=== PATIENT | male | born 1950 | race Caucasian/White ===

== ENCOUNTER → 2017-06-04 | Outpatient (CLI) | payer MEDICARE | END | disposition home or self-care (01) | LOC: US 12:12 | DX: E04.2 Nontoxic multinodular goiter (principal); I10 Essential (primary) hypertension; E11.9 Type 2 diabetes mellitus without complications | CPT/HCPCS: 60300; 76942; 88173; 88305 ==

== ENCOUNTER → 2017-06-26 | Outpatient (CLI) | payer MEDICARE | END | disposition home or self-care (01) | LOC: KCIC 08:56 | DX: K22.4 Dyskinesia of esophagus (principal); K44.9 Diaphragmatic hernia without obstruction or gangrene; K21.9 Gastro-esophageal reflux disease without esophagitis | CPT/HCPCS: 74220 ==

== ENCOUNTER → 2017-10-06 | Outpatient (CLI) | payer MEDICARE | END | disposition home or self-care (01) | LOC: KCIC MRI 09:52 | DX: M48.061 Spinal stenosis, lumbar region without neurogenic claudication (principal); M51.36 Other intervertebral disc degeneration, lumbar region; D18.09 Hemangioma of other sites; I10 Essential (primary) hypertension; E11.9 Type 2 diabetes mellitus without complications | CPT/HCPCS: 72148 ==

== ENCOUNTER 2017-10-17 12:11 | Emergency (ER) | payer MEDICARE ==
[2017-10-17] MEDS: SODIUM PHOSPHATES 19/7GM 133 ML ENEMA. PR (13:27)
== END 2017-10-17 14:55 | disposition home or self-care (01) ==
LOC: ER 12:11
DX: K59.00 Constipation, unspecified (principal); K62.89 Other specified diseases of anus and rectum; I10 Essential (primary) hypertension; E78.00 Pure hypercholesterolemia, unspecified; E11.9 Type 2 diabetes mellitus without complications; Z90.49 Acquired absence of other specified parts of digestive tract; Z98.890 Other specified postprocedural states
CPT/HCPCS: 99282

== ENCOUNTER → 2017-10-22 | Outpatient (CLI) | payer MEDICARE ==
[~2017-10-22] MED LIST: IOHEXOL 180 MG/ML 10 ML VIAL.; LIDOCAINE 1% PF 2 ML VIAL.; methylPREDNISolone ACETATE 40 MG/ML VIAL.; methylPREDNISolone ACETATE 80 MG/ML VIAL.
== END ==
LOC: PNCL 08:32
DX: M51.16 Intervertebral disc disorders with radiculopathy, lumbar region (principal); M48.061 Spinal stenosis, lumbar region without neurogenic claudication; I10 Essential (primary) hypertension; E11.9 Type 2 diabetes mellitus without complications; E78.00 Pure hypercholesterolemia, unspecified; K44.9 Diaphragmatic hernia without obstruction or gangrene; K21.9 Gastro-esophageal reflux disease without esophagitis; D64.9 Anemia, unspecified; Z87.39 Personal history of other diseases of the musculoskeletal system and connective tissue; Z86.711 Personal history of pulmonary embolism; Z98.890 Other specified postprocedural states; Z90.49 Acquired absence of other specified parts of digestive tract; Z85.46 Personal history of malignant neoplasm of prostate; Z98.52 Vasectomy status
CPT/HCPCS: 62323; J1030; J1040; Q9965

== ENCOUNTER → 2017-11-05 | Outpatient (CLI) | payer MEDICARE | END | disposition home or self-care (01) | LOC: PNCL 08:22 | DX: M51.16 Intervertebral disc disorders with radiculopathy, lumbar region (principal); M48.061 Spinal stenosis, lumbar region without neurogenic claudication; M96.1 Postlaminectomy syndrome, not elsewhere classified | CPT/HCPCS: G0463 ==

== ENCOUNTER 2017-11-21 17:39 | Emergency (ER) | payer MEDICARE ==
[2017-11-21] MEDS: diazePAM 5 MG TABLET PO (18:57)
[2017-11-21] MEDS: MORPHINE SULFATE 10 MG/ML VIAL. IM (18:58)
[2017-11-21] MEDS: KETOROLAC 60 MG/2 ML INJ. IM (18:59)
== END 2017-11-21 19:04 | disposition home or self-care (01) ==
LOC: ER 19:04
DX: G89.29 Other chronic pain (principal); M54.42 Lumbago with sciatica, left side; E78.00 Pure hypercholesterolemia, unspecified; E11.9 Type 2 diabetes mellitus without complications; I10 Essential (primary) hypertension; Z90.49 Acquired absence of other specified parts of digestive tract; Z98.890 Other specified postprocedural states
CPT/HCPCS: 96372; 99284; J1885; J2270

== ENCOUNTER → 2017-12-01 | Outpatient (CLI) | payer MEDICARE | END | disposition home or self-care (01) | LOC: PNCL 09:57 | DX: M51.16 Intervertebral disc disorders with radiculopathy, lumbar region (principal); M48.061 Spinal stenosis, lumbar region without neurogenic claudication; M96.1 Postlaminectomy syndrome, not elsewhere classified; E78.00 Pure hypercholesterolemia, unspecified; I10 Essential (primary) hypertension; Z86.711 Personal history of pulmonary embolism; G47.30 Sleep apnea, unspecified; Z90.49 Acquired absence of other specified parts of digestive tract; K21.9 Gastro-esophageal reflux disease without esophagitis; Z85.46 Personal history of malignant neoplasm of prostate; Z98.52 Vasectomy status; M17.0 Bilateral primary osteoarthritis of knee; E11.9 Type 2 diabetes mellitus without complications; D64.9 Anemia, unspecified; Z98.890 Other specified postprocedural states; Z82.3 Family history of stroke; Z83.3 Family history of diabetes mellitus; Z80.0 Family history of malignant neoplasm of digestive organs; Z80.51 Family history of malignant neoplasm of kidney; Z80.52 Family history of malignant neoplasm of bladder; Z82.49 Family history of ischemic heart disease and other diseases of the circulatory system; Z82.0 Family history of epilepsy and other diseases of the nervous system; Z79.84 Long term (current) use of oral hypoglycemic drugs | CPT/HCPCS: 62323; J1030; J1040; Q9965 ==

== ENCOUNTER → 2017-12-03 | Outpatient (CLI) | payer MEDICARE | END | disposition home or self-care (01) | LOC: US 14:54 | DX: E04.2 Nontoxic multinodular goiter (principal) | CPT/HCPCS: 76536 ==

== ENCOUNTER → 2018-01-08 | Outpatient (CLI) | payer MEDICARE ==
[2017-11-21 18:27] VITALS: BP 134/74
[~2018-01-08] MED LIST changes: +ACET325T9 PO; +ASCO100T4 PO; +ASPI-630 PO; +ATEN50TA PO; +COLON HEALTH PO; +DIAZ5TAB PO; +DICL50TA4 PO; +DOCU-109 PO; +DULO30CA43 PO; +FAMO1TAB22 PO; +FERR159T3 PO; +FERR325T58 PO; +GABA-585 PO; +GABA-586 PO; +GABA600T2 PO; +GEMF600T3 PO; +GING250C PO; +GLIP5TAB10 PO; +GLYB5TAB3 PO; +HYDR-971 PO; +INSU100I18 SQ; -IOHEXOL 180 MG/ML 10 ML VIAL.; +LACT1CAP29 PO; +LACT1CAP8 PO; -LIDOCAINE 1% PF 2 ML VIAL.; +LIRA0.6P2 SQ; +LISI1TAB5 PO; +LORA10TA3 PO; +METF10003 PO; +METF500T5 PO; +METH-38 PO; +MULT-404 PO; +MULT-658 PO; +MULT-690 PO; +NAPR-634 PO; +NAPR500T8 PO; +NPH,100V5 SQ; +OMEG1CAP27 PO; +OMEG1CAP6 PO; +OMEP40CA5 PO; +RANI300T3 PO; +SIMV20TA PO; +SIMV20TA3 PO; +VITA400T6 PO; -methylPREDNISolone ACETATE 40 MG/ML VIAL.; -methylPREDNISolone ACETATE 80 MG/ML VIAL.
== END | disposition home or self-care (01) ==
LOC: SURGPAT 10:34
PROVIDERS: ATTEND Neurological Surgery
DX: Z01.818 Encounter for other preprocedural examination (principal); M48.062 Spinal stenosis, lumbar region with neurogenic claudication; M54.16 Radiculopathy, lumbar region; M17.0 Bilateral primary osteoarthritis of knee; I10 Essential (primary) hypertension; E11.9 Type 2 diabetes mellitus without complications; E78.5 Hyperlipidemia, unspecified; E78.00 Pure hypercholesterolemia, unspecified; K21.9 Gastro-esophageal reflux disease without esophagitis; I25.10 Atherosclerotic heart disease of native coronary artery without angina pectoris; Z79.84 Long term (current) use of oral hypoglycemic drugs; Z85.46 Personal history of malignant neoplasm of prostate; Z85.89 Personal history of malignant neoplasm of other organs and systems; Z87.39 Personal history of other diseases of the musculoskeletal system and connective tissue; Z90.49 Acquired absence of other specified parts of digestive tract; Z80.52 Family history of malignant neoplasm of bladder; Z80.51 Family history of malignant neoplasm of kidney; Z82.0 Family history of epilepsy and other diseases of the nervous system; Z83.3 Family history of diabetes mellitus; Z80.0 Family history of malignant neoplasm of digestive organs
CPT/HCPCS: 36415; 87641

== ENCOUNTER 2018-01-15 07:24 | Day surgery (SDC) | payer MEDICARE ==
--- NOTE | 2018-01-14 15:02 | HP ---
ADMIT DATE: 01/15/2018 HISTORY OF PRESENT ILLNESS: The patient is a pleasant 67-year-old who in 1996 underwent lumbar microsurgery and did well from that. Over the last 2 years, he has developed increasing lower back pain and more recently pain which radiates into his left anterior lateral thigh and leg. Most of the pain tends to stop at the knee, but some pain extends below the knee. He feels as though there is weakness in his left leg. The problem became very severe in August of this year. He says his pain is a 6/10 constantly. Walking or lifting markedly increases his pain. He does get some relief by sitting. He has been taking Aleve. There is no problem on the right side, and he has had epidural steroid injections in September. He said the first injection did help him, the second one did not. PAST MEDICAL HISTORY: Anemia, arthritis, cancer, hypertension, radiation, shingles, tonsillitis, sleep apnea, diabetes. PAST SURGICAL HISTORY: Pneumonia, cholecystectomy, bilateral hernia repair in 1991, ruptured colon 1996, lumbar surgery 1996, left shoulder repair in 2009, left knee scope 1999, seed implants for prostate cancer in 2007. FAMILY HISTORY: Cancer, diabetes, hypertension, migraine headaches and spine problems. SOCIAL HISTORY: Retired. . Rarely exercises. Denies substance abuse. Denies tobacco use. Drinks alcohol 1-2 times per year. Drinks soda daily. ALLERGIES: No known drug allergies. CURRENT MEDICATIONS: Metformin, glipizide, atenolol, lisinopril, simvastatin, gabapentin, Novolin, Centrum Silver, fish oil, vitamin C, iron, naproxen, Aleve. REVIEW OF SYSTEMS: A 12-point review of systems was obtained and is noncontributory except that mentioned above. PHYSICAL EXAMINATION: NEUROSURGERY EXAMINATION: GENERAL APPEARANCE: Alert, pleasant, no acute distress. HEAD: Normocephalic and atraumatic. SKIN: Warm and dry. MUSCULOSKELETAL: Lumbar paraspinal muscle bulk is normal, restricted range of motion of the lumbar spine, [id number] tenderness of lower lumbar spine with palpation, normal range of motion of the lower extremities bilaterally. EXTREMITIES: No clubbing, cyanosis or edema. NEUROLOGIC: Alert and oriented times 3, normal recent and remote memory, strength 5/5 in bilateral lower extremities, sensory was intact to light touch in bilateral lower extremities with decrease in the left anterior lateral thigh, reflexes are present and symmetric in the lower extremities bilaterally, negative straight raising bilaterally, normal gait. IMAGING: I reviewed a lumbar MRI scan. On that study at L3-L4, there is disc bulging, which when combined with degenerative thickened ligamentum flavum results in moderate central canal stenosis and moderate lateral recess narrowing on the left. ASSESSMENT/ PLAN: Based on his symptoms, I feel the problem is primarily lateral recess stenosis at L3-L4. He failed conservative measures. I spoke with him about treatment options. One option would be to try microdecompression at L3-L4 on the left to see this will help him. We spoke about the risks, technique and expected post op course. He gerhard like to go ahead. CELINE NIETO MD DR: RONAK/kallie JOB#: [id number] / [id number] MJ
[~2018-01-15] VITALS: Ht 182.9 cm; Wt 118.8 kg
[~2018-01-15 07:24] MED LIST changes: +BACITRACIN 50,000 UNIT in IV NORMAL SALINE 1000ML BAG 1,000 ML IRR ONE; +BUPIVAC MPF-EPI 0.5%-1:200000 30 ML VIAL. INJ ONE; -DOCU-109 PO; +GELATIN SPONGE SIZE 100. ONE; -HYDR-971 PO; +HYDROmorphone 2 MG/ML VIAL IV PRN; +IV RINGERS,LACTATED 1000ML 1,000 ML IV SCH; +KETOROLAC 60 MG/2 ML INJ FOR OR. ONE; +LIDOCAINE 1% PF 2 ML VIAL. ID PRN; -METH-38 PO; +MORPHINE SULFATE 2 MG/ML VIAL. IV PRN; +ONDANSETRON PF 4 MG/2 ML VIAL. IV PRN; +PROCHLORPERAZINE 10 MG/2 ML VIAL. IV PRN; +THROMBIN TOPICAL 20,000 UNIT SPRAY.SYRN KIT TP ONE; +fentaNYL PF VIAL 100 MCG/2 ML VIAL IV PRN
[2018-01-15] MEDS ORDERED: ONDANSETRON PF 4 MG/2 ML VIAL. ONE (07:51)
[2018-01-15] MEDS ORDERED: ROCURONIUM 50 MG/5 ML VIAL. ONE (07:51)
[2018-01-15] MEDS ORDERED: PROPOFOL 20 ML IV ONE (07:51)
[2018-01-15] MEDS ORDERED: PROPOFOL 50 ML IV ONE ×2 (07:51→10:11)
[2018-01-15] MEDS ORDERED: DEXAMETHASONE SOD PHOS 20 MG/5 ML VIAL. ONE (07:51)
[2018-01-15] MEDS ORDERED: fentaNYL PF VIAL 100 MCG/2 ML VIAL ONE (07:51)
[2018-01-15] MEDS ORDERED: LIDOCAINE 2% PF Vial for OR 5 ML VIAL. ONE (07:51)
[2018-01-15] MEDS ORDERED: MIDAZOLAM HCL/PF 2 MG/2 ML VIAL. ONE (07:54)
[2018-01-15] MEDS ORDERED: REMIFENTANIL 1 MG VIAL. IV ONE (08:00)
[2018-01-15] MEDS ORDERED: ePHEDrine PF IN SALINE 50 MG/5 ML DISP.SYRIN IV ONE (09:22)
[2018-01-15] MEDS ORDERED: PHENYLEPHRINE in 0.9% NACL PF 1 MG/10 ML SYRINGE. IV ONE (09:36)
[2018-01-15] MEDS ORDERED: PHENYLEPHRINE 10 MG/ML VIAL. ONE (09:36)
[2018-01-15] MEDS ORDERED: GLYCOPYRROLATE 1 MG/5 ML VIAL. ONE (09:39)
[2018-01-15] MEDS ORDERED: DESFLURANE 61 TO 120 MINUTES IH ONE (10:42)
[2018-01-15] MEDS ORDERED: NEOSTIGMINE METHYLSULFATE 5 MG/5 ML SYRINGE. ONE (10:42)
--- NOTE | 2018-01-15 11:03 | DISCH ---
DISCHARGE INSTRUCTIONS Condition on Discharge Condition on Discharge: Stable Activity After Discharge Activity Instructions for Disc: Activity as tolerated, Avoid exertion Other activity instructions: no driving for a week Bathing Instructions: Shower-keep dressing dry Lifting Instructions after Dis: No heavy lifting, No pulling or pushing, Do not lift >10 pounds Weight Bearing Status after Di: As tolerated Diet after Discharge Diet after Discharge: Diabetic No Calorie Level Additional Diet Restrictions: resume home diet Wound Incision Care Wound/Incision Care: Ice to area for comfort Other wound/incision instructi: may remove dressing in 48 hrs if dry then may shower- no soaking Checks after Discharge Checks after discharge: Check blood sugar, ac/hs Contacting the DRAngelita after DC Call your doctor for: Concerns you may have Follow-Up Follow up with: Dr. Nieto's nurse in 2 weeks [phone] CELINE NIETO MD Jan 15, 2018 11:03
[2018-01-15] MEDS ORDERED: HYDR-971 PO (11:07)
[2018-01-15] MEDS ORDERED: DOCU-109 PO (11:07)
[2018-01-15] MEDS ORDERED: METH-38 PO (11:07)
--- NOTE | 2018-01-15 11:42 | OP ---
DATE OF SURGERY: 01/15/2018 PREOPERATIVE DIAGNOSIS: Lateral recess stenosis and radiculopathy, L3-L4, left. POSTOPERATIVE DIAGNOSIS: Lateral recess stenosis and radiculopathy, L3-L4, left. OPERATION PERFORMED: Hemilaminotomy and microdecompression L3-L4 left with decompression of left L4 nerve root. The operation was done with EMG monitoring, fluoroscopy, microscopic dissection. ONLINE CONTENT EDITOR: ANIRUDH Hoffmann assisted with surgery. She assisted with the exposure, the microdecompression as well as closure. OPERATIVE INDICATIONS: The patient is a pleasant 67-year-old man who developed severe intractable back and left leg pain and was found to have significant lateral stenosis at L3-L4. I recommended lumbar microsurgery. I spoke about the surgery and the risks, technique and expected postoperative course and he wished to go ahead. DESCRIPTION OF PROCEDURE: Following general endotracheal anesthesia, the patient was positioned prone on the Apolinar table. His lumbar region was prepped and draped in standard fashion. MIKALA hose and AV impulse boots were applied for DVT prophylaxis. A microscope was draped. Fluoroscopy was draped and brought in the field. Monitoring was established. Ancef 2 grams was given less than 1 hour prior to initiation of the surgery. Using fluoroscopic guidance, a midline posterior incision was made. Dissection carried down through skin and subcutaneous tissue and the paraspinal muscles reflected and a Ward micro disk retractor was placed. The microscope was brought in and the remainder of surgery done with the microscope using microscopic technique. I burred down a generous hemilaminotomy with a high-speed air drill. The ligamentum flavum then was freed up from the edges and peeled and from medial toward laterally. I did perform a partial foraminotomy with a high-speed air drill and supplemented this with a micro Kerrison. As I worked, the region became very well decompressed. The dura was under considerable pressure from hypertrophic bone and ligament. I gently retracted the nerve root and dura medially with a micro nerve root retractor. There was a very firm disk and no diskectomy was warranted. I did coagulate a few epidural veins. As I worked, the region became very well decompressed. I then irrigated with antibiotic solution. I did use small amounts of bone wax as well as a bipolar cautery for hemostasis. I removed the retractor and obtained hemostasis in the muscle and irrigated. I then closed the wound in layers with absorbable suture and the skin was closed with 4-0 subcuticular stitch. The surgery went very well and the patient was awakened uneventfully. I was quite pleased with the surgery. CELINE NIETO MD DR: RONAK/kallie JOB#: [id number] / [id number]
[2018-01-15] MEDS ORDERED: HYDROcodone/APAP 5/325MG 1 TAB TABLET PO ONE (11:45)
[2018-01-15] MEDS ORDERED: INSULIN ASPART 100 UNIT/ML 10ML VIAL. SQ ONE (12:15)
[2018-01-15 12:47] VITALS: BP 130/80
--- NOTE | 2018-01-18 18:06 | PATHOLOGY ---
[facility] Accession Number: [id number] . 01 Material submitted: . LUMBAR DECOMPRESSION, L3-4 . 01 Clinical history: . Lumbar stenosis, radiculopathy. . 02 Diagnosis: Segments of fibrocartilaginous, adipose, and skeletal muscle tissue and bone, lumbar decompression: - Degenerative changes of fibrocartilaginous tissue. ([facility]; 01/18/2018) QMS/01/18/2018 . 02 Comment: There is no evidence of an acute inflammatory process or malignancy. . 02 Electronically signed: . Puneet Wells MD, Pathologist NPI- [id number] . 01 Gross description: . Received in formalin labeled "Tang Giang., Dearl, lumbar decompression" is a 5.2 x 3.1 x 0.7 cm aggregate of zepeda-white soft tissue and bone fragments. Composite Engineer sections of the specimen are submitted in cassette A1 following decalcification. ([facility]; 01/17/2018) SYC/SYC . 02 Pathologist provided ICD-10: M51.36 . 02 CPT . 057227, [id number] Performed at: 01 [facility] [address], [place] [id number] MD Jett Irvin MD Phone: [phone] Performed at: 02 [facility] [address], [place] [id number] MD Puneet Wells MD Phone: [phone]
== END 2018-01-15 13:55 | disposition home or self-care (01) ==
LOC: SURG 07:24
PROVIDERS: ATTEND Neurological Surgery
DX: M48.061 Spinal stenosis, lumbar region without neurogenic claudication (principal); M51.16 Intervertebral disc disorders with radiculopathy, lumbar region; I10 Essential (primary) hypertension; E11.9 Type 2 diabetes mellitus without complications; G47.30 Sleep apnea, unspecified; D64.9 Anemia, unspecified; M19.90 Unspecified osteoarthritis, unspecified site; Z87.01 Personal history of pneumonia (recurrent); Z90.49 Acquired absence of other specified parts of digestive tract; Z98.890 Other specified postprocedural states; Z85.46 Personal history of malignant neoplasm of prostate; Z83.3 Family history of diabetes mellitus; Z82.49 Family history of ischemic heart disease and other diseases of the circulatory system; Z72.89 Other problems related to lifestyle; Z79.899 Other long term (current) drug therapy; Z79.84 Long term (current) use of oral hypoglycemic drugs
CPT/HCPCS: 63030; 82962; 88304; 88311; 97162; 97530; G8978; G8979; G8980; J0690; J1100; J1885; J2001; J2250; J2370; J2405; J2704; J2710; J3010; J3490; J7030; 76000; A7015

== ENCOUNTER → 2018-06-03 | Outpatient (CLI) | payer MEDICARE, OTHER ==
[~2018-06-03] MED LIST changes: +ASPI325T11 PO; -BACITRACIN 50,000 UNIT in IV NORMAL SALINE 1000ML BAG 1,000 ML IRR ONE; -BUPIVAC MPF-EPI 0.5%-1:200000 30 ML VIAL. INJ ONE; +DOCU-109 PO; -DULO30CA43 PO; +DULO30CA44 PO; -GABA-586 PO; +GABA300C18 PO; -GABA600T2 PO; +GABA600T7 PO; -GELATIN SPONGE SIZE 100. ONE; -GEMF600T3 PO; +GEMF600T8 PO; +HYDR-3164 PO; -HYDROmorphone 2 MG/ML VIAL IV PRN; -IV RINGERS,LACTATED 1000ML 1,000 ML IV SCH; -KETOROLAC 60 MG/2 ML INJ FOR OR. ONE; -LIDOCAINE 1% PF 2 ML VIAL. ID PRN; -METF10003 PO; +METF10007 PO; +METF500T16 PO; -METF500T5 PO; +METH-38 PO; -MORPHINE SULFATE 2 MG/ML VIAL. IV PRN; +OMEP20CA10 PO; -ONDANSETRON PF 4 MG/2 ML VIAL. IV PRN; -PROCHLORPERAZINE 10 MG/2 ML VIAL. IV PRN; -THROMBIN TOPICAL 20,000 UNIT SPRAY.SYRN KIT TP ONE; +TOPI25TA52 PO; -fentaNYL PF VIAL 100 MCG/2 ML VIAL IV PRN
--- NOTE | 2018-06-03 12:05 | CARD ---
MR#: [id number] Date of Study: 06/03/2018 Ordering Physician: TAMIKO GALARZA, Referring Physician: TAMIKO GALARZA Tech: Eneida Cardozo RDCS APPROVED REPORT EXAM: Two-dimensional and M-mode echocardiogram with Doppler and color Doppler. Other Information Quality : AverageHR: 58bpm Rhythm : NSR INDICATION Hypertension/HCVD 2D DIMENSIONS RVDd3.0 (2.9-3.5cm)Left Atrium(2D)3.8 (1.6-4.0cm) IVSd1.2 (0.7-1.1cm)Aortic Root(2D)3.8 (2.0-3.7cm) LVDd4.9 (3.9-5.9cm)LVOT Diameter2.2 (1.8-2.4cm) PWd0.9 (0.7-1.1cm)LVDs3.5 (2.5-4.0cm) FS (%) 28.0 %SV61.9 ml LVEF(%)54.1 (>50%) M-Mode DIMENSIONS Left Atrium(MM)3.90 (2.5-4.0cm)Aortic Root3.98 (2.2-3.7cm) Aortic Valve AoV Peak Bull.119.0cm/sAoV VTI30.5cm AO Peak GR.5.7mmHgLVOT Peak Bull.101.3cm/s AO Mean GR.4mmHgAVA (VMAX)3.15cm2 ROBERTO CARLOS (VTI)3.00cm2 Mitral Valve MV E Qrapuqvs52.2cm/sMV DECEL [id number] MV A Pgqibzjq86.1cm/sE/A Ratio0.7 MV A Owjotzeu219wq Pulmonary Valve PV Peak Tbrnfihe06.8cm/s LEFT VENTRICLE The left ventricle is normal size. Proximal septal thickening is noted. The left ventricular systolic function is normal. The Ejection Fraction is 55-60%. There is normal LV segmental wall motion. Trans mitral Doppler flow pattern is Grade I-abnormal relaxation pattern. RIGHT VENTRICLE The right ventricle is normal size. There is normal right ventricular wall thickness. The right ventr icular systolic function is normal. ATRIA The left atrium size is normal. The right atrium size is normal. The interatrial septum is intact wit h no evidence for an atrial septal defect or patent foramen ovale as noted on 2-D or Doppler imaging. AORTIC VALVE The aortic valve is normal in structure and function. The aortic valve is trileaflet. Doppler and Col or Flow revealed no significant aortic regurgitation. There is no significant aortic valvular stenosi s. MITRAL VALVE The mitral valve is normal in structure and function. There is no evidence of mitral valve prolapse. There is no mitral valve stenosis. Doppler and Color-flow revealed trace mitral regurgitation. TRICUSPID VALVE The tricuspid valve is normal in structure and function. Doppler and Color Flow revealed trace tricus pid regurgitation. There is no tricuspid valve prolapse or vegetation. There is no tricuspid valve st enosis. PULMONIC VALVE The pulmonary valve is normal in structure and function. Doppler and Color Flow revealed trace pulmon ic valvular regurgitation. There is no pulmonic valvular stenosis. GREAT VESSELS The aortic root is mildly enlarged. The ascending aorta is normal in size. The IVC is normal in size and collapses >50% with inspiration. PERICARDIAL EFFUSION There is no evidence of significant pericardial effusion. Critical Notification Critical Value: No <Conclusion> The left ventricular systolic function is normal. The Ejection Fraction is 55-60%. There is normal LV segmental wall motion. Transmitral Doppler flow pattern is Grade I-abnormal relaxation pattern. Trace mitral regurgitation. Trace tricuspid regurgitation. There is no evidence of significant pericardial effusion. Signed by : Tamiko Galarza, Electronically Approved : 06/03/2018 12:02:54
== END | disposition home or self-care (01) ==
LOC: ECHO 10:39 → MERGE 11:00
PROVIDERS: ATTEND Internal Medicine Cardiovascular Disease
DX: I10 Essential (primary) hypertension (principal)
CPT/HCPCS: 93306

== ENCOUNTER 2018-07-20 15:39 | Inpatient (IN) | payer MEDICARE, OTHER ==
[~2018-07-20] VITALS: Ht 182.9 cm; Wt 89.1 kg
[~2018-07-20 15:39] MED LIST changes: -ASPI325T11 PO; +DULO30CA43 PO; -DULO30CA44 PO; -OMEP20CA10 PO; -TOPI25TA52 PO
[2018-07-20] MEDS ORDERED: IV NORMAL SALINE 1000ML BAG 1,000 ML IV ONE (16:00)
--- NOTE | 2018-07-20 16:03 | PHYS DOC ---
Past Medical History Past Medical History: Cancer, Diabetes-Type II, High Cholesterol, Hypertension , Other Additional Past Medical Histor: CARDIONEUROGENIC SYNCOPE, hernia Past Surgical History: Appendectomy, Cholecystectomy, Other Additional Past Surgical Histo: BACK SURGERY, LT KNEE SURGERY, COLON RESECTION, Alcohol Use: Rarely Drug Use: None Adult General Chief Complaint Chief Complaint: SYNCOPE HPI HPI Patient is a 68 year old male with history of diabetes, hypertension, high cholesterol, who presents to the ED today complaining of a syncope episode. Patient states he stood up from sitting position and was ambulating to the front room, he got dizzy, and passed out landing half of his body on a bed. Patient states he has had multiple syncope episodes before, he states he has been worked up and they found out he had cardiac neurogenic syncope, he states he has not fainted for a very long time. He states the last time he passed out his potassium was either too low too high. Patient denies any dizziness right now. Denies any headache or chest pain. PCP Dr. Comfort Lazar Review of Systems Review of Systems Constitutional: Denies fever or chills [] Eyes: Denies change in visual acuity, redness, or eye pain [] HENT: Denies nasal congestion or sore throat [] Respiratory: Denies cough or shortness of breath [] Cardiovascular: No additional information not addressed in HPI [] GI: Denies abdominal pain, nausea, vomiting, bloody stools or diarrhea [] : Denies dysuria or hematuria [] Musculoskeletal: Denies back pain or joint pain [] Integument: Denies rash or skin lesions [] Neurologic: Reports syncope. Denies headache, focal weakness or sensory changes [] All other systems were reviewed and found to be within normal limits, except as documented in this note. Current Medications Current Medications Current Medications Medications (Trade) Dose Ordered Sig/Donnell Start Time Stop Time Status Last Admin Dose Admin Sodium Chloride 1,000 ml @ 1,000 mls/hr 1X ONCE 07/20/18 16:00 07/20/18 16:59 DC 07/20/18 16:51 1,000 MLS/HR Allergies Allergies Allergies Coded Allergies Type Severity Reaction Last Updated Verified No Known Drug Allergies 01/15/18 No Physical Exam Physical Exam Constitutional: Well developed, well nourished, no acute distress, non-toxic appearance. [] HENT: Normocephalic, atraumatic, bilateral external ears normal, oropharynx moist, no oral exudates, nose normal. [] Eyes: PERRLA, EOMI, conjunctiva normal, no discharge. [] Neck: Normal range of motion, no tenderness, supple, no stridor. [] Cardiovascular:Heart rate regular rhythm, no murmur [] Lungs & Thorax: Bilateral breath sounds clear to auscultation [] Abdomen: Bowel sounds normal, soft, no tenderness, no masses, no pulsatile masses. [] Skin: Warm, dry, no erythema, no rash. [] Back: No tenderness, no CVA tenderness. [] Extremities: No tenderness, no cyanosis, no clubbing, ROM intact, no edema. [] Neurologic: Alert and oriented X 3, normal motor function, normal sensory function, no focal deficits noted. Cranial nerves II through XII intact Psychologic: Affect normal, judgement normal, mood normal. [] Current Patient Data Vital Signs Vital Signs Date Time Temp Pulse Resp B/P (MAP) Pulse Ox O2 Delivery O2 Flow Rate FiO2 07/20/18 16:00 63 18 137/76 (96) 95 Room Air 07/20/18 15:45 98.3 98.3 Lab Values Laboratory Tests Test 07/20/18 16:00 White Blood Count 3.2 x10^3/uL (4.0-11.0) L Red Blood Count 4.83 x10^6/uL (4.30-5.70) Hemoglobin 14.7 g/dL (13.0-17.5) Hematocrit 43.9 % (39.0-53.0) Mean Corpuscular Volume 91 fL (79-100) Mean Corpuscular Hemoglobin 30 pg (25-35) Mean Corpuscular Hemoglobin Concent 33 g/dL (31-37) Red Cell Distribution Width 13.5 % (11.5-14.5) Platelet Count 153 x10^3/uL (140-400) Neutrophils (%) (Auto) 49 % (31-73) Lymphocytes (%) (Auto) 39 % (24-48) Monocytes (%) (Auto) 10 % (0-9) H Eosinophils (%) (Auto) 1 % (0-3) Basophils (%) (Auto) 1 % (0-3) Neutrophils # (Auto) 1.6 x10^3uL (1.8-7.7) L Lymphocytes # (Auto) 1.3 x10^3/uL (1.0-4.8) Monocytes # (Auto) 0.3 x10^3/uL (0.0-1.1) Eosinophils # (Auto) 0.0 x10^3/uL (0.0-0.7) Basophils # (Auto) 0.0 x10^3/uL (0.0-0.2) Prothrombin Time 15.0 SEC (11.7-14.0) H Prothrombin Time INR 1.2 (0.8-1.1) H Sodium Level 144 mmol/L (136-145) Potassium Level 4.1 mmol/L (3.5-5.1) Chloride Level 106 mmol/L (98-107) Carbon Dioxide Level 28 mmol/L (21-32) Anion Gap 10 (6-14) Blood Urea Nitrogen 17 mg/dL (8-26) Creatinine 0.8 mg/dL (0.7-1.3) Estimated GFR (Cockcroft-Gault) 95.8 BUN/Creatinine Ratio 21 (6-20) H Glucose Level 192 mg/dL (70-99) H Calcium Level 8.5 mg/dL (8.5-10.1) Magnesium Level 1.8 mg/dL (1.8-2.4) Total Bilirubin 0.5 mg/dL (0.2-1.0) Aspartate Amino Transferase (AST) 16 U/L (15-37) Alanine Aminotransferase (ALT) 19 U/L (16-63) Alkaline Phosphatase 60 U/L (46-116) Creatine Kinase 27 U/L (39-308) L Creatine Kinase MB (Mass) < 0.5 ng/mL (0.0-3.6) Creatine Kinase MB Relative Index % (0-4) Troponin I Quantitative < 0.017 ng/mL (0.000-0.055) MK-Mxf-Y-Type Natriuretic Peptide 169 pg/mL (0-124) H Total Protein 6.0 g/dL (6.4-8.2) L Albumin 3.3 g/dL (3.4-5.0) L Albumin/Globulin Ratio 1.2 (1.0-1.7) Lipase 180 U/L (73-393) Thyroid Stimulating Hormone (TSH) 0.490 uIU/mL (0.358-3.74) Laboratory Tests 07/20/18 16:00 Laboratory Tests 07/20/18 16:00 EKG EKG 16:[address] Childress sinus rhythm heart rate 58 no STEMI[] Radiology/Procedures Radiology/Procedures []PROCEDURE: CT HEAD WO CONTRAST EXAM: Head CT without contrast. HISTORY: Syncope. TECHNIQUE: Computed tomographic images of the head were obtained without contrast. *One or more of the following individualized dose reduction techniques were utilized for this examination: 1. Automated exposure control. 2. Adjustment of the mA and/or kV according to patient size. 3. Use of iterative reconstruction technique. COMPARISON: Brain MRI dated 10/14/2015. FINDINGS: There is no acute or subacute extra-axial or intraparenchymal hemorrhage. There is no mass effect or midline shift. There is no hydrocephalus. There are scattered areas of hypodensity within the cerebral white matter, likely due to chronic small vessel disease. There is encephalomalacia within the left cerebellum due to chronic infarction. There is mild cerebral volume loss. There is a suspected prominent left choroid fissure cyst. The visualized portions of the orbits, paranasal sinuses and mastoid air cells are unremarkable. No suspicious calvarial lesion is seen. IMPRESSION: 1. No acute intercranial finding. Note is made that MRI is more sensitive for acute infarction. 2. Chronic infarct within the left cerebellum. 3. Scattered areas of hypodensity within the cerebral white matter, a nonspecific finding likely due to chronic small vessel disease. Electronically signed by: Anisa Gotti MD (07/20/2018 4:41 PM) [facility] DICTATED and SIGNED BY: ANISA GOTTI MD DATE: 07/20/18 0609 Course & Med Decision Making Course & Med Decision Making Pertinent Labs and Imaging studies reviewed. (See chart for details) This is a 68-year-old male patient presenting to the ED today to be evaluated for syncope episode. He has history of cardiac neurogenic syncope. Patient's cardiac workup is negative. CT of the head is negative. CBC with a WBC of 3.2, CMP with glucose of 192, anion gap is normal. Vitals are stable. Chest x-rays negative. Patient was given IV fluids. No dizziness, feeling better. Consulted with Dr. 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 Departure Departure Impression: Primary Impression: Syncope Disposition: ADMITTED INPATIENT Condition: STABLE Referrals: COMFORT LAZAR MD (PCP) Problem Qualifiers Primary Impression: Syncope Syncope type: unspecified Qualified Codes: R55 - Syncope and collapse LAYNE CONTRERAS APRN Jul 20, 2018 16:03
--- NOTE | 2018-07-20 16:27 | RAD ---
PORTABLE CHEST 1V Clinical indications: SYNCOPE COMPARISON: January 31, 2016. Findings: No acute lung infiltrate or pleural effusion or pulmonary edema or lung mass or pneumothorax is seen. The heart size, pulmonary vasculature, mediastinum and both delmar are unremarkable. Impression: No acute radiographic abnormality is seen. Electronically signed by: Vignesh Russ MD (07/20/2018 4:24 PM) [facility]
[2018-07-20 16:32] LABS: BASO % 1 % (0-3); EOS % 1 % (0-3); HEMATOCRIT 43.9 % (39.0-53.0); HEMOGLOBIN 14.7 g/dL (13.0-17.5); LYMPH # 1.3 x10^3/uL (1.0-4.8); LYMPH % 39 % (24-48); MEAN CORPUSCULAR HEMOGLOBIN 30 pg (25-35); MEAN CORPUSCULAR HGB CONC 33 g/dL (31-37); MEAN CORPUSCULAR VOLUME 91 fL (79-100); MONO # 0.3 x10^3/uL (0.0-1.1); MONO % 10 % (0-9); NEUT # 1.6 x10^3uL (1.8-7.7); NEUT % 49 % (31-73); PLATELET COUNT 153 x10^3/uL (140-400); RED BLOOD COUNT 4.83 x10^6/uL (4.30-5.70); RED CELL DISTRIBUTION WIDTH 13.5 % (11.5-14.5); WHITE BLOOD COUNT 3.2 x10^3/uL (4.0-11.0)
--- NOTE | 2018-07-20 16:44 | RAD ---
EXAM: Head CT without contrast. HISTORY: Syncope. TECHNIQUE: Computed tomographic images of the head were obtained without contrast. *One or more of the following individualized dose reduction techniques were utilized for this examination: 1. Automated exposure control. 2. Adjustment of the mA and/or kV according to patient size. 3. Use of iterative reconstruction technique. COMPARISON: Brain MRI dated 10/14/2015. FINDINGS: There is no acute or subacute extra-axial or intraparenchymal hemorrhage. There is no mass effect or midline shift. There is no hydrocephalus. There are scattered areas of hypodensity within the cerebral white matter, likely due to chronic small vessel disease. There is encephalomalacia within the left cerebellum due to chronic infarction. There is mild cerebral volume loss. There is a suspected prominent left choroid fissure cyst. The visualized portions of the orbits, paranasal sinuses and mastoid air cells are unremarkable. No suspicious calvarial lesion is seen. IMPRESSION: 1. No acute intercranial finding. Note is made that MRI is more sensitive for acute infarction. 2. Chronic infarct within the left cerebellum. 3. Scattered areas of hypodensity within the cerebral white matter, a nonspecific finding likely due to chronic small vessel disease. Electronically signed by: Anisa Kamara MD (07/20/2018 4:41 PM) [id number]
[2018-07-20 17:00] LABS: CALCIUM 8.5 mg/dL (8.5-10.1); CREATININE 0.8 mg/dL (0.7-1.3); GFR 95.8; POTASSIUM 4.1 mmol/L (3.5-5.1)
[2018-07-20 17:08] LABS: ALBUMIN 3.3 g/dL (3.4-5.0); ALBUMIN/GLOBULIN RATIO 1.2 (1.0-1.7); MAGNESIUM 1.8 mg/dL (1.8-2.4); TOTAL BILIRUBIN 0.5 mg/dL (0.2-1.0)
[2018-07-20 17:50] LABS: CREATINE KINASE 27 U/L (39-308)
[2018-07-20] MEDS ORDERED: ONDANSETRON PF 4 MG/2 ML VIAL. IV PRN (18:15)
[2018-07-20] MEDS ORDERED: ACETAMINOPHEN 325 MG TABLET. PO PRN (18:15)
[2018-07-20 19:35] VITALS: BP 160/92
[2018-07-20] MEDS ORDERED: OMEP20CA10 PO (19:57)
[2018-07-20] MEDS ORDERED: DEXTROSE 50% 25 GM / 50ML DISP.SYRIN. IV PRN (20:45)
[2018-07-20] MEDS: GABAPENTIN 300 MG CAPSULE. PO SCH (21:05)
[2018-07-20] MEDS: SIMVASTATIN 20 MG TABLET PO SCH (21:05)
--- NOTE | 2018-07-20 21:51 | PDOC1 ---
History and Physical Date of Admission Date of Admission DATE: 07/20/18 TIME: 21:50 Identification/Chief Complaint Chief Complaint SEEN IN ER presents to the ED today complaining of a syncope episode. Patient states he stood up from sitting position IN A CHAIR and was ambulating to the front room, he got dizzy, and passed out landing half of his body on a bed. Patient states he has had multiple syncope episodes before, he states he has been worked up and they found out he had cardiac neurogenic syncope, he states he has not fainted for a very long time. UNSURE HOW LONG LOC, NO SEIZURE ACTIVITY DESCRIBED BY Past Medical History Past Medical History Past Medical History Past Medical History: Cancer, Diabetes-Type II, High Cholesterol, Hypertension , Other Additional Past Medical Histor: CARDIONEUROGENIC SYNCOPE, hernia Past Surgical History: Appendectomy, Cholecystectomy, Other Additional Past Surgical Histo: BACK SURGERY, LT KNEE SURGERY, COLON RESECTION, Alcohol Use: Rarely Drug Use: None family hx htn Cardiovascular: CAD, HTN, Syncope Pulmonary: Pulmonary embolus Endocrine: Diabetes Past Surgical History Past Surgical History: Colectomy Family History Family History: High Cholestrol, Hypertension Current Problem List Problem List Problems Medical Problems: (1) Syncope Status: Acute Current Medications Current Medications Current Medications Sodium Chloride 1,000 ml @ 1,000 mls/hr 1X ONCE IV Last administered on at 16:51; Start 07/20/18 at 16:00; Stop 07/20/18 at 16:59; Status DC Ondansetron HCl (Zofran) 4 mg PRN Q8HRS PRN IV NAUSEA/VOMITING; Start 07/20/18 at 18:15; Stop 07/21/18 at 18:14 Acetaminophen (Tylenol) 650 mg PRN Q4HRS PRN PO FEVER; Start 07/20/18 at 18:15 ; Stop 07/21/18 at 18:14 Gabapentin (Neurontin) 600 mg BID PO Last administered on 07/20/18at 21:05; Start 07/20/18 at 21:00 Pantoprazole Sodium (Protonix) 40 mg DAILYAC PO ; Start 07/21/18 at 07:30 Simvastatin (Zocor) 20 mg HS PO Last administered on 07/20/18at 21:05; Start at 21:00 Insulin Human Lispro (HumaLOG) 0-5 UNITS TIDWMEALS SQ ; Start 07/21/18 at 08:00 Dextrose (Dextrose 50%-Water Syringe) 12.5 gm PRN Q15MIN PRN IV SEE COMMENTS; Start 07/20/18 at 20:45 Active Scripts Active Reported Omeprazole 20 Mg Capsule.dr 20 Mg PO DAILY Metformin Hcl 1,000 Mg Tablet 1,000 Mg PO BIDWMEALS Gabapentin 600 Mg Tablet 600 Mg PO BID Zocor (Simvastatin) 20 Mg Tablet 20 Mg PO HS Atenolol 50 Mg Tablet 50 Mg PO BID Allergies Allergies: Coded Allergies: No Known Drug Allergies (Unverified , 01/15/18) ROS Review of System Review of Systems Review of Systems Constitutional: Denies fever or chills [] Eyes: Denies change in visual acuity, redness, or eye pain [] HENT: Denies nasal congestion or sore throat [] Respiratory: Denies cough or shortness of breath [] Cardiovascular: No additional information not addressed in HPI [] GI: Denies abdominal pain, nausea, vomiting, bloody stools or diarrhea [] : Denies dysuria or hematuria [] Musculoskeletal: Denies back pain or joint pain [] Integument: Denies rash or skin lesions [] Neurologic: Reports syncope. Denies headache, focal weakness or sensory changes [] 14 PT systems were reviewed and found to be within normal limits, except as documented Eyes: No Blurry vision, No Decreased vision, No Double vision, No Dry eyes, No Excessive tearing, No Eye Pain, No Itchy Eyes, No Loss of vision, No Photophobia , No Scotomata, No Uses contacts, No Uses glasses, No Other HEENT: No: Heacaches, Visual Changes, Hearing change, Nasal congestion, Nasal discharge, Oral lesions, Sinus pain, Sore Throat, Epistaxis, Sneezing, Snoring, Tinnitus, Vertigo, Vocal changes, Other Hematological and Lymphatic: No: Bleeding Problems, Blood Clots, Blood Transfusions, Brusing, Night Sweats, Pallor, Swollen Lymph Nodes, Other Respiratory: No: Cough, Hemoptysis, Orthopnea, Pleuritic Pain, Shortness of breath, SOB with excertion, Sputum Changes, Stridor, Tachypnea, Wheezing, Other Gastrointestinal: No Nausea, No Vomiting, No Abdominal Pain, No Diarrhea, No Constipation, No Melena, No Hematochezia, No Other Neurological: Yes Dizziness, Yes Gait Disturbance Physical Exam Physical Exam Physical Exam Physical Exam Constitutional: Well developed, well nourished, no acute distress, non-toxic appearance. [] HENT: Normocephalic, atraumatic, bilateral external ears normal, oropharynx moist, no oral exudates, nose normal. [] Eyes: PERRLA, EOMI, conjunctiva normal, no discharge. [] Neck: Normal range of motion, no tenderness, supple, no stridor. [] Cardiovascular:Heart rate regular rhythm, no murmur [] Lungs & Thorax: Bilateral breath sounds clear to auscultation [] Abdomen: Bowel sounds normal, soft, no tenderness, no masses, no pulsatile masses. [] Skin: Warm, dry, no erythema, no rash. [] Back: No tenderness, no CVA tenderness. [] Extremities: No tenderness, no cyanosis, no clubbing, ROM intact, no edema. [] Neurologic: Alert and oriented X 3, normal motor function, normal sensory function, no focal deficits noted. Cranial nerves II through XII intact Psychologic: Affect normal, judgement normal, mood normal. [] General: Alert, Oriented X3, Cooperative, No acute distress HEENT: Atraumatic, PERRLA, EOMI, Mucous membr. moist/pink Lungs: Clear to auscultation, Normal air movement Heart: S1S2, RRR, no thrills, no gallops, no murmurs Abdomen: Normal bowel sounds, Soft Rectal Exam: not examined PELVIC: Examination not indicated Extremities: No clubbing, No cyanosis Skin: No rashes, No breakdown Neuro: Normal speech, Cranial nerves 3-12 NL Psych/Mental Status: Mental status NL, Mood NL Vitals Vitals Vital Signs Date Time Temp Pulse Resp B/P (MAP) Pulse Ox O2 Delivery O2 Flow Rate FiO2 07/20/18 19:35 97.5 61 20 160/92 (114) 97 Room Air 97.5 Labs Labs Laboratory Tests Test 07/20/18 16:00 07/20/18 20:15 07/20/18 20:43 White Blood Count 3.2 x10^3/uL (4.0-11.0) Red Blood Count 4.83 x10^6/uL (4.30-5.70) Hemoglobin 14.7 g/dL (13.0-17.5) Hematocrit 43.9 % (39.0-53.0) Mean Corpuscular Volume 91 fL (79-100) Mean Corpuscular Hemoglobin 30 pg (25-35) Mean Corpuscular Hemoglobin Concent 33 g/dL (31-37) Red Cell Distribution Width 13.5 % (11.5-14.5) Platelet Count 153 x10^3/uL (140-400) Neutrophils (%) (Auto) 49 % (31-73) Lymphocytes (%) (Auto) 39 % (24-48) Monocytes (%) (Auto) 10 % (0-9) Eosinophils (%) (Auto) 1 % (0-3) Basophils (%) (Auto) 1 % (0-3) Neutrophils # (Auto) 1.6 x10^3uL (1.8-7.7) Lymphocytes # (Auto) 1.3 x10^3/uL (1.0-4.8) Monocytes # (Auto) 0.3 x10^3/uL (0.0-1.1) Eosinophils # (Auto) 0.0 x10^3/uL (0.0-0.7) Basophils # (Auto) 0.0 x10^3/uL (0.0-0.2) Prothrombin Time 15.0 SEC (11.7-14.0) Prothromb Time International Ratio 1.2 (0.8-1.1) Sodium Level 144 mmol/L (136-145) Potassium Level 4.1 mmol/L (3.5-5.1) Chloride Level 106 mmol/L (98-107) Carbon Dioxide Level 28 mmol/L (21-32) Anion Gap 10 (6-14) Blood Urea Nitrogen 17 mg/dL (8-26) Creatinine 0.8 mg/dL (0.7-1.3) Estimated GFR (Cockcroft-Gault) 95.8 BUN/Creatinine Ratio 21 (6-20) Glucose Level 192 mg/dL (70-99) Calcium Level 8.5 mg/dL (8.5-10.1) Magnesium Level 1.8 mg/dL (1.8-2.4) Total Bilirubin 0.5 mg/dL (0.2-1.0) Aspartate Amino Transf (AST/SGOT) 16 U/L (15-37) Alanine Aminotransferase (ALT/SGPT) 19 U/L (16-63) Alkaline Phosphatase 60 U/L (46-116) Creatine Kinase 27 U/L (39-308) Creatine Kinase MB (Mass) < 0.5 ng/mL (0.0-3.6) Creatine Kinase MB Relative Index % (0-4) Troponin I Quantitative < 0.017 ng/mL (0.000-0.055) < 0.017 ng/mL (0.000-0.055) LF-Wwa-Y-Type Natriuretic Peptide 169 pg/mL (0-124) Total Protein 6.0 g/dL (6.4-8.2) Albumin 3.3 g/dL (3.4-5.0) Albumin/Globulin Ratio 1.2 (1.0-1.7) Lipase 180 U/L (73-393) Thyroid Stimulating Hormone (TSH) 0.490 uIU/mL (0.358-3.74) Glucose (Fingerstick) 143 mg/dL (70-99) Laboratory Tests Test 07/20/18 16:00 07/20/18 20:15 07/20/18 20:43 White Blood Count 3.2 x10^3/uL (4.0-11.0) Red Blood Count 4.83 x10^6/uL (4.30-5.70) Hemoglobin 14.7 g/dL (13.0-17.5) Hematocrit 43.9 % (39.0-53.0) Mean Corpuscular Volume 91 fL (79-100) Mean Corpuscular Hemoglobin 30 pg (25-35) Mean Corpuscular Hemoglobin Concent 33 g/dL (31-37) Red Cell Distribution Width 13.5 % (11.5-14.5) Platelet Count 153 x10^3/uL (140-400) Neutrophils (%) (Auto) 49 % (31-73) Lymphocytes (%) (Auto) 39 % (24-48) Monocytes (%) (Auto) 10 % (0-9) Eosinophils (%) (Auto) 1 % (0-3) Basophils (%) (Auto) 1 % (0-3) Neutrophils # (Auto) 1.6 x10^3uL (1.8-7.7) Lymphocytes # (Auto) 1.3 x10^3/uL (1.0-4.8) Monocytes # (Auto) 0.3 x10^3/uL (0.0-1.1) Eosinophils # (Auto) 0.0 x10^3/uL (0.0-0.7) Basophils # (Auto) 0.0 x10^3/uL (0.0-0.2) Prothrombin Time 15.0 SEC (11.7-14.0) Prothromb Time International Ratio 1.2 (0.8-1.1) Sodium Level 144 mmol/L (136-145) Potassium Level 4.1 mmol/L (3.5-5.1) Chloride Level 106 mmol/L (98-107) Carbon Dioxide Level 28 mmol/L (21-32) Anion Gap 10 (6-14) Blood Urea Nitrogen 17 mg/dL (8-26) Creatinine 0.8 mg/dL (0.7-1.3) Estimated GFR (Cockcroft-Gault) 95.8 BUN/Creatinine Ratio 21 (6-20) Glucose Level 192 mg/dL (70-99) Calcium Level 8.5 mg/dL (8.5-10.1) Magnesium Level 1.8 mg/dL (1.8-2.4) Total Bilirubin 0.5 mg/dL (0.2-1.0) Aspartate Amino Transf (AST/SGOT) 16 U/L (15-37) Alanine Aminotransferase (ALT/SGPT) 19 U/L (16-63) Alkaline Phosphatase 60 U/L (46-116) Creatine Kinase 27 U/L (39-308) Creatine Kinase MB (Mass) < 0.5 ng/mL (0.0-3.6) Creatine Kinase MB Relative Index % (0-4) Troponin I Quantitative < 0.017 ng/mL (0.000-0.055) < 0.017 ng/mL (0.000-0.055) MC-Hpl-A-Type Natriuretic Peptide 169 pg/mL (0-124) Total Protein 6.0 g/dL (6.4-8.2) Albumin 3.3 g/dL (3.4-5.0) Albumin/Globulin Ratio 1.2 (1.0-1.7) Lipase 180 U/L (73-393) Thyroid Stimulating Hormone (TSH) 0.490 uIU/mL (0.358-3.74) Glucose (Fingerstick) 143 mg/dL (70-99) Images Images EXAM: Head CT without contrast. HISTORY: Syncope. TECHNIQUE: Computed tomographic images of the head were obtained without contrast. *One or more of the following individualized dose reduction techniques were utilized for this examination: 1. Automated exposure control. 2. Adjustment of the mA and/or kV according to patient size. 3. Use of iterative reconstruction technique. COMPARISON: Brain MRI dated 10/14/2015. FINDINGS: There is no acute or subacute extra-axial or intraparenchymal hemorrhage. There is no mass effect or midline shift. There is no hydrocephalus. There are scattered areas of hypodensity within the cerebral white matter, likely due to chronic small vessel disease. There is encephalomalacia within the left cerebellum due to chronic infarction. There is mild cerebral volume loss. There is a suspected prominent left choroid fissure cyst. The visualized portions of the orbits, paranasal sinuses and mastoid air cells are unremarkable. No suspicious calvarial lesion is seen. IMPRESSION: 1. No acute intercranial finding. Note is made that MRI is more sensitive for acute infarction. 2. Chronic infarct within the left cerebellum. 3. Scattered areas of hypodensity within the cerebral white matter, a nonspecific finding likely due to chronic small vessel disease. Electronically signed by: Anisa Kamara MD (07/20/2018 4:41 PM) [facility] VTE Prophylaxis Ordered VTE Prophylaxis Devices: Yes VTE Pharmacological Prophylaxi: Yes Assessment/Plan Assessment/Plan IMPRESSION 1, SYNCOPE, HX Neurocardiogenic syncope 2. Lumbar radiculopathy with lumbar degenerative disk disease, lumbar spinal stenosis and post-lumbar laminectomy syndrome. 3.Chronic infarct within the left cerebellum. 4. Scattered areas of hypodensity within the cerebral white matter, a nonspecific finding likely due to chronic small vessel disease. plan admit cvc cardiology consult neurology consult echo neurochecks q 4 hrs JUSTNIA TANG MD Jul 20, 2018 21:50
--- NOTE | 2018-07-20 22:59 | EKG ---
[facility] [address] [place] [address] Test Date: 2018-07-20 Test Time: 15:56:52 Pat Name: SHARON HILL Department: Room: 262 1 Gender: M [employer]: : 1950 Requested By: LAYNE CONTRERAS Order Number: [id number] Reading MD: Negro Galarza Measurements Intervals [place] Rate: 58 P: 0 WA: 148 QRS: -49 QRSD: 144 T: -22 QT: 458 QTc: 453 Interpretive Statements SINUS RHYTHM ABNORMAL LEFT AXIS DEVIATION LEFT ANTERIOR FASCICULAR BLOCK RIGHT BUNDLE BRANCH BLOCK BIFASCICULAR BLOCK ABNORMAL ECG Electronically Signed On 07-27-2018 11:01:22 [employer]LYST by Negro Galarza
[2018-07-20 23:00] VITALS: BP 140/76
[2018-07-21] VITALS (10 sets, daily range): BP systolic 142–188; BP diastolic 75–88
[2018-07-21 03:45] LABS: BASO % 0 % (0-3); EOS % 2 % (0-3); HEMATOCRIT 42.2 % (39.0-53.0); HEMOGLOBIN 14.1 g/dL (13.0-17.5); LYMPH # 1.5 x10^3/uL (1.0-4.8); LYMPH % 46 % (24-48); MEAN CORPUSCULAR HEMOGLOBIN 30 pg (25-35); MEAN CORPUSCULAR HGB CONC 34 g/dL (31-37); MEAN CORPUSCULAR VOLUME 90 fL (79-100); MONO # 0.3 x10^3/uL (0.0-1.1); MONO % 9 % (0-9); NEUT # 1.3 x10^3uL (1.8-7.7); NEUT % 43 % (31-73); PLATELET COUNT 143 x10^3/uL (140-400); RED BLOOD COUNT 4.67 x10^6/uL (4.30-5.70); RED CELL DISTRIBUTION WIDTH 13.2 % (11.5-14.5); WHITE BLOOD COUNT 3.1 x10^3/uL (4.0-11.0)
[2018-07-21 03:48] LABS: CALCIUM 8.5 mg/dL (8.5-10.1); CREATININE 0.7 mg/dL (0.7-1.3); GFR 111.8; POTASSIUM 3.8 mmol/L (3.5-5.1)
[2018-07-21] MEDS: PANTOPRAZOLE 40 MG TABLET.DR. PO SCH (07:30)
[2018-07-21] MEDS: INSULIN LISPRO 300 UNITS/3 ML INSULN.PEN. SQ SCH ×3 (08:00→17:00)
[2018-07-21] MEDS: GABAPENTIN 300 MG CAPSULE. PO SCH ×2 (09:00→20:30)
[2018-07-21] MEDS ORDERED: hydrALAZINE 20 MG/ML VIAL. IVP ONE (12:30)
[2018-07-21 13:20] LABS: BILIRUBIN,URINE NEGATIVE (NEG); CLARITY,URINE CLEAR; COLOR,URINE YELLOW; NITRITE,URINE NEGATIVE (NEG); PH,URINE 7.5; PROTEIN,URINE NEGATIVE (NEG-TRACE)
[2018-07-21 13:25] LABS: SQUAMOUS EPITHELIAL CELL,UR OCC /LPF
[2018-07-21 13:26] LABS: BACTERIA,URINE FEW /HPF (0-FEW); BARBITURATES NEG (NEG); BENZODIAZEPINES NEG (NEG); CANNABINOIDS NEG (NEG); COCAINE NEG (NEG); METHADONE NEG (NEG); OPIATES NEG (NEG); PHENCYCLIDINE NEG (NEG); RBC,URINE 0 /HPF (0-2)
[2018-07-21 13:28] LABS: AMPHETAMINE/METHAMPHETAMINE NEG (NEG)
--- NOTE | 2018-07-21 13:39 | CARD ---
MR#: [id number] Date of Study: 07/21/2018 Ordering Physician: JUSTINA TANG, Referring Physician: JUSTINA TANG, Tech: Tatyana Hamilton APPROVED REPORT EXAM: Two-dimensional and M-mode echocardiogram with Doppler and color Doppler. Other Information Quality : AverageHR: 56bpm INDICATION Syncope Echo Enhancing Agent Indication: Rule Out Septal Defect Agent/Amount Used: Agitated Saline 10mL RISK FACTORS Hypertension Diabetes 2D DIMENSIONS Left Atrium(2D)3.3 (1.6-4.0cm)IVSd1.5 (0.7-1.1cm) Aortic Root(2D)3.5 (2.0-3.7cm)LVDd5.4 (3.9-5.9cm) PWd1.3 (0.7-1.1cm)LVDs3.9 (2.5-4.0cm) FS (%) 28.1 %SV76.1 ml LVEF(%)53.9 (>50%) LEFT VENTRICLE The left ventricle is normal size. There is mild concentric left ventricular hypertrophy. The left ve ntricular systolic function is normal and the ejection fraction is within normal range. The Ejection Fraction is 55-60%. There is normal LV segmental wall motion. RIGHT VENTRICLE The right ventricle is normal size. There is normal right ventricular wall thickness. The right ventr icular systolic function is normal. ATRIA The left atrium is mildly dilated. The right atrium size is normal. The interatrial septum is intact with no evidence for an atrial septal defect or patent foramen ovale as noted on 2-D or Doppler imagi ng Bubble study is normal. PULMONIC VALVE . GREAT VESSELS The aortic root is normal in size. PERICARDIAL EFFUSION There is no evidence of significant pericardial effusion. Critical Notification Critical Value: No <Conclusion> The left ventricle is normal size. The left ventricular systolic function is normal and the ejection fraction is within normal range. The Ejection Fraction is 55-60%. There is mild concentric left ventricular hypertrophy. The interatrial septum is intact with no evidence for an atrial septal defect or patent foramen ovale as noted on 2-D or Doppler imaging Bubble study is normal. Signed by : Sebastián Rhodes MD Electronically Approved : 07/21/2018 13:38:43
--- NOTE | 2018-07-21 15:04 | NUR ---
SS following for discharge planning. SS reviewed pt chart. Pt is from home with spouse and currently on room air. No discharge needs noted at this time. SS will continue to follow for pending discharge needs.
--- NOTE | 2018-07-21 15:54 | PDOC2 ---
TARUN JUAREZ LEAD ESTHETICIAN 07/21/18 1554: CARDIAC CONSULT DATE OF CONSULT Date of Consult DATE: 07/21/18 TIME: 1120 REASON FOR CONSULT Reason for Consult: Syncope, hx of neurocardiogenic syncope REFERRING PHYSICIAN Referring Physician: Rukhsana SOURCE Source: Chart review, Patient HISTORY OF PRESENT ILLNESS HISTORY OF PRESENT ILLNESS This is a pleasant 68 yo male admitted for complains of passing out. He was in his bedroom and felt blurred vision with slight dizziness then he passed out fell on the bed and almost fell to the floor. He was out estimated around <1 minute as family memeber was able to see him rightaway. No nausea or vomiting, fever recent infection and no chest pain or SOA. No seizure episodes, no GROVE, unilateral weakness or any signs of stroke. He is known for neurocardiogenic syncope with past tilt table and was seen by patroller in the past. He was placed on atenolol per there advised but no event monitor that he could recall to anote any further arrhythmias. His last dose of atenolol was yesterday morning. No recent syncope in the last 6 months. No recent falls prior to this and no recent MVA or injury. No CAD, VTE. PAST MEDICAL HISTORY Cardiovascular: HTN, Syncope, Hyperlipidemia Pulmonary: Other (HOWIE) CENTRAL NERVOUS SYSTEM: Periperal neuropathy GI: GERD Heme/Onc: No pertinent hx, Cancer (prostate with chemo) Hepatobiliary: No pertinent hx ENT: No pertinent hx Renal/: Prostate Ca. Endocrine: Diabetes (2) Dermatology: No pertinent hx PAST SURGICAL HISTORY Past Surgical History: Arthroscopy (left knee), Cholecystectomy, Hernia Repair (hiatal), Other (back surgery; gastric sleve) FAMILY HISTORY Family History: Stroke SOCIAL HISTORY Smoke: No ALCOHOL: none Drugs: None Lives: with Family CURRENT MEDICATIONS CURRENT MEDICATIONS Current Medications Medications (Trade) Dose Ordered Sig/Donnell Route PRN Reason Start Time Stop Time Status Last Admin Dose Admin Sodium Chloride 1,000 ml @ 1,000 mls/hr 1X ONCE IV 07/20/18 16:00 07/20/18 16:59 DC 07/20/18 16:51 Gabapentin (Neurontin) 600 mg BID PO 07/20/18 21:00 07/21/18 09:00 Pantoprazole Sodium (Protonix) 40 mg DAILYAC PO 07/21/18 07:30 07/21/18 07:30 Simvastatin (Zocor) 20 mg HS PO 07/20/18 21:00 07/20/18 21:05 Hydralazine HCl (Apresoline Inj) 10 mg 1X ONCE IVP 07/21/18 12:30 07/21/18 12:31 DC 07/21/18 12:30 ALLERGIES ALLERGIES: Coded Allergies: No Known Drug Allergies (Unverified , 01/15/18) ROS Review of System 14 point ROS evaluated with pertinent positives noted per HPI PHYSICAL EXAM General: Alert, Oriented X3, Cooperative, No acute distress HEENT: Atraumatic, Mucous membr. moist/pink Lungs: Clear to auscultation, Normal air movement Heart: Regular rate (SR), Normal S1, Normal S2, Other (2/6 systolic murmur to LLS border) Abdomen: Soft, No tenderness Extremities: No cyanosis, No edema Skin: No breakdown, No significant lesion Neuro: Normal speech, Sensation intact Psych/Mental Status: Mental status NL, Mood NL MUSCULOSKELETAL: Osteoarthritic changes both hands VITALS VITALS Vital Signs Date Time Temp Pulse Resp B/P (MAP) Pulse Ox O2 Delivery O2 Flow Rate FiO2 07/21/18 14:58 98.1 78 20 161/84 (109) 95 Room Air 98.1 LABS Lab: Laboratory Tests Test 07/20/18 16:00 07/20/18 20:15 07/20/18 20:43 07/21/18 00:10 White Blood Count 3.2 x10^3/uL (4.0-11.0) Red Blood Count 4.83 x10^6/uL (4.30-5.70) Hemoglobin 14.7 g/dL (13.0-17.5) Hematocrit 43.9 % (39.0-53.0) Mean Corpuscular Volume 91 fL (79-100) Mean Corpuscular Hemoglobin 30 pg (25-35) Mean Corpuscular Hemoglobin Concent 33 g/dL (31-37) Red Cell Distribution Width 13.5 % (11.5-14.5) Platelet Count 153 x10^3/uL (140-400) Neutrophils (%) (Auto) 49 % (31-73) Lymphocytes (%) (Auto) 39 % (24-48) Monocytes (%) (Auto) 10 % (0-9) Eosinophils (%) (Auto) 1 % (0-3) Basophils (%) (Auto) 1 % (0-3) Neutrophils # (Auto) 1.6 x10^3uL (1.8-7.7) Lymphocytes # (Auto) 1.3 x10^3/uL (1.0-4.8) Monocytes # (Auto) 0.3 x10^3/uL (0.0-1.1) Eosinophils # (Auto) 0.0 x10^3/uL (0.0-0.7) Basophils # (Auto) 0.0 x10^3/uL (0.0-0.2) Prothrombin Time 15.0 SEC (11.7-14.0) Prothromb Time International Ratio 1.2 (0.8-1.1) Sodium Level 144 mmol/L (136-145) Potassium Level 4.1 mmol/L (3.5-5.1) Chloride Level 106 mmol/L (98-107) Carbon Dioxide Level 28 mmol/L (21-32) Anion Gap 10 (6-14) Blood Urea Nitrogen 17 mg/dL (8-26) Creatinine 0.8 mg/dL (0.7-1.3) Estimated GFR (Cockcroft-Gault) 95.8 BUN/Creatinine Ratio 21 (6-20) Glucose Level 192 mg/dL (70-99) Calcium Level 8.5 mg/dL (8.5-10.1) Magnesium Level 1.8 mg/dL (1.8-2.4) Total Bilirubin 0.5 mg/dL (0.2-1.0) Aspartate Amino Transf (AST/SGOT) 16 U/L (15-37) Alanine Aminotransferase (ALT/SGPT) 19 U/L (16-63) Alkaline Phosphatase 60 U/L (46-116) Creatine Kinase 27 U/L (39-308) Creatine Kinase MB (Mass) < 0.5 ng/mL (0.0-3.6) Creatine Kinase MB Relative Index % (0-4) Troponin I Quantitative < 0.017 ng/mL (0.000-0.055) < 0.017 ng/mL (0.000-0.055) < 0.017 ng/mL (0.000-0.055) WR-Hod-A-Type Natriuretic Peptide 169 pg/mL (0-124) Total Protein 6.0 g/dL (6.4-8.2) Albumin 3.3 g/dL (3.4-5.0) Albumin/Globulin Ratio 1.2 (1.0-1.7) Lipase 180 U/L (73-393) Thyroid Stimulating Hormone (TSH) 0.490 uIU/mL (0.358-3.74) Free Thyroxine 0.74 ng/dL (0.76-1.46) Glucose (Fingerstick) 143 mg/dL (70-99) Test 07/21/18 03:00 07/21/18 07:34 07/21/18 11:41 07/21/18 13:05 White Blood Count 3.1 x10^3/uL (4.0-11.0) Red Blood Count 4.67 x10^6/uL (4.30-5.70) Hemoglobin 14.1 g/dL (13.0-17.5) Hematocrit 42.2 % (39.0-53.0) Mean Corpuscular Volume 90 fL (79-100) Mean Corpuscular Hemoglobin 30 pg (25-35) Mean Corpuscular Hemoglobin Concent 34 g/dL (31-37) Red Cell Distribution Width 13.2 % (11.5-14.5) Platelet Count 143 x10^3/uL (140-400) Neutrophils (%) (Auto) 43 % (31-73) Lymphocytes (%) (Auto) 46 % (24-48) Monocytes (%) (Auto) 9 % (0-9) Eosinophils (%) (Auto) 2 % (0-3) Basophils (%) (Auto) 0 % (0-3) Neutrophils # (Auto) 1.3 x10^3uL (1.8-7.7) Lymphocytes # (Auto) 1.5 x10^3/uL (1.0-4.8) Monocytes # (Auto) 0.3 x10^3/uL (0.0-1.1) Eosinophils # (Auto) 0.0 x10^3/uL (0.0-0.7) Basophils # (Auto) 0.0 x10^3/uL (0.0-0.2) Sodium Level 146 mmol/L (136-145) Potassium Level 3.8 mmol/L (3.5-5.1) Chloride Level 109 mmol/L (98-107) Carbon Dioxide Level 30 mmol/L (21-32) Anion Gap 7 (6-14) Blood Urea Nitrogen 14 mg/dL (8-26) Creatinine 0.7 mg/dL (0.7-1.3) Estimated GFR (Cockcroft-Gault) 111.8 Glucose Level 102 mg/dL (70-99) Calcium Level 8.5 mg/dL (8.5-10.1) Glucose (Fingerstick) 107 mg/dL (70-99) 126 mg/dL (70-99) Urine Collection Type Unknown Urine Color Yellow Urine Clarity Clear Urine pH 7.5 Urine Specific [place] 1.020 Urine Protein Negative mg/dL (NEG-TRACE) Urine Glucose (UA) Negative mg/dL (NEG) Urine Ketones (Stick) Trace mg/dL (NEG) Urine Blood Negative (NEG) Urine Nitrite Negative (NEG) Urine Bilirubin Negative (NEG) Urine Urobilinogen Dipstick 1.0 mg/dL (0.2 mg/dL) Urine Leukocyte Esterase Negative (NEG) Urine RBC 0 /HPF (0-2) Urine WBC 1-4 /HPF (0-4) Urine Squamous Epithelial Cells Occ /LPF Urine Bacteria Few /HPF (0-FEW) Urine Mucus Mod /LPF Urine Opiates Screen Neg (NEG) Urine Methadone Screen Neg (NEG) Urine Barbiturates Neg (NEG) Urine Phencyclidine Screen Neg (NEG) Urine Amphetamine/Methamphetamine Neg (NEG) Urine Benzodiazepines Screen Neg (NEG) Urine Cocaine Screen Neg (NEG) Urine Cannabinoids Screen Neg (NEG) Urine Ethyl Alcohol Neg (NEG) ASSESSMENT/PLAN ASSESSMENT/PLAN 1. Syncope with nontraumatic fall: possible failed BB therapy. SSS? 2. Hx of neurocardiogenic syncope: no known event monitor in the past. 3. HTN: labile 4. DM2/HLP Recommendations 1. No AV lane blocking agents. Hydralazine IV x1 then PRN. 2. Start on lisinopril/HCTZ combo. 3. Continue home statin. 4. Monitor for one more night as he was noted with 4 sec pause last night none further since then, last dose atenolol yesterday morning. 5. Will likely need PPM, will discuss with primary patroller. 6. TTE TAMIKO YOST MD 07/21/181: CARDIAC CONSULT ASSESSMENT/PLAN ASSESSMENT/PLAN Patient seen and examined. Agree with DIRECT CARE SPECIALIST's assessment and plan. Carotid massage elicited > 5 sec pause with reproduction of symptoms consistent with carotid hypersensitivity syndrome 2D echo showed normal LV function Continue to hold BB and plan for PPM tomorrow. Risks and benefits explained and he is agreeable Thank you for your consultation TARUN JUAREZ APRN Jul 21, 2018 15:54 TAMIKO YOST MD Jul 21, 2018 21:59
[2018-07-21] MEDS ORDERED: hydrALAZINE 20 MG/ML VIAL. IVP PRN (16:00)
--- NOTE | 2018-07-21 17:43 | PDOC ---
PROGRESS NOTES Chief Complaint Chief Complaint 1, SYNCOPE, HX Neurocardiogenic syncope 2. Lumbar radiculopathy with lumbar degenerative disk disease, lumbar spinal stenosis and post-lumbar laminectomy syndrome. 3.Chronic infarct within the left cerebellum. 4. Scattered areas of hypodensity within the cerebral white matter, a nonspecific finding likely due to chronic small vessel disease. plan continue supportive measures cardiology consult neurology consult doubt central etiology for his symptoms. echo noted After cardiology consultation paul presented a greater than 5 second pause. he will be scheduled for a PPM in the am discussed with Dr Galarza Vitals Vitals Vital Signs Date Time Temp Pulse Resp B/P (MAP) Pulse Ox O2 Delivery O2 Flow Rate FiO2 07/21/18 14:58 98.1 78 20 161/84 (109) 95 Room Air 98.1 Physical Exam General: Alert, Oriented X3, Cooperative, No acute distress Heart: Regular rate (SR), Normal S1, Normal S2, Other (2/6 systolic murmur to LLS border) Lungs: Clear Abdomen: Soft, No tenderness Extremities: No cyanosis, No edema Skin: No breakdown, No significant lesion Labs LABS Laboratory Tests Test 07/20/18 20:15 07/20/18 20:43 07/21/18 00:10 07/21/18 03:00 Troponin I Quantitative < 0.017 ng/mL (0.000-0.055) < 0.017 ng/mL (0.000-0.055) Free Thyroxine 0.74 ng/dL (0.76-1.46) Glucose (Fingerstick) 143 mg/dL (70-99) White Blood Count 3.1 x10^3/uL (4.0-11.0) Red Blood Count 4.67 x10^6/uL (4.30-5.70) Hemoglobin 14.1 g/dL (13.0-17.5) Hematocrit 42.2 % (39.0-53.0) Mean Corpuscular Volume 90 fL (79-100) Mean Corpuscular Hemoglobin 30 pg (25-35) Mean Corpuscular Hemoglobin Concent 34 g/dL (31-37) Red Cell Distribution Width 13.2 % (11.5-14.5) Platelet Count 143 x10^3/uL (140-400) Neutrophils (%) (Auto) 43 % (31-73) Lymphocytes (%) (Auto) 46 % (24-48) Monocytes (%) (Auto) 9 % (0-9) Eosinophils (%) (Auto) 2 % (0-3) Basophils (%) (Auto) 0 % (0-3) Neutrophils # (Auto) 1.3 x10^3uL (1.8-7.7) Lymphocytes # (Auto) 1.5 x10^3/uL (1.0-4.8) Monocytes # (Auto) 0.3 x10^3/uL (0.0-1.1) Eosinophils # (Auto) 0.0 x10^3/uL (0.0-0.7) Basophils # (Auto) 0.0 x10^3/uL (0.0-0.2) Sodium Level 146 mmol/L (136-145) Potassium Level 3.8 mmol/L (3.5-5.1) Chloride Level 109 mmol/L (98-107) Carbon Dioxide Level 30 mmol/L (21-32) Anion Gap 7 (6-14) Blood Urea Nitrogen 14 mg/dL (8-26) Creatinine 0.7 mg/dL (0.7-1.3) Estimated GFR (Cockcroft-Gault) 111.8 Glucose Level 102 mg/dL (70-99) Calcium Level 8.5 mg/dL (8.5-10.1) Test 07/21/18 07:34 07/21/18 11:41 07/21/18 13:05 07/21/18 16:27 Glucose (Fingerstick) 107 mg/dL (70-99) 126 mg/dL (70-99) 114 mg/dL (70-99) Urine Collection Type Unknown Urine Color Yellow Urine Clarity Clear Urine pH 7.5 Urine Specific [place] 1.020 Urine Protein Negative mg/dL (NEG-TRACE) Urine Glucose (UA) Negative mg/dL (NEG) Urine Ketones (Stick) Trace mg/dL (NEG) Urine Blood Negative (NEG) Urine Nitrite Negative (NEG) Urine Bilirubin Negative (NEG) Urine Urobilinogen Dipstick 1.0 mg/dL (0.2 mg/dL) Urine Leukocyte Esterase Negative (NEG) Urine RBC 0 /HPF (0-2) Urine WBC 1-4 /HPF (0-4) Urine Squamous Epithelial Cells Occ /LPF Urine Bacteria Few /HPF (0-FEW) Urine Mucus Mod /LPF Urine Opiates Screen Neg (NEG) Urine Methadone Screen Neg (NEG) Urine Barbiturates Neg (NEG) Urine Phencyclidine Screen Neg (NEG) Urine Amphetamine/Methamphetamine Neg (NEG) Urine Benzodiazepines Screen Neg (NEG) Urine Cocaine Screen Neg (NEG) Urine Cannabinoids Screen Neg (NEG) Urine Ethyl Alcohol Neg (NEG) Assessment and Plan Assessmemt and Plan Problems Medical Problems: (1) Syncope Status: Acute Comment Review of Relevant I have reviewed the following items argenis (where applicable) has been applied. Labs Laboratory Tests Test 07/20/18 16:00 07/20/18 20:15 07/20/18 20:43 07/21/18 00:10 White Blood Count 3.2 x10^3/uL (4.0-11.0) Red Blood Count 4.83 x10^6/uL (4.30-5.70) Hemoglobin 14.7 g/dL (13.0-17.5) Hematocrit 43.9 % (39.0-53.0) Mean Corpuscular Volume 91 fL (79-100) Mean Corpuscular Hemoglobin 30 pg (25-35) Mean Corpuscular Hemoglobin Concent 33 g/dL (31-37) Red Cell Distribution Width 13.5 % (11.5-14.5) Platelet Count 153 x10^3/uL (140-400) Neutrophils (%) (Auto) 49 % (31-73) Lymphocytes (%) (Auto) 39 % (24-48) Monocytes (%) (Auto) 10 % (0-9) Eosinophils (%) (Auto) 1 % (0-3) Basophils (%) (Auto) 1 % (0-3) Neutrophils # (Auto) 1.6 x10^3uL (1.8-7.7) Lymphocytes # (Auto) 1.3 x10^3/uL (1.0-4.8) Monocytes # (Auto) 0.3 x10^3/uL (0.0-1.1) Eosinophils # (Auto) 0.0 x10^3/uL (0.0-0.7) Basophils # (Auto) 0.0 x10^3/uL (0.0-0.2) Prothrombin Time 15.0 SEC (11.7-14.0) Prothromb Time International Ratio 1.2 (0.8-1.1) Sodium Level 144 mmol/L (136-145) Potassium Level 4.1 mmol/L (3.5-5.1) Chloride Level 106 mmol/L (98-107) Carbon Dioxide Level 28 mmol/L (21-32) Anion Gap 10 (6-14) Blood Urea Nitrogen 17 mg/dL (8-26) Creatinine 0.8 mg/dL (0.7-1.3) Estimated GFR (Cockcroft-Gault) 95.8 BUN/Creatinine Ratio 21 (6-20) Glucose Level 192 mg/dL (70-99) Calcium Level 8.5 mg/dL (8.5-10.1) Magnesium Level 1.8 mg/dL (1.8-2.4) Total Bilirubin 0.5 mg/dL (0.2-1.0) Aspartate Amino Transf (AST/SGOT) 16 U/L (15-37) Alanine Aminotransferase (ALT/SGPT) 19 U/L (16-63) Alkaline Phosphatase 60 U/L (46-116) Creatine Kinase 27 U/L (39-308) Creatine Kinase MB (Mass) < 0.5 ng/mL (0.0-3.6) Creatine Kinase MB Relative Index % (0-4) Troponin I Quantitative < 0.017 ng/mL (0.000-0.055) < 0.017 ng/mL (0.000-0.055) < 0.017 ng/mL (0.000-0.055) [id number]-Rje-[id number]-Type Natriuretic Peptide 169 pg/mL (0-124) Total Protein 6.0 g/dL (6.4-8.2) Albumin 3.3 g/dL (3.4-5.0) Albumin/Globulin Ratio 1.2 (1.0-1.7) Lipase 180 U/L (73-393) Thyroid Stimulating Hormone (TSH) 0.490 uIU/mL (0.358-3.74) Free Thyroxine 0.74 ng/dL (0.76-1.46) Glucose (Fingerstick) 143 mg/dL (70-99) Test 07/21/18 03:00 07/21/18 07:34 07/21/18 11:41 07/21/18 13:05 White Blood Count 3.1 x10^3/uL (4.0-11.0) Red Blood Count 4.67 x10^6/uL (4.30-5.70) Hemoglobin 14.1 g/dL (13.0-17.5) Hematocrit 42.2 % (39.0-53.0) Mean Corpuscular Volume 90 fL (79-100) Mean Corpuscular Hemoglobin 30 pg (25-35) Mean Corpuscular Hemoglobin Concent 34 g/dL (31-37) Red Cell Distribution Width 13.2 % (11.5-14.5) Platelet Count 143 x10^3/uL (140-400) Neutrophils (%) (Auto) 43 % (31-73) Lymphocytes (%) (Auto) 46 % (24-48) Monocytes (%) (Auto) 9 % (0-9) Eosinophils (%) (Auto) 2 % (0-3) Basophils (%) (Auto) 0 % (0-3) Neutrophils # (Auto) 1.3 x10^3uL (1.8-7.7) Lymphocytes # (Auto) 1.5 x10^3/uL (1.0-4.8) Monocytes # (Auto) 0.3 x10^3/uL (0.0-1.1) Eosinophils # (Auto) 0.0 x10^3/uL (0.0-0.7) Basophils # (Auto) 0.0 x10^3/uL (0.0-0.2) Sodium Level 146 mmol/L (136-145) Potassium Level 3.8 mmol/L (3.5-5.1) Chloride Level 109 mmol/L (98-107) Carbon Dioxide Level 30 mmol/L (21-32) Anion Gap 7 (6-14) Blood Urea Nitrogen 14 mg/dL (8-26) Creatinine 0.7 mg/dL (0.7-1.3) Estimated GFR (Cockcroft-Gault) 111.8 Glucose Level 102 mg/dL (70-99) Calcium Level 8.5 mg/dL (8.5-10.1) Glucose (Fingerstick) 107 mg/dL (70-99) 126 mg/dL (70-99) Urine Collection Type Unknown Urine Color Yellow Urine Clarity Clear Urine pH 7.5 Urine Specific [place] 1.020 Urine Protein Negative mg/dL (NEG-TRACE) Urine Glucose (UA) Negative mg/dL (NEG) Urine Ketones (Stick) Trace mg/dL (NEG) Urine Blood Negative (NEG) Urine Nitrite Negative (NEG) Urine Bilirubin Negative (NEG) Urine Urobilinogen Dipstick 1.0 mg/dL (0.2 mg/dL) Urine Leukocyte Esterase Negative (NEG) Urine RBC 0 /HPF (0-2) Urine WBC 1-4 /HPF (0-4) Urine Squamous Epithelial Cells Occ /LPF Urine Bacteria Few /HPF (0-FEW) Urine Mucus Mod /LPF Urine Opiates Screen Neg (NEG) Urine Methadone Screen Neg (NEG) Urine Barbiturates Neg (NEG) Urine Phencyclidine Screen Neg (NEG) Urine Amphetamine/Methamphetamine Neg (NEG) Urine Benzodiazepines Screen Neg (NEG) Urine Cocaine Screen Neg (NEG) Urine Cannabinoids Screen Neg (NEG) Urine Ethyl Alcohol Neg (NEG) Test 07/21/18 16:27 Glucose (Fingerstick) 114 mg/dL (70-99) Laboratory Tests Test 07/20/18 20:15 07/20/18 20:43 07/21/18 00:10 07/21/18 03:00 Troponin I Quantitative < 0.017 ng/mL (0.000-0.055) < 0.017 ng/mL (0.000-0.055) Free Thyroxine 0.74 ng/dL (0.76-1.46) Glucose (Fingerstick) 143 mg/dL (70-99) White Blood Count 3.1 x10^3/uL (4.0-11.0) Red Blood Count 4.67 x10^6/uL (4.30-5.70) Hemoglobin 14.1 g/dL (13.0-17.5) Hematocrit 42.2 % (39.0-53.0) Mean Corpuscular Volume 90 fL (79-100) Mean Corpuscular Hemoglobin 30 pg (25-35) Mean Corpuscular Hemoglobin Concent 34 g/dL (31-37) Red Cell Distribution Width 13.2 % (11.5-14.5) Platelet Count 143 x10^3/uL (140-400) Neutrophils (%) (Auto) 43 % (31-73) Lymphocytes (%) (Auto) 46 % (24-48) Monocytes (%) (Auto) 9 % (0-9) Eosinophils (%) (Auto) 2 % (0-3) Basophils (%) (Auto) 0 % (0-3) Neutrophils # (Auto) 1.3 x10^3uL (1.8-7.7) Lymphocytes # (Auto) 1.5 x10^3/uL (1.0-4.8) Monocytes # (Auto) 0.3 x10^3/uL (0.0-1.1) Eosinophils # (Auto) 0.0 x10^3/uL (0.0-0.7) Basophils # (Auto) 0.0 x10^3/uL (0.0-0.2) Sodium Level 146 mmol/L (136-145) Potassium Level 3.8 mmol/L (3.5-5.1) Chloride Level 109 mmol/L (98-107) Carbon Dioxide Level 30 mmol/L (21-32) Anion Gap 7 (6-14) Blood Urea Nitrogen 14 mg/dL (8-26) Creatinine 0.7 mg/dL (0.7-1.3) Estimated GFR (Cockcroft-Gault) 111.8 Glucose Level 102 mg/dL (70-99) Calcium Level 8.5 mg/dL (8.5-10.1) Test 07/21/18 07:34 07/21/18 11:41 07/21/18 13:05 07/21/18 16:27 Glucose (Fingerstick) 107 mg/dL (70-99) 126 mg/dL (70-99) 114 mg/dL (70-99) Urine Collection Type Unknown Urine Color Yellow Urine Clarity Clear Urine pH 7.5 Urine Specific [place] 1.020 Urine Protein Negative mg/dL (NEG-TRACE) Urine Glucose (UA) Negative mg/dL (NEG) Urine Ketones (Stick) Trace mg/dL (NEG) Urine Blood Negative (NEG) Urine Nitrite Negative (NEG) Urine Bilirubin Negative (NEG) Urine Urobilinogen Dipstick 1.0 mg/dL (0.2 mg/dL) Urine Leukocyte Esterase Negative (NEG) Urine RBC 0 /HPF (0-2) Urine WBC 1-4 /HPF (0-4) Urine Squamous Epithelial Cells Occ /LPF Urine Bacteria Few /HPF (0-FEW) Urine Mucus Mod /LPF Urine Opiates Screen Neg (NEG) Urine Methadone Screen Neg (NEG) Urine Barbiturates Neg (NEG) Urine Phencyclidine Screen Neg (NEG) Urine Amphetamine/Methamphetamine Neg (NEG) Urine Benzodiazepines Screen Neg (NEG) Urine Cocaine Screen Neg (NEG) Urine Cannabinoids Screen Neg (NEG) Urine Ethyl Alcohol Neg (NEG) Medications Current Medications Sodium Chloride 1,000 ml @ 1,000 mls/hr 1X ONCE IV Last administered on at 16:51; Start 07/20/18 at 16:00; Stop 07/20/18 at 16:59; Status DC Ondansetron HCl (Zofran) 4 mg PRN Q8HRS PRN IV NAUSEA/VOMITING; Start 07/20/18 at 18:15; Stop 07/21/18 at 18:14 Acetaminophen (Tylenol) 650 mg PRN Q4HRS PRN PO FEVER; Start 07/20/18 at 18:15 ; Stop 07/21/18 at 18:14 Gabapentin (Neurontin) 600 mg BID PO Last administered on 07/21/18at 09:00; Start 07/20/18 at 21:00 Pantoprazole Sodium (Protonix) 40 mg DAILYAC PO Last administered on 07/21/18at 07:30; Start 07/21/18 at 07:30 Simvastatin (Zocor) 20 mg HS PO Last administered on 07/20/18at 21:05; Start at 21:00 Insulin Human Lispro (HumaLOG) 0-5 UNITS TIDWMEALS SQ ; Start 07/21/18 at 08:00 Dextrose (Dextrose 50%-Water Syringe) 12.5 gm PRN Q15MIN PRN IV SEE COMMENTS; Start 07/20/18 at 20:45 Hydralazine HCl (Apresoline Inj) 10 mg 1X ONCE IVP Last administered on at 12:30; Start 07/21/18 at 12:30; Stop 07/21/18 at 12:31; Status DC Hydrochlorothiazide (Microzide) 12.5 mg DAILY PO ; Start 07/22/18 at 09:00 Lisinopril (Prinivil) 20 mg DAILY PO ; Start 07/22/18 at 09:00 Hydralazine HCl (Apresoline Inj) 10 mg PRN Q4HRS PRN IVP ELEVATED BP, SEE COMMENTS; Start 07/21/18 at 16:00 Cefazolin Sodium/ Dextrose 50 ml @ 100 mls/hr 1X ONCE IV ; Start 07/22/18 at 06:00; Stop 07/22/18 at 06:29 Active Scripts Active Reported Omeprazole 20 Mg Capsule.dr 20 Mg PO DAILY Metformin Hcl 1,000 Mg Tablet 1,000 Mg PO BIDWMEALS Gabapentin 600 Mg Tablet 600 Mg PO BID Zocor (Simvastatin) 20 Mg Tablet 20 Mg PO HS Atenolol 50 Mg Tablet 50 Mg PO BID Vitals/I & O Vital Sign - Last 24 Hours 07/20/18 07/20/18 07/20/18 07/20/18 18:07 19:07 19:35 20:00 Temp 97.5 97.5 Pulse 58 56 61 Resp 19 19 20 B/P (MAP) 167/77 (107) 162/81 (108) 160/92 (114) Pulse Ox 97 95 97 O2 Delivery Room Air Room Air Room Air Room Air 07/20/18 07/21/18 07/21/18 07/21/18 23:00 03:40 07:00 08:00 Temp 97.8 97.6 97.9 97.8 97.6 97.9 Pulse 55 52 57 Resp 18 20 20 B/P (MAP) 140/76 (97) 149/75 (99) 143/75 (97) Pulse Ox 96 95 94 O2 Delivery Room Air Room Air Room Air Room Air 07/21/18 07/21/18 07/21/18 07/21/18 08:37 08:37 08:38 10:52 Temp 97.9 97.9 Pulse 64 59 63 57 Resp 20 B/P (MAP) 142/80 (100) 144/84 (104) 144/85 (104) 188/86 (120) Pulse Ox 95 O2 Delivery Room Air 07/21/18 07/21/18 12:30 14:58 Temp 98.1 98.1 Pulse 57 78 Resp 20 B/P (MAP) 188/86 161/84 (109) Pulse Ox 95 O2 Delivery Room Air Intake and Output 07/20/18 07/20/18 07/21/18 15:00 23:00 07:00 Intake Total 1000 ml 300 ml Output Total 300 ml 100 ml Balance 700 ml 200 ml JOSE MCCONNELL MD Jul 21, 2018 17:43
--- NOTE | 2018-07-21 18:23 | PDOC2 ---
NEUROLOGY CONSULT Date of Admission Date of Admission DATE: 07/21/18 TIME: 17:35 Reason for Consult Reason for Consult: IMPRESSION: Recurrent syncope, cardiogenic syncope. Metabolic encephalopathy. Dizziness. Confusion episodes. Seizure evaluation. PEA lasting for 4 seconds on EKG monitoring. Falls. DM. HTN. HLD. Prostate cancer. 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 RECOMMENDATIONS/PLAN: ASA daily. Continue Zocor HS. Cardiac consulted, pacemaker maybe needed. Treat cardiac and medical diseases. EEG. Lab: see orders. Ortho BP WNL. HISTORY OF THE PRESENT ILLNESS: 68-y-old male patient with Hx of recurrent syncopal spells in the past years and he was diagnosed as having cardio-neurogenic syncope. He stated he stood up from sitting position and was ambulating to the front room, he got dizzy, and passed out landing half of his body on a bed, so he came to the ER of [facility] for further evaluation. No shaking, jerking of lion movements. Denies headache or chest pain. On EKG monitoring, brief cardiac silence lasted for 1-4 seconds revealed. PAST MEDICAL HISTORY Cardiovascular: HTN, Syncope, Hyperlipidemia Pulmonary: Other (HOWIE) CENTRAL NERVOUS SYSTEM: Periperal neuropathy GI: GERD Heme/Onc: No pertinent hx, Cancer (prostate with chemo) Hepatobiliary: No pertinent hx ENT: No pertinent hx Renal/: Prostate Ca. Endocrine: Diabetes (2) Dermatology: No pertinent hx PAST SURGICAL HISTORY Arthroscopy left knee, Cholecystectomy, Hernia Repair (hiatal), Other (back surgery; gastric sleve) FAMILY HISTORY Stroke ALLERGY: NKDA MEDICATIONS: Refer to [facility] SOCIAL HISTORY: Lives with family. Denies current smoking, but drinking occasionally, and denied illicit drug use. REVIEW OF SYSTEMS: Constitutional: No malnutrition, weight loss, cachexia. Head: No traumatic brain or head injury. Skin: No edema, or rash. Ear: No infection. Eyes: No vision loss or color blindness. Nose: No bleeding or purulent discharges. Hearing: No hearing decrease. Neck: No injury. Cardiac: CAD, HTN, HLD. Pulmonary: No COPD. GI: No GI ulcer, GI bleeding. Urinary/genital: UTI. Endocrinologic: Diabetes Mellitus. Skeletomuscular: No muscular atrophy, deformity. Neurological: see HP. Psychiatric: Denies drug use/abuse. Otherwise, not [id number] review of systems. PHYSICAL EXAMINATION: General appearance is in subacute distress. HEENT: Normocephalic and nontraumatic. Eyes, nose, ears, and throat are unremarkable. Neck is supple. No lymphadenopathy. No crepitus. Cardiovascular: S1, S2, regular rate and rhythm. Pulmonary: Clear to auscultation bilaterally. Abdomen: Bowel sounds are positive. Abdomen is soft, nontender, and nondistended. Extremities: No rash, lesions, or edema. No restriction of range of motion NEUROLOGICAL EXAMINATION: Alert Oriented to time, place and person. PERRL. EOMI. CN: no focal findings. Muscle tone: within normal. Muscle strength: 5 DTR: 2 Plantar reflex: Flexor response bilaterally Gait: not examined in bed. Sensory exam: no abnormal findings. No acute cerebellar signs elicited. F-T-N test accurate. Current Medications Current Medications Current Medications Sodium Chloride 1,000 ml @ 1,000 mls/hr 1X ONCE IV Last administered on at 16:51; Start 07/20/18 at 16:00; Stop 07/20/18 at 16:59; Status DC Ondansetron HCl (Zofran) 4 mg PRN Q8HRS PRN IV NAUSEA/VOMITING; Start 07/20/18 at 18:15; Stop 07/21/18 at 18:14 Acetaminophen (Tylenol) 650 mg PRN Q4HRS PRN PO FEVER; Start 07/20/18 at 18:15 ; Stop 07/21/18 at 18:14 Gabapentin (Neurontin) 600 mg BID PO Last administered on 07/21/18at 09:00; Start 07/20/18 at 21:00 Pantoprazole Sodium (Protonix) 40 mg DAILYAC PO Last administered on 07/21/18at 07:30; Start 07/21/18 at 07:30 Simvastatin (Zocor) 20 mg HS PO Last administered on 07/20/18at 21:05; Start at 21:00 Insulin Human Lispro (HumaLOG) 0-5 UNITS TIDWMEALS SQ ; Start 07/21/18 at 08:00 Dextrose (Dextrose 50%-Water Syringe) 12.5 gm PRN Q15MIN PRN IV SEE COMMENTS; Start 07/20/18 at 20:45 Hydralazine HCl (Apresoline Inj) 10 mg 1X ONCE IVP Last administered on at 12:30; Start 07/21/18 at 12:30; Stop 07/21/18 at 12:31; Status DC Hydrochlorothiazide (Microzide) 12.5 mg DAILY PO ; Start 07/22/18 at 09:00 Lisinopril (Prinivil) 20 mg DAILY PO ; Start 07/22/18 at 09:00 Hydralazine HCl (Apresoline Inj) 10 mg PRN Q4HRS PRN IVP ELEVATED BP, SEE COMMENTS; Start 07/21/18 at 16:00 Cefazolin Sodium/ Dextrose 50 ml @ 100 mls/hr 1X ONCE IV ; Start 07/22/18 at 06:00; Stop 07/22/18 at 06:29 Active Scripts Active Reported Omeprazole 20 Mg Capsule.dr 20 Mg PO DAILY Metformin Hcl 1,000 Mg Tablet 1,000 Mg PO BIDWMEALS Gabapentin 600 Mg Tablet 600 Mg PO BID Zocor (Simvastatin) 20 Mg Tablet 20 Mg PO HS Atenolol 50 Mg Tablet 50 Mg PO BID Allergies Allergies: Allergies Coded Allergies Type Severity Reaction Last Updated Verified No Known Drug Allergies 01/15/18 No ROS Review of System The patient denies any associated fevers, chills, headache, ear pain, rhinorrhea , sore throat, stiff neck, productive cough, chest pain, shortness of breath, back or flank pain, abdominal pain, nausea, vomiting, diarrhea, constipation, dysuria, rash, numbness, weakness, tingling, incontinence, difficulty ambulating, or diaphoresis. Physical Exam Physical Exam General: Well developed, well nourished, no acute distress, well appearing HEENT: Pupils equally round and reactive to light, EOMI, no discharge, normal conjunctiva Neck: Supple, no nuchal rigidity, no JVD, trachea midline, no tenderness Cardiac: RRR, no murmurs, no gallops, no rubs Chest/Lungs: CTAB, no wheeze, no rhonchi, no crackles Abdomen: soft, non-distended, no guarding, no peritoneal signs, non-tender Back: No tenderness Extremities: no edema, pulses intact, non-tender,capillary refill <3 sec bilateral upper and lower extremities, Neuro: Alert and oriented x 4, no focal deficits, normal speech Vitals Vitals: Vital Signs Date Time Temp Pulse Resp B/P (MAP) Pulse Ox O2 Delivery O2 Flow Rate FiO2 07/21/18 14:58 98.1 78 20 161/84 (109) 95 Room Air 98.1 Labs Labs Laboratory Tests Test 07/20/18 16:00 07/20/18 20:15 07/20/18 20:43 07/21/18 00:10 White Blood Count 3.2 x10^3/uL (4.0-11.0) Red Blood Count 4.83 x10^6/uL (4.30-5.70) Hemoglobin 14.7 g/dL (13.0-17.5) Hematocrit 43.9 % (39.0-53.0) Mean Corpuscular Volume 91 fL (79-100) Mean Corpuscular Hemoglobin 30 pg (25-35) Mean Corpuscular Hemoglobin Concent 33 g/dL (31-37) Red Cell Distribution Width 13.5 % (11.5-14.5) Platelet Count 153 x10^3/uL (140-400) Neutrophils (%) (Auto) 49 % (31-73) Lymphocytes (%) (Auto) 39 % (24-48) Monocytes (%) (Auto) 10 % (0-9) Eosinophils (%) (Auto) 1 % (0-3) Basophils (%) (Auto) 1 % (0-3) Neutrophils # (Auto) 1.6 x10^3uL (1.8-7.7) Lymphocytes # (Auto) 1.3 x10^3/uL (1.0-4.8) Monocytes # (Auto) 0.3 x10^3/uL (0.0-1.1) Eosinophils # (Auto) 0.0 x10^3/uL (0.0-0.7) Basophils # (Auto) 0.0 x10^3/uL (0.0-0.2) Prothrombin Time 15.0 SEC (11.7-14.0) Prothromb Time International Ratio 1.2 (0.8-1.1) Sodium Level 144 mmol/L (136-145) Potassium Level 4.1 mmol/L (3.5-5.1) Chloride Level 106 mmol/L (98-107) Carbon Dioxide Level 28 mmol/L (21-32) Anion Gap 10 (6-14) Blood Urea Nitrogen 17 mg/dL (8-26) Creatinine 0.8 mg/dL (0.7-1.3) Estimated GFR (Cockcroft-Gault) 95.8 BUN/Creatinine Ratio 21 (6-20) Glucose Level 192 mg/dL (70-99) Calcium Level 8.5 mg/dL (8.5-10.1) Magnesium Level 1.8 mg/dL (1.8-2.4) Total Bilirubin 0.5 mg/dL (0.2-1.0) Aspartate Amino Transf (AST/SGOT) 16 U/L (15-37) Alanine Aminotransferase (ALT/SGPT) 19 U/L (16-63) Alkaline Phosphatase 60 U/L (46-116) Creatine Kinase 27 U/L (39-308) Creatine Kinase MB (Mass) < 0.5 ng/mL (0.0-3.6) Creatine Kinase MB Relative Index % (0-4) Troponin I Quantitative < 0.017 ng/mL (0.000-0.055) < 0.017 ng/mL (0.000-0.055) < 0.017 ng/mL (0.000-0.055) HB-Imh-T-Type Natriuretic Peptide 169 pg/mL (0-124) Total Protein 6.0 g/dL (6.4-8.2) Albumin 3.3 g/dL (3.4-5.0) Albumin/Globulin Ratio 1.2 (1.0-1.7) Lipase 180 U/L (73-393) Thyroid Stimulating Hormone (TSH) 0.490 uIU/mL (0.358-3.74) Free Thyroxine 0.74 ng/dL (0.76-1.46) Glucose (Fingerstick) 143 mg/dL (70-99) Test 07/21/18 03:00 07/21/18 07:34 07/21/18 11:41 07/21/18 13:05 White Blood Count 3.1 x10^3/uL (4.0-11.0) Red Blood Count 4.67 x10^6/uL (4.30-5.70) Hemoglobin 14.1 g/dL (13.0-17.5) Hematocrit 42.2 % (39.0-53.0) Mean Corpuscular Volume 90 fL (79-100) Mean Corpuscular Hemoglobin 30 pg (25-35) Mean Corpuscular Hemoglobin Concent 34 g/dL (31-37) Red Cell Distribution Width 13.2 % (11.5-14.5) Platelet Count 143 x10^3/uL (140-400) Neutrophils (%) (Auto) 43 % (31-73) Lymphocytes (%) (Auto) 46 % (24-48) Monocytes (%) (Auto) 9 % (0-9) Eosinophils (%) (Auto) 2 % (0-3) Basophils (%) (Auto) 0 % (0-3) Neutrophils # (Auto) 1.3 x10^3uL (1.8-7.7) Lymphocytes # (Auto) 1.5 x10^3/uL (1.0-4.8) Monocytes # (Auto) 0.3 x10^3/uL (0.0-1.1) Eosinophils # (Auto) 0.0 x10^3/uL (0.0-0.7) Basophils # (Auto) 0.0 x10^3/uL (0.0-0.2) Sodium Level 146 mmol/L (136-145) Potassium Level 3.8 mmol/L (3.5-5.1) Chloride Level 109 mmol/L (98-107) Carbon Dioxide Level 30 mmol/L (21-32) Anion Gap 7 (6-14) Blood Urea Nitrogen 14 mg/dL (8-26) Creatinine 0.7 mg/dL (0.7-1.3) Estimated GFR (Cockcroft-Gault) 111.8 Glucose Level 102 mg/dL (70-99) Calcium Level 8.5 mg/dL (8.5-10.1) Glucose (Fingerstick) 107 mg/dL (70-99) 126 mg/dL (70-99) Urine Collection Type Unknown Urine Color Yellow Urine Clarity Clear Urine pH 7.5 Urine Specific [place] 1.020 Urine Protein Negative mg/dL (NEG-TRACE) Urine Glucose (UA) Negative mg/dL (NEG) Urine Ketones (Stick) Trace mg/dL (NEG) Urine Blood Negative (NEG) Urine Nitrite Negative (NEG) Urine Bilirubin Negative (NEG) Urine Urobilinogen Dipstick 1.0 mg/dL (0.2 mg/dL) Urine Leukocyte Esterase Negative (NEG) Urine RBC 0 /HPF (0-2) Urine WBC 1-4 /HPF (0-4) Urine Squamous Epithelial Cells Occ /LPF Urine Bacteria Few /HPF (0-FEW) Urine Mucus Mod /LPF Urine Opiates Screen Neg (NEG) Urine Methadone Screen Neg (NEG) Urine Barbiturates Neg (NEG) Urine Phencyclidine Screen Neg (NEG) Urine Amphetamine/Methamphetamine Neg (NEG) Urine Benzodiazepines Screen Neg (NEG) Urine Cocaine Screen Neg (NEG) Urine Cannabinoids Screen Neg (NEG) Urine Ethyl Alcohol Neg (NEG) Test 07/21/18 16:27 Glucose (Fingerstick) 114 mg/dL (70-99) Laboratory Tests Test 07/20/18 20:15 07/20/18 20:43 07/21/18 00:10 07/21/18 03:00 Troponin I Quantitative < 0.017 ng/mL (0.000-0.055) < 0.017 ng/mL (0.000-0.055) Free Thyroxine 0.74 ng/dL (0.76-1.46) Glucose (Fingerstick) 143 mg/dL (70-99) White Blood Count 3.1 x10^3/uL (4.0-11.0) Red Blood Count 4.67 x10^6/uL (4.30-5.70) Hemoglobin 14.1 g/dL (13.0-17.5) Hematocrit 42.2 % (39.0-53.0) Mean Corpuscular Volume 90 fL (79-100) Mean Corpuscular Hemoglobin 30 pg (25-35) Mean Corpuscular Hemoglobin Concent 34 g/dL (31-37) Red Cell Distribution Width 13.2 % (11.5-14.5) Platelet Count 143 x10^3/uL (140-400) Neutrophils (%) (Auto) 43 % (31-73) Lymphocytes (%) (Auto) 46 % (24-48) Monocytes (%) (Auto) 9 % (0-9) Eosinophils (%) (Auto) 2 % (0-3) Basophils (%) (Auto) 0 % (0-3) Neutrophils # (Auto) 1.3 x10^3uL (1.8-7.7) Lymphocytes # (Auto) 1.5 x10^3/uL (1.0-4.8) Monocytes # (Auto) 0.3 x10^3/uL (0.0-1.1) Eosinophils # (Auto) 0.0 x10^3/uL (0.0-0.7) Basophils # (Auto) 0.0 x10^3/uL (0.0-0.2) Sodium Level 146 mmol/L (136-145) Potassium Level 3.8 mmol/L (3.5-5.1) Chloride Level 109 mmol/L (98-107) Carbon Dioxide Level 30 mmol/L (21-32) Anion Gap 7 (6-14) Blood Urea Nitrogen 14 mg/dL (8-26) Creatinine 0.7 mg/dL (0.7-1.3) Estimated GFR (Cockcroft-Gault) 111.8 Glucose Level 102 mg/dL (70-99) Calcium Level 8.5 mg/dL (8.5-10.1) Test 07/21/18 07:34 07/21/18 11:41 07/21/18 13:05 07/21/18 16:27 Glucose (Fingerstick) 107 mg/dL (70-99) 126 mg/dL (70-99) 114 mg/dL (70-99) Urine Collection Type Unknown Urine Color Yellow Urine Clarity Clear Urine pH 7.5 Urine Specific [place] 1.020 Urine Protein Negative mg/dL (NEG-TRACE) Urine Glucose (UA) Negative mg/dL (NEG) Urine Ketones (Stick) Trace mg/dL (NEG) Urine Blood Negative (NEG) Urine Nitrite Negative (NEG) Urine Bilirubin Negative (NEG) Urine Urobilinogen Dipstick 1.0 mg/dL (0.2 mg/dL) Urine Leukocyte Esterase Negative (NEG) Urine RBC 0 /HPF (0-2) Urine WBC 1-4 /HPF (0-4) Urine Squamous Epithelial Cells Occ /LPF Urine Bacteria Few /HPF (0-FEW) Urine Mucus Mod /LPF Urine Opiates Screen Neg (NEG) Urine Methadone Screen Neg (NEG) Urine Barbiturates Neg (NEG) Urine Phencyclidine Screen Neg (NEG) Urine Amphetamine/Methamphetamine Neg (NEG) Urine Benzodiazepines Screen Neg (NEG) Urine Cocaine Screen Neg (NEG) Urine Cannabinoids Screen Neg (NEG) Urine Ethyl Alcohol Neg (NEG) MAGGI JOSE MD Jul 21, 2018 18:23
[2018-07-21] MEDS: SIMVASTATIN 20 MG TABLET PO SCH (20:30)
[2018-07-21] MEDS ORDERED: ACETAMINOPHEN 325 MG TABLET. PO PRN (21:15)
[2018-07-22] VITALS (15 sets, daily range): BP systolic 116–151; BP diastolic 67–88
[2018-07-22] MEDS ORDERED: hydroCHLOROthiazide 12.5 MG CAPSULE PO SCH (09:00)
[2018-07-22] MEDS ORDERED: LISINOPRIL 20 MG TABLET PO SCH (09:00)
[2018-07-22] MEDS ORDERED: MIDAZOLAM HCL/PF 2 MG/2 ML VIAL. ONE (09:14)
[2018-07-22] MEDS ORDERED: LIDOCAINE 2%/EPI 1:100,000 20 ML VIAL. ONE (09:14)
[2018-07-22] MEDS ORDERED: fentaNYL PF VIAL 100 MCG/2 ML VIAL ONE (09:15)
[2018-07-22] MEDS ORDERED: LIDOCAINE 2%/EPI 1:100,000 20 ML VIAL. IJ ONE (09:15)
[2018-07-22] MEDS ORDERED: MIDAZOLAM HCL/PF 2 MG/2 ML VIAL. IV ONE (09:15)
[2018-07-22] MEDS ORDERED: fentaNYL PF VIAL 100 MCG/2 ML VIAL IV ONE (09:15)
[2018-07-22] MEDS ORDERED: BACITRACIN 50,000 UNIT in IV NORMAL SALINE 250ML 250 ML IRR ONE (09:30)
[2018-07-22] MEDS: INSULIN LISPRO 300 UNITS/3 ML INSULN.PEN. SQ SCH ×3 (12:00→17:40)
[2018-07-22] MEDS ORDERED: NO ANTICOAGULANT THERAPY. MC PRN (12:15)
[2018-07-22] MEDS ORDERED: ONDANSETRON PF 4 MG/2 ML VIAL. IV PRN (12:15)
--- NOTE | 2018-07-22 12:24 | PDOC ---
PROGRESS NOTES Chief Complaint Chief Complaint 1, SYNCOPE, HX Neurocardiogenic syncope 2. Lumbar radiculopathy with lumbar degenerative disk disease, lumbar spinal stenosis and post-lumbar laminectomy syndrome. 3.Chronic infarct within the left cerebellum. 4. Scattered areas of hypodensity within the cerebral white matter, a nonspecific finding likely due to chronic small vessel disease. plan EEG as per neurology follow recommendations pace maker placement today follow recommendations from national sales consultant. echo noted History of Present Illness History of Present Illness Patient with no complaints during my visit. Patient with no chest pain no new events overnight, paln of care discussed in detail All concerns addressed to the best of my abilities. Vitals Vitals Vital Signs Date Time Temp Pulse Resp B/P (MAP) Pulse Ox O2 Delivery O2 Flow Rate FiO2 07/22/18 11:35 97 19 94 Simple Mask 6.0 07/22/18 07:00 98.0 151/77 (101) 98.0 Physical Exam General: Alert, Oriented X3, Cooperative, No acute distress Heart: Regular rate (SR), Normal S1, Normal S2, Other (2/6 systolic murmur to LLS border) Lungs: Clear Abdomen: Soft, No tenderness Extremities: No cyanosis, No edema Skin: No breakdown, No significant lesion Labs LABS Laboratory Tests Test 07/21/18 13:05 07/21/18 16:27 07/21/18 20:42 07/22/18 08:40 Urine Collection Type Unknown Urine Color Yellow Urine Clarity Clear Urine pH 7.5 Urine Specific [place] 1.020 Urine Protein Negative mg/dL (NEG-TRACE) Urine Glucose (UA) Negative mg/dL (NEG) Urine Ketones (Stick) Trace mg/dL (NEG) Urine Blood Negative (NEG) Urine Nitrite Negative (NEG) Urine Bilirubin Negative (NEG) Urine Urobilinogen Dipstick 1.0 mg/dL (0.2 mg/dL) Urine Leukocyte Esterase Negative (NEG) Urine RBC 0 /HPF (0-2) Urine WBC 1-4 /HPF (0-4) Urine Squamous Epithelial Cells Occ /LPF Urine Bacteria Few /HPF (0-FEW) Urine Mucus Mod /LPF Urine Opiates Screen Neg (NEG) Urine Methadone Screen Neg (NEG) Urine Barbiturates Neg (NEG) Urine Phencyclidine Screen Neg (NEG) Urine Amphetamine/Methamphetamine Neg (NEG) Urine Benzodiazepines Screen Neg (NEG) Urine Cocaine Screen Neg (NEG) Urine Cannabinoids Screen Neg (NEG) Urine Ethyl Alcohol Neg (NEG) Glucose (Fingerstick) 114 mg/dL (70-99) 169 mg/dL (70-99) 132 mg/dL (70-99) Test 07/22/18 12:14 Glucose (Fingerstick) 174 mg/dL (70-99) Review of Systems Review of Systems 10 point review of system is negative Assessment and Plan Assessmemt and Plan Problems Medical Problems: (1) Syncope Status: Acute Comment Review of Relevant I have reviewed the following items argenis (where applicable) has been applied. Labs Laboratory Tests Test 07/20/18 16:00 07/20/18 20:15 07/20/18 20:43 07/21/18 00:10 White Blood Count 3.2 x10^3/uL (4.0-11.0) Red Blood Count 4.83 x10^6/uL (4.30-5.70) Hemoglobin 14.7 g/dL (13.0-17.5) Hematocrit 43.9 % (39.0-53.0) Mean Corpuscular Volume 91 fL (79-100) Mean Corpuscular Hemoglobin 30 pg (25-35) Mean Corpuscular Hemoglobin Concent 33 g/dL (31-37) Red Cell Distribution Width 13.5 % (11.5-14.5) Platelet Count 153 x10^3/uL (140-400) Neutrophils (%) (Auto) 49 % (31-73) Lymphocytes (%) (Auto) 39 % (24-48) Monocytes (%) (Auto) 10 % (0-9) Eosinophils (%) (Auto) 1 % (0-3) Basophils (%) (Auto) 1 % (0-3) Neutrophils # (Auto) 1.6 x10^3uL (1.8-7.7) Lymphocytes # (Auto) 1.3 x10^3/uL (1.0-4.8) Monocytes # (Auto) 0.3 x10^3/uL (0.0-1.1) Eosinophils # (Auto) 0.0 x10^3/uL (0.0-0.7) Basophils # (Auto) 0.0 x10^3/uL (0.0-0.2) Prothrombin Time 15.0 SEC (11.7-14.0) Prothromb Time International Ratio 1.2 (0.8-1.1) Sodium Level 144 mmol/L (136-145) Potassium Level 4.1 mmol/L (3.5-5.1) Chloride Level 106 mmol/L (98-107) Carbon Dioxide Level 28 mmol/L (21-32) Anion Gap 10 (6-14) Blood Urea Nitrogen 17 mg/dL (8-26) Creatinine 0.8 mg/dL (0.7-1.3) Estimated GFR (Cockcroft-Gault) 95.8 BUN/Creatinine Ratio 21 (6-20) Glucose Level 192 mg/dL (70-99) Calcium Level 8.5 mg/dL (8.5-10.1) Magnesium Level 1.8 mg/dL (1.8-2.4) Total Bilirubin 0.5 mg/dL (0.2-1.0) Aspartate Amino Transf (AST/SGOT) 16 U/L (15-37) Alanine Aminotransferase (ALT/SGPT) 19 U/L (16-63) Alkaline Phosphatase 60 U/L (46-116) Creatine Kinase 27 U/L (39-308) Creatine Kinase MB (Mass) < 0.5 ng/mL (0.0-3.6) Creatine Kinase MB Relative Index % (0-4) Troponin I Quantitative < 0.017 ng/mL (0.000-0.055) < 0.017 ng/mL (0.000-0.055) < 0.017 ng/mL (0.000-0.055) GZ-Itj-N-Type Natriuretic Peptide 169 pg/mL (0-124) Total Protein 6.0 g/dL (6.4-8.2) Albumin 3.3 g/dL (3.4-5.0) Albumin/Globulin Ratio 1.2 (1.0-1.7) Lipase 180 U/L (73-393) Thyroid Stimulating Hormone (TSH) 0.490 uIU/mL (0.358-3.74) Free Thyroxine 0.74 ng/dL (0.76-1.46) Glucose (Fingerstick) 143 mg/dL (70-99) Test 07/21/18 03:00 07/21/18 07:34 07/21/18 11:41 07/21/18 13:05 White Blood Count 3.1 x10^3/uL (4.0-11.0) Red Blood Count 4.67 x10^6/uL (4.30-5.70) Hemoglobin 14.1 g/dL (13.0-17.5) Hematocrit 42.2 % (39.0-53.0) Mean Corpuscular Volume 90 fL (79-100) Mean Corpuscular Hemoglobin 30 pg (25-35) Mean Corpuscular Hemoglobin Concent 34 g/dL (31-37) Red Cell Distribution Width 13.2 % (11.5-14.5) Platelet Count 143 x10^3/uL (140-400) Neutrophils (%) (Auto) 43 % (31-73) Lymphocytes (%) (Auto) 46 % (24-48) Monocytes (%) (Auto) 9 % (0-9) Eosinophils (%) (Auto) 2 % (0-3) Basophils (%) (Auto) 0 % (0-3) Neutrophils # (Auto) 1.3 x10^3uL (1.8-7.7) Lymphocytes # (Auto) 1.5 x10^3/uL (1.0-4.8) Monocytes # (Auto) 0.3 x10^3/uL (0.0-1.1) Eosinophils # (Auto) 0.0 x10^3/uL (0.0-0.7) Basophils # (Auto) 0.0 x10^3/uL (0.0-0.2) Sodium Level 146 mmol/L (136-145) Potassium Level 3.8 mmol/L (3.5-5.1) Chloride Level 109 mmol/L (98-107) Carbon Dioxide Level 30 mmol/L (21-32) Anion Gap 7 (6-14) Blood Urea Nitrogen 14 mg/dL (8-26) Creatinine 0.7 mg/dL (0.7-1.3) Estimated GFR (Cockcroft-Gault) 111.8 Glucose Level 102 mg/dL (70-99) Calcium Level 8.5 mg/dL (8.5-10.1) Glucose (Fingerstick) 107 mg/dL (70-99) 126 mg/dL (70-99) Urine Collection Type Unknown Urine Color Yellow Urine Clarity Clear Urine pH 7.5 Urine Specific [place] 1.020 Urine Protein Negative mg/dL (NEG-TRACE) Urine Glucose (UA) Negative mg/dL (NEG) Urine Ketones (Stick) Trace mg/dL (NEG) Urine Blood Negative (NEG) Urine Nitrite Negative (NEG) Urine Bilirubin Negative (NEG) Urine Urobilinogen Dipstick 1.0 mg/dL (0.2 mg/dL) Urine Leukocyte Esterase Negative (NEG) Urine RBC 0 /HPF (0-2) Urine WBC 1-4 /HPF (0-4) Urine Squamous Epithelial Cells Occ /LPF Urine Bacteria Few /HPF (0-FEW) Urine Mucus Mod /LPF Urine Opiates Screen Neg (NEG) Urine Methadone Screen Neg (NEG) Urine Barbiturates Neg (NEG) Urine Phencyclidine Screen Neg (NEG) Urine Amphetamine/Methamphetamine Neg (NEG) Urine Benzodiazepines Screen Neg (NEG) Urine Cocaine Screen Neg (NEG) Urine Cannabinoids Screen Neg (NEG) Urine Ethyl Alcohol Neg (NEG) Test 07/21/18 16:27 07/21/18 20:42 07/22/18 08:40 07/22/18 12:14 Glucose (Fingerstick) 114 mg/dL (70-99) 169 mg/dL (70-99) 132 mg/dL (70-99) 174 mg/dL (70-99) Laboratory Tests Test 07/21/18 13:05 07/21/18 16:27 07/21/18 20:42 07/22/18 08:40 Urine Collection Type Unknown Urine Color Yellow Urine Clarity Clear Urine pH 7.5 Urine Specific [place] 1.020 Urine Protein Negative mg/dL (NEG-TRACE) Urine Glucose (UA) Negative mg/dL (NEG) Urine Ketones (Stick) Trace mg/dL (NEG) Urine Blood Negative (NEG) Urine Nitrite Negative (NEG) Urine Bilirubin Negative (NEG) Urine Urobilinogen Dipstick 1.0 mg/dL (0.2 mg/dL) Urine Leukocyte Esterase Negative (NEG) Urine RBC 0 /HPF (0-2) Urine WBC 1-4 /HPF (0-4) Urine Squamous Epithelial Cells Occ /LPF Urine Bacteria Few /HPF (0-FEW) Urine Mucus Mod /LPF Urine Opiates Screen Neg (NEG) Urine Methadone Screen Neg (NEG) Urine Barbiturates Neg (NEG) Urine Phencyclidine Screen Neg (NEG) Urine Amphetamine/Methamphetamine Neg (NEG) Urine Benzodiazepines Screen Neg (NEG) Urine Cocaine Screen Neg (NEG) Urine Cannabinoids Screen Neg (NEG) Urine Ethyl Alcohol Neg (NEG) Glucose (Fingerstick) 114 mg/dL (70-99) 169 mg/dL (70-99) 132 mg/dL (70-99) Test 07/22/18 12:14 Glucose (Fingerstick) 174 mg/dL (70-99) Medications Current Medications Sodium Chloride 1,000 ml @ 1,000 mls/hr 1X ONCE IV Last administered on at 16:51; Start 07/20/18 at 16:00; Stop 07/20/18 at 16:59; Status DC Ondansetron HCl (Zofran) 4 mg PRN Q8HRS PRN IV NAUSEA/VOMITING; Start 07/20/18 at 18:15; Stop 07/21/18 at 18:14; Status DC Acetaminophen (Tylenol) 650 mg PRN Q4HRS PRN PO FEVER; Start 07/20/18 at 18:15 ; Stop 07/21/18 at 18:14; Status DC Gabapentin (Neurontin) 600 mg BID PO Last administered on 07/21/18at 20:30; Start 07/20/18 at 21:00 Pantoprazole Sodium (Protonix) 40 mg DAILYAC PO Last administered on 07/21/18at 07:30; Start 07/21/18 at 07:30 Simvastatin (Zocor) 20 mg HS PO Last administered on 07/21/18at 20:30; Start at 21:00 Insulin Human Lispro (HumaLOG) 0-5 UNITS TIDWMEALS SQ ; Start 07/21/18 at 08:00 Dextrose (Dextrose 50%-Water Syringe) 12.5 gm PRN Q15MIN PRN IV SEE COMMENTS; Start 07/20/18 at 20:45 Hydralazine HCl (Apresoline Inj) 10 mg 1X ONCE IVP Last administered on at 12:30; Start 07/21/18 at 12:30; Stop 07/21/18 at 12:31; Status DC Hydrochlorothiazide (Microzide) 12.5 mg DAILY PO ; Start 07/22/18 at 09:00 Lisinopril (Prinivil) 20 mg DAILY PO ; Start 07/22/18 at 09:00 Hydralazine HCl (Apresoline Inj) 10 mg PRN Q4HRS PRN IVP ELEVATED BP, SEE COMMENTS; Start 07/21/18 at 16:00 Cefazolin Sodium/ Dextrose 50 ml @ 100 mls/hr 1X ONCE IV Last administered on 07/22/18at 10:00; Start 07/22/18 at 06:00; Stop 07/22/18 at 06:29; Status DC Acetaminophen (Tylenol) 650 mg PRN Q6HRS PRN PO MILD PAIN / TEMP Last administered on 07/21/18at 21:07; Start 07/21/18 at 21:15 Lidocaine/ Epinephrine (LIDOCAINE 2%-EPI 1:100,000 multi-dose) 20 ml STK-MED ONCE .ROUTE ; Start 07/22/18 at 09:14; Stop 07/22/18 at 09:15; Status DC Midazolam HCl (Versed) 2 mg STK-MED ONCE .ROUTE ; Start 07/22/18 at 09:14; Stop 07/22/18 at 09:15; Status DC Fentanyl Citrate (Fentanyl 2ml Vial) 100 mcg STK-MED ONCE .ROUTE ; Start at 09:15; Stop 07/22/18 at 09:16; Status DC Midazolam HCl (Versed) 2 mg 1X ONCE IV Last administered on 07/22/18at 09:15; Start 07/22/18 at 09:15; Stop 07/22/18 at 09:19; Status DC Fentanyl Citrate (Fentanyl 2ml Vial) 100 mcg 1X ONCE IV Last administered on at 09:15; Start 07/22/18 at 09:15; Stop 07/22/18 at 09:19; Status DC Lidocaine/ Epinephrine (LIDOCAINE 2%-EPI 1:100,000 multi-dose) 20 ml 1X ONCE IJ Last administered on 07/22/18at 09:15; Start 07/22/18 at 09:15; Stop at 09:19; Status DC Bacitracin 09918 unit/Sodium Chloride 250 ml @ 0 mls/hr 1X ONCE IRR Last administered on 07/22/18at 09:30; Start 07/22/18 at 09:30; Stop 07/22/18 at 09:31 ; Status DC Cefazolin Sodium/ Dextrose 50 ml @ As Directed STK-MED ONCE IV ; Start 07/22/18 at 09:34; Stop 07/22/18 at 09:35; Status DC Info (No Anticoagulant Therapy) 1 ea CONT PRN PRN MC PER PROTOCOL; Start at 12:15 Ondansetron HCl (Zofran) 4 mg PRN Q6HRS PRN IV NAUSEA/VOMITING; Start 07/22/18 at 12:15 Acetaminophen/ Hydrocodone Bitart (Lortab 5/325) 2 tab PRN Q4HRS PRN PO MODERATE PAIN, SEVERE PAIN; Start 07/22/18 at 12:15 Active Scripts Active Reported Omeprazole 20 Mg Capsule.dr 20 Mg PO DAILY Metformin Hcl 1,000 Mg Tablet 1,000 Mg PO BIDWMEALS Gabapentin 600 Mg Tablet 600 Mg PO BID Zocor (Simvastatin) 20 Mg Tablet 20 Mg PO HS Atenolol 50 Mg Tablet 50 Mg PO BID Vitals/I & O Vital Sign - Last 24 Hours 07/21/18 07/21/18 07/21/18 07/21/18 12:30 14:58 17:45 18:45 Temp 98.1 98.1 Pulse 57 78 62 70 Resp 20 B/P (MAP) 188/86 161/84 (109) 164/88 (113) 142/77 (98) Pulse Ox 95 O2 Delivery Room Air 07/21/18 07/21/18 07/21/18 07/22/18 19:59 20:00 22:05 02:45 Temp 98.3 97.9 97.9 98.3 97.9 97.9 Pulse 63 64 67 Resp 16 16 16 B/P (MAP) 159/87 (111) 149/84 (105) 126/81 (96) Pulse Ox 96 94 94 O2 Delivery Room Air Room Air Room Air Room Air 07/22/18 07/22/18 07/22/18 07/22/18 07:00 08:15 09:15 11:35 Temp 98.0 98.0 Pulse 61 97 Resp 18 15 19 B/P (MAP) 151/77 (101) Pulse Ox 95 94 O2 Delivery Room Air Simple Mask O2 Flow Rate 6.0 Intake and Output 07/21/18 07/21/18 07/22/18 15:00 23:00 07:00 Intake Total 400 ml 200 ml Output Total 250 ml Balance -250 ml 400 ml 200 ml JOSE MCCONNELL MD Jul 22, 2018 12:24
--- NOTE | 2018-07-22 12:28 | EEG ---
DATE OF SERVICE: 07/22/2018 EEG NUMBER: [id number] OBJECTIVE: This is a 68-year-old male patient with history of confusional episodes. EEG was requested to evaluate cerebral activity and help rule out seizure. METHODS: Twenty electrodes were applied according to the international 10-20 electrode placement system. EKG monitoring, hyperventilation, intermittent photic stimulation, monopolar and bipolar montages are routinely utilized. The record was obtained on a digital system with video monitoring. FINDINGS: 1. Background: The patient was recorded in the awake and drowsy states. No actual sleep state was recorded. The overall background amplitude is 10-20 microvolts. A posterior dominant rhythm of 8-9 Hz is observed. 2. Abnormalities: No specific epileptiform discharge or electrographic seizure is seen. No focal or diffuse slowing. 3. Activation: Hyperventilation was performed with good efforts and normal response. Intermittent photic stimulation was performed with photic driving. IMPRESSION: This EEG is a normal study for the awake and drowsy states. No sleep state was recorded. No focal, lateralizing, specific epileptiform discharge or electrographic seizure is seen. MAGGI JOSE MD DR: NAA/kallie JOB#: [id number] / [id number]
[2018-07-22] MEDS: PANTOPRAZOLE 40 MG TABLET.DR. PO SCH (12:42)
[2018-07-22] MEDS: GABAPENTIN 300 MG CAPSULE. PO SCH ×2 (12:43→21:13)
--- NOTE | 2018-07-22 13:31 | RAD ---
PORTABLE CHEST 1V Clinical Indication: POST PACEMAKER Comparison: AP chest, 2 days ago. Findings: There is new right chest dual-chamber pacer. No pneumothorax. Cardiomediastinal silhouette is normal. Lungs are clear. No pleural effusion. Bones appear stable. IMPRESSION: Right chest dual-chamber pacer. No pneumothorax. Electronically signed by: Jamey Ahuja MD (07/22/2018 1:28 PM) [id number]
[2018-07-22] MEDS: HYDROcodone/APAP 5/325MG 1 TAB TABLET PO PRN ×3 (13:32→23:34)
--- NOTE | 2018-07-22 13:45 | CARD ---
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 CONSCIOUS SEDATION AGENTS 30 mL of 2% lidocaine was infiltrated into the skin and subcutaneous tissues for local anesthesia. A n incision was made over the left infraclavicular fossa and using blunt dissection and cautery a pock et was created. Venous access was obtained in the left subclavian vein and 9 and 7 [place] sheaths we re inserted. Subsequently, a St Rodríguez bipolar active fixation right ventricular lead model 2088TC/52 SN [id number] as advanced under fluoroscopic guidance and the tip was positioned in the right ventricular apex. Fo llowing this, St rodríguez bipolar active fixation right atrial lead model 2088TC/46, SN [id number] was dorina xiang in the right atrial appendage under fluoroscopy guidance. The right atrial lead was mapped in mul tiple locations due to higher thresholds but no other area was able to be identified with better ampl itudes/thresholds. The leads were secured into place and were attached to a [employer]. Rodríguez dual-chamber per manent pacemaker generator model PM 2272, SN [id number]. This was placed in the pocket that was subseque ntly closed in 3 layers. Hemostasis was secured. At the end of procedure, the right ventricular lead showed sensing amplitude of 5.1 mV, impedance of 740 ohms and a threshold of 0.5 volts at 0.4ms. The right atrial lead showed a sensing amplitude of 3.9 millivolts, impedance of 500 ohms and a threshold of 1.25 volts at 1ms. Patient tolerated the pro cedure well. There were no immediate complications. CONCLUSION 1. Successful insertion of a [employer]. 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 Signed by : Kole Shepherd, Electronically Approved : 07/22/2018 13:45:13
--- NOTE | 2018-07-22 18:41 | PDOC ---
PROGRESS NOTES Assessment Assessment Recurrent syncope, cardiogenic syncope. Metabolic encephalopathy. Dizziness. Confusion episodes. Seizure evaluation. PEA lasting for 4 seconds on EKG monitoring. Falls. DM. HTN. HLD. Prostate cancer. 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 RECOMMENDATIONS/PLAN: ASA daily. Continue Zocor HS. Cardiac consulted, pacemaker placed on 07/22/18. Treat cardiac and medical diseases. Ortho BP WNL. EEG on 07/22/18: Normal. HCT: Negative. HISTORY OF THE PRESENT ILLNESS: 68-y-old male patient with Hx of recurrent syncopal spells in the past years and he was diagnosed as having cardio-neurogenic syncope. He stated he stood up from sitting position and was ambulating to the front room, he got dizzy, and passed out landing half of his body on a bed, so he came to the ER of [facility] for further evaluation. No shaking, jerking of lion movements. Denies headache or chest pain. On EKG monitoring, brief cardiac silence lasted for 1-4 seconds revealed. PAST MEDICAL HISTORY Cardiovascular: HTN, Syncope, Hyperlipidemia Pulmonary: Other (HOWIE) CENTRAL NERVOUS SYSTEM: Periperal neuropathy GI: GERD Heme/Onc: No pertinent hx, Cancer (prostate with chemo) Hepatobiliary: No pertinent hx ENT: No pertinent hx Renal/: Prostate Ca. Endocrine: Diabetes (2) Dermatology: No pertinent hx PAST SURGICAL HISTORY Arthroscopy left knee, Cholecystectomy, Hernia Repair (hiatal), Other (back surgery; gastric sleve) FAMILY HISTORY Stroke ALLERGY: NKDA MEDICATIONS: Refer to [facility] SOCIAL HISTORY: Lives with family. Denies current smoking, but drinking occasionally, and denied illicit drug use. REVIEW OF SYSTEMS: Constitutional: No malnutrition, weight loss, cachexia. Head: No traumatic brain or head injury. Skin: No edema, or rash. Ear: No infection. Eyes: No vision loss or color blindness. Nose: No bleeding or purulent discharges. Hearing: No hearing decrease. Neck: No injury. Cardiac: CAD, HTN, HLD. Pulmonary: No COPD. GI: No GI ulcer, GI bleeding. Urinary/genital: UTI. Endocrinologic: Diabetes Mellitus. Skeletomuscular: No muscular atrophy, deformity. Neurological: see HP. Psychiatric: Denies drug use/abuse. Otherwise, not [id number] review of systems. PHYSICAL EXAMINATION: General appearance is in subacute distress. HEENT: Normocephalic and nontraumatic. Eyes, nose, ears, and throat are unremarkable. Neck is supple. No lymphadenopathy. No crepitus. Cardiovascular: S1, S2, regular rate and rhythm. Pulmonary: Clear to auscultation bilaterally. Abdomen: Bowel sounds are positive. Abdomen is soft, nontender, and nondistended. Extremities: No rash, lesions, or edema. No restriction of range of motion NEUROLOGICAL EXAMINATION: Alert Oriented to time, place and person. PERRL. EOMI. CN: no focal findings. Muscle tone: within normal. Muscle strength: 5 DTR: 2 Plantar reflex: Flexor response bilaterally Gait: not examined in bed. Sensory exam: no abnormal findings. No acute cerebellar signs elicited. F-T-N test accurate. Objective Objective Vital Signs Date Time Temp Pulse Resp B/P (MAP) Pulse Ox O2 Delivery O2 Flow Rate FiO2 07/22/18 17:35 Room Air 07/22/18 15:05 108 134/80 (98) 07/22/18 15:00 98.0 18 94 98.0 07/22/18 11:35 6.0 Intake and Output 07/22/18 07:00 Intake Total 600 ml Output Total 250 ml Balance 350 ml Intake Oral 600 ml Output Urine Total 250 ml # Voids 3 Vitals Signs Vitals VS - Last 72 Hours, by Label Date Time Temp Pulse Resp B/P (MAP) Pulse Ox O2 Delivery O2 Flow Rate FiO2 07/22/18 17:35 Room Air 07/22/18 15:05 108 134/80 (98) 07/22/18 15:00 98.0 70 18 134/80 (98) 94 98.0 07/22/18 14:45 Room Air 07/22/18 14:05 112 134/77 (96) 07/22/18 13:35 115 150/83 (105) 07/22/18 13:32 Room Air 07/22/18 13:05 111 134/78 (96) 07/22/18 12:50 110 150/83 (105) 07/22/18 12:35 113 138/82 (100) 07/22/18 12:20 113 144/88 (106) 07/22/18 12:17 97.6 112 18 144/81 (102) 94 97.6 07/22/18 12:05 110 144/81 (102) 07/22/18 11:35 97 19 94 Simple Mask 6.0 07/22/18 09:15 15 07/22/18 09:00 113 138/82 07/22/18 08:15 Room Air 07/22/18 07:00 98.0 61 18 151/77 (101) 95 98.0 07/22/18 02:45 97.9 67 16 126/81 (96) 94 Room Air 97.9 07/21/18 22:05 97.9 64 16 149/84 (105) 94 Room Air 97.9 07/21/18 20:00 Room Air 07/21/18 19:59 98.3 63 16 159/87 (111) 96 Room Air 98.3 07/21/18 18:45 70 142/77 (98) 07/21/18 17:45 62 164/88 (113) 07/21/18 14:58 98.1 78 20 161/84 (109) 95 Room Air 98.1 07/21/18 12:30 57 188/86 07/21/18 10:52 97.9 57 20 188/86 (120) 95 Room Air 97.9 07/21/18 08:38 63 144/85 (104) 07/21/18 08:37 59 144/84 (104) 07/21/18 08:37 64 142/80 (100) 07/21/18 08:00 Room Air 07/21/18 07:00 97.9 57 20 143/75 (97) 94 Room Air 97.9 Laboratory Laboratory Laboratory Tests Test 07/21/18 20:42 07/22/18 08:40 07/22/18 12:14 07/22/18 16:47 Glucose (Fingerstick) 169 mg/dL (70-99) 132 mg/dL (70-99) 174 mg/dL (70-99) 152 mg/dL (70-99) Medication Medications Current Medications Acetaminophen (Tylenol) 650 mg PRN Q6HRS PRN PO MILD PAIN / TEMP Last administered on 07/21/18at 21:07; Start 07/21/18 at 21:15 Acetaminophen/ Hydrocodone Bitart (Lortab 5/325) 2 tab PRN Q4HRS PRN PO MODERATE PAIN, SEVERE PAIN Last administered on 07/22/18at 17:35; Start 07/22/18 at 12:15 Bacitracin 76345 unit/Sodium Chloride 250 ml @ 0 mls/hr 1X ONCE IRR Last administered on 07/22/18at 09:30; Start 07/22/18 at 09:30; Stop 07/22/18 at 09:31 ; Status DC Cefazolin Sodium/ Dextrose 50 ml @ 100 mls/hr 1X ONCE IV Last administered on 07/22/18at 10:00; Start 07/22/18 at 06:00; Stop 07/22/18 at 06:29; Status DC Cefazolin Sodium/ Dextrose 50 ml @ As Directed STK-MED ONCE IV ; Start 07/22/18 at 09:34; Stop 07/22/18 at 09:35; Status DC Fentanyl Citrate (Fentanyl 2ml Vial) 100 mcg 1X ONCE IV Last administered on at 09:15; Start 07/22/18 at 09:15; Stop 07/22/18 at 09:19; Status DC Fentanyl Citrate (Fentanyl 2ml Vial) 100 mcg STK-MED ONCE .ROUTE ; Start at 09:15; Stop 07/22/18 at 09:16; Status DC Hydrochlorothiazide (Microzide) 12.5 mg DAILY PO ; Start 07/22/18 at 09:00; Stop 07/22/18 at 12:56; Status DC Info (No Anticoagulant Therapy) 1 ea CONT PRN PRN MC PER PROTOCOL; Start at 12:15 Lidocaine/ Epinephrine (LIDOCAINE 2%-EPI 1:100,000 multi-dose) 20 ml 1X ONCE IJ Last administered on 07/22/18at 09:15; Start 07/22/18 at 09:15; Stop at 09:19; Status DC Lidocaine/ Epinephrine (LIDOCAINE 2%-EPI 1:100,000 multi-dose) 20 ml STK-MED ONCE .ROUTE ; Start 07/22/18 at 09:14; Stop 07/22/18 at 09:15; Status DC Lisinopril (Prinivil) 20 mg DAILY PO ; Start 07/22/18 at 09:00; Stop 07/22/18 at 12:56; Status DC Midazolam HCl (Versed) 2 mg 1X ONCE IV Last administered on 07/22/18at 09:15; Start 07/22/18 at 09:15; Stop 07/22/18 at 09:19; Status DC Midazolam HCl (Versed) 2 mg STK-MED ONCE .ROUTE ; Start 07/22/18 at 09:14; Stop 07/22/18 at 09:15; Status DC Ondansetron HCl (Zofran) 4 mg PRN Q6HRS PRN IV NAUSEA/VOMITING; Start 07/22/18 at 12:15 Comment Review of Relevant I have reviewed the following items argenis (where applicable) has been applied. MAGGI JOSE MD Jul 22, 2018 18:41
[2018-07-22] MEDS: SIMVASTATIN 20 MG TABLET PO SCH (21:13)
[2018-07-23 03:03] VITALS: BP 123/74
[2018-07-23 07:00] VITALS: BP 145/83
[2018-07-23] MEDS: INSULIN LISPRO 300 UNITS/3 ML INSULN.PEN. SQ SCH ×2 (08:00→12:40)
[2018-07-23] MEDS: GABAPENTIN 300 MG CAPSULE. PO SCH (08:37)
[2018-07-23] MEDS: HYDROcodone/APAP 5/325MG 1 TAB TABLET PO PRN (08:37)
[2018-07-23] MEDS: PANTOPRAZOLE 40 MG TABLET.DR. PO SCH (08:37)
[2018-07-23 11:00] VITALS: BP 142/85
--- NOTE | 2018-07-23 12:07 | PDOC ---
SAKSHI BLAKE APRN 07/23/18 1207: CARDIO Progress Notes Date and Time Date of Service 07/23/18 Time of Evaluation 1110 Subjective Subjective: No Chest Pain, No shortness of breath Vitals Vitals Vital Signs Date Time Temp Pulse Resp B/P (MAP) Pulse Ox O2 Delivery O2 Flow Rate FiO2 07/23/18 11:00 97.5 90 18 142/85 (104) 94 Room Air 97.5 07/22/18 11:35 6.0 Weight Weight [ ] Input and Output Intake and Output Intake and Output 07/23/18 07:00 Intake Total 650 ml Output Total 0 ml Balance 650 ml Intake Oral 650 ml Output Urine Total 0 ml # Voids 1 Laboratory Labs Laboratory Tests Test 07/22/18 12:14 07/22/18 16:47 07/22/18 20:57 07/23/18 07:47 Glucose (Fingerstick) 174 mg/dL (70-99) 152 mg/dL (70-99) 133 mg/dL (70-99) 108 mg/dL (70-99) Physical Exam HEENT: Neck Supple W Full Motion Chest: Symmetric, Other (right chest PPm insertion site soft and dry. No hematoma present. Steri-strips intact. Incision well approximated.) LUNGS: Clear to Auscultation Heart: S1S2, RRR Abdomen: Soft N/T Extremities: No Edema, Other (right arm immobilizer intact) Neurology: alert, oriented, follow commands Assessment Assessment 1. Syncope with nontraumatic fall 2. SSS, carotid hypersensitivity; significant pause noted with carotid massage. [employer] dual chamber pacemaker. Post op device check with normal function. CXR WNL. 3. Hx of neurocardiogenic syncope 3. HTN: better controlled 4. DM2/HLP; statin Recommendations Resume BB May discharge from a CV standpoint F/u in our office with RN for wound check 08/04/18 at 1:15 F/u with instructor business education, Dr. Galarza, thereafter TAMIKO GALARZA MD 07/23/182042: CARDIO Progress Notes Assessment Assessment Patient seen and examined. Agree with BROKE WORKER's assessment and plan. s/p PPM implantation for carotid hypersensitivity syndrome Incision looks good. CXR no pneumothorax and device interrogation normal DC home and follow up in 2 weeks for wound check SAKSHI BLAKE APRN Jul 23, 2018 12:07 TAMIKO GALARZA MD Jul 23, 2018 20:43
--- NOTE | 2018-07-23 12:30 | PDOC ---
PROGRESS NOTES Assessment Assessment Recurrent syncope, cardiogenic. Metabolic encephalopathy. Dizziness. Confusion episodes. Seizure evaluation. PEA lasting for 4 seconds on EKG monitoring. Falls. DM. HTN. HLD. Prostate cancer. 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 RECOMMENDATIONS/PLAN: ASA daily. Continue Zocor HS. Cardiac consulted, pacemaker placed on 07/22/18. Treat cardiac and medical diseases. FU with PCP. FU with Cardiology. FU with Neurology as needed. Ortho BP WNL. EEG on 07/22/18: Normal. HCT: Negative. HISTORY OF THE PRESENT ILLNESS: 68-y-old male patient with Hx of recurrent syncopal spells in the past years and he was diagnosed as having cardio-neurogenic syncope. He stated he stood up from sitting position and was ambulating to the front room, he got dizzy, and passed out landing half of his body on a bed, so he came to the ER of [facility] for further evaluation. No shaking, jerking of lion movements. Denies headache or chest pain. On EKG monitoring, brief cardiac silence lasted for 1-4 seconds revealed. PAST MEDICAL HISTORY Cardiovascular: HTN, Syncope, Hyperlipidemia Pulmonary: Other (HOWIE) CENTRAL NERVOUS SYSTEM: Periperal neuropathy GI: GERD Heme/Onc: No pertinent hx, Cancer (prostate with chemo) Hepatobiliary: No pertinent hx ENT: No pertinent hx Renal/: Prostate Ca. Endocrine: Diabetes (2) Dermatology: No pertinent hx PAST SURGICAL HISTORY Arthroscopy left knee, Cholecystectomy, Hernia Repair (hiatal), Other (back surgery; gastric sleve) FAMILY HISTORY Stroke ALLERGY: NKDA MEDICATIONS: Refer to [facility] SOCIAL HISTORY: Lives with family. Denies current smoking, but drinking occasionally, and denied illicit drug use. REVIEW OF SYSTEMS: Constitutional: No malnutrition, weight loss, cachexia. Head: No traumatic brain or head injury. Skin: No edema, or rash. Ear: No infection. Eyes: No vision loss or color blindness. Nose: No bleeding or purulent discharges. Hearing: No hearing decrease. Neck: No injury. Cardiac: CAD, HTN, HLD. Pulmonary: No COPD. GI: No GI ulcer, GI bleeding. Urinary/genital: UTI. Endocrinologic: Diabetes Mellitus. Skeletomuscular: No muscular atrophy, deformity. Neurological: see HP. Psychiatric: Denies drug use/abuse. Otherwise, not [id number] review of systems. PHYSICAL EXAMINATION: General appearance is in subacute distress. HEENT: Normocephalic and nontraumatic. Eyes, nose, ears, and throat are unremarkable. Neck is supple. No lymphadenopathy. No crepitus. Cardiovascular: S1, S2, regular rate and rhythm. Pulmonary: Clear to auscultation bilaterally. Abdomen: Bowel sounds are positive. Abdomen is soft, nontender, and nondistended. Extremities: No rash, lesions, or edema. No restriction of range of motion NEUROLOGICAL EXAMINATION: Alert Oriented to time, place and person. PERRL. EOMI. CN: no focal findings. Muscle tone: within normal. Muscle strength: 5 DTR: 2 Plantar reflex: Flexor response bilaterally Gait: not examined in bed. Sensory exam: no abnormal findings. No acute cerebellar signs elicited. F-T-N test accurate. Objective Objective Vital Signs Date Time Temp Pulse Resp B/P (MAP) Pulse Ox O2 Delivery O2 Flow Rate FiO2 07/23/18 11:00 97.5 90 18 142/85 (104) 94 Room Air 97.5 07/22/18 11:35 6.0 Intake and Output 07/23/18 07:00 Intake Total 650 ml Output Total 0 ml Balance 650 ml Intake Oral 650 ml Output Urine Total 0 ml # Voids 1 Vitals Signs Vitals VS - Last 72 Hours, by Label Date Time Temp Pulse Resp B/P (MAP) Pulse Ox O2 Delivery O2 Flow Rate FiO2 07/23/18 11:00 97.5 90 18 142/85 (104) 94 Room Air 97.5 07/23/18 08:37 Room Air 07/23/18 07:50 Room Air 07/23/18 07:00 97.8 69 18 145/83 (103) 95 Room Air 97.8 07/23/18 03:03 98.1 69 16 123/74 (90) 90 Room Air 98.1 07/23/18 00:34 Room Air 07/22/18 23:34 92 Room Air 07/22/18 23:22 98.2 73 16 142/81 (101) 94 Room Air 98.2 07/22/18 20:00 Room Air 07/22/18 19:10 98.3 95 16 116/67 (83) 92 Room Air 98.3 07/22/18 17:35 Room Air 07/22/18 15:05 108 134/80 (98) 07/22/18 15:00 98.0 70 18 134/80 (98) 94 98.0 07/22/18 14:05 112 134/77 (96) 07/22/18 13:35 115 150/83 (105) 07/22/18 13:32 Room Air 07/22/18 13:05 111 134/78 (96) 07/22/18 12:50 110 150/83 (105) 07/22/18 12:35 113 138/82 (100) 07/22/18 12:20 113 144/88 (106) 07/22/18 12:17 97.6 112 18 144/81 (102) 94 97.6 07/22/18 12:05 110 144/81 (102) 07/22/18 11:35 97 19 94 Simple Mask 6.0 07/22/18 09:15 15 07/22/18 09:00 113 138/82 07/22/18 08:15 Room Air 07/22/18 07:00 98.0 61 18 151/77 (101) 95 98.0 Laboratory Laboratory Laboratory Tests Test 07/22/18 16:47 07/22/18 20:57 07/23/18 07:47 07/23/18 12:12 Glucose (Fingerstick) 152 mg/dL (70-99) 133 mg/dL (70-99) 108 mg/dL (70-99) 180 mg/dL (70-99) Medication Medications Current Medications Atenolol (Tenormin) 50 mg BID PO ; Start 07/23/18 at 13:00 Cefazolin Sodium/ Dextrose 50 ml @ 100 mls/hr 1X ONCE IV Last administered on 07/22/18at 23:34; Start 07/22/18 at 23:30; Stop 07/22/18 at 23:59; Status DC Comment Review of Relevant I have reviewed the following items argenis (where applicable) has been applied. MAGGI JOSE MD Jul 23, 2018 12:30
--- NOTE | 2018-07-23 12:33 | PDOC ---
PROGRESS NOTES Chief Complaint Chief Complaint s/p pacemaker placement POD 1 Syncope, history of neurocardiogenic syncope Lumbar radiculopathy with lumbar DDD, spinal stenosis, and post-lumbar laminectomy syndrome Chronic infarct within the left cerebellum CAD PE Type 2 DM Hypercholesterolemia Hypertension History of Present Illness History of Present Illness Patient was seen and examined in his room this morning. He was lying in bed. He is s/p pacemaker placement POD 1. No acute complaints. Denies chest pain. He is hoping for discharge later today. Cardiology and neurology following. Vitals Vitals Vital Signs Date Time Temp Pulse Resp B/P (MAP) Pulse Ox O2 Delivery O2 Flow Rate FiO2 07/23/18 11:00 97.5 90 18 142/85 (104) 94 Room Air 97.5 07/22/18 11:35 6.0 Physical Exam General: Alert, Oriented X3, Cooperative, No acute distress Heart: Regular rate (SR), Normal S1, Normal S2, Other (2/6 systolic murmur to LLS border) Lungs: Clear, Other (no rhonchi) Abdomen: Soft, No tenderness Extremities: No clubbing, No cyanosis Skin: No rashes, No breakdown Labs LABS Laboratory Tests Test 07/22/18 16:47 07/22/18 20:57 07/23/18 07:47 07/23/18 12:12 Glucose (Fingerstick) 152 mg/dL (70-99) 133 mg/dL (70-99) 108 mg/dL (70-99) 180 mg/dL (70-99) Review of Systems Review of Systems Complains of weakness and dizziness. Denies headache or chest pain. Assessment and Plan Assessmemt and Plan Assessment: s/p pacemaker placement POD 1 Syncope, history of neurocardiogenic syncope Lumbar radiculopathy with lumbar DDD, spinal stenosis, and post-lumbar laminectomy syndrome Chronic infarct within the left cerebellum CAD PE Type 2 DM Hypercholesterolemia Hypertension Plan: 1. Cardiac monitoring 2. Beta ayesha 3. Home medications 4. Monitor labs 5. PT/OT 6. DVT prophylaxis 7. Appreciate subspecialty input 8. Possible discharge home today if ok with subspecialists Comment Review of Relevant I have reviewed the following items argenis (where applicable) has been applied. Labs Laboratory Tests Test 07/21/18 13:05 07/21/18 16:27 07/21/18 20:42 07/22/18 08:40 Urine Collection Type Unknown Urine Color Yellow Urine Clarity Clear Urine pH 7.5 Urine Specific [place] 1.020 Urine Protein Negative mg/dL (NEG-TRACE) Urine Glucose (UA) Negative mg/dL (NEG) Urine Ketones (Stick) Trace mg/dL (NEG) Urine Blood Negative (NEG) Urine Nitrite Negative (NEG) Urine Bilirubin Negative (NEG) Urine Urobilinogen Dipstick 1.0 mg/dL (0.2 mg/dL) Urine Leukocyte Esterase Negative (NEG) Urine RBC 0 /HPF (0-2) Urine WBC 1-4 /HPF (0-4) Urine Squamous Epithelial Cells Occ /LPF Urine Bacteria Few /HPF (0-FEW) Urine Mucus Mod /LPF Urine Opiates Screen Neg (NEG) Urine Methadone Screen Neg (NEG) Urine Barbiturates Neg (NEG) Urine Phencyclidine Screen Neg (NEG) Urine Amphetamine/Methamphetamine Neg (NEG) Urine Benzodiazepines Screen Neg (NEG) Urine Cocaine Screen Neg (NEG) Urine Cannabinoids Screen Neg (NEG) Urine Ethyl Alcohol Neg (NEG) Glucose (Fingerstick) 114 mg/dL (70-99) 169 mg/dL (70-99) 132 mg/dL (70-99) Test 07/22/18 12:14 07/22/18 16:47 07/22/18 20:57 07/23/18 07:47 Glucose (Fingerstick) 174 mg/dL (70-99) 152 mg/dL (70-99) 133 mg/dL (70-99) 108 mg/dL (70-99) Test 07/23/18 12:12 Glucose (Fingerstick) 180 mg/dL (70-99) Laboratory Tests Test 07/22/18 16:47 07/22/18 20:57 07/23/18 07:47 07/23/18 12:12 Glucose (Fingerstick) 152 mg/dL (70-99) 133 mg/dL (70-99) 108 mg/dL (70-99) 180 mg/dL (70-99) Medications Current Medications Sodium Chloride 1,000 ml @ 1,000 mls/hr 1X ONCE IV Last administered on at 16:51; Start 07/20/18 at 16:00; Stop 07/20/18 at 16:59; Status DC Ondansetron HCl (Zofran) 4 mg PRN Q8HRS PRN IV NAUSEA/VOMITING; Start 07/20/18 at 18:15; Stop 07/21/18 at 18:14; Status DC Acetaminophen (Tylenol) 650 mg PRN Q4HRS PRN PO FEVER; Start 07/20/18 at 18:15 ; Stop 07/21/18 at 18:14; Status DC Gabapentin (Neurontin) 600 mg BID PO Last administered on 07/23/18at 08:37; Start 07/20/18 at 21:00 Pantoprazole Sodium (Protonix) 40 mg DAILYAC PO Last administered on 07/23/18at 08:37; Start 07/21/18 at 07:30 Simvastatin (Zocor) 20 mg HS PO Last administered on 07/22/18at 21:13; Start at 21:00 Insulin Human Lispro (HumaLOG) 0-5 UNITS TIDWMEALS SQ Last administered on 07/22at 17:40; Start 07/21/18 at 08:00 Dextrose (Dextrose 50%-Water Syringe) 12.5 gm PRN Q15MIN PRN IV SEE COMMENTS; Start 07/20/18 at 20:45 Hydralazine HCl (Apresoline Inj) 10 mg 1X ONCE IVP Last administered on at 12:30; Start 07/21/18 at 12:30; Stop 07/21/18 at 12:31; Status DC Hydrochlorothiazide (Microzide) 12.5 mg DAILY PO ; Start 07/22/18 at 09:00; Stop 07/22/18 at 12:56; Status DC Lisinopril (Prinivil) 20 mg DAILY PO ; Start 07/22/18 at 09:00; Stop 07/22/18 at 12:56; Status DC Hydralazine HCl (Apresoline Inj) 10 mg PRN Q4HRS PRN IVP ELEVATED BP, SEE COMMENTS; Start 07/21/18 at 16:00 Cefazolin Sodium/ Dextrose 50 ml @ 100 mls/hr 1X ONCE IV Last administered on 07/22/18at 10:00; Start 07/22/18 at 06:00; Stop 07/22/18 at 06:29; Status DC Acetaminophen (Tylenol) 650 mg PRN Q6HRS PRN PO MILD PAIN / TEMP Last administered on 07/21/18at 21:07; Start 07/21/18 at 21:15 Lidocaine/ Epinephrine (LIDOCAINE 2%-EPI 1:100,000 multi-dose) 20 ml STK-MED ONCE .ROUTE ; Start 07/22/18 at 09:14; Stop 07/22/18 at 09:15; Status DC Midazolam HCl (Versed) 2 mg STK-MED ONCE .ROUTE ; Start 07/22/18 at 09:14; Stop 07/22/18 at 09:15; Status DC Fentanyl Citrate (Fentanyl 2ml Vial) 100 mcg STK-MED ONCE .ROUTE ; Start at 09:15; Stop 07/22/18 at 09:16; Status DC Midazolam HCl (Versed) 2 mg 1X ONCE IV Last administered on 07/22/18at 09:15; Start 07/22/18 at 09:15; Stop 07/22/18 at 09:19; Status DC Fentanyl Citrate (Fentanyl 2ml Vial) 100 mcg 1X ONCE IV Last administered on at 09:15; Start 07/22/18 at 09:15; Stop 07/22/18 at 09:19; Status DC Lidocaine/ Epinephrine (LIDOCAINE 2%-EPI 1:100,000 multi-dose) 20 ml 1X ONCE IJ Last administered on 07/22/18at 09:15; Start 07/22/18 at 09:15; Stop at 09:19; Status DC Bacitracin 83924 unit/Sodium Chloride 250 ml @ 0 mls/hr 1X ONCE IRR Last administered on 07/22/18at 09:30; Start 07/22/18 at 09:30; Stop 07/22/18 at 09:31 ; Status DC Cefazolin Sodium/ Dextrose 50 ml @ As Directed STK-MED ONCE IV ; Start 07/22/18 at 09:34; Stop 07/22/18 at 09:35; Status DC Info (No Anticoagulant Therapy) 1 ea CONT PRN PRN MC PER PROTOCOL; Start at 12:15 Ondansetron HCl (Zofran) 4 mg PRN Q6HRS PRN IV NAUSEA/VOMITING; Start 07/22/18 at 12:15 Acetaminophen/ Hydrocodone Bitart (Lortab 5/325) 2 tab PRN Q4HRS PRN PO MODERATE PAIN, SEVERE PAIN Last administered on 07/23/18at 08:37; Start 07/22/18 at 12:15 Cefazolin Sodium/ Dextrose 50 ml @ 100 mls/hr 1X ONCE IV Last administered on 07/22/18at 23:34; Start 07/22/18 at 23:30; Stop 07/22/18 at 23:59; Status DC Atenolol (Tenormin) 50 mg BID PO ; Start 07/23/18 at 13:00 Active Scripts Active Reported Omeprazole 20 Mg Capsule.dr 20 Mg PO DAILY Metformin Hcl 1,000 Mg Tablet 1,000 Mg PO BIDWMEALS Gabapentin 600 Mg Tablet 600 Mg PO BID Zocor (Simvastatin) 20 Mg Tablet 20 Mg PO HS Atenolol 50 Mg Tablet 50 Mg PO BID Vitals/I & O Vital Sign - Last 24 Hours 07/22/18 07/22/18 07/22/18 07/22/18 12:35 12:50 13:05 13:32 Pulse 113 110 111 B/P (MAP) 138/82 (100) 150/83 (105) 134/78 (96) O2 Delivery Room Air 07/22/18 07/22/18 07/22/18 07/22/18 13:35 14:05 15:00 15:05 Temp 98.0 98.0 Pulse 115 112 70 108 Resp 18 B/P (MAP) 150/83 (105) 134/77 (96) 134/80 (98) 134/80 (98) Pulse Ox 94 07/22/18 07/22/18 07/22/18 07/22/18 17:35 19:10 20:00 23:22 Temp 98.3 98.2 98.3 98.2 Pulse 95 73 Resp 16 16 B/P (MAP) 116/67 (83) 142/81 (101) Pulse Ox 92 94 O2 Delivery Room Air Room Air Room Air Room Air 07/22/18 07/23/18 07/23/18 07/23/18 23:34 00:34 03:03 07:00 Temp 98.1 97.8 98.1 97.8 Pulse 69 69 Resp 16 18 B/P (MAP) 123/74 (90) 145/83 (103) Pulse Ox 92 90 95 O2 Delivery Room Air Room Air Room Air Room Air 07/23/18 07/23/18 07/23/18 07:50 08:37 11:00 Temp 97.5 97.5 Pulse 90 Resp 18 B/P (MAP) 142/85 (104) Pulse Ox 94 O2 Delivery Room Air Room Air Room Air Intake and Output 07/22/18 07/22/18 07/23/18 15:00 23:00 07:00 Intake Total 650 ml Output Total 0 ml Balance 0 ml 650 ml ALTA RODRIGUEZ III DO Jul 23, 2018 12:33
[2018-07-23 12:58] VITALS: BP 142/85
[2018-07-23] MEDS ORDERED: ATENOLOL 50 MG TABLET. PO SCH (13:00)
--- NOTE | 2018-07-23 13:58 | RAD ---
CHEST PA LATERAL Clinical indications: 1 day post pacemaker implantation COMPARISON: 07/22/2018. Findings: No acute lung infiltrate or pleural effusion or pulmonary edema or lung mass or pneumothorax is seen. Bipolar atrioventricular pacemaker is again evident and is unchanged in position. The heart size, pulmonary vasculature, mediastinum and both delmar are unremarkable. The osseous structures appear intact. Impression: No acute radiographic abnormality is seen. Electronically signed by: Vignesh Russ MD (07/23/2018 1:54 PM) [facility]
--- NOTE | 2018-07-23 15:01 | NUR ---
Discharge Note: SHARON HILL [address] Discharge instructions and discharge home medications reviewed with Patient and a copy given. All questions have been answered and understanding verbalized. The following instructions and handouts were given: Diet, follow up, post PPM placement care, syncope, and restarting metformin tomorrow evening. Discontinued lines and drains: both IV's removed, no lines present. Patient discharged to home, left via wheelchair to 's car.
--- NOTE | 2018-07-23 16:20 | NUR ---
Discharge Note: MARCELLUS HILLRPreet [address] Discharge instructions and discharge home medications reviewed with Patient and a copy given. All questions have been answered and understanding verbalized. The following instructions and handouts were given: diet, prescriptions, follow up and primary care doctor info, dialysis, medications, and post surgery instructions. Discontinued lines and drains: IV removed, new dialysis catheter in place and used today. Next dialysis tomorrow at [facility]. Superpubic in place and care supplies give as well as instructions to follow up with a primary physician about care. Patient discharged to Home. ambulated to car with mother and a electric mule driver.
--- NOTE | 2018-07-23 19:29 | DS ---
DATE OF DISCHARGE: 07/23/2018 ADMISSION DIAGNOSIS: Syncope. DISCHARGE DIAGNOSES: Resolving syncope secondary to cardiac arrhythmias with status post new permanent pacemaker placement, hyperlipidemia, hypertension, diabetes, falls, history of pulseless electrical activity less than 4 seconds on EKG, seizures, metabolic encephalopathy, history of prostate cancer, history of old left cerebellar stroke. CONSULTS: Cardiology. PROCEDURES: Permanent pacemaker. HOSPITAL COURSE: The patient is a pleasant middle-aged male, who presented with a syncopal episode. He was admitted. We consulted Cardiology and Neurology. Did serial enzymes, serial EKGs. It was felt he probably had sick sinus syndrome. He was taken for permanent pacemaker. Post-procedure, he is doing well. I saw him and examined this morning. Discussed the case with the nurse, he seems to be doing well. We plan to discharge if okay with consultants. DISPOSITION: Home. ACTIVITY: As tolerated. DIET: Low sodium. MEDICATIONS: Please see the MRAD. TOTAL TIME: 32 minutes. ALTA RODRIGUEZ DO DR: MICAELA/kallie JOB#: [id number] / [id number]
== END 2018-07-23 14:40 | disposition home or self-care (01) | DRG 40 ==
LOC: ER 15:39 → 2 SOUTH 17:53
PROVIDERS: ADMIT Family Medicine; ATTEND Family Medicine
PROC: 0JH606Z Insertion of Pacemaker, Dual Chamber into Chest Subcutaneous Tissue and Fascia, Open Approach (ICD-10-PCS; principal; 2018-07-22)
PROC: 02H63JZ Insertion of Pacemaker Lead into Right Atrium, Percutaneous Approach (ICD-10-PCS; 2018-07-22)
PROC: 02HK3JZ Insertion of Pacemaker Lead into Right Ventricle, Percutaneous Approach (ICD-10-PCS; 2018-07-22)
DX: G90.01 Carotid sinus syncope (principal); G93.41 Metabolic encephalopathy; I10 Essential (primary) hypertension; E78.00 Pure hypercholesterolemia, unspecified; E11.51 Type 2 diabetes mellitus with diabetic peripheral angiopathy without gangrene; M51.16 Intervertebral disc disorders with radiculopathy, lumbar region; M48.061 Spinal stenosis, lumbar region without neurogenic claudication; E78.5 Hyperlipidemia, unspecified; K21.9 Gastro-esophageal reflux disease without esophagitis; G62.9 Polyneuropathy, unspecified; G47.33 Obstructive sleep apnea (adult) (pediatric); I25.10 Atherosclerotic heart disease of native coronary artery without angina pectoris; Z90.49 Acquired absence of other specified parts of digestive tract; Z82.49 Family history of ischemic heart disease and other diseases of the circulatory system; Z85.46 Personal history of malignant neoplasm of prostate; Z82.3 Family history of stroke; Z86.74 Personal history of sudden cardiac arrest; Z86.73 Personal history of transient ischemic attack (TIA), and cerebral infarction without residual deficits; Z79.82 Long term (current) use of aspirin; Z86.711 Personal history of pulmonary embolism
CPT/HCPCS: 33217; 99285; C8924; 36415; 70450; 71045; 71046; 80048; 80053; 80307; 81001; 82553; 82962; 83690; 83735; 83880; 84439; 84443; 84484; 85025; 85610; 93005; 95816; 96360; 99152; 99153; C1785; C1892; C1898; J0360; J0696; J1815; J2250; J3010; J3490; J7030; J7050

== ENCOUNTER 2018-10-28 13:41 | Emergency (ER) | payer MEDICARE, OTHER ==
[~2018-10-28] VITALS: Ht 182.9 cm; Wt 88.5 kg
[~2018-10-28 13:41] MED LIST changes: +OMEP20CA10 PO
--- NOTE | 2018-10-28 14:31 | EKG ---
[facility] [address] [place] [address] Test Date: 2018-10-28 Test Time: 13:50:37 Pat Name: SHARON HILL Department: Room: Gender: M Electronic Lab Technician: : 1950 Requested By: POPEYE HICKS Order Number: [id number] Reading MD: Measurements Intervals [place] Rate: 66 P: -8 TN: 158 QRS: -46 QRSD: 148 T: 33 QT: 456 QTc: 485 Interpretive Statements SINUS RHYTHM ABNORMAL LEFT AXIS DEVIATION LEFT ANTERIOR FASCICULAR BLOCK RIGHT BUNDLE BRANCH BLOCK BIFASCICULAR BLOCK QRS(T) CONTOUR ABNORMALITY CONSIDER ANTEROSEPTAL MYOCARDIAL DAMAGE ABNORMAL ECG No previous ECG available for comparison
[2018-10-28 14:35] LABS: BASO % 1 % (0-3); EOS # 0.1 x10^3/uL (0.0-0.7); EOS % 2 % (0-3); HEMOGLOBIN 13.1 g/dL (13.0-17.5); LYMPH # 1.3 x10^3/uL (1.0-4.8); LYMPH % 37 % (24-48); MEAN CORPUSCULAR HEMOGLOBIN 30 pg (25-35); MEAN CORPUSCULAR HGB CONC 34 g/dL (31-37); MEAN CORPUSCULAR VOLUME 91 fL (79-100); MONO # 0.2 x10^3/uL (0.0-1.1); MONO % 7 % (0-9); NEUT # 1.8 x10^3uL (1.8-7.7); NEUT % 53 % (31-73); PLATELET COUNT 162 x10^3/uL (140-400); RED BLOOD COUNT 4.31 x10^6/uL (4.30-5.70); RED CELL DISTRIBUTION WIDTH 13.2 % (11.5-14.5); WHITE BLOOD COUNT 3.4 x10^3/uL (4.0-11.0)
[2018-10-28 14:55] LABS: CALCIUM 8.8 mg/dL (8.5-10.1); GFR 74.1; POTASSIUM 4.3 mmol/L (3.5-5.1)
[2018-10-28 14:59] LABS: ALBUMIN 3.2 g/dL (3.4-5.0); ALBUMIN/GLOBULIN RATIO 1.1 (1.0-1.7); MAGNESIUM 1.7 mg/dL (1.8-2.4); TOTAL BILIRUBIN 0.4 mg/dL (0.2-1.0); TOTAL PROTEIN 6.1 g/dL (6.4-8.2)
[2018-10-28] MEDS ORDERED: MAGNESIUM SULFATE 1GM 100 ML IV ONE (15:30)
[2018-10-28 16:23] VITALS: BP 146/70
--- NOTE | 2018-10-28 16:29 | PHYS DOC ---
Past Medical History Past Medical History: Cancer, Diabetes-Type II, High Cholesterol, Hypertension, Other Additional Past Medical Histor: CARDIONEUROGENIC SYNCOPE, hernia Past Surgical History: Appendectomy, Cholecystectomy, Other Additional Past Surgical Histo: BACK SURGERY, LT KNEE SURGERY, COLON RESECTION, r shoulder Alcohol Use: Rarely Drug Use: None Adult General Chief Complaint Chief Complaint: SYNCOPE HPI HPI Patient is a 68 year old L who was brought down here from the [facility] in the hospital due to altered mental status. [facility]. Patient has been in the hospital to visit his . He was sitting in a sofa, playing game on his phone. STAFF there found him sleeping, tried to wake him up but it was very hard to wake him up. They checked his blood sugar and it was 195. Patient has diabetic. He said he ate a piece of pizza in the cafeteria earlier and then ate a candy bar. Patient denies any chest pain, no trouble breathing, did not feel anything different. Patient denies any abdominal pain, no nausea vomiting., Patient denies any headache, neck pain. Review of Systems Review of Systems Constitutional: Denies fever or chills [] Eyes: Denies change in visual acuity, redness, or eye pain [] HENT: Denies nasal congestion or sore throat [] Respiratory: Denies cough or shortness of breath [] Cardiovascular: No additional information not addressed in HPI [] GI: Denies abdominal pain, nausea, vomiting, bloody stools or diarrhea [] : Denies dysuria or hematuria [] Musculoskeletal: Denies back pain or joint pain [] Integument: Denies rash or skin lesions [] Neurologic: Denies headache, focal weakness or sensory changes [] Endocrine: Denies polyuria or polydipsia [] All other systems were reviewed and found to be within normal limits, except as documented in this note. Current Medications Current Medications Current Medications Medications (Trade) Dose Ordered Sig/Donnell Start Time Stop Time Status Last Admin Dose Admin Magnesium Sulfate/ Dextrose 100 ml @ 100 mls/hr 1X ONCE 10/28/18 15:30 10/28/18 16:29 DC 10/28/18 15:54 100 MLS/HR Allergies Allergies Allergies Coded Allergies Type Severity Reaction Last Updated Verified No Known Drug Allergies 01/15/18 No Physical Exam Physical Exam Constitutional: Well developed, well nourished, no acute distress, non-toxic appearance. [] HENT: Normocephalic, atraumatic, bilateral external ears normal, oropharynx moist, no oral exudates, nose normal. [] Eyes: PERRLA, EOMI, conjunctiva normal, no discharge. [] Neck: Normal range of motion, no tenderness, supple, no stridor. [] Cardiovascular:Heart rate regular rhythm, no murmur [] Lungs & Thorax: Bilateral breath sounds clear to auscultation [] Abdomen: Bowel sounds normal, soft, no tenderness, no masses, no pulsatile masses. [] Skin: Warm, dry, no erythema, no rash. [] Back: No tenderness, no CVA tenderness. [] Extremities: No tenderness, no cyanosis, no clubbing, ROM intact, no edema. [] Neurologic: Alert and oriented X 3, normal motor function, normal sensory function, no focal deficits noted. [] Psychologic: Affect normal, judgement normal, mood normal. [] Current Patient Data Vital Signs Vital Signs Date Time Temp Pulse Resp B/P (MAP) Pulse Ox O2 Delivery O2 Flow Rate FiO2 10/28/18 15:23 60 20 158/73 (101) 94 Room Air 10/28/18 13:45 97.8 97.8 Lab Values Laboratory Tests Test 10/28/18 13:50 10/28/18 14:28 Glucose (Fingerstick) 190 mg/dL (70-99) H White Blood Count 3.4 x10^3/uL (4.0-11.0) L Red Blood Count 4.31 x10^6/uL (4.30-5.70) Hemoglobin 13.1 g/dL (13.0-17.5) Hematocrit 39.0 % (39.0-53.0) Mean Corpuscular Volume 91 fL (79-100) Mean Corpuscular Hemoglobin 30 pg (25-35) Mean Corpuscular Hemoglobin Concent 34 g/dL (31-37) Red Cell Distribution Width 13.2 % (11.5-14.5) Platelet Count 162 x10^3/uL (140-400) Neutrophils (%) (Auto) 53 % (31-73) Lymphocytes (%) (Auto) 37 % (24-48) Monocytes (%) (Auto) 7 % (0-9) Eosinophils (%) (Auto) 2 % (0-3) Basophils (%) (Auto) 1 % (0-3) Neutrophils # (Auto) 1.8 x10^3uL (1.8-7.7) Lymphocytes # (Auto) 1.3 x10^3/uL (1.0-4.8) Monocytes # (Auto) 0.2 x10^3/uL (0.0-1.1) Eosinophils # (Auto) 0.1 x10^3/uL (0.0-0.7) Basophils # (Auto) 0.0 x10^3/uL (0.0-0.2) Sodium Level 145 mmol/L (136-145) Potassium Level 4.3 mmol/L (3.5-5.1) Chloride Level 107 mmol/L (98-107) Carbon Dioxide Level 28 mmol/L (21-32) Anion Gap 10 (6-14) Blood Urea Nitrogen 14 mg/dL (8-26) Creatinine 1.0 mg/dL (0.7-1.3) Estimated GFR (Cockcroft-Gault) 74.1 BUN/Creatinine Ratio 14 (6-20) Glucose Level 226 mg/dL (70-99) H Calcium Level 8.8 mg/dL (8.5-10.1) Magnesium Level 1.7 mg/dL (1.8-2.4) L Total Bilirubin 0.4 mg/dL (0.2-1.0) Aspartate Amino Transferase (AST) 12 U/L (15-37) L Alanine Aminotransferase (ALT) 17 U/L (16-63) Alkaline Phosphatase 68 U/L (46-116) Troponin I Quantitative < 0.017 ng/mL (0.000-0.055) Total Protein 6.1 g/dL (6.4-8.2) L Albumin 3.2 g/dL (3.4-5.0) L Albumin/Globulin Ratio 1.1 (1.0-1.7) Laboratory Tests 10/28/18 14:28 Laboratory Tests 10/28/18 14:28 EKG EKG ekg with rate of 67 BPM, SINUS RHYTHM, NO STEMI.[] Radiology/Procedures Radiology/Procedures [] Course & Med Decision Making Course & Med Decision Making Pertinent Labs and Imaging studies reviewed. (See chart for details) Patient was sleeping the whole time in the ER, no acute distress. Lab work came back okay except his magnesium level was a little low, he was given 1 g magnesium sulfate IV. Patient denies any chest pain, no trouble breathing. Patient be discharged home. Dragon Disclaimer Dragon Disclaimer This electronic medical record was generated, in whole or in part, using a voice recognition dictation system. Departure Departure Impression: Primary Impression: Sleepiness Additional Impression: Altered mental status, unspecified Disposition: 01 HOME, SELF-CARE Condition: STABLE Referrals: COMFORT SORENSON MD (PCP) follow up with your doctor as needed. Patient Instructions: Altered Mental Status Problem Qualifiers POPEYE HICKS DO Oct 28, 2018 16:28
== END 2018-10-28 16:50 | disposition home or self-care (01) ==
LOC: ER 13:41
DX: R41.82 Altered mental status, unspecified (principal); G47.00 Insomnia, unspecified; E11.9 Type 2 diabetes mellitus without complications; E78.00 Pure hypercholesterolemia, unspecified; I10 Essential (primary) hypertension
CPT/HCPCS: 36415; 80053; 82962; 83735; 84484; 85025; 93005; 96365; 99285; J3475

== ENCOUNTER 2018-12-07 16:55 | Emergency (ER) | payer MEDICARE ==
[~2018-12-07] VITALS: Ht 182.9 cm; Wt 87.5 kg
[~2018-12-07 16:55] MED LIST changes: +ASPI325T11 PO; +TOPI25TA52 PO
[2018-12-07] MEDS ORDERED: ALTEPLASE IV SCH (17:15)
[2018-12-07] MEDS ORDERED: IV NORMAL SALINE 50ML 50 ML IV ONE (17:15)
[2018-12-07] MEDS ORDERED: ALTEPLASE IV ONE (17:15)
--- NOTE | 2018-12-07 17:15 | RAD ---
CT Head W/O Contrast: History: Change in mental status Comparison: November 14, 2018 Axial images were obtained without contrast. The hernandez and white matter appears normal and symmetrical for the patients age. There is no mass effect, extraaxial fluid collections or hydrocephalus. There is no gross bleed. There is no focal loss of hernandez-white matter distinction to suggest acute ischemia, i.e. stroke. Impression: No acute findings. End impression These results were called to Dr. NGUYEN at the time of dictation. PQRS Compliance Statement: One or more of the following individualized dose reduction techniques were utilized for this examination: 1. Automated exposure control 2. Adjustment of the mA and/or kV according to patient size 3. Use of iterative reconstruction technique Electronically signed by: Lenny Quiles III, MD (12/07/2018 5:12 PM) [facility]
--- NOTE | 2018-12-07 17:19 | PHYS DOC ---
Past Medical History Past Medical History: Cancer, Diabetes-Type II, High Cholesterol, Hypertension, Other Additional Past Medical Histor: CARDIONEUROGENIC SYNCOPE, hernia Past Surgical History: Appendectomy, Cholecystectomy, Other Additional Past Surgical Histo: BACK SURGERY, LT KNEE SURGERY, COLON RESECTION, r shoulder Alcohol Use: Rarely Drug Use: None Adult General Chief Complaint Chief Complaint: NEURO SYMPTOMS/DEFICITS HPI HPI Patient is a 68 year old male who presents the ER. Patient activated as a code stroke prehospital. Per EMS report patient had acute onset of left-sided weakness approximately 1530. Patient was previously normal before then. Patient had a [id number] glucose done in the ER and then was immediately taken to CT. I evaluated the patient after his head CT which did not show any hemorrhagic CVA. Patient did not participate consistently with neurological exam and had variable effort. Patient was advised that he did take that area. Participate determined he is having a life-threatening stroke. Patient then had an intact neurological exam. Patient seen previously with neurological symptoms including some left-sided symptoms. Patient's been seen by neurology who do not feel his symptoms are related to TIA or stroke. Patient is unable to get an MRI secondary to pacemaker. Patient denies any preceding chest pain or palpitations today. Review of Systems Review of Systems Constitutional: Denies fever or chills [] Eyes: Denies change in visual acuity, redness, or eye pain [] HENT: Denies nasal congestion or sore throat [] Respiratory: Denies cough or shortness of breath [] Cardiovascular: No chest pain, no palpitations, no LE edema. GI: Denies abdominal pain, nausea, vomiting, bloody stools or diarrhea [] : Denies dysuria or hematuria [] Musculoskeletal: Denies back pain or joint pain [] Integument: Denies rash or skin lesions [] Neurologic: Denies headache, focal weakness or sensory changes [] Endocrine: Denies polyuria or polydipsia [] All other systems were reviewed and found to be within normal limits, except as documented in this note. Current Medications Current Medications Current Medications Medications (Trade) Dose Ordered Sig/Donnell Start Time Stop Time Status Last Admin Dose Admin Alteplase, Recombinant 71.1 ml @ 0 mls/hr Q1H 12/07/18 17:15 12/07/18 17:16 Cancel Sodium Chloride 50 ml @ 0 mls/hr 1X ONCE 12/07/18 17:15 12/07/18 17:16 Cancel Allergies Allergies Allergies Coded Allergies Type Severity Reaction Last Updated Verified No Known Drug Allergies 01/15/18 No Physical Exam Physical Exam Constitutional: Well developed, well nourished, non-toxic appearing HENT: Normocephalic, atraumatic, Eyes: PERRLA, EOMI, conjunctiva normal, Neck: Normal range of motion, no JVD, no stridor. [] Cardiovascular:Heart rate regular rhythm, no murmur [] Lungs & Thorax: Bilateral breath sounds clear to auscultation [] Abdomen: Bowel sounds normal, soft, no tenderness, no masses, no pulsatile masses. [] Skin: Warm, dry, no erythema, no rash. [] Back: No tenderness, no CVA tenderness. [] Extremities: No tenderness, no cyanosis, no clubbing, ROM intact, no edema. [] Neurologic: Alert and Oriented x 3, variable effort during neurological exam initially. While attempting to test strength of arms patient forcefully pushed his arm down into the bed and then had delayed response and let it fall to the bed after I let go. Responsive left leg. Patient advised to fully participate and then had an intact neurological exam with 5/5 motor strength in all 4 extremtiies, Patient also given glasses to left arm and was able to place on his head without difficulty. Intact sensation to all 4 extremities. Cranial nerves II through XII intact bilaterally. Cerebellar function intact with finger to nose and heel to ballesteros. Psychologic: Flat affect. Current Patient Data Vital Signs Vital Signs Date Time Temp Pulse Resp B/P (MAP) Pulse Ox O2 Delivery O2 Flow Rate FiO2 12/07/18 16:55 98.8 69 16 158/89 (112) 97 Room Air 98.8 Lab Values Laboratory Tests Test 12/07/18 17:15 White Blood Count 3.6 x10^3/uL (4.0-11.0) L Red Blood Count 4.52 x10^6/uL (4.30-5.70) Hemoglobin 13.6 g/dL (13.0-17.5) Hematocrit 40.3 % (39.0-53.0) Mean Corpuscular Volume 89 fL (79-100) Mean Corpuscular Hemoglobin 30 pg (25-35) Mean Corpuscular Hemoglobin Concent 34 g/dL (31-37) Red Cell Distribution Width 13.5 % (11.5-14.5) Platelet Count 147 x10^3/uL (140-400) Prothrombin Time 15.2 SEC (11.7-14.0) H Prothrombin Time INR 1.2 (0.8-1.1) H PTT 26 SEC (24-38) Sodium Level 141 mmol/L (136-145) Potassium Level 4.1 mmol/L (3.5-5.1) Chloride Level 105 mmol/L (98-107) Carbon Dioxide Level 26 mmol/L (21-32) Anion Gap 10 (6-14) Blood Urea Nitrogen 16 mg/dL (8-26) Creatinine 1.0 mg/dL (0.7-1.3) Estimated GFR (Cockcroft-Gault) 74.1 Glucose Level 150 mg/dL (70-99) H Calcium Level 8.7 mg/dL (8.5-10.1) Troponin I Quantitative < 0.017 ng/mL (0.000-0.055) Laboratory Tests 12/07/18 17:15 Laboratory Tests 12/07/18 17:15 EKG EKG 1708: Normal sinus rhythm, no significant ST segment changes. Heart rate 70.[] Radiology/Procedures Radiology/Procedures Head CT Impression: No acute findings. End impression These results were called to Dr. NGUYEN at the time of dictation. [facility] Compliance Statement: One or more of the following individualized dose reduction techniques were utilized for this examination: 1. Automated exposure control 2. Adjustment of the mA and/or kV according to patient size 3. Use of iterative reconstruction technique Electronically signed by: Lenny Quiles III, MD (12/07/2018 5:12 PM) [facility] [] Course & Med Decision Making Course & Med Decision Making Pertinent Labs and Imaging studies reviewed. (See chart for details) 1800: Pt with initially very poor effort on initial neurological exam. After en couragement to fully participate in a neurological exam patient had a normal neurological exam. Patient with no deficits consistent with a stroke on initial evaluation is continued to have an intact neurological exam. Review of chart shows that patient isn't hospitalized for several episodes in the past. He has had an evaluation for stroke with no findings consistent with stroke. There is unclear why the patient is malingering. Discussed with Dr. Holman patient relations coordinator for hospitalist service does not feel hospitalization would have anything to offer. Advised outpatient neurology follow-up. Patient denies any uncontrolled depression or anxiety. Patient previously on Topamax that she stops recommend ations a previous neurologist. Patient states that he does not like either the neurologist that he saw while in the hospital and plans to follow up with [facility]. ER return precautions given. Patient verbalized understanding. All questions answered. Dragon Disclaimer Dragon Disclaimer This electronic medical record was generated, in whole or in part, using a voice recognition dictation system. Departure Departure Impression: Primary Impression: Altered mental status Disposition: 01 HOME, SELF-CARE Condition: IMPROVED Referrals: COMFORT SORENSON MD (PCP) Patient Instructions: Altered Mental Status Additional Instructions: Thank you for coming to [facility]. Please read the attached handouts. Please follow-up with your primary care physician. Return to the ER if your symptoms worsen or you have any other concerns. Please establish care with a neurologist to have a further outpatient evaluation for these episodes. MAGDALENA NGUYEN DO Dec 07, 2018 17:19
[2018-12-07 17:25] LABS: HEMATOCRIT 40.3 % (39.0-53.0); HEMOGLOBIN 13.6 g/dL (13.0-17.5); RED BLOOD COUNT 4.52 x10^6/uL (4.30-5.70); RED CELL DISTRIBUTION WIDTH 13.5 % (11.5-14.5); WHITE BLOOD COUNT 3.6 x10^3/uL (4.0-11.0)
[2018-12-07 17:36] LABS: PROTHROMBIN TIME PATIENT 15.2 SEC (11.7-14.0)
[2018-12-07 17:38] LABS: CALCIUM 8.7 mg/dL (8.5-10.1); GFR 74.1; POTASSIUM 4.1 mmol/L (3.5-5.1)
[2018-12-07 18:02] VITALS: BP 140/78
--- NOTE | 2018-12-08 06:55 | EKG ---
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
== END 2018-12-07 18:05 | disposition home or self-care (01) ==
LOC: ER 16:55
DX: R41.82 Altered mental status, unspecified (principal); R53.1 Weakness; E11.9 Type 2 diabetes mellitus without complications; E78.00 Pure hypercholesterolemia, unspecified; I10 Essential (primary) hypertension; Z90.89 Acquired absence of other organs; Z90.49 Acquired absence of other specified parts of digestive tract
CPT/HCPCS: 36415; 70450; 80048; 82962; 84484; 85027; 85610; 85730; 93005; 99285-25

== ENCOUNTER → 2019-01-06 | Outpatient (CLI) | payer MEDICARE ==
[2018-12-07 18:02] VITALS: BP 140/78
[~2019-01-06] MED LIST changes: -DULO30CA43 PO; +DULO30CA44 PO
--- NOTE | 2019-01-06 16:37 | RAD ---
THYROID ULTRASOUND: 01/06/2019 2:30 PM Indication: 68 years old Male. Multinodular thyroid gland. Comparison: Thyroid December 03, 2017. TECHNIQUE: Sonographic evaluation of the thyroid gland was performed utilizing grayscale and color Doppler imaging. FINDINGS: Right lobe: Normal in morphology and echotexture without significant hyperemia. Size: 4.1 x 2.1 x 1.4 cm Nodules: There are 2 dominant solid circumscribed nodules in the inferior right thyroid lobe currently measuring 1.2 x 1.0 x 0.6 cm, previously measuring 1.3 x 1.0 x 0.6 cm. Additional nodule measures 1.0 x 1.4 x 1.1 cm, previously 1.2 x 1.4 x 0.8 cm. No significant interval change is identified. No new or enlarging nodules are identified. Left lobe: Normal in morphology and echotexture without significant hyperemia. Size: 4.4 x 1.6 x 1.7 cm Nodules: There is a stable circumscribed isoechoic nodule which is wider than it is tall measuring 1.6 x 1.1 x 1.2 cm, previously 1.5 x 0.9 x 1.3 cm. No new or enlarging nodules are identified. Isthmus: Unremarkable. IMPRESSION: No new or enlarging thyroid nodules are identified. Findings are not significantly changed since the prior examination. Electronically signed by: Agueda Carter MD (01/06/2019 4:34 PM) [id number]
== END | disposition home or self-care (01) ==
LOC: US 13:57
PROVIDERS: ATTEND Surgery
DX: E04.2 Nontoxic multinodular goiter (principal)
CPT/HCPCS: 76536

== ENCOUNTER 2019-02-03 14:35 | Inpatient (IN) | payer MEDICARE ==
[~2019-02-03] VITALS: Ht 182.9 cm; Wt 88.0 kg
[~2019-02-03 14:35] MED LIST changes: +LISI1TAB19 PO; -LISI1TAB5 PO
--- NOTE | 2019-02-03 15:05 | PHYS DOC ---
Past Medical History Past Medical History: Cancer, Diabetes-Type II, High Cholesterol, Hypertension, Other Additional Past Medical Histor: CARDIONEUROGENIC SYNCOPE, hernia Past Surgical History: Appendectomy, Cholecystectomy, Other Additional Past Surgical Histo: BACK SURGERY, LT KNEE SURGERY, COLON RESECTION, r shoulder Alcohol Use: Rarely Drug Use: None Adult General Chief Complaint Chief Complaint: DIZZY/LIGHT HEADED [facility] HPI Patient is a 68-year-old male who presents to the emergency department for evaluation. 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 The patient did well for a while, but then had another syncopal episode in October, and was hospitalized here. During this time he did undergo brain imaging, including an MRI and a CT of his brain. He was also apparently hospitalized at in December, where he was seen by cardiology and neurology, who felt that his syncopal episodes were orthostatic in nature and recommended compression stockings, which the patient was wearing. The patient states he began feeling lightheaded on his appointment to his broadcast traffic coordinator's today, and when he got to the office he collapsed into a chair and was briefly unresponsive. The patient's broadcast traffic coordinator states that he was taken almost immediately to an exam room, where his blood pressure was found to be normal, and his orthostatic vitals were not found to be abnormal. The patient had his pacemaker interrogated which was also found to be unremarkable. Thus, the broadcast traffic coordinator, whom I spoke with prior to the patient's arrival, feels that the patient is not having cardiac-related syncope and wanted him evaluated in the emergency department for further evaluation. The patient currently feels generally weak, but denies any focal complaints or any other pain. He has not had any chest pain or headache or vision changes, numbness or weakness. He did not have any incontinence. There are no alleviating or exacerbating factors to his symptoms. Review of Systems Review of Systems Constitutional: Denies fever or chills [] Eyes: Denies change in visual acuity, redness, or eye pain [] HENT: Denies nasal congestion or sore throat [] Respiratory: Denies cough or shortness of breath [] Cardiovascular: No additional information not addressed in HPI [] GI: Denies abdominal pain, nausea, vomiting, bloody stools or diarrhea [] : Denies dysuria or hematuria [] Musculoskeletal: Denies back pain or joint pain [] Integument: Denies rash or skin lesions [] Neurologic: Denies headache, focal weakness or sensory changes [] Endocrine: Denies polyuria or polydipsia [] All other systems were reviewed and found to be within normal limits, except as documented in this note. Allergies Allergies Allergies Coded Allergies Type Severity Reaction Last Updated Verified No Known Drug Allergies 01/15/18 No Physical Exam Physical Exam PHYSICAL EXAM: CONSTITUTIONAL: Well developed, well nourished HEAD: normocephalic, atraumatic EENT: PERRL, EOMI. Conjunctivae normal color, sclerae non-icteric; moist mucous membranes. NECK: Supple, non-tender; no meningismus. LUNGS: Lungs CTA, breathing even and unlabored. Normal air movement. HEART: Regular rate and rhythm, There is a soft systolic murmur CHEST: No deformity; non-tender ABDOMEN: The abdomen is soft, and non-tender, no masses or bruits. EXTREM: Normal ROM; no deformity, no calf tenderness. Normal pulses palpable in all extremities. There is no pedal edema. SKIN: No rash; no diaphoresis NEURO: Alert; normal speech and cognition; CN's grossly intact; strength grossly intact without focal deficit. BACK: No CVA TTP. Current Patient Data Vital Signs Vital Signs Date Time Temp Pulse Resp B/P (MAP) Pulse Ox O2 Delivery O2 Flow Rate FiO2 02/03/19 14:35 97.5 60 17 124/77 (93) 95 Room Air 97.5 Lab Values Laboratory Tests Test 02/03/19 14:52 White Blood Count 3.3 x10^3/uL (4.0-11.0) L Red Blood Count 4.90 x10^6/uL (4.30-5.70) Hemoglobin 14.7 g/dL (13.0-17.5) Hematocrit 43.3 % (39.0-53.0) Mean Corpuscular Volume 88 fL (79-100) Mean Corpuscular Hemoglobin 30 pg (25-35) Mean Corpuscular Hemoglobin Concent 34 g/dL (31-37) Red Cell Distribution Width 15.6 % (11.5-14.5) H Platelet Count 145 x10^3/uL (140-400) Neutrophils (%) (Auto) 44 % (31-73) Lymphocytes (%) (Auto) 42 % (24-48) Monocytes (%) (Auto) 9 % (0-9) Eosinophils (%) (Auto) 4 % (0-3) H Basophils (%) (Auto) 1 % (0-3) Neutrophils # (Auto) 1.5 x10^3/uL (1.8-7.7) L Lymphocytes # (Auto) 1.4 x10^3/uL (1.0-4.8) Monocytes # (Auto) 0.3 x10^3/uL (0.0-1.1) Eosinophils # (Auto) 0.1 x10^3/uL (0.0-0.7) Basophils # (Auto) 0.0 x10^3/uL (0.0-0.2) Sodium Level 142 mmol/L (136-145) Potassium Level 4.1 mmol/L (3.5-5.1) Chloride Level 107 mmol/L (98-107) Carbon Dioxide Level 26 mmol/L (21-32) Anion Gap 9 (6-14) Blood Urea Nitrogen 16 mg/dL (8-26) Creatinine 1.1 mg/dL (0.7-1.3) Estimated GFR (Cockcroft-Gault) 66.4 BUN/Creatinine Ratio 15 (6-20) Glucose Level 218 mg/dL (70-99) H Calcium Level 8.9 mg/dL (8.5-10.1) Magnesium Level 1.9 mg/dL (1.8-2.4) Total Bilirubin 0.6 mg/dL (0.2-1.0) Aspartate Amino Transferase (AST) 15 U/L (15-37) Alanine Aminotransferase (ALT) 14 U/L (16-63) L Alkaline Phosphatase 82 U/L (46-116) Troponin I Quantitative < 0.017 ng/mL (0.000-0.055) Total Protein 6.4 g/dL (6.4-8.2) Albumin 3.3 g/dL (3.4-5.0) L Albumin/Globulin Ratio 1.1 (1.0-1.7) Laboratory Tests 02/03/19 14:52 Laboratory Tests 02/03/19 14:52 EKG EKG []Probable normal sinus rhythm at a rate of 60 beats for minute, left axis deviation, short MA interval, left anterior fascicular block, without acute ischemic ST/T changes. Radiology/Procedures Radiology/Procedures []PROCEDURE: PORTABLE CHEST 1V PORTABLE CHEST 1V History: Syncope Comparison: November 12, 2018 Findings: Single view of the chest is submitted. There is again dual lead right electronic cardiac device. Cardiac silhouette is stable. There is no new infiltrate, pleural fluid, pneumothorax. Heart size is stable. Impression: 1. There is no radiographic evidence of acute cardiopulmonary disease Course & Med Decision Making Course & Med Decision Making Pertinent Labs and Imaging studies reviewed. (See chart for details) [] 3:30 PM:The patient's condition remains stable. I spoke with the hospitalist, who accepted the patient to the hospital for further evaluation and treatment. Dragon Disclaimer Dragon Disclaimer This electronic medical record was generated, in whole or in part, using a voice recognition dictation system. Departure Departure Impression: Primary Impression: Recurrent syncope Disposition: ADMITTED INPATIENT Admitting Physician: CULLEN Condition: STABLE Referrals: COMFORT SORENSON MD (PCP) JUDY CABRALES MD Feb 03, 2019 15:05
[2019-02-03 15:06] LABS: BASO % 1 % (0-3); EOS # 0.1 x10^3/uL (0.0-0.7); EOS % 4 % (0-3); HEMATOCRIT 43.3 % (39.0-53.0); HEMOGLOBIN 14.7 g/dL (13.0-17.5); LYMPH # 1.4 x10^3/uL (1.0-4.8); LYMPH % 42 % (24-48); MEAN CORPUSCULAR HEMOGLOBIN 30 pg (25-35); MEAN CORPUSCULAR HGB CONC 34 g/dL (31-37); MEAN CORPUSCULAR VOLUME 88 fL (79-100); MONO # 0.3 x10^3/uL (0.0-1.1); MONO % 9 % (0-9); NEUT # 1.5 x10^3/uL (1.8-7.7); NEUT % 44 % (31-73); PLATELET COUNT 145 x10^3/uL (140-400); RED CELL DISTRIBUTION WIDTH 15.6 % (11.5-14.5); WHITE BLOOD COUNT 3.3 x10^3/uL (4.0-11.0)
--- NOTE | 2019-02-03 15:08 | RAD ---
PORTABLE CHEST 1V History: Syncope Comparison: November 12, 2018 Findings: Single view of the chest is submitted. There is again dual lead right electronic cardiac device. Cardiac silhouette is stable. There is no new infiltrate, pleural fluid, pneumothorax. Heart size is stable. Impression: 1. There is no radiographic evidence of acute cardiopulmonary disease. Electronically signed by: Marco Mann MD (02/03/2019 3:05 PM) [id number]
[2019-02-03 15:23] LABS: CALCIUM 8.9 mg/dL (8.5-10.1); CREATININE 1.1 mg/dL (0.7-1.3); GFR 66.4; POTASSIUM 4.1 mmol/L (3.5-5.1)
[2019-02-03 15:27] LABS: ALBUMIN 3.3 g/dL (3.4-5.0); ALBUMIN/GLOBULIN RATIO 1.1 (1.0-1.7); MAGNESIUM 1.9 mg/dL (1.8-2.4); TOTAL BILIRUBIN 0.6 mg/dL (0.2-1.0); TOTAL PROTEIN 6.4 g/dL (6.4-8.2)
--- NOTE | 2019-02-03 15:35 | PDOC1 ---
History and Physical Date of Admission Date of Admission DATE: 02/03/19 TIME: 15:33 Identification/Chief Complaint Chief Complaint SEEN IN er , he was seen by cardiology and neurology, who felt that his syncopal episodes were orthostatic in nature and recommended compression stockings, which the patient was wearing. The patient states he began feeling lightheaded on his appointment to his rn er's today, and when he got to the office he collapsed into a chair and was briefly unresponsive. The patient's rn er states that he was taken almost immediately to an exam room, where his blood pressure was found to be normal, and his orthostatic vitals were not found to be abnormal. The patient had his pacemaker interrogated which was also found to be unremarkable. Past Medical History Past Medical History Past Medical History Past Medical History Past Medical History: Cancer, Diabetes-Type II, High Cholesterol, Hypertension, Other Additional Past Medical Histor: CARDIONEUROGENIC SYNCOPE, hernia Past Surgical History: Appendectomy, Cholecystectomy, Other Additional Past Surgical Histo: BACK SURGERY, LT KNEE SURGERY, COLON RESECTION, r shoulder Alcohol Use: Rarely Drug Use: None fhx htn Cardiovascular: HTN, Syncope, Hyperlipidemia Pulmonary: Other CENTRAL NERVOUS SYSTEM: Periperal neuropathy GI: GERD Heme/Onc: No pertinent hx, Cancer Hepatobiliary: No pertinent hx Musculoskeletal: Osteoarthritis Renal/: Prostate Ca. Endocrine: Diabetes Past Surgical History Past Surgical History: Pacemaker, Arthroscopy, Cholecystectomy, Hernia Repair, Other Family History Family History: Stroke Social History Smoke: No ALCOHOL: none Drugs: None Current Problem List Problem List Problems Medical Problems: (1) Recurrent syncope Status: Acute Current Medications Current Medications Active Scripts Active Aspirin Ec (Aspirin) 325 Mg Tablet. 325 Mg PO DAILYWBKFT 30 Days Topamax (Topiramate) 25 Mg Tablet 1 Tab PO QHS Reported Omeprazole 20 Mg Capsule. 20 Mg PO DAILY Metformin Hcl 1,000 Mg Tablet 1,000 Mg PO BIDWMEALS Gabapentin 600 Mg Tablet 600 Mg PO BID Zocor (Simvastatin) 20 Mg Tablet 20 Mg PO HS Atenolol 50 Mg Tablet 50 Mg PO BID Allergies Allergies: Coded Allergies: No Known Drug Allergies (Unverified , 01/15/18) ROS Review of System Review of Systems Review of Systems Constitutional: Denies fever or chills [] Eyes: Denies change in visual acuity, redness, or eye pain [] HENT: Denies nasal congestion or sore throat [] Respiratory: Denies cough or shortness of breath [] Cardiovascular: No additional information not addressed in HPI [] GI: Denies abdominal pain, nausea, vomiting, bloody stools or diarrhea [] : Denies dysuria or hematuria [] Musculoskeletal: Denies back pain or joint pain [] Integument: Denies rash or skin lesions [] Neurologic: Denies headache, focal weakness or sensory changes [] Endocrine: Denies polyuria or polydipsia [] 14 pt systems were reviewed and found to be within normal limits, except as documented Neurological: Yes Dizziness, Yes Impaired Coord/balance Physical Exam Physical Exam CONSTITUTIONAL: Well developed, well nourished HEAD: normocephalic, atraumatic EENT: PERRL, EOMI. Conjunctivae normal color, sclerae non-icteric; moist mucous membranes. NECK: Supple, non-tender; no meningismus. LUNGS: Lungs CTA, breathing even and unlabored. Normal air movement. HEART: Regular rate and rhythm, There is a soft systolic murmur CHEST: No deformity; non-tender ABDOMEN: The abdomen is soft, and non-tender, no masses or bruits. EXTREM: Normal ROM; no deformity, no calf tenderness. Normal pulses palpable in all extremities. There is no pedal edema. SKIN: No rash; no diaphoresis NEURO: Alert; normal speech and cognition; CN's grossly intact; strength grossly intact without focal deficit. BACK: No CVA TTP. General: Alert, Oriented X3, Cooperative, No acute distress HEENT: Mucous membr. moist/pink Lungs: Clear to auscultation Heart: RRR Abdomen: Normal bowel sounds, Soft Rectal Exam: not examined PELVIC: Examination not indicated Extremities: No cyanosis Neuro: Normal speech, Strength at 5/5 X4 ext, Cranial nerves 3-12 NL Psych/Mental Status: Mental status NL, Mood NL Vitals Vitals Vital Signs Date Time Temp Pulse Resp B/P (MAP) Pulse Ox O2 Delivery O2 Flow Rate FiO2 02/03/19 14:35 97.5 60 17 124/77 (93) 95 Room Air 97.5 Labs Labs Laboratory Tests Test 02/03/19 14:52 White Blood Count 3.3 x10^3/uL (4.0-11.0) Red Blood Count 4.90 x10^6/uL (4.30-5.70) Hemoglobin 14.7 g/dL (13.0-17.5) Hematocrit 43.3 % (39.0-53.0) Mean Corpuscular Volume 88 fL (79-100) Mean Corpuscular Hemoglobin 30 pg (25-35) Mean Corpuscular Hemoglobin Concent 34 g/dL (31-37) Red Cell Distribution Width 15.6 % (11.5-14.5) Platelet Count 145 x10^3/uL (140-400) Neutrophils (%) (Auto) 44 % (31-73) Lymphocytes (%) (Auto) 42 % (24-48) Monocytes (%) (Auto) 9 % (0-9) Eosinophils (%) (Auto) 4 % (0-3) Basophils (%) (Auto) 1 % (0-3) Neutrophils # (Auto) 1.5 x10^3/uL (1.8-7.7) Lymphocytes # (Auto) 1.4 x10^3/uL (1.0-4.8) Monocytes # (Auto) 0.3 x10^3/uL (0.0-1.1) Eosinophils # (Auto) 0.1 x10^3/uL (0.0-0.7) Basophils # (Auto) 0.0 x10^3/uL (0.0-0.2) Sodium Level 142 mmol/L (136-145) Potassium Level 4.1 mmol/L (3.5-5.1) Chloride Level 107 mmol/L (98-107) Carbon Dioxide Level 26 mmol/L (21-32) Anion Gap 9 (6-14) Blood Urea Nitrogen 16 mg/dL (8-26) Creatinine 1.1 mg/dL (0.7-1.3) Estimated GFR (Cockcroft-Gault) 66.4 BUN/Creatinine Ratio 15 (6-20) Glucose Level 218 mg/dL (70-99) Calcium Level 8.9 mg/dL (8.5-10.1) Magnesium Level 1.9 mg/dL (1.8-2.4) Total Bilirubin 0.6 mg/dL (0.2-1.0) Aspartate Amino Transf (AST/SGOT) 15 U/L (15-37) Alanine Aminotransferase (ALT/SGPT) 14 U/L (16-63) Alkaline Phosphatase 82 U/L (46-116) Troponin I Quantitative < 0.017 ng/mL (0.000-0.055) Total Protein 6.4 g/dL (6.4-8.2) Albumin 3.3 g/dL (3.4-5.0) Albumin/Globulin Ratio 1.1 (1.0-1.7) Laboratory Tests Test 02/03/19 14:52 White Blood Count 3.3 x10^3/uL (4.0-11.0) Red Blood Count 4.90 x10^6/uL (4.30-5.70) Hemoglobin 14.7 g/dL (13.0-17.5) Hematocrit 43.3 % (39.0-53.0) Mean Corpuscular Volume 88 fL (79-100) Mean Corpuscular Hemoglobin 30 pg (25-35) Mean Corpuscular Hemoglobin Concent 34 g/dL (31-37) Red Cell Distribution Width 15.6 % (11.5-14.5) Platelet Count 145 x10^3/uL (140-400) Neutrophils (%) (Auto) 44 % (31-73) Lymphocytes (%) (Auto) 42 % (24-48) Monocytes (%) (Auto) 9 % (0-9) Eosinophils (%) (Auto) 4 % (0-3) Basophils (%) (Auto) 1 % (0-3) Neutrophils # (Auto) 1.5 x10^3/uL (1.8-7.7) Lymphocytes # (Auto) 1.4 x10^3/uL (1.0-4.8) Monocytes # (Auto) 0.3 x10^3/uL (0.0-1.1) Eosinophils # (Auto) 0.1 x10^3/uL (0.0-0.7) Basophils # (Auto) 0.0 x10^3/uL (0.0-0.2) Sodium Level 142 mmol/L (136-145) Potassium Level 4.1 mmol/L (3.5-5.1) Chloride Level 107 mmol/L (98-107) Carbon Dioxide Level 26 mmol/L (21-32) Anion Gap 9 (6-14) Blood Urea Nitrogen 16 mg/dL (8-26) Creatinine 1.1 mg/dL (0.7-1.3) Estimated GFR (Cockcroft-Gault) 66.4 BUN/Creatinine Ratio 15 (6-20) Glucose Level 218 mg/dL (70-99) Calcium Level 8.9 mg/dL (8.5-10.1) Magnesium Level 1.9 mg/dL (1.8-2.4) Total Bilirubin 0.6 mg/dL (0.2-1.0) Aspartate Amino Transf (AST/SGOT) 15 U/L (15-37) Alanine Aminotransferase (ALT/SGPT) 14 U/L (16-63) Alkaline Phosphatase 82 U/L (46-116) Troponin I Quantitative < 0.017 ng/mL (0.000-0.055) Total Protein 6.4 g/dL (6.4-8.2) Albumin 3.3 g/dL (3.4-5.0) Albumin/Globulin Ratio 1.1 (1.0-1.7) Images Images The middle cerebral arteries are well visualized and without evidence of stenosis or occlusion. The posterior cerebral arteries are well visualized and without evidence of stenosis or occlusion. The vertebral basilar system is normal with no evidence of stenosis or occlusion. In the neck, the origins of the great vessels are unremarkable. The common carotid arteries, bilaterally are normal with no evidence of significant stenosis or occlusion. The internal carotid arteries are normal bilaterally with no evidence of stenosis. The vertebral arteries in the neck are well visualized bilaterally and unremarkable. Atherosclerotic calcifications of the intracranial internal carotid arteries is seen. A 1 cm enhancing posterior right thyroid nodule is seen. Follow-up thyroid ultrasound is recommended, particularly given recommendation on prior thyroid ultrasound. An 8 mm right upper lobe lung nodule (series 3 image 41) is partially calcified. This nodule partially abuts the fissure and was not seen on prior CT chest 11/14/2018. Small associated groundglass opacities are seen. IMPRESSION: 1. No evidence for high-grade stenosis or occlusion of the intracranial carotid or vertebral arteries. 2. The common, extracranial internal and external carotid arteries as well as the extracranial vertebral arteries are also widely patent without evidence for high-grade stenosis or occlusion. 3. A 1 cm enhancing posterior right thyroid nodule is seen. Follow-up thyroid ultrasound is recommended, particularly given recommendation on prior thyroid ultrasound. 4. An 8 mm right upper lobe lung nodule is new compared to 11/14/2018 CT chest. Small associated groundglass opacities are seen. These may be infectious or inflammatory in nature given the relatively rapid development. Electronically signed by: Scottie Waggoner MD (11/15/2018 4:32 PM) [facility] History: Syncope Comparison: November 12, 2018 Findings: Single view of the chest is submitted. There is again dual lead right electronic cardiac device. Cardiac silhouette is stable. There is no new infiltrate, pleural fluid, pneumothorax. Heart size is stable. Impression: 1. There is no radiographic evidence of acute cardiopulmonary disease. Electronically signed by: Marco Mann MD (02/03/2019 3:05 PM) [facility] VTE Prophylaxis Ordered VTE Prophylaxis Devices: Yes VTE Pharmacological Prophylaxi: Yes Assessment/Plan Assessment/Plan impression Syncope with LOC with negative EEG - readmission, similar recent picture Bradycardia with functioning indwelling [facility] 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 on mri recent mri head , Patchy and multiple small focal areas of increased signal intensity are seen within the periventricular and subcortical white matter of both cerebral hemispheres on the FLAIR and T2-weighted images consistent with areas of small vessel ischemic disease. A 6 mm old area of lacunar infarction is seen involving left thalamus. An area of infarction is seen involving the inferior left cerebellar hemisphere. This measures 3.9 cm in greatest diameter History of GERD. T History of obesity with prior gastric sleeve resulting and 70 pound weight loss. History of perforated diverticulum. HTN. HLD. Thyroid nodules. Degenerative spine joint disease Pacemaker placement in 07/13. recent cta chest Suboptimal PE study due to contrast bolus timing. No central or proximal segmental PE. Evaluation of distal segmental and subsegmental pulmonary arteries is limited. No evidence of pneumonia or acute pulmonary infarct. possible autonomic imbalance plan admit neurology consult cardiology consult tele neurochecks q 4 hrs iv fluid support dvt prophylaxis home meds 76 min pt exam, chart review, > 50% of time spent with exam, chart review, pt care coordination JUSTINA TANG MD Feb 03, 2019 15:35
[2019-02-03 15:37] LABS: FREE T4 0.8 ng/dL (0.76-1.46); THYROID STIM HORMONE (TSH) 0.716 uIU/mL (0.358-3.74)
--- NOTE | 2019-02-03 16:04 | EKG ---
[facility] [address] [place] [address] Test Date: 2019-02-03 Test Time: 14:42:53 Pat Name: SHARON HILL Department: Room: Gender: M [employer]: : 1950 Requested By: JUDY CABRALES Order Number: [id number] Reading MD: Measurements Intervals [place] Rate: 60 P: [place]: QRS: -45 QRSD: 144 T: -8 QT: 478 QTc: 482 Interpretive Statements ATRIAL FIBRILLATION ABNORMAL LEFT AXIS DEVIATION LEFT ANTERIOR FASCICULAR BLOCK RIGHT BUNDLE BRANCH BLOCK BIFASCICULAR BLOCK QRS(T) CONTOUR ABNORMALITY CONSIDER ANTEROSEPTAL MYOCARDIAL DAMAGE ABNORMAL ECG No previous ECG available for comparison
[2019-02-03] MEDS ORDERED: 0.9 % SODIUM CHLORIDE 10 ML DISP.SYRIN. IV PRN (17:15)
[2019-02-03] MEDS ORDERED: LORazepam 0.5 MG TABLET PO PRN (17:15)
[2019-02-03] MEDS ORDERED: ONDANSETRON PF 4 MG/2 ML VIAL. IV PRN (17:15)
[2019-02-03] MEDS ORDERED: guaiFENesin ORAL 200 MG/10 ML LIQUID. PO PRN (17:15)
[2019-02-03] MEDS ORDERED: ACETAMINOPHEN 325 MG TABLET. PO PRN (17:15)
[2019-02-03] MEDS ORDERED: MAG HYDROX/ALUMINUM HYD/SIMETH 30 ML ORAL.SUSP PO PRN (17:15)
[2019-02-03] MEDS ORDERED: ALBUTEROL SULFATE 2.5 MG/3 ML NEBU. NEB PRN (17:15)
[2019-02-03] MEDS ORDERED: DOCUSATE SODIUM 100 MG CAPSULE. PO PRN (17:15)
[2019-02-03] MEDS ORDERED: cloNIDine HCL 0.1 MG TABLET PO PRN (17:15)
--- NOTE | 2019-02-03 17:22 | PDOC2 ---
NEUROLOGY CONSULT Date of Admission Date of Admission DATE: 02/03/19 TIME: 17:12 Reason for Consult Reason for Consult: syncope Referring Physician Referring Physician: Dr. Aguilar Source Source: Caregiver, Chart review, Patient History of Present Illness History of Present Illness The patient is a 68-year-old right-handed male who has had syncope nearly all his life. He was at the [employer] office stop he had eaten a small lunch but was not feeling well. He faints about every 5-10 days. There is never been convulsive activity. He had a pacemaker placed 7 months ago, but it does not appear to have helped much. He has had normal EEG studies on 07/22/18 and 11/10/18. I last saw him 3 months ago and the patient had normal brain MRI and CT angiogram, then. He was complaining of left-sided numbness. I also see that he was in the emergency department in November for unexplained neurological symptoms which rapidly resolved and the patient was sent home. He is not complaining of any focal neurological symptoms at this time. 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 Endocrine: Diabetes Past Surgical History Past Surgical History: Pacemaker, Arthroscopy (left knee), Cholecystectomy, Hernia Repair (hiatal), Other (back surgery; gastric sleeve) Family History Family History: CVA Social History Social History , retired, no alcohol or tobacco Current Medications Current Medications Current Medications Aspirin (Ecotrin) 325 mg DAILYWBKFT PO ; Start 02/04/19 at 08:00; Status UNV Atenolol (Tenormin) 50 mg BID PO ; Start 02/03/19 at 21:00; Status UNV Simvastatin (Zocor) 20 mg HS PO ; Start 02/03/19 at 21:00; Status UNV Topiramate (Topamax) 25 mg QHS PO ; Start 02/03/19 at 21:00; Status UNV Non-Formulary Medication (Gabapentin ) 600 mg BID PO ; Start 02/03/19 at 21:00; Status UNV Non-Formulary Medication (Metformin Hcl ) 1,000 mg BIDWMEALS PO ; Start 02/04/19 at 08:00; Status UNV Non-Formulary Medication (Omeprazole ) 20 mg DAILY PO ; Start 02/04/19 at 09:00; Status UNV Active Scripts Active Aspirin Ec (Aspirin) 325 Mg Tablet. 325 Mg PO DAILYWBKFT 30 Days Topamax (Topiramate) 25 Mg Tablet 1 Tab PO QHS Reported Omeprazole 20 Mg Capsule. 20 Mg PO DAILY Metformin Hcl 1,000 Mg Tablet 1,000 Mg PO BIDWMEALS Gabapentin 600 Mg Tablet 600 Mg PO BID Zocor (Simvastatin) 20 Mg Tablet 20 Mg PO HS Atenolol 50 Mg Tablet 50 Mg PO BID Allergies Allergies: Coded Allergies: No Known Drug Allergies (Unverified , 01/15/18) ROS Review of System Negative for fever, chills, weight loss, shortness of breath, chest pain, indigestion, hematochezia, melena, and dysuria. Full 14-point review of systems is negative. Physical Exam Physical Examination General: Well-developed, well-nourished white male, in no acute distress HEENT: Normocephalic and�atraumatic. Tympanic membranes clear.�Temporal arteries�pulsatile and nontender.�Fundoscopic exam unremarkable Neck: Supple without bruit, no meningismus� Musculoskeletal: Stability:�see neurologic. Gait exam:�see neurologic. Tone:�see neurolo gic.�Strength:�see neurologic.� Neurological: Mental Status:�intact, orientation, memory, attention span/concentration, language, fund of knowledge normal. Cranial Nerves:�Pupils equal and reactive to light, extraocular movements are�intact, visual miller are full to confrontation. Facial sensation is normal. There is no facial asymmetry. Vestibulo-ocular reflex is intact. Palate elevates and tongue protrudes in midline. All other cranial related problems are negative except as mentioned before.�Reflexes: 1+ and symmetric with flexor plantar responses. Motor:�5/5 strength with normal tone and bulk. Coordination:�Finger-nose finger and iujh-hi-whoc testing are normal. Rapid alternating movements and fine finger movements are intact. Gait: not tested. Sensory:�stocking loss Vitals VITALS Vital Signs Date Time Temp Pulse Resp B/P (MAP) Pulse Ox O2 Delivery O2 Flow Rate FiO2 02/03/19 16:20 60 15 95 02/03/19 14:35 97.5 124/77 (93) Room Air 97.5 Labs Labs Laboratory Tests Test 02/03/19 14:52 White Blood Count 3.3 x10^3/uL (4.0-11.0) Red Blood Count 4.90 x10^6/uL (4.30-5.70) Hemoglobin 14.7 g/dL (13.0-17.5) Hematocrit 43.3 % (39.0-53.0) Mean Corpuscular Volume 88 fL (79-100) Mean Corpuscular Hemoglobin 30 pg (25-35) Mean Corpuscular Hemoglobin Concent 34 g/dL (31-37) Red Cell Distribution Width 15.6 % (11.5-14.5) Platelet Count 145 x10^3/uL (140-400) Neutrophils (%) (Auto) 44 % (31-73) Lymphocytes (%) (Auto) 42 % (24-48) Monocytes (%) (Auto) 9 % (0-9) Eosinophils (%) (Auto) 4 % (0-3) Basophils (%) (Auto) 1 % (0-3) Neutrophils # (Auto) 1.5 x10^3/uL (1.8-7.7) Lymphocytes # (Auto) 1.4 x10^3/uL (1.0-4.8) Monocytes # (Auto) 0.3 x10^3/uL (0.0-1.1) Eosinophils # (Auto) 0.1 x10^3/uL (0.0-0.7) Basophils # (Auto) 0.0 x10^3/uL (0.0-0.2) Sodium Level 142 mmol/L (136-145) Potassium Level 4.1 mmol/L (3.5-5.1) Chloride Level 107 mmol/L (98-107) Carbon Dioxide Level 26 mmol/L (21-32) Anion Gap 9 (6-14) Blood Urea Nitrogen 16 mg/dL (8-26) Creatinine 1.1 mg/dL (0.7-1.3) Estimated GFR (Cockcroft-Gault) 66.4 BUN/Creatinine Ratio 15 (6-20) Glucose Level 218 mg/dL (70-99) Calcium Level 8.9 mg/dL (8.5-10.1) Magnesium Level 1.9 mg/dL (1.8-2.4) Total Bilirubin 0.6 mg/dL (0.2-1.0) Aspartate Amino Transf (AST/SGOT) 15 U/L (15-37) Alanine Aminotransferase (ALT/SGPT) 14 U/L (16-63) Alkaline Phosphatase 82 U/L (46-116) Troponin I Quantitative < 0.017 ng/mL (0.000-0.055) NZ-Qrf-S-Type Natriuretic Peptide 122 pg/mL (0-124) Total Protein 6.4 g/dL (6.4-8.2) Albumin 3.3 g/dL (3.4-5.0) Albumin/Globulin Ratio 1.1 (1.0-1.7) Thyroid Stimulating Hormone (TSH) 0.716 uIU/mL (0.358-3.74) Free Thyroxine 0.80 ng/dL (0.76-1.46) Laboratory Tests Test 02/03/19 14:52 White Blood Count 3.3 x10^3/uL (4.0-11.0) Red Blood Count 4.90 x10^6/uL (4.30-5.70) Hemoglobin 14.7 g/dL (13.0-17.5) Hematocrit 43.3 % (39.0-53.0) Mean Corpuscular Volume 88 fL (79-100) Mean Corpuscular Hemoglobin 30 pg (25-35) Mean Corpuscular Hemoglobin Concent 34 g/dL (31-37) Red Cell Distribution Width 15.6 % (11.5-14.5) Platelet Count 145 x10^3/uL (140-400) Neutrophils (%) (Auto) 44 % (31-73) Lymphocytes (%) (Auto) 42 % (24-48) Monocytes (%) (Auto) 9 % (0-9) Eosinophils (%) (Auto) 4 % (0-3) Basophils (%) (Auto) 1 % (0-3) Neutrophils # (Auto) 1.5 x10^3/uL (1.8-7.7) Lymphocytes # (Auto) 1.4 x10^3/uL (1.0-4.8) Monocytes # (Auto) 0.3 x10^3/uL (0.0-1.1) Eosinophils # (Auto) 0.1 x10^3/uL (0.0-0.7) Basophils # (Auto) 0.0 x10^3/uL (0.0-0.2) Sodium Level 142 mmol/L (136-145) Potassium Level 4.1 mmol/L (3.5-5.1) Chloride Level 107 mmol/L (98-107) Carbon Dioxide Level 26 mmol/L (21-32) Anion Gap 9 (6-14) Blood Urea Nitrogen 16 mg/dL (8-26) Creatinine 1.1 mg/dL (0.7-1.3) Estimated GFR (Cockcroft-Gault) 66.4 BUN/Creatinine Ratio 15 (6-20) Glucose Level 218 mg/dL (70-99) Calcium Level 8.9 mg/dL (8.5-10.1) Magnesium Level 1.9 mg/dL (1.8-2.4) Total Bilirubin 0.6 mg/dL (0.2-1.0) Aspartate Amino Transf (AST/SGOT) 15 U/L (15-37) Alanine Aminotransferase (ALT/SGPT) 14 U/L (16-63) Alkaline Phosphatase 82 U/L (46-116) Troponin I Quantitative < 0.017 ng/mL (0.000-0.055) KT-Zhu-R-Type Natriuretic Peptide 122 pg/mL (0-124) Total Protein 6.4 g/dL (6.4-8.2) Albumin 3.3 g/dL (3.4-5.0) Albumin/Globulin Ratio 1.1 (1.0-1.7) Thyroid Stimulating Hormone (TSH) 0.716 uIU/mL (0.358-3.74) Free Thyroxine 0.80 ng/dL (0.76-1.46) Images Images MRI of the brain without contrast 11/15/2018 Clinical History: Sudden onset of left arm weakness and slurred speech. Technique: Unenhanced T1-weighted sagittal and axial, T2-weighted axial and coronal and FLAIR, gradient echo and diffusion-weighted axial images of the brain were obtained. Findings: Comparison is made to the patient's CT scan of the head dated 11/14/2018. Additional comparison is made to the patient's MRI of the brain dated 10/14/2015. There is generalized parenchymal atrophy. Patchy and multiple small focal areas of increased signal intensity are seen within the periventricular and subcortical white matter of both cerebral hemispheres on the FLAIR and T2-weighted images consistent with areas of small vessel ischemic disease. A 6 mm old area of lacunar infarction is seen involving left thalamus. An area of infarction is seen involving the inferior left cerebellar hemisphere. This measures 3.9 cm in greatest diameter. No acute parenchymal abnormality is seen. No extra-axial fluid collection is seen. There is no MRI evidence of acute ischemia/infarction. Mild mucosal thickening is seen scattered throughout the paranasal sinuses. There are minimal bilateral mastoid effusions. Normal flow voids are seen within the major vascular structures surrounding the brain parenchyma. Impression: No acute parenchymal abnormality is seen. CT angiogram head and neck 11/15/18: CTA of the intracranial circulation reveals normal appearing distal internal carotid arteries including the distal cervical, petrous, cavernous and supraclinoid portions. The anterior cerebral arteries are well visualized and without evidence of stenosis or occlusion. The middle cerebral arteries are well visualized and without evidence of stenosis or occlusion. The posterior cerebral arteries are well visualized and without evidence of stenosis or occlusion. The vertebral basilar system is normal with no evidence of stenosis or occlusion. In the neck, the origins of the great vessels are unremarkable. The common carotid arteries, bilaterally are normal with no evidence of significant stenosis or occlusion. The internal carotid arteries are normal bilaterally with no evidence of stenosis. The vertebral arteries in the neck are well visualized bilaterally and unremarkable. Atherosclerotic calcifications of the intracranial internal carotid arteries is seen. A 1 cm enhancing posterior right thyroid nodule is seen. Follow-up thyroid ultrasound is recommended, particularly given recommendation on prior thyroid ultrasound. An 8 mm right upper lobe lung nodule (series 3 image 41) is partially calcified. This nodule partially abuts the fissure and was not seen on prior CT chest 11/14/2018. Small associated groundglass opacities are seen. IMPRESSION: 1. No evidence for high-grade stenosis or occlusion of the intracranial carotid or vertebral arteries. 2. The common, extracranial internal and external carotid arteries as well as the extracranial vertebral arteries are also widely patent without evidence for high-grade stenosis or occlusion. 3. A 1 cm enhancing posterior right thyroid nodule is seen. Follow-up thyroid ultrasound is recommended, particularly given recommendation on prior thyroid ultrasound. 4. An 8 mm right upper lobe lung nodule is new compared to 11/14/2018 CT chest. Small associated groundglass opacities are seen. These may be infectious or inflammatory in nature given the relatively rapid development. Assessment/Plan Assessment/Plan Impression: Recurrent syncopal episodes, multiple neurologic workups negative. Diabetes type 2 with neuropathy, autonomic neuropathy undoubtedly contributes to his issues.. Hypertension Hyperlipidemia Thyroid nodules. Degenerative spine joint diseases. Pacemaker placement in 07/13. No evidence of seizure RECOMMENDATIONS: Observe overnight. I discussed with the patient and his , unfortunately there is nothing to add. For instance, he is already on abdominal binders and compression stockings. Aivdr-ywwmldjb-reziywf medications are dangerous as I note that his resting blood pressure is actually high in the emergency department. I see no reason to repeat workup already done. Thank you for letting me help with the patient's care. RUDDY SALINAS MD Feb 03, 2019 17:22
[2019-02-03 18:00] VITALS: BP 167/96
[2019-02-03] MEDS: IV NORMAL SALINE 1000ML BAG 1,000 ML IV SCH (18:41)
[2019-02-03 19:20] VITALS: BP 156/80
[2019-02-03] MEDS ORDERED: SIMVASTATIN 20 MG TABLET PO SCH (21:00)
[2019-02-03] MEDS ORDERED: TOPIRAMATE 25 MG TABLET. PO SCH (21:00)
[2019-02-03] MEDS: ATENOLOL 50 MG TABLET. PO SCH (21:19)
[2019-02-03] MEDS: GABAPENTIN 300 MG CAPSULE. PO SCH (21:20)
[2019-02-03 23:20] VITALS: BP 150/86
[2019-02-04 03:20] VITALS: BP 128/70
[2019-02-04] MEDS: IV NORMAL SALINE 1000ML BAG 1,000 ML IV SCH (05:26)
[2019-02-04 07:00] VITALS: BP 159/83
[2019-02-04] MEDS ORDERED: PANTOPRAZOLE 40 MG TABLET.DR. PO SCH (07:30)
--- NOTE | 2019-02-04 07:49 | PDOC ---
PROGRESS NOTES History of Present Illness History of Present Illness VTE Prophylaxis Ordered VTE Prophylaxis Devices: Yes VTE Pharmacological Prophylaxi: Yes discharge dx Assessment/Plan impression Syncope with LOC with negative EEG - readmission, similar recent picture Bradycardia with functioning// indwelling [facility] 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 on mri recent mri head , Patchy and multiple small focal areas of increased signal intensity are seen within the periventricular and subcortical white matter of both cerebral hemispheres on the FLAIR and T2-weighted images consistent with areas of small vessel ischemic disease. A 6 mm old area of lacunar infarction is seen involving left thalamus. An area of infarction is seen involving the inferior left cerebellar hemisphere. This measures 3.9 cm in greatest diameter History of GERD. T History of obesity with prior gastric sleeve resulting and 70 pound weight loss. History of perforated diverticulum. HTN. HLD. Thyroid nodules. Degenerative spine joint disease Pacemaker placement in 07/13. recent cta chest Suboptimal PE study due to contrast bolus timing. No central or proximal segmental PE. Evaluation of distal segmental and subsegmental pulmonary arteries is limited. No evidence of pneumonia or acute pulmonary infarct. possible autonomic imbalance plan admit neurology consult cardiology consult tele neurochecks q 4 hrs iv fluid support dvt prophylaxis home meds 36 min pt exam, d/c planning chart review, > 50% of time spent with exam, chart review, pt care coordination Vitals Vitals Vital Signs Date Time Temp Pulse Resp B/P (MAP) Pulse Ox O2 Delivery O2 Flow Rate FiO2 02/04/19 07:00 97.8 61 16 159/83 (108) 94 Room Air 97.8 Physical Exam General: Alert, Oriented X3, Cooperative, No acute distress Heart: Regular rate Lungs: Clear, Other Abdomen: Normal bowel sounds, Soft, No tenderness Extremities: No clubbing, No cyanosis Labs LABS Laboratory Tests Test 02/03/19 14:52 02/03/19 21:33 02/04/19 07:03 White Blood Count 3.3 x10^3/uL (4.0-11.0) Red Blood Count 4.90 x10^6/uL (4.30-5.70) Hemoglobin 14.7 g/dL (13.0-17.5) Hematocrit 43.3 % (39.0-53.0) Mean Corpuscular Volume 88 fL (79-100) Mean Corpuscular Hemoglobin 30 pg (25-35) Mean Corpuscular Hemoglobin Concent 34 g/dL (31-37) Red Cell Distribution Width 15.6 % (11.5-14.5) Platelet Count 145 x10^3/uL (140-400) Neutrophils (%) (Auto) 44 % (31-73) Lymphocytes (%) (Auto) 42 % (24-48) Monocytes (%) (Auto) 9 % (0-9) Eosinophils (%) (Auto) 4 % (0-3) Basophils (%) (Auto) 1 % (0-3) Neutrophils # (Auto) 1.5 x10^3/uL (1.8-7.7) Lymphocytes # (Auto) 1.4 x10^3/uL (1.0-4.8) Monocytes # (Auto) 0.3 x10^3/uL (0.0-1.1) Eosinophils # (Auto) 0.1 x10^3/uL (0.0-0.7) Basophils # (Auto) 0.0 x10^3/uL (0.0-0.2) Sodium Level 142 mmol/L (136-145) Potassium Level 4.1 mmol/L (3.5-5.1) Chloride Level 107 mmol/L (98-107) Carbon Dioxide Level 26 mmol/L (21-32) Anion Gap 9 (6-14) Blood Urea Nitrogen 16 mg/dL (8-26) Creatinine 1.1 mg/dL (0.7-1.3) Estimated GFR (Cockcroft-Gault) 66.4 BUN/Creatinine Ratio 15 (6-20) Glucose Level 218 mg/dL (70-99) Calcium Level 8.9 mg/dL (8.5-10.1) Magnesium Level 1.9 mg/dL (1.8-2.4) Total Bilirubin 0.6 mg/dL (0.2-1.0) Aspartate Amino Transf (AST/SGOT) 15 U/L (15-37) Alanine Aminotransferase (ALT/SGPT) 14 U/L (16-63) Alkaline Phosphatase 82 U/L (46-116) Troponin I Quantitative < 0.017 ng/mL (0.000-0.055) TP-Qdr-K-Type Natriuretic Peptide 122 pg/mL (0-124) Total Protein 6.4 g/dL (6.4-8.2) Albumin 3.3 g/dL (3.4-5.0) Albumin/Globulin Ratio 1.1 (1.0-1.7) Thyroid Stimulating Hormone (TSH) 0.716 uIU/mL (0.358-3.74) Free Thyroxine 0.80 ng/dL (0.76-1.46) Glucose (Fingerstick) 148 mg/dL (70-99) 101 mg/dL (70-99) Assessment and Plan Assessmemt and Plan Problems Medical Problems: (1) Recurrent syncope Status: Acute Ambulation Assistance Required * Contact Guard Assist Ambulation Assistive Device * No Device Ambulation Distance * 250 Ft. Ambulation Comments * CGA due to recurrent syncope. Pt had no loss of balance or unsteadiness Balance Exercises * Standing * Reaching to Floor * Single Leg Stance Balance Exercises Comments * Loss of balance during single leg stance, pt able to self-correct Clinical Presentation * Unstable Evaluation Complexity Level * Moderate Complexity Pt/caregiver agrees with plan of care/goals * Yes Patient condition at conclusion of therapy * Pt in chair * Call light in reach * Phone in reach * PtIn no apparent distress * Pt denies further needs No Further Skilled P.T. Intervention Required * Eval only-No PT Needs Discharge Recommendations * Home independent Discharge Recommendation - DME * None Comment Review of Relevant I have reviewed the following items argenis (where applicable) has been applied. Labs Laboratory Tests Test 02/03/19 14:52 02/03/19 21:33 02/04/19 07:03 White Blood Count 3.3 x10^3/uL (4.0-11.0) Red Blood Count 4.90 x10^6/uL (4.30-5.70) Hemoglobin 14.7 g/dL (13.0-17.5) Hematocrit 43.3 % (39.0-53.0) Mean Corpuscular Volume 88 fL (79-100) Mean Corpuscular Hemoglobin 30 pg (25-35) Mean Corpuscular Hemoglobin Concent 34 g/dL (31-37) Red Cell Distribution Width 15.6 % (11.5-14.5) Platelet Count 145 x10^3/uL (140-400) Neutrophils (%) (Auto) 44 % (31-73) Lymphocytes (%) (Auto) 42 % (24-48) Monocytes (%) (Auto) 9 % (0-9) Eosinophils (%) (Auto) 4 % (0-3) Basophils (%) (Auto) 1 % (0-3) Neutrophils # (Auto) 1.5 x10^3/uL (1.8-7.7) Lymphocytes # (Auto) 1.4 x10^3/uL (1.0-4.8) Monocytes # (Auto) 0.3 x10^3/uL (0.0-1.1) Eosinophils # (Auto) 0.1 x10^3/uL (0.0-0.7) Basophils # (Auto) 0.0 x10^3/uL (0.0-0.2) Sodium Level 142 mmol/L (136-145) Potassium Level 4.1 mmol/L (3.5-5.1) Chloride Level 107 mmol/L (98-107) Carbon Dioxide Level 26 mmol/L (21-32) Anion Gap 9 (6-14) Blood Urea Nitrogen 16 mg/dL (8-26) Creatinine 1.1 mg/dL (0.7-1.3) Estimated GFR (Cockcroft-Gault) 66.4 BUN/Creatinine Ratio 15 (6-20) Glucose Level 218 mg/dL (70-99) Calcium Level 8.9 mg/dL (8.5-10.1) Magnesium Level 1.9 mg/dL (1.8-2.4) Total Bilirubin 0.6 mg/dL (0.2-1.0) Aspartate Amino Transf (AST/SGOT) 15 U/L (15-37) Alanine Aminotransferase (ALT/SGPT) 14 U/L (16-63) Alkaline Phosphatase 82 U/L (46-116) Troponin I Quantitative < 0.017 ng/mL (0.000-0.055) WV-Pcb-L-Type Natriuretic Peptide 122 pg/mL (0-124) Total Protein 6.4 g/dL (6.4-8.2) Albumin 3.3 g/dL (3.4-5.0) Albumin/Globulin Ratio 1.1 (1.0-1.7) Thyroid Stimulating Hormone (TSH) 0.716 uIU/mL (0.358-3.74) Free Thyroxine 0.80 ng/dL (0.76-1.46) Glucose (Fingerstick) 148 mg/dL (70-99) 101 mg/dL (70-99) Laboratory Tests Test 02/03/19 14:52 02/03/19 21:33 02/04/19 07:03 White Blood Count 3.3 x10^3/uL (4.0-11.0) Red Blood Count 4.90 x10^6/uL (4.30-5.70) Hemoglobin 14.7 g/dL (13.0-17.5) Hematocrit 43.3 % (39.0-53.0) Mean Corpuscular Volume 88 fL (79-100) Mean Corpuscular Hemoglobin 30 pg (25-35) Mean Corpuscular Hemoglobin Concent 34 g/dL (31-37) Red Cell Distribution Width 15.6 % (11.5-14.5) Platelet Count 145 x10^3/uL (140-400) Neutrophils (%) (Auto) 44 % (31-73) Lymphocytes (%) (Auto) 42 % (24-48) Monocytes (%) (Auto) 9 % (0-9) Eosinophils (%) (Auto) 4 % (0-3) Basophils (%) (Auto) 1 % (0-3) Neutrophils # (Auto) 1.5 x10^3/uL (1.8-7.7) Lymphocytes # (Auto) 1.4 x10^3/uL (1.0-4.8) Monocytes # (Auto) 0.3 x10^3/uL (0.0-1.1) Eosinophils # (Auto) 0.1 x10^3/uL (0.0-0.7) Basophils # (Auto) 0.0 x10^3/uL (0.0-0.2) Sodium Level 142 mmol/L (136-145) Potassium Level 4.1 mmol/L (3.5-5.1) Chloride Level 107 mmol/L (98-107) Carbon Dioxide Level 26 mmol/L (21-32) Anion Gap 9 (6-14) Blood Urea Nitrogen 16 mg/dL (8-26) Creatinine 1.1 mg/dL (0.7-1.3) Estimated GFR (Cockcroft-Gault) 66.4 BUN/Creatinine Ratio 15 (6-20) Glucose Level 218 mg/dL (70-99) Calcium Level 8.9 mg/dL (8.5-10.1) Magnesium Level 1.9 mg/dL (1.8-2.4) Total Bilirubin 0.6 mg/dL (0.2-1.0) Aspartate Amino Transf (AST/SGOT) 15 U/L (15-37) Alanine Aminotransferase (ALT/SGPT) 14 U/L (16-63) Alkaline Phosphatase 82 U/L (46-116) Troponin I Quantitative < 0.017 ng/mL (0.000-0.055) XJ-Psu-U-Type Natriuretic Peptide 122 pg/mL (0-124) Total Protein 6.4 g/dL (6.4-8.2) Albumin 3.3 g/dL (3.4-5.0) Albumin/Globulin Ratio 1.1 (1.0-1.7) Thyroid Stimulating Hormone (TSH) 0.716 uIU/mL (0.358-3.74) Free Thyroxine 0.80 ng/dL (0.76-1.46) Glucose (Fingerstick) 148 mg/dL (70-99) 101 mg/dL (70-99) Medications Current Medications Aspirin (Ecotrin) 325 mg DAILYWBKFT PO ; Start 02/04/19 at 08:00 Atenolol (Tenormin) 50 mg BID PO Last administered on 02/03/19at 21:21; Start 02/03/19 at 21:00 Simvastatin (Zocor) 20 mg HS PO Last administered on 02/03/19at 21:21; Start 02/03/19 at 21:00 Topiramate (Topamax) 25 mg QHS PO ; Start 02/03/19 at 21:00 Gabapentin (Neurontin) 600 mg BID PO Last administered on 02/03/19at 21:21; Start 02/03/19 at 21:00 Metformin HCl (Glucophage) 1,000 mg BIDWMEALS PO ; Start 02/04/19 at 08:00 Pantoprazole Sodium (Protonix) 40 mg DAILYAC PO ; Start 02/04/19 at 07:30 Sodium Chloride (Normal Saline Flush) 3 ml QSHIFT PRN IV AFTER MEDS AND BLOOD DRAWS; Start 02/03/19 at 17:15 Sodium Chloride 1,000 ml @ 100 mls/hr Q10H IV Last administered on 02/04/19at 05:26; Start 02/03/19 at 18:00 Ondansetron HCl (Zofran) 4 mg PRN Q4HRS PRN IV NAUSEA/VOMITING; Start 02/03/19 at 17:15 Acetaminophen (Tylenol) 650 mg PRN Q4HRS PRN PO TEMP OVER 100.4F OR MILD PAIN; Start 02/03/19 at 17:15 Al Hydroxide/Mg Hydroxide (Mylanta Plus Xs) 30 ml PRN DAILY PRN PO HEARTBURN / GAS; Start 02/03/19 at 17:15 Clonidine HCl (Catapres) 0.1 mg PRN Q6HRS PRN PO SBP>160 OR DBP>90; Start 02/03/19 at 17:15 Docusate Sodium (Colace) 100 mg PRN BID PRN PO CONSTIPATION; Start 02/03/19 at 17:15 Albuterol Sulfate (Ventolin Neb Soln) 2.5 mg PRN Q4HRS PRN NEB SHORTNESS OF BREATH; Start 02/03/19 at 17:15 Guaifenesin (Robitussin) 200 mg PRN Q4HRS PRN PO COUGH; Start 02/03/19 at 17:15 Lorazepam (Ativan) 0.5 mg PRN Q4HRS PRN PO ANXIETY / AGITATION; Start 02/03/19 at 17:15 Enoxaparin Sodium (Lovenox 40mg Syringe) 40 mg DAILY SQ ; Start 02/04/19 at 09:00 Active Scripts Active Aspirin Ec (Aspirin) 325 Mg Tablet. 325 Mg PO DAILYWBKFT 30 Days Topamax (Topiramate) 25 Mg Tablet 1 Tab PO QHS Reported Omeprazole 20 Mg Capsule. 20 Mg PO DAILY Metformin Hcl 1,000 Mg Tablet 1,000 Mg PO BIDWMEALS Gabapentin 600 Mg Tablet 600 Mg PO BID Zocor (Simvastatin) 20 Mg Tablet 20 Mg PO HS Atenolol 50 Mg Tablet 50 Mg PO BID Vitals/I & O Vital Sign - Last 24 Hours 02/03/19 02/03/19 02/03/19 02/03/19 14:35 16:20 16:50 17:20 Temp 97.5 97.5 Pulse 60 60 60 62 Resp 17 15 14 18 B/P (MAP) 124/77 (93) Pulse Ox 95 95 97 96 O2 Delivery Room Air 02/03/19 02/03/19 02/03/19 02/03/19 17:44 18:00 19:20 20:00 Temp 97.7 97.7 Pulse 59 60 60 Resp 13 16 16 B/P (MAP) 167/96 (119) 156/80 (105) Pulse Ox 98 98 96 O2 Delivery Room Air Room Air Room Air 02/03/19 02/03/19 02/03/19 02/04/19 21:21 22:08 23:20 03:20 Temp 97.6 97.4 97.6 97.4 Pulse 60 60 60 Resp 12 14 B/P (MAP) 156/80 150/86 (107) 128/70 (89) Pulse Ox 96 96 94 O2 Delivery BiPAP/CPAP BiPAP/CPAP Room Air 02/04/19 07:00 Temp 97.8 97.8 Pulse 61 Resp 16 B/P (MAP) 159/83 (108) Pulse Ox 94 O2 Delivery Room Air Intake and Output 02/03/19 02/03/19 02/04/19 14:59 22:59 06:59 Intake Total 0 ml 300 ml Balance 0 ml 300 ml JUSTINA TANG MD Feb 04, 2019 07:49
[2019-02-04] MEDS ORDERED: ASPIRIN ENTERIC COATED 325 MG TABLET.DR. PO SCH (08:00)
[2019-02-04] MEDS ORDERED: metFORMIN 500 MG TABLET PO SCH (08:00)
[2019-02-04] MEDS: GABAPENTIN 300 MG CAPSULE. PO SCH (08:22)
[2019-02-04] MEDS: ATENOLOL 50 MG TABLET. PO SCH (08:22)
[2019-02-04] MEDS ORDERED: ENOXAPARIN 40 MG/0.4 ML SYRINGE. SQ SCH (09:00)
--- NOTE | 2019-02-04 09:49 | PDOC ---
PROGRESS NOTES Assessment Problems Medical Problems: (1) Recurrent syncope Status: Acute Recurrent syncopal episodes, multiple neurologic workups negative. Diabetes type 2 with neuropathy, autonomic neuropathy undoubtedly contributes to his issues.. Hypertension Hyperlipidemia Thyroid nodules. Degenerative spine joint diseases. Pacemaker placement in 07/13. No evidence of seizure Plan Continue compression stockings and abdominal binder per neurology. Patient asked about testing autonomic nerves, the neurologist would have bill mmended it if it was available, last I checked, was trying to set up autonomic neuropathy testing lab, but the only lab I know for sure is at [facility]. 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 Subjective Feels better, ready to go home Objective Vital Signs Date Time Temp Pulse Resp B/P (MAP) Pulse Ox O2 Delivery O2 Flow Rate FiO2 02/04/19 08:24 61 159/83 02/04/19 07:00 97.8 16 94 Room Air 97.8 Intake and Output 02/04/19 06:59 Intake Total 300 ml Balance 300 ml Intake Oral 300 ml PHYSICAL EXAM Alert. Oriented to time, place and person. PERRL. EOMI. CN: no focal findings. Muscle tone: normal. Muscle strength: 5/5 DTR: 1+ Plantar reflex: flexor Gait: not examined in bed. Sensory exam: stocking loss. No cerebellar signs elicited. Review of Relevant I have reviewed the following items argenis (where applicable) has been applied. Labs Laboratory Tests Test 02/03/19 14:52 02/03/19 21:33 02/04/19 07:03 White Blood Count 3.3 x10^3/uL (4.0-11.0) Red Blood Count 4.90 x10^6/uL (4.30-5.70) Hemoglobin 14.7 g/dL (13.0-17.5) Hematocrit 43.3 % (39.0-53.0) Mean Corpuscular Volume 88 fL (79-100) Mean Corpuscular Hemoglobin 30 pg (25-35) Mean Corpuscular Hemoglobin Concent 34 g/dL (31-37) Red Cell Distribution Width 15.6 % (11.5-14.5) Platelet Count 145 x10^3/uL (140-400) Neutrophils (%) (Auto) 44 % (31-73) Lymphocytes (%) (Auto) 42 % (24-48) Monocytes (%) (Auto) 9 % (0-9) Eosinophils (%) (Auto) 4 % (0-3) Basophils (%) (Auto) 1 % (0-3) Neutrophils # (Auto) 1.5 x10^3/uL (1.8-7.7) Lymphocytes # (Auto) 1.4 x10^3/uL (1.0-4.8) Monocytes # (Auto) 0.3 x10^3/uL (0.0-1.1) Eosinophils # (Auto) 0.1 x10^3/uL (0.0-0.7) Basophils # (Auto) 0.0 x10^3/uL (0.0-0.2) Sodium Level 142 mmol/L (136-145) Potassium Level 4.1 mmol/L (3.5-5.1) Chloride Level 107 mmol/L (98-107) Carbon Dioxide Level 26 mmol/L (21-32) Anion Gap 9 (6-14) Blood Urea Nitrogen 16 mg/dL (8-26) Creatinine 1.1 mg/dL (0.7-1.3) Estimated GFR (Cockcroft-Gault) 66.4 BUN/Creatinine Ratio 15 (6-20) Glucose Level 218 mg/dL (70-99) Calcium Level 8.9 mg/dL (8.5-10.1) Magnesium Level 1.9 mg/dL (1.8-2.4) Total Bilirubin 0.6 mg/dL (0.2-1.0) Aspartate Amino Transf (AST/SGOT) 15 U/L (15-37) Alanine Aminotransferase (ALT/SGPT) 14 U/L (16-63) Alkaline Phosphatase 82 U/L (46-116) Troponin I Quantitative < 0.017 ng/mL (0.000-0.055) MO-Tfa-H-Type Natriuretic Peptide 122 pg/mL (0-124) Total Protein 6.4 g/dL (6.4-8.2) Albumin 3.3 g/dL (3.4-5.0) Albumin/Globulin Ratio 1.1 (1.0-1.7) Thyroid Stimulating Hormone (TSH) 0.716 uIU/mL (0.358-3.74) Free Thyroxine 0.80 ng/dL (0.76-1.46) Glucose (Fingerstick) 148 mg/dL (70-99) 101 mg/dL (70-99) Laboratory Tests Test 02/03/19 14:52 02/03/19 21:33 02/04/19 07:03 White Blood Count 3.3 x10^3/uL (4.0-11.0) Red Blood Count 4.90 x10^6/uL (4.30-5.70) Hemoglobin 14.7 g/dL (13.0-17.5) Hematocrit 43.3 % (39.0-53.0) Mean Corpuscular Volume 88 fL (79-100) Mean Corpuscular Hemoglobin 30 pg (25-35) Mean Corpuscular Hemoglobin Concent 34 g/dL (31-37) Red Cell Distribution Width 15.6 % (11.5-14.5) Platelet Count 145 x10^3/uL (140-400) Neutrophils (%) (Auto) 44 % (31-73) Lymphocytes (%) (Auto) 42 % (24-48) Monocytes (%) (Auto) 9 % (0-9) Eosinophils (%) (Auto) 4 % (0-3) Basophils (%) (Auto) 1 % (0-3) Neutrophils # (Auto) 1.5 x10^3/uL (1.8-7.7) Lymphocytes # (Auto) 1.4 x10^3/uL (1.0-4.8) Monocytes # (Auto) 0.3 x10^3/uL (0.0-1.1) Eosinophils # (Auto) 0.1 x10^3/uL (0.0-0.7) Basophils # (Auto) 0.0 x10^3/uL (0.0-0.2) Sodium Level 142 mmol/L (136-145) Potassium Level 4.1 mmol/L (3.5-5.1) Chloride Level 107 mmol/L (98-107) Carbon Dioxide Level 26 mmol/L (21-32) Anion Gap 9 (6-14) Blood Urea Nitrogen 16 mg/dL (8-26) Creatinine 1.1 mg/dL (0.7-1.3) Estimated GFR (Cockcroft-Gault) 66.4 BUN/Creatinine Ratio 15 (6-20) Glucose Level 218 mg/dL (70-99) Calcium Level 8.9 mg/dL (8.5-10.1) Magnesium Level 1.9 mg/dL (1.8-2.4) Total Bilirubin 0.6 mg/dL (0.2-1.0) Aspartate Amino Transf (AST/SGOT) 15 U/L (15-37) Alanine Aminotransferase (ALT/SGPT) 14 U/L (16-63) Alkaline Phosphatase 82 U/L (46-116) Troponin I Quantitative < 0.017 ng/mL (0.000-0.055) BZ-Hvp-K-Type Natriuretic Peptide 122 pg/mL (0-124) Total Protein 6.4 g/dL (6.4-8.2) Albumin 3.3 g/dL (3.4-5.0) Albumin/Globulin Ratio 1.1 (1.0-1.7) Thyroid Stimulating Hormone (TSH) 0.716 uIU/mL (0.358-3.74) Free Thyroxine 0.80 ng/dL (0.76-1.46) Glucose (Fingerstick) 148 mg/dL (70-99) 101 mg/dL (70-99) Medications Current Medications Aspirin (Ecotrin) 325 mg DAILYWBKFT PO Last administered on 02/04/19 08:24; Start 02/04/19 at 08:00 Atenolol (Tenormin) 50 mg BID PO Last administered on 02/04/19 08:24; Start 02/03/19 at 21:00 Simvastatin (Zocor) 20 mg HS PO Last administered on 02/03/19 21:21; Start 02/03/19 at 21:00 Topiramate (Topamax) 25 mg QHS PO ; Start 02/03/19 at 21:00 Gabapentin (Neurontin) 600 mg BID PO Last administered on 02/04/19 08:24; Start 02/03/19 at 21:00 Metformin HCl (Glucophage) 1,000 mg BIDWMEALS PO Last administered on 02/04/19 08:24; Start 02/04/19 at 08:00 Pantoprazole Sodium (Protonix) 40 mg DAILYAC PO Last administered on 02/04/19 08:24; Start 02/04/19 at 07:30 Sodium Chloride (Normal Saline Flush) 3 ml QSHIFT PRN IV AFTER MEDS AND BLOOD DRAWS; Start 02/03/19 at 17:15 Sodium Chloride 1,000 ml @ 100 mls/hr Q10H IV Last administered on 02/04/19at 05:26; Start 02/03/19 at 18:00 Ondansetron HCl (Zofran) 4 mg PRN Q4HRS PRN IV NAUSEA/VOMITING; Start 02/03/19 at 17:15 Acetaminophen (Tylenol) 650 mg PRN Q4HRS PRN PO TEMP OVER 100.4F OR MILD PAIN; Start 02/03/19 at 17:15 Al Hydroxide/Mg Hydroxide (Mylanta Plus Xs) 30 ml PRN DAILY PRN PO HEARTBURN / GAS; Start 02/03/19 at 17:15 Clonidine HCl (Catapres) 0.1 mg PRN Q6HRS PRN PO SBP>160 OR DBP>90; Start 02/03/19 at 17:15 Docusate Sodium (Colace) 100 mg PRN BID PRN PO CONSTIPATION; Start 02/03/19 at 17:15 Albuterol Sulfate (Ventolin Neb Soln) 2.5 mg PRN Q4HRS PRN NEB SHORTNESS OF BREATH; Start 02/03/19 at 17:15 Guaifenesin (Robitussin) 200 mg PRN Q4HRS PRN PO COUGH; Start 02/03/19 at 17:15 Lorazepam (Ativan) 0.5 mg PRN Q4HRS PRN PO ANXIETY / AGITATION; Start 02/03/19 at 17:15 Enoxaparin Sodium (Lovenox 40mg Syringe) 40 mg DAILY SQ Last administered on 02/04/19at 08:24; Start 02/04/19 at 09:00 Active Scripts Active Aspirin Ec (Aspirin) 325 Mg Tablet. 325 Mg PO DAILYWBKFT 30 Days Topamax (Topiramate) 25 Mg Tablet 1 Tab PO QHS Reported Omeprazole 20 Mg Capsule.dr 20 Mg PO DAILY Metformin Hcl 1,000 Mg Tablet 1,000 Mg PO BIDWMEALS Gabapentin 600 Mg Tablet 600 Mg PO BID Zocor (Simvastatin) 20 Mg Tablet 20 Mg PO HS Atenolol 50 Mg Tablet 50 Mg PO BID Vitals/I & O Vital Sign - Last 24 Hours 02/03/19 02/03/19 02/03/19 02/03/19 14:35 16:20 16:50 17:20 Temp 97.5 97.5 Pulse 60 60 60 62 Resp 17 15 14 18 B/P (MAP) 124/77 (93) Pulse Ox 95 95 97 96 O2 Delivery Room Air 02/03/19 02/03/19 02/03/19 02/03/19 17:44 18:00 19:20 20:00 Temp 97.7 97.7 Pulse 59 60 60 Resp 13 16 16 B/P (MAP) 167/96 (119) 156/80 (105) Pulse Ox 98 98 96 O2 Delivery Room Air Room Air Room Air 02/03/19 02/03/19 02/03/19 02/04/19 21:21 22:08 23:20 03:20 Temp 97.6 97.4 97.6 97.4 Pulse 60 60 60 Resp 12 14 B/P (MAP) 156/80 150/86 (107) 128/70 (89) Pulse Ox 96 96 94 O2 Delivery BiPAP/CPAP BiPAP/CPAP Room Air 02/04/19 02/04/19 07:00 08:24 Temp 97.8 97.8 Pulse 61 61 Resp 16 B/P (MAP) 159/83 (108) 159/83 Pulse Ox 94 O2 Delivery Room Air Intake and Output 02/03/19 02/03/19 02/04/19 14:59 22:59 06:59 Intake Total 0 ml 300 ml Balance 0 ml 300 ml RUDDY SALINAS MD Feb 04, 2019 09:49
[2019-02-04 11:00] VITALS: BP 154/82
[2019-02-04] MEDS ORDERED: ACET325T9 PO (12:12)
--- NOTE | 2019-02-04 12:52 | NUR ---
Pt discharged to home. Discharge teaching gone over and Pt verbalized understanding. Pt was taken out by wheelchair with transportation provided by family.
== END 2019-02-04 12:50 | disposition home or self-care (01) | DRG 74 ==
LOC: ER 14:35 → ED HOLD 15:30 → 6 SOUTH 18:00
PROVIDERS: ADMIT Family Medicine; ATTEND Family Medicine
PROC: 5A09357 Assistance with Respiratory Ventilation, Less than 24 Consecutive Hours, Continuous Positive Airway Pressure (ICD-10-PCS; principal; 2019-02-03)
DX: E11.43 Type 2 diabetes mellitus with diabetic autonomic (poly)neuropathy (principal); E04.2 Nontoxic multinodular goiter; E78.00 Pure hypercholesterolemia, unspecified; E78.5 Hyperlipidemia, unspecified; G47.30 Sleep apnea, unspecified; I10 Essential (primary) hypertension; K21.9 Gastro-esophageal reflux disease without esophagitis; Z82.3 Family history of stroke; M19.90 Unspecified osteoarthritis, unspecified site; E66.9 Obesity, unspecified; Z82.49 Family history of ischemic heart disease and other diseases of the circulatory system; Z85.46 Personal history of malignant neoplasm of prostate; Z86.73 Personal history of transient ischemic attack (TIA), and cerebral infarction without residual deficits; Z90.49 Acquired absence of other specified parts of digestive tract; Z95.0 Presence of cardiac pacemaker; Z98.84 Bariatric surgery status; Z79.4 Long term (current) use of insulin; Z88.8 Allergy status to other drugs, medicaments and biological substances
CPT/HCPCS: 36415; 71045; 80053; 82962; 83735; 83880; 84439; 84443; 84484; 85025; 93005; 94660; J1650; J7030; G0378

== ENCOUNTER 2019-03-30 13:24 | Inpatient (IN) | payer MEDICARE ==
[~2019-03-30] VITALS: Ht 182.9 cm; Wt 87.8 kg
[~2019-03-30 13:24] MED LIST changes: +OMEP40CA45 PO; -OMEP40CA5 PO; +SIMV20TA18 PO; -SIMV20TA3 PO
--- NOTE | 2019-03-30 15:05 | EKG ---
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
[2019-03-30 15:10] LABS: BASO % 0 % (0-3); EOS # 0.2 x10^3/uL (0.0-0.7); EOS % 6 % (0-3); HEMATOCRIT 42.8 % (39.0-53.0); HEMOGLOBIN 14.5 g/dL (13.0-17.5); LYMPH # 1.6 x10^3/uL (1.0-4.8); LYMPH % 37 % (24-48); MEAN CORPUSCULAR HEMOGLOBIN 30 pg (25-35); MEAN CORPUSCULAR HGB CONC 34 g/dL (31-37); MEAN CORPUSCULAR VOLUME 89 fL (79-100); MONO # 0.4 x10^3/uL (0.0-1.1); MONO % 8 % (0-9); NEUT # 2.1 x10^3/uL (1.8-7.7); NEUT % 48 % (31-73); PLATELET COUNT 140 x10^3/uL (140-400); RED BLOOD COUNT 4.79 x10^6/uL (4.30-5.70); RED CELL DISTRIBUTION WIDTH 14.9 % (11.5-14.5); WHITE BLOOD COUNT 4.4 x10^3/uL (4.0-11.0)
[2019-03-30 15:21] LABS: CALCIUM 8.6 mg/dL (8.5-10.1); CREATININE 0.9 mg/dL (0.7-1.3); GFR 83.4; POTASSIUM 4.3 mmol/L (3.5-5.1)
[2019-03-30 15:28] LABS: ALBUMIN/GLOBULIN RATIO 1.1 (1.0-1.7); TOTAL BILIRUBIN 0.5 mg/dL (0.2-1.0); TOTAL PROTEIN 5.8 g/dL (6.4-8.2)
--- NOTE | 2019-03-30 15:54 | PHYS DOC ---
Past Medical History Past Medical History: Arrhythmia Additional Past Medical Histor: CARDIONEUROGENIC SYNCOPE, hernia Past Surgical History: Cholecystectomy, Gastric Bypass, Pacemaker Additional Past Surgical Histo: BACK SURGERY Alcohol Use: None Drug Use: None Adult General Chief Complaint Chief Complaint: WEAKNESS/GENERALIZED HPI HPI Patient is a 69 year old male with history of arrhythmias with her current pacemaker, who presents to the ED today to be evaluated for syncope episode. states patient has stopped in the chair and slid to the ground. reports patient passed out for 15 minutes, was states she had to call EMS to bring patient to the ED. reports patient has been passing out October 2018 and nobody can figure out why he is having syncope episodes. reports patient has been seen by the death claim clerk, neurologist, PCP. She reports patient is supposed to follow-up at and have a turn table test. Patient himself denies any complaints. Patient's is very frustrated stating that been seen by multiple providers including patient was to use with no cause for patient's syncope episodes. Review of Systems Review of Systems Constitutional: Denies fever or chills [] Eyes: Denies change in visual acuity, redness, or eye pain [] HENT: Denies nasal congestion or sore throat [] Respiratory: Denies cough or shortness of breath [] Cardiovascular: No additional information not addressed in HPI [] GI: Denies abdominal pain, nausea, vomiting, bloody stools or diarrhea [] : Denies dysuria or hematuria [] Musculoskeletal: Denies back pain or joint pain [] Integument: Denies rash or skin lesions [] Neurologic: Reports syncope episode. Denies headache, focal weakness or sensory changes [] All other systems were reviewed and found to be within normal limits, except as documented in this note. Allergies Allergies Allergies Coded Allergies Type Severity Reaction Last Updated Verified topiramate Allergy Severe stroke like symptoms 02/03/19 Yes Physical Exam Physical Exam Constitutional: Well developed, well nourished, no acute distress, non-toxic appearance. [] HENT: Normocephalic, atraumatic, bilateral external ears normal, oropharynx moist, no oral exudates, nose normal. [] Eyes: PERRLA, EOMI, conjunctiva normal, no discharge. [] Neck: Normal range of motion, no tenderness, supple, no stridor. [] Cardiovascular: Pacemaker noted on the right upper chest, paced rhythm Lungs & Thorax: Bilateral breath sounds clear to auscultation [] Abdomen: Bowel sounds normal, soft, no tenderness, no masses, no pulsatile masses. [] Skin: Warm, dry, no erythema, no rash. [] Back: No tenderness, no CVA tenderness. [] Extremities: No tenderness, no cyanosis, no clubbing, ROM intact, no edema. [] Neurologic: Alert and oriented X 3, normal motor function, normal sensory function, no focal deficits noted. Cranial nerves II through XII intact Psychologic: Flat affect, appears depressed Current Patient Data Vital Signs Vital Signs Date Time Temp Pulse Resp B/P (MAP) Pulse Ox O2 Delivery O2 Flow Rate FiO2 03/30/19 17:44 60 03/30/19 13:40 98.0 17 142/81 (101) 95 Room Air 98.0 Lab Values Laboratory Tests Test 03/30/19 14:20 03/30/19 15:30 03/30/19 16:45 White Blood Count 4.4 x10^3/uL (4.0-11.0) Red Blood Count 4.79 x10^6/uL (4.30-5.70) Hemoglobin 14.5 g/dL (13.0-17.5) Hematocrit 42.8 % (39.0-53.0) Mean Corpuscular Volume 89 fL (79-100) Mean Corpuscular Hemoglobin 30 pg (25-35) Mean Corpuscular Hemoglobin Concent 34 g/dL (31-37) Red Cell Distribution Width 14.9 % (11.5-14.5) H Platelet Count 140 x10^3/uL (140-400) Neutrophils (%) (Auto) 48 % (31-73) Lymphocytes (%) (Auto) 37 % (24-48) Monocytes (%) (Auto) 8 % (0-9) Eosinophils (%) (Auto) 6 % (0-3) H Basophils (%) (Auto) 0 % (0-3) Neutrophils # (Auto) 2.1 x10^3/uL (1.8-7.7) Lymphocytes # (Auto) 1.6 x10^3/uL (1.0-4.8) Monocytes # (Auto) 0.4 x10^3/uL (0.0-1.1) Eosinophils # (Auto) 0.2 x10^3/uL (0.0-0.7) Basophils # (Auto) 0.0 x10^3/uL (0.0-0.2) Sodium Level 143 mmol/L (136-145) Potassium Level 4.3 mmol/L (3.5-5.1) Chloride Level 107 mmol/L (98-107) Carbon Dioxide Level 32 mmol/L (21-32) Anion Gap 4 (6-14) L Blood Urea Nitrogen 19 mg/dL (8-26) Creatinine 0.9 mg/dL (0.7-1.3) Estimated GFR (Cockcroft-Gault) 83.4 BUN/Creatinine Ratio 21 (6-20) H Glucose Level 128 mg/dL (70-99) H Calcium Level 8.6 mg/dL (8.5-10.1) Magnesium Level 1.9 mg/dL (1.8-2.4) Total Bilirubin 0.5 mg/dL (0.2-1.0) Aspartate Amino Transferase (AST) 15 U/L (15-37) Alanine Aminotransferase (ALT) 15 U/L (16-63) L Alkaline Phosphatase 68 U/L (46-116) Creatine Kinase 18 U/L (39-308) L Creatine Kinase MB (Mass) 0.6 ng/mL (0.0-3.6) Creatine Kinase MB Relative Index % (0-4) Troponin I Quantitative < 0.017 ng/mL (0.000-0.055) OD-Rdz-F-Type Natriuretic Peptide 136 pg/mL (0-124) H Total Protein 5.8 g/dL (6.4-8.2) L Albumin 3.0 g/dL (3.4-5.0) L Albumin/Globulin Ratio 1.1 (1.0-1.7) Lipase 125 U/L (73-393) Thyroid Stimulating Hormone (TSH) 0.865 uIU/mL (0.358-3.74) Urine Opiates Screen Neg (NEG) Urine Methadone Screen Neg (NEG) Urine Barbiturates Neg (NEG) Urine Phencyclidine Screen Neg (NEG) Urine Amphetamine/Methamphetamine Neg (NEG) Urine Benzodiazepines Screen Neg (NEG) Urine Cocaine Screen Neg (NEG) Urine Cannabinoids Screen Neg (NEG) Urine Ethyl Alcohol Neg (NEG) Urine Collection Type Unknown Urine Color Yellow Urine Clarity Cloudy Urine pH 5.5 Urine Specific [place] 1.025 Urine Protein Negative mg/dL (NEG-TRACE) Urine Glucose (UA) 100 mg/dL (NEG) Urine Ketones (Stick) Negative mg/dL (NEG) Urine Blood Negative (NEG) Urine Nitrite Negative (NEG) Urine Bilirubin Negative (NEG) Urine Urobilinogen Dipstick 1.0 mg/dL (0.2 mg/dL) Urine Leukocyte Esterase Negative (NEG) Urine RBC 0 /HPF (0-2) Urine WBC Occ /HPF (0-4) Urine Squamous Epithelial Cells Few /LPF Urine Bacteria 0 /HPF (0-FEW) Urine Hyaline Casts Few /HPF Urine Mucus Mod /LPF Laboratory Tests 03/30/19 14:20 Laboratory Tests 03/30/19 14:20 EKG EKG [address] Ragsdale Paced rhythm HR 60 no STEMI[] Radiology/Procedures Radiology/Procedures []PROCEDURE: CT HEAD WO CONTRAST CT head without contrast dated 03/30/2019. Comparison made to 12/07/2018. CLINICAL INDICATION: Syncope. TECHNIQUE: Continues axial imaging the head performed from skull base to vertex. No contrast administered. One or more of the following individualized dose reduction techniques were utilized for this examination: 1. Automated exposure control 2. Adjustment of the mA and/or kV according to patient size 3. Use of iterative reconstruction technique. FINDINGS: Ventricles and sulci are mildly prominent for age. No midline shift or mass effect. 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 There is also suspected small remote lacunar infarcts of the left basal ganglia. No hemorrhage or extra-axial collection. Brainstem unremarkable. Visualized paranasal sinuses and mastoid air cells are clear. No apparent calvarial abnormality. IMPRESSION: 1. No evidence of acute intracranial hemorrhage or mass. 2. Chronic ischemic changes and atrophy. Electronically signed by: Jeovany Jean MD (03/30/2019 4:03 PM) [facility] DICTATED and SIGNED BY: JEOVANY JEAN MD DATE: 03/30/19 1603 PROCEDURE: PORTABLE CHEST 1V EXAM: CHEST 1 VIEW History: Syncope COMPARISON: 02/03/2019 TECHNIQUE: Single portable radiograph of the chest FINDINGS: The cardiac silhouette is unremarkable. The lungs are clear bilaterally. The costophrenic sulci are clear and well demarcated. Right-sided cardiac pacer is unchanged. IMPRESSION: No acute cardiopulmonary findings. Electronically signed by: Chuy Boyd MD (03/30/2019 3:56 PM) [id number] DICTATED and SIGNED BY: CHUY BOYD MD DATE: 03/30/19 1556 Course & Med Decision Making Course & Med Decision Making Pertinent Labs and Imaging studies reviewed. (See chart for details) This is a 69-year-old male patient presenting to the ED today to move noted for syncope episode, per 's report patient has been passing out since October, has been seen and worked up for his symptoms, nobody could figure out why he is passing out. He was sitting on a couch today and slid to the floor "passed out". CT of the head, lab work, chest x-ray,-negative for any acute findings. Spoke with Dr. Kaur who accepted patient for admission Dragon Disclaimer Dragon Disclaimer This electronic medical record was generated, in whole or in part, using a voice recognition dictation system. Departure Departure Impression: Primary Impression: Syncope Additional Impression: Dizziness Disposition: 09 ADMITTED INPATIENT Condition: STABLE Referrals: COMFORT SORENSON MD (PCP) Problem Qualifiers Primary Impression: Syncope Syncope type: unspecified Qualified Codes: R55 - Syncope and collapse TERRYMARIMARLAYNE ASH KIER BOILER Mar 30, 2019 15:53
--- NOTE | 2019-03-30 15:59 | RAD ---
EXAM: CHEST 1 VIEW History: Syncope COMPARISON: 02/03/2019 TECHNIQUE: Single portable radiograph of the chest FINDINGS: The cardiac silhouette is unremarkable. The lungs are clear bilaterally. The costophrenic sulci are clear and well demarcated. Right-sided cardiac pacer is unchanged. IMPRESSION: No acute cardiopulmonary findings. Electronically signed by: Chuy Boyd MD (03/30/2019 3:56 PM) [id number]
--- NOTE | 2019-03-30 16:06 | RAD ---
CT head without contrast dated 03/30/2019. Comparison made to 12/07/2018. CLINICAL INDICATION: Syncope. TECHNIQUE: Continues axial imaging the head performed from skull base to vertex. No contrast administered. One or more of the following individualized dose reduction techniques were utilized for this examination: 1. Automated exposure control 2. Adjustment of the mA and/or kV according to patient size 3. Use of iterative reconstruction technique. FINDINGS: Ventricles and sulci are mildly prominent for age. No midline shift or mass effect. 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 There is also suspected small remote lacunar infarcts of the left basal ganglia. No hemorrhage or extra-axial collection. Brainstem unremarkable. Visualized paranasal sinuses and mastoid air cells are clear. No apparent calvarial abnormality. IMPRESSION: 1. No evidence of acute intracranial hemorrhage or mass. 2. Chronic ischemic changes and atrophy. Electronically signed by: Jeovany Jean MD (03/30/2019 4:03 PM) [facility]
[2019-03-30 16:14] LABS: MAGNESIUM 1.9 mg/dL (1.8-2.4)
[2019-03-30 16:29] LABS: CREATINE KINASE 18 U/L (39-308)
[2019-03-30 16:52] LABS: BILIRUBIN,URINE NEGATIVE (NEG); CLARITY,URINE CLOUDY; COLOR,URINE YELLOW; NITRITE,URINE NEGATIVE (NEG); PH,URINE 5.5; PROTEIN,URINE NEGATIVE (NEG-TRACE)
[2019-03-30 16:59] LABS: BARBITURATES NEG (NEG); BENZODIAZEPINES NEG (NEG); CANNABINOIDS NEG (NEG); COCAINE NEG (NEG); METHADONE NEG (NEG); OPIATES NEG (NEG); PHENCYCLIDINE NEG (NEG)
[2019-03-30 17:00] LABS: AMPHETAMINE/METHAMPHETAMINE NEG (NEG)
[2019-03-30 17:05] LABS: BACTERIA,URINE 0 /HPF (0-FEW); HYALINE CASTS, URINE FEW /HPF; RBC,URINE 0 /HPF (0-2); SQUAMOUS EPITHELIAL CELL,UR FEW /LPF; WBC,URINE OCC /HPF (0-4)
[2019-03-30] MEDS ORDERED: ACETAMINOPHEN 325 MG TABLET. PO PRN (20:00)
[2019-03-30] MEDS ORDERED: ONDANSETRON PF 4 MG/2 ML VIAL. IV PRN (20:00)
[2019-03-30 22:00] VITALS: BP 174/83
--- NOTE | 2019-03-30 22:04 | PDOC1 ---
History and Physical Date of Admission Date of Admission DATE: 03/30/19 TIME: 22:01 Source Source: Caregiver, Chart review, Patient History of Present Illness History of Present Illness Dearl is a 69 year old male admit s/p syncope, he has a history of arrhythmias with her current pacemaker, he slumped to the ground, did not injure himself and "landed softly, reports patient passed out for 15 minutes, was states she had to call EMS to bring patient to the ED. he has syncopal events for almost 5 mos,. alvarez here and at [facility] reports patient has been seen by the electric motor control assembler, neurologist, PCP. Past Medical History Cardiovascular: HTN, Syncope, Hyperlipidemia Pulmonary: Other CENTRAL NERVOUS SYSTEM: Periperal neuropathy GI: GERD Heme/Onc: No pertinent hx, Cancer Hepatobiliary: No pertinent hx Musculoskeletal: Osteoarthritis Renal/: Prostate Ca. Endocrine: Diabetes Past Surgical History Past Surgical History: Pacemaker, Arthroscopy, Cholecystectomy, Hernia Repair, Other Family History Family History: Stroke Social History Smoke: No ALCOHOL: none Drugs: None Current Medications Current Medications Current Medications Ondansetron HCl (Zofran) 4 mg PRN Q8HRS PRN IV NAUSEA/VOMITING; Start 03/30/19 at 20:00; Stop 03/31/19 at 19:59 Acetaminophen (Tylenol) 650 mg PRN Q4HRS PRN PO FEVER; Start 03/30/19 at 20:00; Stop 03/31/19 at 19:59 Active Scripts Active Tylenol (Acetaminophen) 325 Mg Tablet 650 Mg PO PRN Q4HRS PRN 30 Days Aspirin Ec (Aspirin) 325 Mg Tablet. 325 Mg PO DAILYWBKFT 30 Days Topamax (Topiramate) 25 Mg Tablet 1 Tab PO QHS Reported Omeprazole 20 Mg Capsule. 20 Mg PO DAILY Metformin Hcl 1,000 Mg Tablet 1,000 Mg PO BIDWMEALS Gabapentin 600 Mg Tablet 600 Mg PO BID Zocor (Simvastatin) 20 Mg Tablet 20 Mg PO HS Atenolol 50 Mg Tablet 50 Mg PO BID Allergies Allergies: Coded Allergies: topiramate (Verified Allergy, Severe, stroke like symptoms, 02/03/19) ROS General: YES: Fatigue; No: Night Sweats, Malaise, Appetite, Other PSYCHOLOGICAL ROS: No: Anxiety, Behavioral Disorder, Concentration difficultie, Decreased libido, Depression, Disorientation, Hallucinations, Hostility, Irritablity, Memory difficulties, Mood Swings, Obsessive thoughts, Physical abuse, Sexual abuse, Sleep disturbances, Suicidal ideation, Other Eyes: No Blurry vision, No Decreased vision, No Double vision, No Dry eyes, No Excessive tearing, No Eye Pain, No Itchy Eyes, No Loss of vision, No Photophobia, No Scotomata, No Uses contacts, No Uses glasses, No Other Respiratory: No: Cough, Hemoptysis, Orthopnea, Pleuritic Pain, Shortness of breath, SOB with excertion, Sputum Changes, Stridor, Tachypnea, Wheezing, Other Cardiovascular: No Chest Pain, No Palpitations, No Orthopnea, No Paroxysmal Noc. Dyspnea, No Edema, No Lt Headedness, No Other Gastrointestinal: No Nausea, No Vomiting, No Abdominal Pain, No Diarrhea, No Constipation, No Melena, No Hematochezia, No Other Genitourinary: No Dysuria, No Frequency, No Incontinence, No Hematuria, No Retention, No Discharge, No Urgency, No Pain, No Flank Pain, No Other, No , No , No , No , No , No , No Musculoskeletal: Yes Joint Stiffness; No Gait Disturbance, No Joint Pain, No Joint Swelling, No Muscle Pain, No Muscular Weakness, No Pain In:, No Swelling In:, No Other Neurological: No Behavorial Changes, No Bowel/Bladder ControlChng, No Confusion, No Dizziness, No Gait Disturbance, No Headaches, No Impaired Coord/balance, No Memory Loss, No Numbness/Tingling, No Seizures, No Speech Problems, No Tremors, No Visual Changes, No Weakness, No Other Skin: No Dry Skin, No Eczema, No Hair Changes, No Lumps, No Mole Changes, No Mottling, No Nail Changes, No Pruritus, No Rash, No Skin Lesion Changes, No Other, No Acne Physical Exam General: Alert, Cooperative, No acute distress HEENT: Atraumatic, PERRLA, Mucous membr. moist/pink Lungs: Clear to auscultation Heart: S1S2, no gallops, no murmurs Abdomen: Normal bowel sounds, Soft Extremities: No clubbing, No cyanosis, No edema, Normal pulses Skin: No rashes, No breakdown Neuro: Normal speech, Sensation intact, Cranial nerves 3-12 NL Psych/Mental Status: Mental status NL Vitals Vitals Vital Signs Date Time Temp Pulse Resp B/P (MAP) Pulse Ox O2 Delivery O2 Flow Rate FiO2 03/30/19 17:44 60 03/30/19 13:40 98.0 17 142/81 (101) 95 Room Air 98.0 Labs Labs Laboratory Tests Test 03/30/19 14:20 03/30/19 15:30 03/30/19 16:45 White Blood Count 4.4 x10^3/uL (4.0-11.0) Red Blood Count 4.79 x10^6/uL (4.30-5.70) Hemoglobin 14.5 g/dL (13.0-17.5) Hematocrit 42.8 % (39.0-53.0) Mean Corpuscular Volume 89 fL (79-100) Mean Corpuscular Hemoglobin 30 pg (25-35) Mean Corpuscular Hemoglobin Concent 34 g/dL (31-37) Red Cell Distribution Width 14.9 % (11.5-14.5) Platelet Count 140 x10^3/uL (140-400) Neutrophils (%) (Auto) 48 % (31-73) Lymphocytes (%) (Auto) 37 % (24-48) Monocytes (%) (Auto) 8 % (0-9) Eosinophils (%) (Auto) 6 % (0-3) Basophils (%) (Auto) 0 % (0-3) Neutrophils # (Auto) 2.1 x10^3/uL (1.8-7.7) Lymphocytes # (Auto) 1.6 x10^3/uL (1.0-4.8) Monocytes # (Auto) 0.4 x10^3/uL (0.0-1.1) Eosinophils # (Auto) 0.2 x10^3/uL (0.0-0.7) Basophils # (Auto) 0.0 x10^3/uL (0.0-0.2) Sodium Level 143 mmol/L (136-145) Potassium Level 4.3 mmol/L (3.5-5.1) Chloride Level 107 mmol/L (98-107) Carbon Dioxide Level 32 mmol/L (21-32) Anion Gap 4 (6-14) Blood Urea Nitrogen 19 mg/dL (8-26) Creatinine 0.9 mg/dL (0.7-1.3) Estimated GFR (Cockcroft-Gault) 83.4 BUN/Creatinine Ratio 21 (6-20) Glucose Level 128 mg/dL (70-99) Calcium Level 8.6 mg/dL (8.5-10.1) Magnesium Level 1.9 mg/dL (1.8-2.4) Total Bilirubin 0.5 mg/dL (0.2-1.0) Aspartate Amino Transf (AST/SGOT) 15 U/L (15-37) Alanine Aminotransferase (ALT/SGPT) 15 U/L (16-63) Alkaline Phosphatase 68 U/L (46-116) Creatine Kinase 18 U/L (39-308) Creatine Kinase MB (Mass) 0.6 ng/mL (0.0-3.6) Creatine Kinase MB Relative Index % (0-4) Troponin I Quantitative < 0.017 ng/mL (0.000-0.055) EM-Puf-T-Type Natriuretic Peptide 136 pg/mL (0-124) Total Protein 5.8 g/dL (6.4-8.2) Albumin 3.0 g/dL (3.4-5.0) Albumin/Globulin Ratio 1.1 (1.0-1.7) Lipase 125 U/L (73-393) Thyroid Stimulating Hormone (TSH) 0.865 uIU/mL (0.358-3.74) Urine Opiates Screen Neg (NEG) Urine Methadone Screen Neg (NEG) Urine Barbiturates Neg (NEG) Urine Phencyclidine Screen Neg (NEG) Urine Amphetamine/Methamphetamine Neg (NEG) Urine Benzodiazepines Screen Neg (NEG) Urine Cocaine Screen Neg (NEG) Urine Cannabinoids Screen Neg (NEG) Urine Ethyl Alcohol Neg (NEG) Urine Collection Type Unknown Urine Color Yellow Urine Clarity Cloudy Urine pH 5.5 Urine Specific [place] 1.025 Urine Protein Negative mg/dL (NEG-TRACE) Urine Glucose (UA) 100 mg/dL (NEG) Urine Ketones (Stick) Negative mg/dL (NEG) Urine Blood Negative (NEG) Urine Nitrite Negative (NEG) Urine Bilirubin Negative (NEG) Urine Urobilinogen Dipstick 1.0 mg/dL (0.2 mg/dL) Urine Leukocyte Esterase Negative (NEG) Urine RBC 0 /HPF (0-2) Urine WBC Occ /HPF (0-4) Urine Squamous Epithelial Cells Few /LPF Urine Bacteria 0 /HPF (0-FEW) Urine Hyaline Casts Few /HPF Urine Mucus Mod /LPF Laboratory Tests Test 03/30/19 14:20 03/30/19 15:30 03/30/19 16:45 White Blood Count 4.4 x10^3/uL (4.0-11.0) Red Blood Count 4.79 x10^6/uL (4.30-5.70) Hemoglobin 14.5 g/dL (13.0-17.5) Hematocrit 42.8 % (39.0-53.0) Mean Corpuscular Volume 89 fL (79-100) Mean Corpuscular Hemoglobin 30 pg (25-35) Mean Corpuscular Hemoglobin Concent 34 g/dL (31-37) Red Cell Distribution Width 14.9 % (11.5-14.5) Platelet Count 140 x10^3/uL (140-400) Neutrophils (%) (Auto) 48 % (31-73) Lymphocytes (%) (Auto) 37 % (24-48) Monocytes (%) (Auto) 8 % (0-9) Eosinophils (%) (Auto) 6 % (0-3) Basophils (%) (Auto) 0 % (0-3) Neutrophils # (Auto) 2.1 x10^3/uL (1.8-7.7) Lymphocytes # (Auto) 1.6 x10^3/uL (1.0-4.8) Monocytes # (Auto) 0.4 x10^3/uL (0.0-1.1) Eosinophils # (Auto) 0.2 x10^3/uL (0.0-0.7) Basophils # (Auto) 0.0 x10^3/uL (0.0-0.2) Sodium Level 143 mmol/L (136-145) Potassium Level 4.3 mmol/L (3.5-5.1) Chloride Level 107 mmol/L (98-107) Carbon Dioxide Level 32 mmol/L (21-32) Anion Gap 4 (6-14) Blood Urea Nitrogen 19 mg/dL (8-26) Creatinine 0.9 mg/dL (0.7-1.3) Estimated GFR (Cockcroft-Gault) 83.4 BUN/Creatinine Ratio 21 (6-20) Glucose Level 128 mg/dL (70-99) Calcium Level 8.6 mg/dL (8.5-10.1) Magnesium Level 1.9 mg/dL (1.8-2.4) Total Bilirubin 0.5 mg/dL (0.2-1.0) Aspartate Amino Transf (AST/SGOT) 15 U/L (15-37) Alanine Aminotransferase (ALT/SGPT) 15 U/L (16-63) Alkaline Phosphatase 68 U/L (46-116) Creatine Kinase 18 U/L (39-308) Creatine Kinase MB (Mass) 0.6 ng/mL (0.0-3.6) Creatine Kinase MB Relative Index % (0-4) Troponin I Quantitative < 0.017 ng/mL (0.000-0.055) QL-Knz-J-Type Natriuretic Peptide 136 pg/mL (0-124) Total Protein 5.8 g/dL (6.4-8.2) Albumin 3.0 g/dL (3.4-5.0) Albumin/Globulin Ratio 1.1 (1.0-1.7) Lipase 125 U/L (73-393) Thyroid Stimulating Hormone (TSH) 0.865 uIU/mL (0.358-3.74) Urine Opiates Screen Neg (NEG) Urine Methadone Screen Neg (NEG) Urine Barbiturates Neg (NEG) Urine Phencyclidine Screen Neg (NEG) Urine Amphetamine/Methamphetamine Neg (NEG) Urine Benzodiazepines Screen Neg (NEG) Urine Cocaine Screen Neg (NEG) Urine Cannabinoids Screen Neg (NEG) Urine Ethyl Alcohol Neg (NEG) Urine Collection Type Unknown Urine Color Yellow Urine Clarity Cloudy Urine pH 5.5 Urine Specific [place] 1.025 Urine Protein Negative mg/dL (NEG-TRACE) Urine Glucose (UA) 100 mg/dL (NEG) Urine Ketones (Stick) Negative mg/dL (NEG) Urine Blood Negative (NEG) Urine Nitrite Negative (NEG) Urine Bilirubin Negative (NEG) Urine Urobilinogen Dipstick 1.0 mg/dL (0.2 mg/dL) Urine Leukocyte Esterase Negative (NEG) Urine RBC 0 /HPF (0-2) Urine WBC Occ /HPF (0-4) Urine Squamous Epithelial Cells Few /LPF Urine Bacteria 0 /HPF (0-FEW) Urine Hyaline Casts Few /HPF Urine Mucus Mod /LPF VTE Prophylaxis Ordered VTE Prophylaxis Devices: Yes VTE Pharmacological Prophylaxi: Yes Assessment/Plan Assessment/Plan syncope prior alvarez with neuro and CV, he is scheduled for a tilt table at has pacer, for heart block ANGELICA MCKENNA MD Mar 30, 2019 22:04
[2019-03-30] MEDS ORDERED: ASPI81TA50 PO (22:35)
[2019-03-30] MEDS ORDERED: GABA300C18 PO ×2 (22:35)
[2019-03-30] MEDS ORDERED: ACET500T68 PO (22:35)
[2019-03-30] MEDS ORDERED: MULT-245 PO (22:35)
[2019-03-30] MEDS ORDERED: LISI-334 PO (22:35)
[2019-03-30] MEDS ORDERED: ACETAMINOPHEN 500 MG TABLET PO PRN (22:45)
[2019-03-30] MEDS: GABAPENTIN 300 MG CAPSULE. PO SCH (22:54)
[2019-03-30] MEDS: ATENOLOL 50 MG TABLET. PO SCH (22:55)
[2019-03-30 23:19] VITALS: BP 149/80
[2019-03-30 23:22] VITALS: BP 157/89
[2019-03-30 23:25] VITALS: BP 165/93
[2019-03-31] VITALS (9 sets, daily range): BP systolic 118–156; BP diastolic 66–95
--- NOTE | 2019-03-31 02:50 | NUR ---
The patient, CARLOS MANUELLaineyBa,DEARL S, 69 y/o, M admitted by ANGELICA MCKENNA MD, was given written information regarding hospital policies, unit procedures and contact persons. Valuables were checked and cell phone, clothing, glasses, and dentures.
[2019-03-31 06:12] LABS: BASO % 1 % (0-3); EOS # 0.3 x10^3/uL (0.0-0.7); EOS % 8 % (0-3); HEMOGLOBIN 14.6 g/dL (13.0-17.5); LYMPH # 1.4 x10^3/uL (1.0-4.8); LYMPH % 35 % (24-48); MEAN CORPUSCULAR HEMOGLOBIN 30 pg (25-35); MEAN CORPUSCULAR HGB CONC 34 g/dL (31-37); MEAN CORPUSCULAR VOLUME 89 fL (79-100); MONO # 0.3 x10^3/uL (0.0-1.1); MONO % 8 % (0-9); NEUT % 49 % (31-73); PLATELET COUNT 135 x10^3/uL (140-400); RED BLOOD COUNT 4.81 x10^6/uL (4.30-5.70); RED CELL DISTRIBUTION WIDTH 14.8 % (11.5-14.5); WHITE BLOOD COUNT 4.1 x10^3/uL (4.0-11.0)
[2019-03-31 06:18] LABS: CALCIUM 8.5 mg/dL (8.5-10.1); CREATININE 0.8 mg/dL (0.7-1.3); GFR 95.6; POTASSIUM 3.8 mmol/L (3.5-5.1)
[2019-03-31] MEDS ORDERED: ONDANSETRON PF 4 MG/2 ML VIAL. IVP PRN (09:15)
[2019-03-31] MEDS ORDERED: TEMAZEPAM 7.5 MG CAPSULE PO PRN (09:15)
[2019-03-31] MEDS ORDERED: ACETAMINOPHEN/CODEINE 300/30MG TABLET. PO PRN (09:15)
[2019-03-31] MEDS ORDERED: ACETAMINOPHEN 500 MG TABLET PO PRN (09:15)
[2019-03-31] MEDS: GABAPENTIN 300 MG CAPSULE. PO SCH ×2 (09:53→20:47)
[2019-03-31] MEDS: PANTOPRAZOLE 40 MG TABLET.DR. PO SCH (09:53)
[2019-03-31] MEDS: MULTIVITAMIN with MINERAL TABLET. PO SCH (09:54)
[2019-03-31] MEDS: ATENOLOL 50 MG TABLET. PO SCH ×2 (09:54→20:47)
[2019-03-31] MEDS: LISINOPRIL 20 MG TABLET PO SCH (09:55)
[2019-03-31] MEDS: ASPIRIN ENTERIC COATED 81 MG TABLET.DR. PO SCH (09:55)
--- NOTE | 2019-03-31 10:32 | PDOC3 ---
Discharge Summary Visit Information Date of Admission: Mar 30, 2019 Date of Discharge: Mar 31, 2019 Admitting Diagnosis Comment: Syncope with LOC with negative EEG - readmission Bradycardia with functioning indwelling 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 T History of obesity with prior gastric sleeve resulting and 70 pound weight loss. History of perforated diverticulum. Brief Hospital Course Allergies Allergies Coded Allergies Type Severity Reaction Last Updated Verified topiramate Allergy Severe stroke like symptoms 02/03/19 Yes Vital Signs Vital Signs Date Time Temp Pulse Resp B/P (MAP) Pulse Ox O2 Delivery O2 Flow Rate FiO2 03/31/19 09:55 65 130/80 03/31/19 07:08 97.9 18 96 Room Air 97.9 Lab Results Laboratory Tests Test 03/30/19 14:20 03/30/19 15:30 03/30/19 16:45 03/31/19 05:43 White Blood Count 4.4 x10^3/uL (4.0-11.0) 4.1 x10^3/uL (4.0-11.0) Red Blood Count 4.79 x10^6/uL (4.30-5.70) 4.81 x10^6/uL (4.30-5.70) Hemoglobin 14.5 g/dL (13.0-17.5) 14.6 g/dL (13.0-17.5) Hematocrit 42.8 % (39.0-53.0) 43.0 % (39.0-53.0) Mean Corpuscular Volume 89 fL (79-100) 89 fL (79-100) Mean Corpuscular Hemoglobin 30 pg (25-35) 30 pg (25-35) Mean Corpuscular Hemoglobin Concent 34 g/dL (31-37) 34 g/dL (31-37) Red Cell Distribution Width 14.9 % (11.5-14.5) 14.8 % (11.5-14.5) Platelet Count 140 x10^3/uL (140-400) 135 x10^3/uL (140-400) Neutrophils (%) (Auto) 48 % (31-73) 49 % (31-73) Lymphocytes (%) (Auto) 37 % (24-48) 35 % (24-48) Monocytes (%) (Auto) 8 % (0-9) 8 % (0-9) Eosinophils (%) (Auto) 6 % (0-3) 8 % (0-3) Basophils (%) (Auto) 0 % (0-3) 1 % (0-3) Neutrophils # (Auto) 2.1 x10^3/uL (1.8-7.7) 2.0 x10^3/uL (1.8-7.7) Lymphocytes # (Auto) 1.6 x10^3/uL (1.0-4.8) 1.4 x10^3/uL (1.0-4.8) Monocytes # (Auto) 0.4 x10^3/uL (0.0-1.1) 0.3 x10^3/uL (0.0-1.1) Eosinophils # (Auto) 0.2 x10^3/uL (0.0-0.7) 0.3 x10^3/uL (0.0-0.7) Basophils # (Auto) 0.0 x10^3/uL (0.0-0.2) 0.0 x10^3/uL (0.0-0.2) Sodium Level 143 mmol/L (136-145) 142 mmol/L (136-145) Potassium Level 4.3 mmol/L (3.5-5.1) 3.8 mmol/L (3.5-5.1) Chloride Level 107 mmol/L (98-107) 107 mmol/L (98-107) Carbon Dioxide Level 32 mmol/L (21-32) 29 mmol/L (21-32) Anion Gap 4 (6-14) 6 (6-14) Blood Urea Nitrogen 19 mg/dL (8-26) 15 mg/dL (8-26) Creatinine 0.9 mg/dL (0.7-1.3) 0.8 mg/dL (0.7-1.3) Estimated GFR (Cockcroft-Gault) 83.4 95.6 BUN/Creatinine Ratio 21 (6-20) Glucose Level 128 mg/dL (70-99) 117 mg/dL (70-99) Calcium Level 8.6 mg/dL (8.5-10.1) 8.5 mg/dL (8.5-10.1) Magnesium Level 1.9 mg/dL (1.8-2.4) Total Bilirubin 0.5 mg/dL (0.2-1.0) Aspartate Amino Transf (AST/SGOT) 15 U/L (15-37) Alanine Aminotransferase (ALT/SGPT) 15 U/L (16-63) Alkaline Phosphatase 68 U/L (46-116) Creatine Kinase 18 U/L (39-308) Creatine Kinase MB (Mass) 0.6 ng/mL (0.0-3.6) Creatine Kinase MB Relative Index % (0-4) Troponin I Quantitative < 0.017 ng/mL (0.000-0.055) PD-Zsu-V-Type Natriuretic Peptide 136 pg/mL (0-124) Total Protein 5.8 g/dL (6.4-8.2) Albumin 3.0 g/dL (3.4-5.0) Albumin/Globulin Ratio 1.1 (1.0-1.7) Lipase 125 U/L (73-393) Thyroid Stimulating Hormone (TSH) 0.865 uIU/mL (0.358-3.74) Urine Opiates Screen Neg (NEG) Urine Methadone Screen Neg (NEG) Urine Barbiturates Neg (NEG) Urine Phencyclidine Screen Neg (NEG) Urine Amphetamine/Methamphetamine Neg (NEG) Urine Benzodiazepines Screen Neg (NEG) Urine Cocaine Screen Neg (NEG) Urine Cannabinoids Screen Neg (NEG) Urine Ethyl Alcohol Neg (NEG) Urine Collection Type Unknown Urine Color Yellow Urine Clarity Cloudy Urine pH 5.5 Urine Specific [place] 1.025 Urine Protein Negative mg/dL (NEG-TRACE) Urine Glucose (UA) 100 mg/dL (NEG) Urine Ketones (Stick) Negative mg/dL (NEG) Urine Blood Negative (NEG) Urine Nitrite Negative (NEG) Urine Bilirubin Negative (NEG) Urine Urobilinogen Dipstick 1.0 mg/dL (0.2 mg/dL) Urine Leukocyte Esterase Negative (NEG) Urine RBC 0 /HPF (0-2) Urine WBC Occ /HPF (0-4) Urine Squamous Epithelial Cells Few /LPF Urine Bacteria 0 /HPF (0-FEW) Urine Hyaline Casts Few /HPF Urine Mucus Mod /LPF Laboratory Tests Test 03/30/19 14:20 03/30/19 15:30 03/30/19 16:45 03/31/19 05:43 White Blood Count 4.4 x10^3/uL (4.0-11.0) 4.1 x10^3/uL (4.0-11.0) Red Blood Count 4.79 x10^6/uL (4.30-5.70) 4.81 x10^6/uL (4.30-5.70) Hemoglobin 14.5 g/dL (13.0-17.5) 14.6 g/dL (13.0-17.5) Hematocrit 42.8 % (39.0-53.0) 43.0 % (39.0-53.0) Mean Corpuscular Volume 89 fL (79-100) 89 fL (79-100) Mean Corpuscular Hemoglobin 30 pg (25-35) 30 pg (25-35) Mean Corpuscular Hemoglobin Concent 34 g/dL (31-37) 34 g/dL (31-37) Red Cell Distribution Width 14.9 % (11.5-14.5) 14.8 % (11.5-14.5) Platelet Count 140 x10^3/uL (140-400) 135 x10^3/uL (140-400) Neutrophils (%) (Auto) 48 % (31-73) 49 % (31-73) Lymphocytes (%) (Auto) 37 % (24-48) 35 % (24-48) Monocytes (%) (Auto) 8 % (0-9) 8 % (0-9) Eosinophils (%) (Auto) 6 % (0-3) 8 % (0-3) Basophils (%) (Auto) 0 % (0-3) 1 % (0-3) Neutrophils # (Auto) 2.1 x10^3/uL (1.8-7.7) 2.0 x10^3/uL (1.8-7.7) Lymphocytes # (Auto) 1.6 x10^3/uL (1.0-4.8) 1.4 x10^3/uL (1.0-4.8) Monocytes # (Auto) 0.4 x10^3/uL (0.0-1.1) 0.3 x10^3/uL (0.0-1.1) Eosinophils # (Auto) 0.2 x10^3/uL (0.0-0.7) 0.3 x10^3/uL (0.0-0.7) Basophils # (Auto) 0.0 x10^3/uL (0.0-0.2) 0.0 x10^3/uL (0.0-0.2) Sodium Level 143 mmol/L (136-145) 142 mmol/L (136-145) Potassium Level 4.3 mmol/L (3.5-5.1) 3.8 mmol/L (3.5-5.1) Chloride Level 107 mmol/L (98-107) 107 mmol/L (98-107) Carbon Dioxide Level 32 mmol/L (21-32) 29 mmol/L (21-32) Anion Gap 4 (6-14) 6 (6-14) Blood Urea Nitrogen 19 mg/dL (8-26) 15 mg/dL (8-26) Creatinine 0.9 mg/dL (0.7-1.3) 0.8 mg/dL (0.7-1.3) Estimated GFR (Cockcroft-Gault) 83.4 95.6 BUN/Creatinine Ratio 21 (6-20) Glucose Level 128 mg/dL (70-99) 117 mg/dL (70-99) Calcium Level 8.6 mg/dL (8.5-10.1) 8.5 mg/dL (8.5-10.1) Magnesium Level 1.9 mg/dL (1.8-2.4) Total Bilirubin 0.5 mg/dL (0.2-1.0) Aspartate Amino Transf (AST/SGOT) 15 U/L (15-37) Alanine Aminotransferase (ALT/SGPT) 15 U/L (16-63) Alkaline Phosphatase 68 U/L (46-116) Creatine Kinase 18 U/L (39-308) Creatine Kinase MB (Mass) 0.6 ng/mL (0.0-3.6) Creatine Kinase MB Relative Index % (0-4) Troponin I Quantitative < 0.017 ng/mL (0.000-0.055) QS-Gll-B-Type Natriuretic Peptide 136 pg/mL (0-124) Total Protein 5.8 g/dL (6.4-8.2) Albumin 3.0 g/dL (3.4-5.0) Albumin/Globulin Ratio 1.1 (1.0-1.7) Lipase 125 U/L (73-393) Thyroid Stimulating Hormone (TSH) 0.865 uIU/mL (0.358-3.74) Urine Opiates Screen Neg (NEG) Urine Methadone Screen Neg (NEG) Urine Barbiturates Neg (NEG) Urine Phencyclidine Screen Neg (NEG) Urine Amphetamine/Methamphetamine Neg (NEG) Urine Benzodiazepines Screen Neg (NEG) Urine Cocaine Screen Neg (NEG) Urine Cannabinoids Screen Neg (NEG) Urine Ethyl Alcohol Neg (NEG) Urine Collection Type Unknown Urine Color Yellow Urine Clarity Cloudy Urine pH 5.5 Urine Specific [place] 1.025 Urine Protein Negative mg/dL (NEG-TRACE) Urine Glucose (UA) 100 mg/dL (NEG) Urine Ketones (Stick) Negative mg/dL (NEG) Urine Blood Negative (NEG) Urine Nitrite Negative (NEG) Urine Bilirubin Negative (NEG) Urine Urobilinogen Dipstick 1.0 mg/dL (0.2 mg/dL) Urine Leukocyte Esterase Negative (NEG) Urine RBC 0 /HPF (0-2) Urine WBC Occ /HPF (0-4) Urine Squamous Epithelial Cells Few /LPF Urine Bacteria 0 /HPF (0-FEW) Urine Hyaline Casts Few /HPF Urine Mucus Mod /LPF Brief Hospital Course Mr. Pineda is a 69 old white male, known to us, admitted again for syncope, HAs admission for recurrent syncope with neg work up bot [facility] and < Seen by PCP, neuro and cards multiple times, Goes home with on dc,. I did review old neuro recs, recommended autonomic testing at and he has that scheduled on Apr 13. HE has a pacer that was inserted for bradycardia and is functioning well, NO new home meds so far to start Waiting for neuro and cards again to see, but likely will be cleared for home today CXR and CT head neg - i gave a copy again No pT needs Discharge Information Condition at Discharge: Improved, Stable Follow Up: Weeks ( apr 13 for your autonomic testing) Disposition/Orders: D/C to Home Scheduled Aspirin (Aspir-Low) 81 Mg Tablet., 1 TAB PO DAILY for antiplatelet, #30 Ref 3 (Reported) Entered as Reported by: MARCY MARKS on 03/30/192234 Last Taken: Unknown Dose on 03/30/19 Last Action: Continued on 03/30/192236 by MARCY MARKS Atenolol (Atenolol) 50 Mg Tablet, 50 MG PO BID, (Reported) Entered as Reported by: MONICA CHARLES on 10/29/132026 Last Action: Continued on 03/30/192236 by MARCY MARKS Gabapentin (Gabapentin ) 300 Mg Capsule, 900 MG PO DAILY for NEUROGENIC PAIN, (Reported) Entered as Reported by: MARCY MARKS on 03/30/192234 Last Taken: Unknown Dose on 03/30/19 Last Action: Continued on 03/30/192236 by MARCY MARKS Gabapentin (Gabapentin ) 300 Mg Capsule, 600 MG PO HS for NEUROGENIC PAIN, (Reported) Entered as Reported by: MARCY MARKS on 03/30/192234 Last Taken: Unknown Dose on 03/29/19 Last Action: Continued on 03/30/192236 by MARCY MARKS Lisinopril (Lisinopril) 20 Mg Tablet, 1 TAB PO DAILY for HTN, #30 Ref 5 (Reported) Entered as Reported by: MARCY MARKS on 03/30/192234 Last Taken: Unknown Dose on 03/30/19 Last Action: Continued on 03/30/192236 by MARCY MARKS Multivitamin (Multi Vitamin Daily) 1 Each Tablet, 1 TAB PO DAILY for supplement for 30 Days, #30 Ref 0 (Reported) Entered as Reported by: MARCY MARKS on 03/30/192234 Last Taken: Unknown Dose on 03/30/19 Last Action: Converted on 03/30/192236 by MARCY MARKS Omeprazole (Omeprazole) 20 Mg Capsule.dr, 20 MG PO DAILY for gerd, (Reported) Entered as Reported by: DARINEL LUCIA on 07/20/181956 Last Action: Converted on 03/30/192236 by MARCY MARKS Simvastatin (Zocor) 20 Mg Tablet, 20 MG PO HS for FOR CHOLESTEROL, #30 Ref 0 (Reported) Entered as Reported by: Goldie Macdonald on 07/06/141556 Last Action: Continued on 03/30/192236 by MARCY MARKS Scheduled PRN Acetaminophen (Tylenol) 325 Mg Tablet, 650 MG PO PRN Q4HRS PRN for TEMP OVER 100.4F OR MILD PAIN for 30 Days, #60 Prescribed by: JUSTINA TANG MD on 02/04/19 1212 Acetaminophen (Acetaminophen) 500 Mg Tablet, 1 TAB PO PRN Q6HRS PRN for pain or fever for 15 Days, #60 Ref 0 (Reported) Entered as Reported by: MARCY MARKS on 03/30/192234 Last Taken: Unknown Dose on Unknown Date & Time Last Action: Continued on 03/30/192236 by AMRCY MARKS Discontinued Medications Gabapentin (Gabapentin) 600 Mg Tablet, 600 MG PO BID, (Reported) Entered as Reported by: SANIA ORTIZ on 01/08/181100 Last Action: Discontinued on 03/30/192234 by MARCY MARKS Metformin Hcl (Metformin Hcl) 1,000 Mg Tablet, 1,000 MG PO BIDWMEALS, (Reported) Entered as Reported by: SANIA ORTIZ on 01/08/181100 Last Action: Discontinued on 03/30/192234 by COLIN LERNER MD Mar 31, 2019 10:32
--- NOTE | 2019-03-31 12:48 | PDOC2 ---
TARUN JUAREZ PUBLIC EMPLOYMENT MEDIATOR 03/31/19 1248: CARDIAC CONSULT DATE OF CONSULT Date of Consult DATE: 03/31/19 TIME: 12:14 REASON FOR CONSULT Reason for Consult: Syncope REFERRING PHYSICIAN Referring Physician: Rukhsana SOURCE Source: Chart review, Patient HISTORY OF PRESENT ILLNESS HISTORY OF PRESENT ILLNESS This is a pleasant 69 male admitted for complains of passing out. Reports that he was sitting and was trying to get up from his recliner when he started feeling dizzy and just passed out and went down to his recliner. No injuries. It is unclear how long he was unconscious but at some point he was able to hear the comtions when he was being helped and tried to talk but garbled and with eyes partially open per his description and it took 15 minutes before he was able to talk clearly again. He felt so weak at that time. He has been having frequnet dizziness. No palpitations. SOA, CP. No n/v and no recent fever or chills. No witnessed seziures. PAST MEDICAL HISTORY Past Medical History Cardiovascular: HTN, Syncope, Hyperlipidemia, CSH, CAD Pulmonary: Other (HOWIE) CENTRAL NERVOUS SYSTEM: Periperal neuropathy GI: GERD Heme/Onc: No pertinent hx, Cancer (prostate with chemo) Hepatobiliary: No pertinent hx ENT: No pertinent hx Renal/: Prostate Ca. Endocrine: Diabetes (2), thyroid nodule Dermatology: No pertinent hx PAST SURGICAL HISTORY Past Surgical History PPM ([facility]) Arthroscopy (left knee), Cholecystectomy, Hernia Repair (hiatal), Other (back surgery; gastric sleve) FAMILY HISTORY Family History: Stroke SOCIAL HISTORY Smoke: No ALCOHOL: none Drugs: None Lives: with Family CURRENT MEDICATIONS CURRENT MEDICATIONS Current Medications Medications (Trade) Dose Ordered Sig/Donnell Route PRN Reason Start Time Stop Time Status Last Admin Dose Admin Aspirin (Ecotrin) 81 mg DAILY PO 03/31/19 09:00 03/31/19 09:55 Atenolol (Tenormin) 50 mg BID PO 03/30/19 23:00 03/31/19 09:54 Gabapentin (Neurontin) 600 mg HS PO 03/30/19 23:00 03/30/19 22:54 Gabapentin (Neurontin) 900 mg DAILY PO 03/31/19 09:00 03/31/19 09:53 Lisinopril (Prinivil) 20 mg DAILY PO 03/31/19 09:00 03/31/19 09:55 Multivitamins (Thera M Plus) 1 tab DAILY PO 03/31/19 09:00 03/31/19 09:54 Pantoprazole Sodium (Protonix) 40 mg DAILYAC PO 03/31/19 07:30 03/31/19 09:53 ALLERGIES ALLERGIES: Coded Allergies: topiramate (Verified Allergy, Severe, stroke like symptoms, 02/03/19) ROS Review of System 14 point ROS evaluated with pertinent positives noted per HPI PHYSICAL EXAM General: Alert, Oriented X3, Cooperative, No acute distress HEENT: Atraumatic, Mucous membr. moist/pink Lungs: Clear to auscultation, Normal air movement Heart: Regular rate (SR with intermittent AV pacing), Normal S1, Normal S2, Other (2/6 systolic murmur to LLS border) Abdomen: Soft, No tenderness Extremities: No cyanosis, No edema Skin: No breakdown, No significant lesion Neuro: Normal speech, Sensation intact Psych/Mental Status: Mental status NL, Mood NL MUSCULOSKELETAL: Osteoarthritic changes both hands VITALS/I&O VITALS/I&O: Vital Signs Date Time Temp Pulse Resp B/P (MAP) Pulse Ox O2 Delivery O2 Flow Rate FiO2 03/31/19 11:15 97.6 60 18 130/75 (93) 94 Room Air 97.6 I & O 03/30/19 03/30/19 03/31/19 15:00 23:00 07:00 Intake Total 600 ml Balance 600 ml LABS Lab: Laboratory Tests Test 03/30/19 14:20 03/30/19 15:30 03/30/19 16:45 03/31/19 05:43 White Blood Count 4.4 x10^3/uL (4.0-11.0) 4.1 x10^3/uL (4.0-11.0) Red Blood Count 4.79 x10^6/uL (4.30-5.70) 4.81 x10^6/uL (4.30-5.70) Hemoglobin 14.5 g/dL (13.0-17.5) 14.6 g/dL (13.0-17.5) Hematocrit 42.8 % (39.0-53.0) 43.0 % (39.0-53.0) Mean Corpuscular Volume 89 fL (79-100) 89 fL (79-100) Mean Corpuscular Hemoglobin 30 pg (25-35) 30 pg (25-35) Mean Corpuscular Hemoglobin Concent 34 g/dL (31-37) 34 g/dL (31-37) Red Cell Distribution Width 14.9 % (11.5-14.5) H 14.8 % (11.5-14.5) H Platelet Count 140 x10^3/uL (140-400) 135 x10^3/uL (140-400) L Neutrophils (%) (Auto) 48 % (31-73) 49 % (31-73) Lymphocytes (%) (Auto) 37 % (24-48) 35 % (24-48) Monocytes (%) (Auto) 8 % (0-9) 8 % (0-9) Eosinophils (%) (Auto) 6 % (0-3) H 8 % (0-3) H Basophils (%) (Auto) 0 % (0-3) 1 % (0-3) Neutrophils # (Auto) 2.1 x10^3/uL (1.8-7.7) 2.0 x10^3/uL (1.8-7.7) Lymphocytes # (Auto) 1.6 x10^3/uL (1.0-4.8) 1.4 x10^3/uL (1.0-4.8) Monocytes # (Auto) 0.4 x10^3/uL (0.0-1.1) 0.3 x10^3/uL (0.0-1.1) Eosinophils # (Auto) 0.2 x10^3/uL (0.0-0.7) 0.3 x10^3/uL (0.0-0.7) Basophils # (Auto) 0.0 x10^3/uL (0.0-0.2) 0.0 x10^3/uL (0.0-0.2) Sodium Level 143 mmol/L (136-145) 142 mmol/L (136-145) Potassium Level 4.3 mmol/L (3.5-5.1) 3.8 mmol/L (3.5-5.1) Chloride Level 107 mmol/L (98-107) 107 mmol/L (98-107) Carbon Dioxide Level 32 mmol/L (21-32) 29 mmol/L (21-32) Anion Gap 4 (6-14) L 6 (6-14) Blood Urea Nitrogen 19 mg/dL (8-26) 15 mg/dL (8-26) Creatinine 0.9 mg/dL (0.7-1.3) 0.8 mg/dL (0.7-1.3) Estimated GFR (Cockcroft-Gault) 83.4 95.6 BUN/Creatinine Ratio 21 (6-20) H Glucose Level 128 mg/dL (70-99) H 117 mg/dL (70-99) H Calcium Level 8.6 mg/dL (8.5-10.1) 8.5 mg/dL (8.5-10.1) Magnesium Level 1.9 mg/dL (1.8-2.4) Total Bilirubin 0.5 mg/dL (0.2-1.0) Aspartate Amino Transferase (AST) 15 U/L (15-37) Alanine Aminotransferase (ALT) 15 U/L (16-63) L Alkaline Phosphatase 68 U/L (46-116) Creatine Kinase 18 U/L (39-308) L Creatine Kinase MB (Mass) 0.6 ng/mL (0.0-3.6) Creatine Kinase MB Relative Index % (0-4) Troponin I Quantitative < 0.017 ng/mL (0.000-0.055) JO-Gnw-H-Type Natriuretic Peptide 136 pg/mL (0-124) H Total Protein 5.8 g/dL (6.4-8.2) L Albumin 3.0 g/dL (3.4-5.0) L Albumin/Globulin Ratio 1.1 (1.0-1.7) Lipase 125 U/L (73-393) Thyroid Stimulating Hormone (TSH) 0.865 uIU/mL (0.358-3.74) Urine Opiates Screen Neg (NEG) Urine Methadone Screen Neg (NEG) Urine Barbiturates Neg (NEG) Urine Phencyclidine Screen Neg (NEG) Urine Amphetamine/Methamphetamine Neg (NEG) Urine Benzodiazepines Screen Neg (NEG) Urine Cocaine Screen Neg (NEG) Urine Cannabinoids Screen Neg (NEG) Urine Ethyl Alcohol Neg (NEG) Urine Collection Type Unknown Urine Color Yellow Urine Clarity Cloudy Urine pH 5.5 Urine Specific [place] 1.025 Urine Protein Negative mg/dL (NEG-TRACE) Urine Glucose (UA) 100 mg/dL (NEG) Urine Ketones (Stick) Negative mg/dL (NEG) Urine Blood Negative (NEG) Urine Nitrite Negative (NEG) Urine Bilirubin Negative (NEG) Urine Urobilinogen Dipstick 1.0 mg/dL (0.2 mg/dL) Urine Leukocyte Esterase Negative (NEG) Urine RBC 0 /HPF (0-2) Urine WBC Occ /HPF (0-4) Urine Squamous Epithelial Cells Few /LPF Urine Bacteria 0 /HPF (0-FEW) Urine Hyaline Casts Few /HPF Urine Mucus Mod /LPF Laboratory Tests 03/30/19 14:20 03/31/19 05:43 Laboratory Tests 03/30/19 14:20 03/31/19 05:43 ECHOCARDIOGRAM ECHOCARDIOGRAM <Conclusion> The left ventricle is normal size. The left ventricular systolic function is normal and the ejection fraction is within normal range. The Ejection Fraction is 55-60%. There is mild concentric left ventricular hypertrophy. The interatrial septum is intact with no evidence for an atrial septal defect or patent foramen ovale as noted on 2-D or Doppler imaging Bubble study is normal. DATE: 07/21/18 1338 HEART CATH HEART CATH Findings: Coronaries: The left main is normal. The LAD is large in the proximal segment but in the midsegment it tapers down quickly and becomes a very small vessel in caliber with somewhat of a sluggish flow but no areas of significant stenosis were seen. The circumflex is a large dominant vessel that is normal. The right coronary artery has a snow's crook takeoff with a very acute angle at the top and there may be about 40-50% area stenosis at that point although it may all just be due to the tortuosity. There is excellent flow through the rest of the vessel. Ventriculogram: The left ventricle was normal in size with a global ejection fraction was estimated to be about 58%. There was no significant mitral insufficiency and no gradient across the aortic valve. Impression this patient does not appear to have any significant coronary artery disease he has a lot of tortuosity in some of the coronaries and the tapering of the left anterior descending does not appear to be due to plaque but rather just due to his anatomy. In view of the findings I would recommend medical treatment for this patient with tight control of the blood pressure tight control of the diabetes and diet exercise and with weight loss DATE: 07/06/141928 ASSESSMENT/PLAN ASSESSMENT/PLAN 1. Syncope with frequent presyncopal spells: no injuries. negative for orthostasis. Unclear etiology so far but potentially from autonomic neuropathy 2. CSH with hx of neurocardiogenic syncope: S/P PPM/[facility] 3. HTN: controlled 4. DM2/HLP; statin 5. Fatigue Recommendations 1. Interrogate device.if not done yet. Pt does have a specialized tilt table test due in on 04/13 to note autonomic neuropathy. Will check if device needs to be recalibrated in regards to rate responsiveness pending ambulatory HR check 2. Consult neurology 3. Continue with home regimen TAMIKO YOST MD 03/31/191919: CARDIAC CONSULT ASSESSMENT/PLAN ASSESSMENT/PLAN Patient seen and examined. Agree with SENIOR LABEL SPECIALIST's assessment and plan. Recurrent syncope of uncertain etiology Device interrogation showed normal function Orthostats negative Agree with neuro workup and if negative follow up with syncope clinic at Thank you for your consultation TARUN JUAREZ APRN Mar 31, 2019 12:48 TAMIKO YOST MD Mar 31, 2019 19:20
--- NOTE | 2019-03-31 13:15 | NUR ---
SS following for discharge planning. SS reviewed pt chart. Pt is from home with spouse and is currently on room air. Discharge order on the chart for home with self care.
--- NOTE | 2019-03-31 14:29 | PDOC ---
PROGRESS NOTES Assessment Assessment Recurrent syncope. Falls. DM. HTN. HLD. Prostate cancer. 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 Pacemaker placement. RECOMMENDATIONS/PLAN: ASA daily. Continue Zocor HS. Cardiac consulted. Treat cardiac and medical diseases. FU at . Discussed with his at bedside on 03/31/19. HISTORY OF THE PRESENT ILLNESS: 69-y-old male patient with Hx of recurrent syncopal spells in the past years and he was diagnosed as having cardio-neurogenic syncope. He stated he stood up from sitting position he got dizzy, and he tried to sit to lie down to the floor. He stated he did not lose consciousness but he felt weakness. He had similar episodes before and was found to have short period of PEA and he eventually received pacemaker, but still has similar episodes. PAST MEDICAL HISTORY Cardiovascular: HTN, Syncope, Hyperlipidemia Pulmonary: Other (HOWIE) CENTRAL NERVOUS SYSTEM: Periperal neuropathy GI: GERD Heme/Onc: No pertinent hx, Cancer (prostate with chemo) Hepatobiliary: No pertinent hx ENT: No pertinent hx Renal/: Prostate Ca. Endocrine: Diabetes (2) Dermatology: No pertinent hx PAST SURGICAL HISTORY Arthroscopy left knee, Cholecystectomy, Hernia Repair (hiatal), Other (back surgery; gastric sleve) FAMILY HISTORY Stroke ALLERGY: NKDA MEDICATIONS: Refer to [facility] SOCIAL HISTORY: Lives with family. Denies current smoking, but drinking occasionally, and denied illicit drug use. REVIEW OF SYSTEMS: Constitutional: No malnutrition, weight loss, cachexia. Head: No traumatic brain or head injury. Skin: No edema, or rash. Ear: No infection. Eyes: No vision loss or color blindness. Nose: No bleeding or purulent discharges. Hearing: No hearing decrease. Neck: No injury. Cardiac: CAD, HTN, HLD. Pulmonary: No COPD. GI: No GI ulcer, GI bleeding. Urinary/genital: UTI. Endocrinologic: Diabetes Mellitus. Skeletomuscular: No muscular atrophy, deformity. Neurological: see HP. Psychiatric: Denies drug use/abuse. Otherwise, not [id number] review of systems. PHYSICAL EXAMINATION: General appearance is in anxious. HEENT: Normocephalic and nontraumatic. Eyes, nose, ears, and throat are unremarkable. Neck is supple. No lymphadenopathy. No crepitus. Cardiovascular: S1, S2, regular rate and rhythm. Pulmonary: Clear to auscultation bilaterally. Abdomen: Bowel sounds are positive. Abdomen is soft, nontender, and nondistended. Extremities: No rash, lesions, or edema. No restriction of range of motion NEUROLOGICAL EXAMINATION: Alert Oriented to time, place and person. PERRL. EOMI. CN: no focal findings. Muscle tone: within normal. Muscle strength: 5 DTR: 2 Plantar reflex: Flexor response bilaterally Gait: not examined in bed. Sensory exam: no abnormal findings. No acute cerebellar signs elicited. F-T-N test accurate. Objective Objective Vital Signs Date Time Temp Pulse Resp B/P (MAP) Pulse Ox O2 Delivery O2 Flow Rate FiO2 03/31/19 11:15 97.6 60 18 130/75 (93) 94 Room Air 97.6 Intake and Output 03/31/19 07:00 Intake Total 600 ml Balance 600 ml Intake Oral 600 ml # Voids 1 # Bowel Movements 1 Vitals Signs Vitals VS - Last 72 Hours, by Label Date Time Temp Pulse Resp B/P (MAP) Pulse Ox O2 Delivery O2 Flow Rate FiO2 03/31/19 11:15 97.6 60 18 130/75 (93) 94 Room Air 97.6 03/31/19 09:55 65 130/80 03/31/19 09:54 65 130/80 03/31/19 08:00 Room Air 03/31/19 07:08 97.9 65 18 130/80 (97) 96 Room Air 97.9 03/31/19 07:05 97.9 65 118/78 (91) 96 Room Air 97.9 03/31/19 07:00 97.9 60 124/79 (94) 96 Room Air 97.9 03/31/19 02:25 98.6 60 18 122/66 (84) 94 Room Air 98.6 03/30/19 23:25 67 18 165/93 (117) 96 Room Air 03/30/19 23:22 65 20 157/89 (111) 96 Room Air 03/30/19 23:19 60 18 149/80 (103) 96 Room Air 03/30/19 22:55 63 174/83 03/30/19 22:00 98.4 60 20 174/83 (113) 97 Room Air 98.4 03/30/19 21:00 Room Air 03/30/19 17:44 60 03/30/19 17:14 60 03/30/19 16:44 65 03/30/19 16:10 65 03/30/19 15:09 60 03/30/19 14:39 60 03/30/19 14:09 60 03/30/19 13:40 98.0 60 17 142/81 (101) 95 Room Air 98.0 Laboratory Laboratory Laboratory Tests Test 03/30/19 15:30 03/30/19 16:45 03/31/19 05:43 Urine Opiates Screen Neg (NEG) Urine Methadone Screen Neg (NEG) Urine Barbiturates Neg (NEG) Urine Phencyclidine Screen Neg (NEG) Urine Amphetamine/Methamphetamine Neg (NEG) Urine Benzodiazepines Screen Neg (NEG) Urine Cocaine Screen Neg (NEG) Urine Cannabinoids Screen Neg (NEG) Urine Ethyl Alcohol Neg (NEG) Urine Collection Type Unknown Urine Color Yellow Urine Clarity Cloudy Urine pH 5.5 Urine Specific [place] 1.025 Urine Protein Negative mg/dL (NEG-TRACE) Urine Glucose (UA) 100 mg/dL (NEG) Urine Ketones (Stick) Negative mg/dL (NEG) Urine Blood Negative (NEG) Urine Nitrite Negative (NEG) Urine Bilirubin Negative (NEG) Urine Urobilinogen Dipstick 1.0 mg/dL (0.2 mg/dL) Urine Leukocyte Esterase Negative (NEG) Urine RBC 0 /HPF (0-2) Urine WBC Occ /HPF (0-4) Urine Squamous Epithelial Cells Few /LPF Urine Bacteria 0 /HPF (0-FEW) Urine Hyaline Casts Few /HPF Urine Mucus Mod /LPF White Blood Count 4.1 x10^3/uL (4.0-11.0) Red Blood Count 4.81 x10^6/uL (4.30-5.70) Hemoglobin 14.6 g/dL (13.0-17.5) Hematocrit 43.0 % (39.0-53.0) Mean Corpuscular Volume 89 fL (79-100) Mean Corpuscular Hemoglobin 30 pg (25-35) Mean Corpuscular Hemoglobin Concent 34 g/dL (31-37) Red Cell Distribution Width 14.8 % (11.5-14.5) Platelet Count 135 x10^3/uL (140-400) Neutrophils (%) (Auto) 49 % (31-73) Lymphocytes (%) (Auto) 35 % (24-48) Monocytes (%) (Auto) 8 % (0-9) Eosinophils (%) (Auto) 8 % (0-3) Basophils (%) (Auto) 1 % (0-3) Neutrophils # (Auto) 2.0 x10^3/uL (1.8-7.7) Lymphocytes # (Auto) 1.4 x10^3/uL (1.0-4.8) Monocytes # (Auto) 0.3 x10^3/uL (0.0-1.1) Eosinophils # (Auto) 0.3 x10^3/uL (0.0-0.7) Basophils # (Auto) 0.0 x10^3/uL (0.0-0.2) Sodium Level 142 mmol/L (136-145) Potassium Level 3.8 mmol/L (3.5-5.1) Chloride Level 107 mmol/L (98-107) Carbon Dioxide Level 29 mmol/L (21-32) Anion Gap 6 (6-14) Blood Urea Nitrogen 15 mg/dL (8-26) Creatinine 0.8 mg/dL (0.7-1.3) Estimated GFR (Cockcroft-Gault) 95.6 Glucose Level 117 mg/dL (70-99) Calcium Level 8.5 mg/dL (8.5-10.1) Medication Medications Current Medications Acetaminophen (Tylenol) 500 mg PRN Q6HRS PRN PO MILD pain or fever; Start 03/30/19 at 22:45; Stop 03/31/19 at 09:14; Status DC Acetaminophen (Tylenol) 500 mg PRN Q6HRS PRN PO MILD PAIN / TEMP; Start 03/31/19 at 09:15 Acetaminophen (Tylenol) 650 mg PRN Q4HRS PRN PO FEVER; Start 03/30/19 at 20:00; Stop 03/30/19 at 22:46; Status DC Acetaminophen/ Codeine Phosphate (Tylenol #3) 1 tab PRN Q6HRS PRN PO MODERATE TO SEVERE PAIN; Start 03/31/19 at 09:15 Aspirin (Ecotrin) 81 mg DAILY PO Last administered on 03/31/19at 09:55; Start 03/31/19 at 09:00 Atenolol (Tenormin) 50 mg BID PO Last administered on 03/31/19 09:54; Start 03/30/19 at 23:00 Gabapentin (Neurontin) 600 mg HS PO Last administered on 03/30/19 22:54; Start 03/30/19 at 23:00 Gabapentin (Neurontin) 900 mg DAILY PO Last administered on 03/31/19at 09:53; Start 03/31/19 at 09:00 Lisinopril (Prinivil) 20 mg DAILY PO Last administered on 03/31/19 09:55; Start 03/31/19 at 09:00 Multivitamins (Thera M Plus) 1 tab DAILY PO Last administered on 03/31/19 09:54; Start 03/31/19 at 09:00 Ondansetron HCl (Zofran) 4 mg PRN Q6HRS PRN IVP NAUSEA/VOMITING; Start 03/31/19 at 09:15 Ondansetron HCl (Zofran) 4 mg PRN Q8HRS PRN IV NAUSEA/VOMITING; Start 03/30/19 at 20:00; Stop 03/31/19 at 09:15; Status DC Pantoprazole Sodium (Protonix) 40 mg DAILYAC PO Last administered on 03/31/19 09:53; Start 03/31/19 at 07:30 Simvastatin (Zocor) 20 mg HS PO ; Start 03/31/19 at 21:00 Temazepam (Restoril) 7.5 mg PRN QHS PRN PO INSOMNIA; Start 03/31/19 at 09:15 Comment Review of Relevant I have reviewed the following items argenis (where applicable) has been applied. MAGGI JOSE MD Mar 31, 2019 14:29
[2019-03-31] MEDS ORDERED: SIMVASTATIN 20 MG TABLET PO SCH (21:00)
[2019-04-01 02:03] VITALS: BP 144/75
[2019-04-01 07:21] VITALS: BP 118/58
[2019-04-01] MEDS: GABAPENTIN 300 MG CAPSULE. PO SCH (08:44)
[2019-04-01] MEDS: LISINOPRIL 20 MG TABLET PO SCH (08:44)
[2019-04-01] MEDS: ASPIRIN ENTERIC COATED 81 MG TABLET.DR. PO SCH (08:44)
[2019-04-01] MEDS: ATENOLOL 50 MG TABLET. PO SCH (08:45)
[2019-04-01] MEDS: PANTOPRAZOLE 40 MG TABLET.DR. PO SCH (08:45)
[2019-04-01] MEDS: MULTIVITAMIN with MINERAL TABLET. PO SCH (08:45)
[2019-04-01 10:24] VITALS: BP 131/78
--- NOTE | 2019-04-01 10:35 | PDOC2 ---
NEUROLOGY CONSULT Date of Admission Date of Admission DATE: 04/01/19 TIME: 10:34 Reason for Consult Reason for Consult: NEUROLOGY CONSULTATION 03-31-2019 Recurrent syncope. Falls. DM. HTN. HLD. Prostate cancer. 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 Pacemaker placement. RECOMMENDATIONS/PLAN: ASA daily. Continue Zocor HS. Cardiac consulted. Treat cardiac and medical diseases. FU at . Discussed with his at bedside on 03/31/19. HISTORY OF THE PRESENT ILLNESS: 69-y-old male patient with Hx of recurrent syncopal spells in the past years and he was diagnosed as having cardio-neurogenic syncope. He stated he st ood up from sitting position he got dizzy, and he tried to sit to lie down to the floor. He stated he did not lose consciousness but he felt weakness. He had similar episodes before and was found to have short period of PEA and he eventually received pacemaker, but still has similar episodes. PAST MEDICAL HISTORY Cardiovascular: HTN, Syncope, Hyperlipidemia Pulmonary: Other (HOWIE) CENTRAL NERVOUS SYSTEM: Periperal neuropathy GI: GERD Heme/Onc: No pertinent hx, Cancer (prostate with chemo) Hepatobiliary: No pertinent hx ENT: No pertinent hx Renal/: Prostate Ca. Endocrine: Diabetes (2) Dermatology: No pertinent hx PAST SURGICAL HISTORY Arthroscopy left knee, Cholecystectomy, Hernia Repair (hiatal), Other (back surgery; gastric sleve) FAMILY HISTORY Stroke ALLERGY: NKDA MEDICATIONS: Refer to [facility] SOCIAL HISTORY: Lives with family. Denies current smoking, but drinking occasionally, and denied illicit drug use. REVIEW OF SYSTEMS: Constitutional: No malnutrition, weight loss, cachexia. Head: No traumatic brain or head injury. Skin: No edema, or rash. Ear: No infection. Eyes: No vision loss or color blindness. Nose: No bleeding or purulent discharges. Hearing: No hearing decrease. Neck: No injury. Cardiac: CAD, HTN, HLD. Pulmonary: No COPD. GI: No GI ulcer, GI bleeding. Urinary/genital: UTI. Endocrinologic: Diabetes Mellitus. Skeletomuscular: No muscular atrophy, deformity. Neurological: see HP. Psychiatric: Denies drug use/abuse. Otherwise, not [id number] review of systems. PHYSICAL EXAMINATION: General appearance is in anxious. HEENT: Normocephalic and nontraumatic. Eyes, nose, ears, and throat are unremarkable. Neck is supple. No lymphadenopathy. No crepitus. Cardiovascular: S1, S2, regular rate and rhythm. Pulmonary: Clear to auscultation bilaterally. Abdomen: Bowel sounds are positive. Abdomen is soft, nontender, and nondistended. Extremities: No rash, lesions, or edema. No restriction of range of motion NEUROLOGICAL EXAMINATION: Alert Oriented to time, place and person. PERRL. EOMI. CN: no focal findings. Muscle tone: within normal. Muscle strength: 5 DTR: 2 Plantar reflex: Flexor response bilaterally Gait: not examined in bed. Sensory exam: no abnormal findings. No acute cerebellar signs elicited. F-T-N test accurate. Current Medications Current Medications Current Medications Ondansetron HCl (Zofran) 4 mg PRN Q8HRS PRN IV NAUSEA/VOMITING; Start 03/30/19 at 20:00; Stop 03/31/19 at 09:15; Status DC Acetaminophen (Tylenol) 650 mg PRN Q4HRS PRN PO FEVER; Start 03/30/19 at 20:00; Stop 03/30/19 at 22:46; Status DC Acetaminophen (Tylenol) 500 mg PRN Q6HRS PRN PO MILD pain or fever; Start 03/30/19 at 22:45; Stop 03/31/19 at 09:14; Status DC Aspirin (Ecotrin) 81 mg DAILY PO Last administered on 04/01/19at 08:44; Start 03/31/19 at 09:00 Atenolol (Tenormin) 50 mg BID PO Last administered on 04/01/19at 08:45; Start 03/30/19 at 23:00 Gabapentin (Neurontin) 600 mg HS PO Last administered on 03/31/19at 20:47; Start 03/30/19 at 23:00 Gabapentin (Neurontin) 900 mg DAILY PO Last administered on 04/01/19at 08:44; Start 03/31/19 at 09:00 Lisinopril (Prinivil) 20 mg DAILY PO Last administered on 04/01/19at 08:44; Start 03/31/19 at 09:00 Simvastatin (Zocor) 20 mg HS PO Last administered on 03/31/19at 20:47; Start 03/31/19 at 21:00 Multivitamins (Thera M Plus) 1 tab DAILY PO Last administered on 04/01/19at 08:45; Start 03/31/19 at 09:00 Pantoprazole Sodium (Protonix) 40 mg DAILYAC PO Last administered on 04/01/19at 08:45; Start 03/31/19 at 07:30 Temazepam (Restoril) 7.5 mg PRN QHS PRN PO INSOMNIA; Start 03/31/19 at 09:15 Acetaminophen (Tylenol) 500 mg PRN Q6HRS PRN PO MILD PAIN / TEMP; Start 03/31/19 at 09:15 Acetaminophen/ Codeine Phosphate (Tylenol #3) 1 tab PRN Q6HRS PRN PO MODERATE TO SEVERE PAIN; Start 03/31/19 at 09:15 Ondansetron HCl (Zofran) 4 mg PRN Q6HRS PRN IVP NAUSEA/VOMITING; Start 03/31/19 at 09:15 Active Scripts Active Tylenol (Acetaminophen) 325 Mg Tablet 650 Mg PO PRN Q4HRS PRN 30 Days Reported Aspir-Low (Aspirin) 81 Mg Tablet.dr 1 Tab PO DAILY Multi Vitamin Daily (Multivitamin) 1 Each Tablet 1 Tab PO DAILY 30 Days Acetaminophen 500 Mg Tablet 1 Tab PO PRN Q6HRS PRN 15 Days Lisinopril 20 Mg Tablet 1 Tab PO DAILY Gabapentin (Gabapentin) 300 Mg Capsule 600 Mg PO HS Gabapentin (Gabapentin) 300 Mg Capsule 900 Mg PO DAILY Omeprazole 20 Mg Capsule.dr 20 Mg PO DAILY Zocor (Simvastatin) 20 Mg Tablet 20 Mg PO HS Atenolol 50 Mg Tablet 50 Mg PO BID Allergies Allergies: Allergies Coded Allergies Type Severity Reaction Last Updated Verified topiramate Allergy Severe stroke like symptoms 02/03/19 Yes ROS Review of System The patient denies any associated fevers, chills, headache, ear pain, rhinorrhea, sore throat, stiff neck, productive cough, chest pain, shortness of breath, back or flank pain, abdominal pain, nausea, vomiting, diarrhea, constipation, dysuria, rash, numbness, weakness, tingling, incontinence, difficulty ambulating, or diaphoresis. Physical Exam Physical Exam General: Well developed, well nourished, no acute distress, well appearing HEENT: Pupils equally round and reactive to light, EOMI, no discharge, normal conjunctiva Neck: Supple, no nuchal rigidity, no JVD, trachea midline, no tenderness Cardiac: RRR, no murmurs, no gallops, no rubs Chest/Lungs: CTAB, no wheeze, no rhonchi, no crackles Abdomen: soft, non-distended, no guarding, no peritoneal signs, non-tender Back: No tenderness Extremities: no edema, pulses intact, non-tender,capillary refill <3 sec bilateral upper and lower extremities, Neuro: Alert and oriented x 4, no focal deficits, normal speech Vitals Vitals: Vital Signs Date Time Temp Pulse Resp B/P (MAP) Pulse Ox O2 Delivery O2 Flow Rate FiO2 04/01/19 10:24 98.1 69 16 131/78 (95) 95 Room Air 98.1 Labs Labs Laboratory Tests Test 03/30/19 14:20 03/30/19 15:30 03/30/19 16:45 03/31/19 05:43 White Blood Count 4.4 x10^3/uL (4.0-11.0) 4.1 x10^3/uL (4.0-11.0) Red Blood Count 4.79 x10^6/uL (4.30-5.70) 4.81 x10^6/uL (4.30-5.70) Hemoglobin 14.5 g/dL (13.0-17.5) 14.6 g/dL (13.0-17.5) Hematocrit 42.8 % (39.0-53.0) 43.0 % (39.0-53.0) Mean Corpuscular Volume 89 fL (79-100) 89 fL (79-100) Mean Corpuscular Hemoglobin 30 pg (25-35) 30 pg (25-35) Mean Corpuscular Hemoglobin Concent 34 g/dL (31-37) 34 g/dL (31-37) Red Cell Distribution Width 14.9 % (11.5-14.5) 14.8 % (11.5-14.5) Platelet Count 140 x10^3/uL (140-400) 135 x10^3/uL (140-400) Neutrophils (%) (Auto) 48 % (31-73) 49 % (31-73) Lymphocytes (%) (Auto) 37 % (24-48) 35 % (24-48) Monocytes (%) (Auto) 8 % (0-9) 8 % (0-9) Eosinophils (%) (Auto) 6 % (0-3) 8 % (0-3) Basophils (%) (Auto) 0 % (0-3) 1 % (0-3) Neutrophils # (Auto) 2.1 x10^3/uL (1.8-7.7) 2.0 x10^3/uL (1.8-7.7) Lymphocytes # (Auto) 1.6 x10^3/uL (1.0-4.8) 1.4 x10^3/uL (1.0-4.8) Monocytes # (Auto) 0.4 x10^3/uL (0.0-1.1) 0.3 x10^3/uL (0.0-1.1) Eosinophils # (Auto) 0.2 x10^3/uL (0.0-0.7) 0.3 x10^3/uL (0.0-0.7) Basophils # (Auto) 0.0 x10^3/uL (0.0-0.2) 0.0 x10^3/uL (0.0-0.2) Sodium Level 143 mmol/L (136-145) 142 mmol/L (136-145) Potassium Level 4.3 mmol/L (3.5-5.1) 3.8 mmol/L (3.5-5.1) Chloride Level 107 mmol/L (98-107) 107 mmol/L (98-107) Carbon Dioxide Level 32 mmol/L (21-32) 29 mmol/L (21-32) Anion Gap 4 (6-14) 6 (6-14) Blood Urea Nitrogen 19 mg/dL (8-26) 15 mg/dL (8-26) Creatinine 0.9 mg/dL (0.7-1.3) 0.8 mg/dL (0.7-1.3) Estimated GFR (Cockcroft-Gault) 83.4 95.6 BUN/Creatinine Ratio 21 (6-20) Glucose Level 128 mg/dL (70-99) 117 mg/dL (70-99) Calcium Level 8.6 mg/dL (8.5-10.1) 8.5 mg/dL (8.5-10.1) Magnesium Level 1.9 mg/dL (1.8-2.4) Total Bilirubin 0.5 mg/dL (0.2-1.0) Aspartate Amino Transf (AST/SGOT) 15 U/L (15-37) Alanine Aminotransferase (ALT/SGPT) 15 U/L (16-63) Alkaline Phosphatase 68 U/L (46-116) Creatine Kinase 18 U/L (39-308) Creatine Kinase MB (Mass) 0.6 ng/mL (0.0-3.6) Creatine Kinase MB Relative Index % (0-4) Troponin I Quantitative < 0.017 ng/mL (0.000-0.055) VC-Byf-O-Type Natriuretic Peptide 136 pg/mL (0-124) Total Protein 5.8 g/dL (6.4-8.2) Albumin 3.0 g/dL (3.4-5.0) Albumin/Globulin Ratio 1.1 (1.0-1.7) Lipase 125 U/L (73-393) Thyroid Stimulating Hormone (TSH) 0.865 uIU/mL (0.358-3.74) Urine Opiates Screen Neg (NEG) Urine Methadone Screen Neg (NEG) Urine Barbiturates Neg (NEG) Urine Phencyclidine Screen Neg (NEG) Urine Amphetamine/Methamphetamine Neg (NEG) Urine Benzodiazepines Screen Neg (NEG) Urine Cocaine Screen Neg (NEG) Urine Cannabinoids Screen Neg (NEG) Urine Ethyl Alcohol Neg (NEG) Urine Collection Type Unknown Urine Color Yellow Urine Clarity Cloudy Urine pH 5.5 Urine Specific [place] 1.025 Urine Protein Negative mg/dL (NEG-TRACE) Urine Glucose (UA) 100 mg/dL (NEG) Urine Ketones (Stick) Negative mg/dL (NEG) Urine Blood Negative (NEG) Urine Nitrite Negative (NEG) Urine Bilirubin Negative (NEG) Urine Urobilinogen Dipstick 1.0 mg/dL (0.2 mg/dL) Urine Leukocyte Esterase Negative (NEG) Urine RBC 0 /HPF (0-2) Urine WBC Occ /HPF (0-4) Urine Squamous Epithelial Cells Few /LPF Urine Bacteria 0 /HPF (0-FEW) Urine Hyaline Casts Few /HPF Urine Mucus Mod /LPF MAGGI JOSE MD Apr 01, 2019 10:35
--- NOTE | 2019-04-01 12:43 | PDOC ---
[employer] PROGRESS NOTE Chief Complaint Chief Complaint Prostate cancer. 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 Pt reports feeling much better as compared to the beginning of his hospital stay. Pt reports slight irritability today because he thought he was going to be discharged yesterday and would like to be d/c [place]. Reports only one syncopal feeling yesterday, which occurred after a day of exertion. Reports they increased the voltage of his pacemaker yesterday, he hasn't noticed any appreciable difference since yesterday. Vitals/I&O Vitals/I&O: Vital Signs Date Time Temp Pulse Resp B/P (MAP) Pulse Ox O2 Delivery O2 Flow Rate FiO2 04/01/19 10:24 98.1 69 16 131/78 (95) 95 Room Air 98.1 I & O 03/31/19 03/31/19 04/01/19 14:59 22:59 06:59 Intake Total 500 ml 1350 ml 850 ml Output Total 2 ml Balance 500 ml 1350 ml 848 ml Physical Exam General: Alert, Oriented X3, Cooperative, No acute distress Heart: Regular rate (SR with intermittent AV pacing), Normal S1, Normal S2, Other (2/6 systolic murmur to LLS border) Lungs: Clear, Other Abdomen: Normal bowel sounds, Soft, No tenderness Extremities: No cyanosis, No edema Skin: No breakdown, No significant lesion Review of Systems Review of Systems: Denies CP Denies SOB Denies N/V/D Assessment and Plan Assessmemt and Plan Prostate cancer. 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 Medications: Current Medications Medications (Trade) Dose Ordered Sig/Donnell Route PRN Reason Start Time Stop Time Status Last Admin Dose Admin Simvastatin (Zocor) 20 mg HS PO 03/31/19 21:00 03/31/19 20:47 ALTA RODRIGUEZ III DO Apr 01, 2019 12:43
--- NOTE | 2019-04-01 14:10 | NUR ---
Discharge instructions reviewed with patient and , Patient verbalizes understanding, no additional questions. Patient wheeled to accompanied by
== END 2019-04-01 14:12 | disposition home or self-care (01) | DRG 74 ==
LOC: ER 13:24 → ED HOLD 18:00 → 2 SOUTH 21:01
PROVIDERS: ADMIT Internal Medicine; ATTEND Internal Medicine
PROC: 4B02XSZ Measurement of Cardiac Pacemaker, External Approach (ICD-10-PCS; principal; 2019-04-01)
DX: G90.8 Other disorders of autonomic nervous system (principal); I10 Essential (primary) hypertension; C61 Malignant neoplasm of prostate; E78.5 Hyperlipidemia, unspecified; E11.42 Type 2 diabetes mellitus with diabetic polyneuropathy; I25.10 Atherosclerotic heart disease of native coronary artery without angina pectoris; Z79.82 Long term (current) use of aspirin; Z82.3 Family history of stroke; M19.90 Unspecified osteoarthritis, unspecified site; Z85.46 Personal history of malignant neoplasm of prostate; Z95.0 Presence of cardiac pacemaker; Z98.84 Bariatric surgery status; Z88.8 Allergy status to other drugs, medicaments and biological substances; Z79.4 Long term (current) use of insulin; K21.9 Gastro-esophageal reflux disease without esophagitis; R00.1 Bradycardia, unspecified; W18.39XA Other fall on same level, initial encounter; Y93.89 Activity, other specified; Y92.89 Other specified places as the place of occurrence of the external cause; Y99.8 Other external cause status
CPT/HCPCS: 36415; 70450; 71045; 80048; 80053; 80307; 81001; 82553; 83690; 83735; 83880; 84443; 84484; 85025; 93005; 99285-25; G0378

== ENCOUNTER → 2019-05-06 | Outpatient (CLI) | payer MEDICARE ==
[~2019-05-06] MED LIST changes: +ACET500T68 PO; +ASPI81TA50 PO; +LISI-334 PO; +MULT-245 PO; +OMEP-229 PO; -OMEP20CA10 PO
--- NOTE | 2019-05-07 08:44 | RAD ---
CT chest with contrast. HISTORY: Lung nodule CT scan of the chest was done without contrast. Comparison is made with a study from November 14. There is no mediastinal adenopathy or pleural effusion. Visualized portions the liver and spleen are unremarkable. 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 Adrenal glands are normal. There is mild atelectasis. There is a 2 mm density on image #24 in the left lung without change possibly a calcified granuloma. There is a calcified granuloma in the right lower lobe. There are no acute infiltrates. IMPRESSION: 1. Calcified granulomas. 2. Mild atelectasis. 3. No infiltrates noted. 4. A pulmonary mass or nodule is not identified. PQRS Compliance Statement: One or more of the following individualized dose reduction techniques were utilized for this examination: 1. Automated exposure control 2. Adjustment of the mA and/or kV according to patient size 3. Use of iterative reconstruction technique Electronically signed by: Roverto Laura MD (05/07/2019 8:41 AM) [facility]
== END ==
LOC: CT 11:19
PROVIDERS: ATTEND Internal Medicine Critical Care Medicine
DX: J98.11 Atelectasis (principal); J84.10 Pulmonary fibrosis, unspecified; I10 Essential (primary) hypertension; E78.00 Pure hypercholesterolemia, unspecified; E11.9 Type 2 diabetes mellitus without complications
CPT/HCPCS: 71250

== ENCOUNTER → 2019-05-12 | Outpatient (CLI) | payer MEDICARE ==
--- NOTE | 2019-05-12 12:56 | RAD ---
EXAM: Pulmonary ventilation-perfusion scan. HISTORY: Shortness of air. TECHNIQUE: Anterior projection ventilation images of the chest were obtained during the inhalation of 8.5 mCi Xe-133 gas. Anterior, posterior, bilateral oblique and bilateral lateral images of the chest were obtained following the administration of 5.5 mCi Tc-99m MAA. COMPARISON: Chest CT dated 05/06/2019 and chest radiograph dated 05/12/2019. FINDINGS: There is symmetric accumulation of radiotracer within both lungs on ventilation images. There is no tracer retention. There is no suspicious perfusion defect or ventilation-perfusion mismatch to suggest pulmonary embolism. IMPRESSION: Negative for pulmonary embolism. Electronically signed by: Anisa Kamara MD (05/12/2019 12:53 PM) [place] [id number]
--- NOTE | 2019-05-12 12:57 | RAD ---
EXAM: Chest, 2 views. HISTORY: Shortness of air. COMPARISON: 05/06/2019 FINDINGS: 2 views of the chest are obtained. There is no infiltrate, pleural effusion or pneumothorax. The heart is normal in size. There are calcified granulomas. IMPRESSION: No acute pulmonary finding. Electronically signed by: Anisa Kamara MD (05/12/2019 12:54 PM) [id number]
== END | disposition home or self-care (01) ==
LOC: NM 10:33
PROVIDERS: ATTEND Internal Medicine Critical Care Medicine
DX: J84.10 Pulmonary fibrosis, unspecified (principal); E11.9 Type 2 diabetes mellitus without complications; Z95.0 Presence of cardiac pacemaker; Z79.01 Long term (current) use of anticoagulants
CPT/HCPCS: 71046; 78582; 96374; A9540; A9558

== ENCOUNTER 2019-05-16 14:22 | Emergency (ER) | payer MEDICARE ==
[~2019-05-16] VITALS: Ht 182.9 cm; Wt 87.5 kg
[2019-05-16 15:01] LABS: BASO % 1 % (0-3); EOS # 0.1 x10^3/uL (0.0-0.7); EOS % 3 % (0-3); HEMATOCRIT 43.1 % (39.0-53.0); HEMOGLOBIN 14.7 g/dL (13.0-17.5); LYMPH # 1.4 x10^3/uL (1.0-4.8); LYMPH % 37 % (24-48); MEAN CORPUSCULAR HEMOGLOBIN 31 pg (25-35); MEAN CORPUSCULAR HGB CONC 34 g/dL (31-37); MEAN CORPUSCULAR VOLUME 90 fL (79-100); MONO # 0.3 x10^3/uL (0.0-1.1); MONO % 8 % (0-9); NEUT % 53 % (31-73); PLATELET COUNT 136 x10^3/uL (140-400); RED BLOOD COUNT 4.77 x10^6/uL (4.30-5.70); RED CELL DISTRIBUTION WIDTH 13.8 % (11.5-14.5); WHITE BLOOD COUNT 3.9 x10^3/uL (4.0-11.0)
--- NOTE | 2019-05-16 15:15 | RAD ---
Single AP view of the chest. Comparison: 05/12/2019. Indication: Syncope Findings: Left subclavian pacemaker seen with leads overlying the right atrium and ventricle. The heart is enlarged but stable. There is no pneumothorax or effusion. No air space or interstitial disease. Stable resorption of the distal right clavicle. Impression: 1. No acute cardiopulmonary process. Electronically signed by: Vince Gomez MD (05/16/2019 3:13 PM) [id number]
[2019-05-16 15:17] LABS: CALCIUM 8.4 mg/dL (8.5-10.1); CREATININE 0.9 mg/dL (0.7-1.3); GFR 83.4; POTASSIUM 4.1 mmol/L (3.5-5.1)
--- NOTE | 2019-05-16 15:18 | EKG ---
[facility] [address] [place] [address] Test Date: 2019-05-16 Test Time: 15:02:01 Pat Name: SHARON HILL Department: Room: Gender: M Animal Assistant: : [id number] Requested By: POPEYE HICKS Order Number: [id number] Reading MD: Measurements Intervals [place] Rate: 70 P: 0 ID: [id number] QRS: -49 QRSD: 150 T: 26 QT: 448 QTc: 487 Interpretive Statements SINUS RHYTHM ABNORMAL LEFT AXIS DEVIATION LEFT ANTERIOR FASCICULAR BLOCK RIGHT BUNDLE BRANCH BLOCK BIFASCICULAR BLOCK ABNORMAL ECG RI6.01 No previous ECG available for comparison
[2019-05-16 15:23] LABS: ALBUMIN 3.1 g/dL (3.4-5.0); MAGNESIUM 1.7 mg/dL (1.8-2.4); TOTAL BILIRUBIN 0.5 mg/dL (0.2-1.0); TOTAL PROTEIN 6.1 g/dL (6.4-8.2)
[2019-05-16 15:30] LABS: BILIRUBIN,URINE NEGATIVE (NEG); CLARITY,URINE CLEAR; COLOR,URINE YELLOW; NITRITE,URINE NEGATIVE (NEG); PROTEIN,URINE NEGATIVE (NEG-TRACE); UROBILINOGEN,URINE 0.2 mg/dL (0.2 mg/dL)
[2019-05-16 15:40] LABS: BARBITURATES NEG (NEG); BENZODIAZEPINES NEG (NEG); CANNABINOIDS NEG (NEG); COCAINE NEG (NEG); HYALINE CASTS, URINE MODERATE /HPF; METHADONE NEG (NEG); OPIATES NEG (NEG); PHENCYCLIDINE NEG (NEG)
[2019-05-16 15:41] LABS: AMPHETAMINE/METHAMPHETAMINE NEG (NEG); BACTERIA,URINE 0 /HPF (0-FEW); RBC,URINE 0 /HPF (0-2)
[2019-05-16] MEDS ORDERED: IV NORMAL SALINE 1000ML BAG 1,000 ML IV ONE (16:30)
--- NOTE | 2019-05-16 17:22 | PHYS DOC ---
Past Medical History Past Medical History: Arrhythmia Additional Past Medical Histor: CARDIONEUROGENIC SYNCOPE, hernia Past Surgical History: Cholecystectomy, Gastric Bypass, Pacemaker Additional Past Surgical Histo: BACK SURGERY Alcohol Use: None Drug Use: None Adult General Chief Complaint Chief Complaint: SYNCOPE [facility] HPI Patient is a 69 year old [id number]-dcl male who was brought here from a restaurant after he passed out while he was sitting in a couch TO eat lunch. he denies any headache, no chest pain, no abdominal pain prior to the SYNCOPE. Patient had been evaluated here numerous times for recurrent syncope, had extensive workup, was evaluated by cardiology and neurology, did not find any acute problem. he did not fall down today. He stated that this is very similar to previous syncopal episodes. Review of Systems Review of Systems Constitutional: Denies fever or chills [] Eyes: Denies change in visual acuity, redness, or eye pain [] HENT: Denies nasal congestion or sore throat [] Respiratory: Denies cough or shortness of breath [] Cardiovascular: No additional information not addressed in HPI [] GI: Denies abdominal pain, nausea, vomiting, bloody stools or diarrhea [] : Denies dysuria or hematuria [] Musculoskeletal: Denies back pain or joint pain [] Integument: Denies rash or skin lesions [] Neurologic: Denies headache, focal weakness or sensory changes [] Endocrine: Denies polyuria or polydipsia [] All other systems were reviewed and found to be within normal limits, except as documented in this note. Current Medications Current Medications Current Medications Medications (Trade) Dose Ordered Sig/Donnell Start Time Stop Time Status Last Admin Dose Admin Sodium Chloride 1,000 ml @ 1,000 mls/hr 1X ONCE 05/16/19 16:30 05/16/19 17:29 DC 05/16/19 16:46 1,000 MLS/HR Allergies Allergies Allergies Coded Allergies Type Severity Reaction Last Updated Verified topiramate Allergy Severe stroke like symptoms 02/03/19 Yes Physical Exam Physical Exam Constitutional: Well developed, well nourished, no acute distress, non-toxic appearance. [] HENT: Normocephalic, atraumatic, bilateral external ears normal, oropharynx moist, no oral exudates, nose normal. [] Eyes: PERRLA, EOMI, conjunctiva normal, no discharge. [] Neck: Normal range of motion, no tenderness, supple, no stridor. [] Cardiovascular:Heart rate regular rhythm, no murmur [] Lungs & Thorax: Bilateral breath sounds clear to auscultation [] Abdomen: Bowel sounds normal, soft, no tenderness, no masses, no pulsatile masses. [] Skin: Warm, dry, no erythema, no rash. [] Back: No tenderness, no CVA tenderness. [] Extremities: No tenderness, no cyanosis, no clubbing, ROM intact, no edema. [] Neurologic: Alert and oriented X 3, normal motor function, normal sensory function, no focal deficits noted. [] Psychologic: Affect normal, judgement normal, mood normal. [] Current Patient Data Vital Signs Vital Signs Date Time Temp Pulse Resp B/P (MAP) Pulse Ox O2 Delivery O2 Flow Rate FiO2 05/16/19 14:37 97.9 74 16 134/60 (84) 69 Room Air 97.9 Lab Values Laboratory Tests Test 05/16/19 14:35 05/16/19 15:18 White Blood Count 3.9 x10^3/uL (4.0-11.0) L Red Blood Count 4.77 x10^6/uL (4.30-5.70) Hemoglobin 14.7 g/dL (13.0-17.5) Hematocrit 43.1 % (39.0-53.0) Mean Corpuscular Volume 90 fL (79-100) Mean Corpuscular Hemoglobin 31 pg (25-35) Mean Corpuscular Hemoglobin Concent 34 g/dL (31-37) Red Cell Distribution Width 13.8 % (11.5-14.5) Platelet Count 136 x10^3/uL (140-400) L Neutrophils (%) (Auto) 53 % (31-73) Lymphocytes (%) (Auto) 37 % (24-48) Monocytes (%) (Auto) 8 % (0-9) Eosinophils (%) (Auto) 3 % (0-3) Basophils (%) (Auto) 1 % (0-3) Neutrophils # (Auto) 2.0 x10^3/uL (1.8-7.7) Lymphocytes # (Auto) 1.4 x10^3/uL (1.0-4.8) Monocytes # (Auto) 0.3 x10^3/uL (0.0-1.1) Eosinophils # (Auto) 0.1 x10^3/uL (0.0-0.7) Basophils # (Auto) 0.0 x10^3/uL (0.0-0.2) Sodium Level 139 mmol/L (136-145) Potassium Level 4.1 mmol/L (3.5-5.1) Chloride Level 102 mmol/L (98-107) Carbon Dioxide Level 30 mmol/L (21-32) Anion Gap 7 (6-14) Blood Urea Nitrogen 13 mg/dL (8-26) Creatinine 0.9 mg/dL (0.7-1.3) Estimated GFR (Cockcroft-Gault) 83.4 BUN/Creatinine Ratio 14 (6-20) Glucose Level 307 mg/dL (70-99) H Calcium Level 8.4 mg/dL (8.5-10.1) L Magnesium Level 1.7 mg/dL (1.8-2.4) L Total Bilirubin 0.5 mg/dL (0.2-1.0) Aspartate Amino Transferase (AST) 15 U/L (15-37) Alanine Aminotransferase (ALT) 14 U/L (16-63) L Alkaline Phosphatase 90 U/L (46-116) Troponin I Quantitative < 0.017 ng/mL (0.000-0.055) Total Protein 6.1 g/dL (6.4-8.2) L Albumin 3.1 g/dL (3.4-5.0) L Albumin/Globulin Ratio 1.0 (1.0-1.7) Urine Collection Type Unknown Urine Color Yellow Urine Clarity Clear Urine pH 6.0 Urine Specific [place] >=1.030 Urine Protein Negative mg/dL (NEG-TRACE) Urine Glucose (UA) >=1000 mg/dL (NEG) Urine Ketones (Stick) Negative mg/dL (NEG) Urine Blood Negative (NEG) Urine Nitrite Negative (NEG) Urine Bilirubin Negative (NEG) Urine Urobilinogen Dipstick 0.2 mg/dL (0.2 mg/dL) Urine Leukocyte Esterase Negative (NEG) Urine RBC 0 /HPF (0-2) Urine WBC 1-4 /HPF (0-4) Urine Bacteria 0 /HPF (0-FEW) Urine Hyaline Casts Moderate /HPF Urine Mucus Mod /LPF Urine Opiates Screen Neg (NEG) Urine Methadone Screen Neg (NEG) Urine Barbiturates Neg (NEG) Urine Phencyclidine Screen Neg (NEG) Urine Amphetamine/Methamphetamine Neg (NEG) Urine Benzodiazepines Screen Neg (NEG) Urine Cocaine Screen Neg (NEG) Urine Cannabinoids Screen Neg (NEG) Urine Ethyl Alcohol Neg (NEG) Laboratory Tests 05/16/19 14:35 Laboratory Tests 05/16/19 14:35 EKG EKG EKG was read at 1505, sinus rhythm, rate of 70 beats per minutes, no ST segment elevation. Right bundle branch block. Radiology/Procedures Radiology/Procedures CT SCAN HEAD did not show any acute problem. Course & Med Decision Making Course & Med Decision Making Pertinent Labs and Imaging studies reviewed. (See chart for details) Patient is a 69-year-old male who had extensive workup for recurrent syncopal episodes. he passed out today while he was sitting on a chair trying to eat lunch. WORK UP today did not show any acute problem. REVIEWING medical records, patient haD extensive workup for this same problem recently. Patient is stable, awake alert, had no symptoms at this time. he had been evaluated at by neurologist over there. Patient is scheduled to see HIS neurologist again on May 24 for more studies. No further admission for evaluation NEEDED AT THIS TIME. WILL DISCHARGE PATIENT HOME WITH HIS . Dragon Disclaimer Dragon Disclaimer This electronic medical record was generated, in whole or in part, using a voice recognition dictation system. Departure Departure Impression: Primary Impression: Recurrent syncope Disposition: 01 HOME, SELF-CARE Condition: STABLE Referrals: COMFORT SORENSON MD (PCP) PLEASE FOLLOW UP WITH YOUR NEUROLOGIST SCHEDULED. Patient Instructions: Syncope POPEYE HICKS DO May 16, 2019 17:22
[2019-05-16 17:30] VITALS: BP 173/87
--- NOTE | 2019-05-16 17:49 | RAD ---
Examination: CT HEAD WO CONTRAST History: Syncope Comparison/Correlation: 03/30/2019 CT head without contrast Findings: Axial images of the head were obtained without contrast. Mild atrophy is present. No intracranial hemorrhage, midline shift, or mass effect. Cavernous carotid calcification is noted. Bony structures are unremarkable. Impression: No suspicious process. PQRS Compliance Statement: One or more of the following individualized dose reduction techniques were utilized for this examination: 1. Automated exposure control 2. Adjustment of the mA and/or kV according to patient size 3. Use of iterative reconstruction technique Electronically signed by: Robert Bolton MD (05/16/2019 5:47 PM) [facility]
== END 2019-05-16 18:12 | disposition home or self-care (01) ==
LOC: ER 14:22
DX: R55 Syncope and collapse (principal); Z95.0 Presence of cardiac pacemaker; Z98.84 Bariatric surgery status; Z88.8 Allergy status to other drugs, medicaments and biological substances
CPT/HCPCS: 36415; 70450; 71045; 80053; 80307; 81001; 83735; 84484; 85025; 93005; 96360; 99285; J7030

== ENCOUNTER 2019-06-20 15:54 | Emergency (ER) | payer MEDICARE ==
[~2019-06-20] VITALS: Ht 182.9 cm; Wt 89.0 kg
[~2019-06-20 15:54] MED LIST changes: -OMEP-229 PO; +OMEP20CA16 PO
[2019-06-20 17:04] LABS: BASO % 1 % (0-3); EOS # 0.1 x10^3/uL (0.0-0.7); EOS % 1 % (0-3); HEMOGLOBIN 14.6 g/dL (13.0-17.5); LYMPH # 1.3 x10^3/uL (1.0-4.8); LYMPH % 32 % (24-48); MEAN CORPUSCULAR HEMOGLOBIN 31 pg (25-35); MEAN CORPUSCULAR HGB CONC 34 g/dL (31-37); MEAN CORPUSCULAR VOLUME 91 fL (79-100); MONO # 0.4 x10^3/uL (0.0-1.1); MONO % 9 % (0-9); NEUT # 2.4 x10^3/uL (1.8-7.7); NEUT % 57 % (31-73); PLATELET COUNT 153 x10^3/uL (140-400); RED BLOOD COUNT 4.73 x10^6/uL (4.30-5.70); RED CELL DISTRIBUTION WIDTH 13.5 % (11.5-14.5); WHITE BLOOD COUNT 4.1 x10^3/uL (4.0-11.0)
[2019-06-20 17:14] LABS: PROTHROMBIN TIME PATIENT 14.5 SEC (11.7-14.0)
[2019-06-20 17:29] LABS: CALCIUM 8.3 mg/dL (8.5-10.1); CREATININE 0.9 mg/dL (0.7-1.3); GFR 83.4; POTASSIUM 4.4 mmol/L (3.5-5.1)
[2019-06-20 17:36] LABS: ALBUMIN 3.1 g/dL (3.4-5.0); MAGNESIUM 1.8 mg/dL (1.8-2.4); TOTAL BILIRUBIN 0.4 mg/dL (0.2-1.0); TOTAL PROTEIN 6.1 g/dL (6.4-8.2)
--- NOTE | 2019-06-20 17:43 | RAD ---
Chest, PA and Lateral: Technique: PA and lateral views of the chest were obtained. History: Cough, shortness of breath. Comparison: 05/16/2019. Findings: The heart and pulmonary vasculature appear within normal limits. Mild left lung base airspace opacities.. The pleural margins are clear. Right-sided cardiac pacer is identified. Impression: Mild left lung base airspace opacity likely atelectasis or infiltrates.. Electronically signed by: Chuy Boyd MD (06/20/2019 5:40 PM) [facility]
[2019-06-20 17:45] LABS: CREATINE KINASE 35 U/L (39-308)
[2019-06-20 17:50] LABS: BILIRUBIN,URINE NEGATIVE (NEG); CLARITY,URINE CLEAR; COLOR,URINE YELLOW; NITRITE,URINE NEGATIVE (NEG); PH,URINE 5.5; PROTEIN,URINE NEGATIVE (NEG-TRACE)
[2019-06-20 17:53] LABS: INFLUENZA A PATIENT NEGATIVE (NEGATIVE); INFLUENZA B PATIENT NEGATIVE (NEGATIVE)
[2019-06-20 18:03] LABS: BACTERIA,URINE 0 /HPF (0-FEW); RBC,URINE 0 /HPF (0-2); SQUAMOUS EPITHELIAL CELL,UR OCC /LPF; WBC,URINE OCC /HPF (0-4)
[2019-06-20] MEDS ORDERED: BENZ100C PO (18:38)
[2019-06-20] MEDS ORDERED: DOXY100T PO (18:38)
--- NOTE | 2019-06-20 18:38 | PHYS DOC ---
Past Medical History Past Medical History: Arrhythmia Additional Past Medical Histor: CARDIONEUROGENIC SYNCOPE, hernia Past Surgical History: Cholecystectomy, Gastric Bypass, Pacemaker Additional Past Surgical Histo: BACK SURGERY Alcohol Use: None Drug Use: None Adult General Chief Complaint Chief Complaint: WEAKNESS/GENERALIZED HPI HPI Patient is a 69 year old [f__sex] who presents with [] Review of Systems Review of Systems Constitutional: Denies fever or chills [] Eyes: Denies change in visual acuity, redness, or eye pain [] HENT: Denies nasal congestion or sore throat [] Respiratory: Denies cough or shortness of breath [] Cardiovascular: No additional information not addressed in HPI [] GI: Denies abdominal pain, nausea, vomiting, bloody stools or diarrhea [] : Denies dysuria or hematuria [] Musculoskeletal: Denies back pain or joint pain [] Integument: Denies rash or skin lesions [] Neurologic: Denies headache, focal weakness or sensory changes [] Endocrine: Denies polyuria or polydipsia [] All other systems were reviewed and found to be within normal limits, except as documented in this note. Allergies Allergies Allergies Coded Allergies Type Severity Reaction Last Updated Verified topiramate Allergy Severe stroke like symptoms 02/03/19 Yes Physical Exam Physical Exam Constitutional: Well developed, well nourished, no acute distress, non-toxic appearance. [] HENT: Normocephalic, atraumatic, bilateral external ears normal, oropharynx mo ist, no oral exudates, nose normal. [] Eyes: PERRLA, EOMI, conjunctiva normal, no discharge. [] Neck: Normal range of motion, no tenderness, supple, no stridor. [] Cardiovascular:Heart rate regular rhythm, no murmur [] Lungs & Thorax: Bilateral breath sounds clear to auscultation [] Abdomen: Bowel sounds normal, soft, no tenderness, no masses, no pulsatile masses. [] Skin: Warm, dry, no erythema, no rash. [] Back: No tenderness, no CVA tenderness. [] Extremities: No tenderness, no cyanosis, no clubbing, ROM intact, no edema. [] Neurologic: Alert and oriented X 3, normal motor function, normal sensory function, no focal deficits noted. [] Psychologic: Affect normal, judgement normal, mood normal. [] Current Patient Data Vital Signs Vital Signs Date Time Temp Pulse Resp B/P (MAP) Pulse Ox O2 Delivery O2 Flow Rate FiO2 06/20/19 17:18 78 18 96 06/20/19 16:18 98.0 133/74 (93) Room Air 98.0 Lab Values Laboratory Tests Test 06/20/19 16:52 06/20/19 17:30 06/20/19 17:35 White Blood Count 4.1 x10^3/uL (4.0-11.0) Red Blood Count 4.73 x10^6/uL (4.30-5.70) Hemoglobin 14.6 g/dL (13.0-17.5) Hematocrit 43.0 % (39.0-53.0) Mean Corpuscular Volume 91 fL (79-100) Mean Corpuscular Hemoglobin 31 pg (25-35) Mean Corpuscular Hemoglobin Concent 34 g/dL (31-37) Red Cell Distribution Width 13.5 % (11.5-14.5) Platelet Count 153 x10^3/uL (140-400) Neutrophils (%) (Auto) 57 % (31-73) Lymphocytes (%) (Auto) 32 % (24-48) Monocytes (%) (Auto) 9 % (0-9) Eosinophils (%) (Auto) 1 % (0-3) Basophils (%) (Auto) 1 % (0-3) Neutrophils # (Auto) 2.4 x10^3/uL (1.8-7.7) Lymphocytes # (Auto) 1.3 x10^3/uL (1.0-4.8) Monocytes # (Auto) 0.4 x10^3/uL (0.0-1.1) Eosinophils # (Auto) 0.1 x10^3/uL (0.0-0.7) Basophils # (Auto) 0.0 x10^3/uL (0.0-0.2) Prothrombin Time 14.5 SEC (11.7-14.0) H Prothrombin Time INR 1.2 (0.8-1.1) H Activated Partial Thromboplast Time 30 SEC (24-38) Sodium Level 142 mmol/L (136-145) Potassium Level 4.4 mmol/L (3.5-5.1) Chloride Level 106 mmol/L (98-107) Carbon Dioxide Level 28 mmol/L (21-32) Anion Gap 8 (6-14) Blood Urea Nitrogen 14 mg/dL (8-26) Creatinine 0.9 mg/dL (0.7-1.3) Estimated GFR (Cockcroft-Gault) 83.4 BUN/Creatinine Ratio 16 (6-20) Glucose Level 243 mg/dL (70-99) H Lactic Acid Level 1.8 mmol/L (0.4-2.0) Calcium Level 8.3 mg/dL (8.5-10.1) L Magnesium Level 1.8 mg/dL (1.8-2.4) Total Bilirubin 0.4 mg/dL (0.2-1.0) Aspartate Amino Transferase (AST) 23 U/L (15-37) Alanine Aminotransferase (ALT) 45 U/L (16-63) Alkaline Phosphatase 88 U/L (46-116) Creatine Kinase 35 U/L (39-308) L Creatine Kinase MB (Mass) 0.6 ng/mL (0.0-3.6) Creatine Kinase MB Relative Index % (0-4) Troponin I Quantitative < 0.017 ng/mL (0.000-0.055) CT-Nmx-K-Type Natriuretic Peptide 132 pg/mL (0-124) H Total Protein 6.1 g/dL (6.4-8.2) L Albumin 3.1 g/dL (3.4-5.0) L Albumin/Globulin Ratio 1.0 (1.0-1.7) Influenza Type A Antigen Negative (NEGATIVE) Influenza Type B Antigen Negative (NEGATIVE) Urine Collection Type Void Urine Color Yellow Urine Clarity Clear Urine pH 5.5 Urine Specific [place] >=1.030 Urine Protein Negative mg/dL (NEG-TRACE) Urine Glucose (UA) >=1000 mg/dL (NEG) Urine Ketones (Stick) Trace mg/dL (NEG) Urine Blood Negative (NEG) Urine Nitrite Negative (NEG) Urine Bilirubin Negative (NEG) Urine Urobilinogen Dipstick 1.0 mg/dL (0.2 mg/dL) Urine Leukocyte Esterase Negative (NEG) Urine RBC 0 /HPF (0-2) Urine WBC Occ /HPF (0-4) Urine Squamous Epithelial Cells Occ /LPF Urine Bacteria 0 /HPF (0-FEW) Urine Mucus Slight /LPF Laboratory Tests 06/20/19 16:52 Laboratory Tests 06/20/19 16:52 EKG EKG 1605- SR rate 70, RBBB, no STEMI read by Dr. Ragsdale[] Radiology/Procedures Radiology/Procedures PROCEDURE: CHEST PA & LATERAL Chest, PA and Lateral: Technique: PA and lateral views of the chest were obtained. History: Cough, shortness of breath. Comparison: 05/16/2019. Findings: The heart and pulmonary vasculature appear within normal limits. Mild left lung base airspace opacities.. The pleural margins are clear. Right-sided cardiac pacer is identified. Impression: Mild left lung base airspace opacity likely atelectasis or infiltrates.. [] Course & Med Decision Making Course & Med Decision Making Pertinent Labs and Imaging studies reviewed. (See chart for details) [] Dragon Disclaimer Dragon Disclaimer This electronic medical record was generated, in whole or in part, using a voice recognition dictation system. Departure Departure Impression: Primary Impression: Pneumonia Disposition: HOME, SELF-CARE Condition: STABLE Referrals: COMFORT SORENSON MD (PCP) Patient Instructions: Pneumonia, Adult, [id number] Additional Instructions: Fill prescription(s) and use as directed. Recommend use of a Cool mist humidifier in room at bedtime. Alternate Tylenol or ibuprofen as needed for pain/fever. Increase clear fluids. Avoid airway triggers such as smoke, fragrance, dust, and pollen. Follow-up with your primary care doctor in 1-2 days, return to the ER if symptoms worsen. Scripts Benzonatate (TESSALON PERLE) 100 Mg Capsule 1 CAP PO TID PRN for COUGH for 7 Days, #21 CAP 0 Refills Prov: ANISHA MARIE [employer] 06/20/19 Doxycycline Hyclate (DOXYCYCLINE HYCLATE) 100 Mg Tablet 1 TAB PO BID for 7 Days, #14 TAB 0 Refills Prov: ANISHA MARIE [employer] OFFICER 06/20/19 Problem Qualifiers Primary Impression: Pneumonia Pneumonia type: due to unspecified organism Laterality: left Lung location: lower lobe of lung Qualified Codes: J18.9 - Pneumonia, unspecified organism ANISAH MARIE [employer] OFFICER Jun 20, 2019 18:38
[2019-06-20 19:05] VITALS: BP 161/85
--- NOTE | 2019-06-21 07:09 | EKG ---
[facility] [address] [place] [address] Test Date: 2019-06-20 Test Time: 16:05:15 Pat Name: SHARON HILL Department: Room: Gender: M Oncology Nurse: : 1950 Requested By: ANISHA MARIE Order Number: [id number] Reading MD: Measurements Intervals [place] Rate: 70 P: [place]: QRS: -54 QRSD: 148 T: -15 QT: 436 QTc: 474 Interpretive Statements IRREGULAR RHYTHM, NO P-WAVE FOUND ABNORMAL LEFT AXIS DEVIATION LEFT ANTERIOR FASCICULAR BLOCK RIGHT BUNDLE BRANCH BLOCK BIFASCICULAR BLOCK QRS(T) CONTOUR ABNORMALITY CONSIDER ANTEROSEPTAL MYOCARDIAL DAMAGE ABNORMAL ECG RI6.01 No previous ECG available for comparison
== END 2019-06-20 19:12 | disposition home or self-care (01) ==
LOC: ER 15:54
DX: J18.9 Pneumonia, unspecified organism (principal); Z95.0 Presence of cardiac pacemaker; Z88.8 Allergy status to other drugs, medicaments and biological substances
CPT/HCPCS: 36415; 71046; 80053; 81001; 82553; 83605; 83735; 83880; 84484; 85025; 85610; 85730; 87804; 93005; 99285-25

== ENCOUNTER → 2019-10-31 | Outpatient (CLI) | payer MEDICARE ==
[~2019-10-31] MED LIST changes: +BENZ100C PO; +DOXY100T PO; +REGADENOSON 0.4 MG/5 ML DISP.SYRIN. IV ONE
--- NOTE | 2019-10-31 12:06 | RAD ---
MR#: [id number] Date of Study: 10/31/2019 Ordering Physician: TAMIKO YOST, Referring Physician: STERLING CARRILLO Tech: RT Astrid (R) (N) APPROVED REPORT Test Type: Pharmacological Stress Nurse/Tech: DAT Finney Test Indications: carotid sinus hypersensitivity Cardiac History: HTN, PPM, , See Electronic Medical Record Medications: See Electronic Medical Record Medical History: See Electronic Medical Record Resting ECG: Atrial paced Resting Heart Rate: 70 bpm Resting Blood Pressure: 137/77mmHg Pretest Chest Pain: No chest pain Nurse/Tech Notes PPM spikes noted on EKG, lungs CTA, denied SOA/cough or chest pain. Consent: The procedure was explained to the patient in lay terms. Informed consent was witnessed. Shankar eout was entered into [employer]. History and Stress Test performed by LISANDRA Ramírez, CÉSAR (R) (N) Pharm. Details Pharmacologic stress testing was performed using 0.4mg per 5ml of regadenoson given intravenously ove r 7-10 seconds. Stress Symptoms Denied any symptoms during the exam. VSS. POST EXERCISE Reason for Termination: Infusion complete Max HR: 75 bpm Max Blood Pressure: 134/76mmHg Blood Pressure response to exercise: Normal blood pressure response during stress. Heart Rate response to exercise: Normal heart rate response during stress Chest Pain: No. Arrhythmia: No. ST Change: No. INTERPRETATION Stress EKG Conclusion: Baseline EKG showed atrial paced rhythm. Nondiagnostic changes at peak stress . No other arrhythmias. Imaging Protocol IMAGE PROTOCOL: Rest Tc-99m/stress Tc-99m 1 day Rest: Stress: Viability: Radiopharm.Tc99m [id number] Sestamibi Dose10.7mCi 33mCi Duration 15min. 10min. Img Date 10/31/2019 10/31/2019 Inj-Img Ockc35kav. 60min. Rest Admin Site:IV - Left HandAdministrator:RT Astrid (R)(N) Stress Admin Site: IV - Left HandAdministrator: LISANDRA Ramírez, ARRT (R)(N) STRESS DATA End Diast. Vol.123.0mlAv. Heart Rate69.0bpm End Syst. Vol.33.0mlCO Index BSA0.0L/min Myocardial Gixv984.0gEject. Igteeboi24.0% Stress Rates Pk. Fill Rate2.42EDV/secLVtime Pk. Fill 104.30msec Pk. Empty Rate3.39ESV/secLVtime Pk. Eldvy939.52msec 1/3 Pk. Fill1.73EDV/sec Stress Scores Regional WT0.00Summed WT1.00 Regional WM0.00Summed WM0.00 Study quality was good. Left Ventricular size was Normal at Rest and Stress. Lung uptake was . Left Ventricular ejection fraction is 73%. The rest and stress images show normal perfusion, normal contraction and thickening. LV Perf. Quant 17 Seg. SSS1.00 17 Seg. SRS6.00 17 Seg. SDS0.00 Stress Defect Extent (% LAD)0.00Rest Defect Extent (% LAD)0.00Rev. Defect Extent (% LAD)0.00 Stress Defect Extent (% LCX) 8.80Rest Defect Extent (% LCX)23.80Rev. Defect Extent (% LCX)0.00 Stress Defect Extent (% RCA)0.00Rest Defect Extent (% RCA)0.00Rev. Defect Extent (% RCA)0.00 Stress Defect Extent (% SELIN)2.00Rest Defect Extent (% SELIN)5.70Rev. Defect Extent (% SELIN)0.00 Conclusion 1. Regadenoson cardioisotope stress test did not show any evidence of ischemia or infarct. 2. Normal left ventricular systolic function with ejection fraction calculated at 73%. 3. Low risk for cardiac events. Signed by : Tamiko Yost, Electronically Approved : 10/31/2019 12:05:24
== END | disposition home or self-care (01) ==
LOC: NM 08:04
PROVIDERS: ATTEND Internal Medicine Cardiovascular Disease
DX: G90.01 Carotid sinus syncope (principal)
CPT/HCPCS: 78452; 93017; A9500; J2785

== ENCOUNTER → 2019-11-01 | Outpatient (CLI) | payer MEDICARE ==
[~2019-11-01] MED LIST changes: -REGADENOSON 0.4 MG/5 ML DISP.SYRIN. IV ONE
--- NOTE | 2019-11-01 09:40 | CARD ---
MR#: [id number] Date of Study: 11/01/2019 Ordering Physician: TAMIKO YOST, Referring Physician: TAMIKO YOST, Tech: Tatyana Cooleyloren APPROVED REPORT EXAM: Two-dimensional and M-mode echocardiogram with Doppler and color Doppler. Other Information Quality : AverageHR: 70bpm INDICATION Arrhythmia Surgery/Intervention Pacemaker: Date: 2018 RISK FACTORS Hypertension Hyperlipidemia 2D DIMENSIONS RVDd3.3 (2.9-3.5cm)Left Atrium(2D)3.0 (1.6-4.0cm) IVSd1.2 (0.7-1.1cm)Aortic Root(2D)3.5 (2.0-3.7cm) LVDd5.3 (3.9-5.9cm)LVOT Diameter2.2 (1.8-2.4cm) PWd1.2 (0.7-1.1cm)LVDs4.1 (2.5-4.0cm) FS (%) 24.0 %SV65.2 ml LVEF(%)47.4 (>50%) Aortic Valve AoV Peak Bull.127.4cm/sAoV VTI24.0cm AO Peak GR.6.5mmHgLVOT Peak Bull.118.1cm/s LVOT VTI 22.59cmAO Mean GR.4mmHg ROBERTO CARLOS (VMAX)2.08dn7KSI (VTI)3.64cm2 Mitral Valve MV E Olcyafnt08.4cm/sMV DECEL UWLQ570qk MV A Wuuwqpbp32.2cm/sMV E Mean Gr.2mmHg MV ORA03jbP/A Ratio0.8 MVA (PHT)3.27cm2 TDI E/Lateral E'7.6E/Medial E'10.2 Pulmonary Valve PV Peak Ngilkseo46.2cm/sPV Peak Grad.3mmHg Tricuspid Valve TR P. Xwoidiua015fy/sRAP AYKLSTKH3qmZa TR Peak Gr.46dsQyXSJY44zcAp Pulmonary Vein S1 Himgofdz51.3cm/sD2 Xsezhjmq76.5cm/s PVa kwahbiot051tfyu LEFT VENTRICLE The left ventricle is normal size. There is mild concentric left ventricular hypertrophy. The left ve ntricular systolic function is normal. The Ejection Fraction is 55-60%. There is normal LV segmental wall motion. Transmitral Doppler flow pattern is Grade I-abnormal relaxation pattern. RIGHT VENTRICLE The right ventricle is mildly dilated. There is normal right ventricular wall thickness. The right ve ntricular systolic function is normal. ATRIA The left atrium size is normal. The right atrium is mildly dilated. The interatrial septum is intact with no evidence for an atrial septal defect or patent foramen ovale as noted on 2-D or Doppler imagi ng. AORTIC VALVE The aortic valve is thickened but opens well. Doppler and Color Flow revealed no significant aortic r egurgitation. There is no significant aortic valvular stenosis. MITRAL VALVE The mitral valve is normal in structure and function. There is no evidence of mitral valve prolapse. There is no mitral valve stenosis. Doppler and Color-flow revealed trace mitral regurgitation. TRICUSPID VALVE The tricuspid valve is normal in structure and function. Doppler and Color Flow revealed trace tricus pid regurgitation with an estimated PAP of 36 mmHg. There is no tricuspid valve stenosis. PULMONIC VALVE The pulmonic valve is not well visualized. Doppler and Color Flow revealed trace pulmonic valvular re gurgitation. GREAT VESSELS The aortic root is normal in size. The ascending aorta is normal in size. The IVC is dilated. PERICARDIAL EFFUSION There is no evidence of significant pericardial effusion. Critical Notification Critical Value: No <Conclusion> The left ventricular systolic function is normal. The Ejection Fraction is 55-60%. There is normal LV segmental wall motion. Transmitral Doppler flow pattern is Grade I-abnormal relaxation pattern. Trace mitral regurgitation. Trace tricuspid regurgitation with an estimated PAP of 36 mmHg. There is no evidence of significant pericardial effusion. Signed by : Tamiko Yost, Electronically Approved : 11/01/2019 09:40:28
== END | disposition home or self-care (01) ==
LOC: ECHO 08:30
PROVIDERS: ATTEND Internal Medicine Cardiovascular Disease
DX: I51.7 Cardiomegaly (principal); G90.01 Carotid sinus syncope
CPT/HCPCS: 93306

== ENCOUNTER → 2020-01-10 | Outpatient (CLI) | payer MEDICARE ==
[~2020-01-10] MED LIST changes: -LISI1TAB19 PO; +LISI1TAB37 PO
--- NOTE | 2020-01-10 10:47 | RAD ---
EXAM: THYROID ULTRASOUND. HISTORY: Follow-up thyroid nodules. History of prior left thyroid nodule biopsy with benign results. COMPARISON: 01/06/2019, 12/03/2017. FINDINGS: Sonographic evaluation of the thyroid gland was performed and evaluated using ACR TI-RADS criteria. Right lobe: The right lobe measures 5.0 x 1.9 x 1.5 cm. The parenchyma is homogeneous without focal lesions. A hypoechoic solid nodule along the deep surface of the right interpolar region measures 1.3 x 0.7 x 0.7 cm, not clearly changed. A solid greater than cystic hypoechoic nodule more inferiorly measures 1.4 x 1.4 x 1.1 cm, also not clearly changed. Left lobe: The left lobe measures 4.9 x 2.3 x 1.7 cm. The parenchyma is homogeneous without focal lesions. A mostly cystic nodule superiorly measures 10 x 9 x 6 mm and appears benign. A solid, hypoechoic nodule at the lower pole contains some microcalcifications and measures 2.0 x 1.7 x 1.1 cm. There is no clear interval change given measurements on similar images. Isthmus: The isthmus measures 2 mm. A small likely cystic nodule within the right aspect of the isthmus measures 10 x 7 x 5 mm and appears benign. IMPRESSION/RECOMMENDATION: 1. Multiple bilateral thyroid nodules are not clearly changed and are likely benign. Correlate to confirm prior benign biopsy results of the largest nodule at the left lower pole containing microcalcifications. Electronically signed by: Sybil Poole MD (01/10/2020 10:44 AM) [id number]
== END | disposition home or self-care (01) ==
LOC: US 09:35
PROVIDERS: ATTEND Surgery
DX: E04.2 Nontoxic multinodular goiter (principal)
CPT/HCPCS: 76536

== ENCOUNTER 2020-02-20 14:02 | Emergency (ER) | payer MEDICARE ==
[~2020-02-20] VITALS: Ht 182.9 cm; Wt 93.0 kg
[2020-02-20] MEDS ORDERED: AMMONIA AROMATIC 15% INHALANT AMPUL. ONE (14:09)
[2020-02-20] MEDS ORDERED: AMMONIA AROMATIC 15% INHALANT AMPUL. INH ONE (14:15)
[2020-02-20 14:24] LABS: BASO % 1 % (0-3); EOS # 0.1 x10^3/uL (0.0-0.7); EOS % 2 % (0-3); HEMATOCRIT 34.9 % (39.0-53.0); HEMOGLOBIN 12.5 g/dL (13.0-17.5); LYMPH # 1.3 x10^3/uL (1.0-4.8); LYMPH % 36 % (24-48); MEAN CORPUSCULAR HEMOGLOBIN 33 pg (25-35); MEAN CORPUSCULAR HGB CONC 36 g/dL (31-37); MEAN CORPUSCULAR VOLUME 92 fL (79-100); MONO # 0.4 x10^3/uL (0.0-1.1); MONO % 10 % (0-9); NEUT # 1.9 x10^3/uL (1.8-7.7); NEUT % 51 % (31-73); PLATELET COUNT 163 x10^3/uL (140-400); RED BLOOD COUNT 3.78 x10^6/uL (4.30-5.70); RED CELL DISTRIBUTION WIDTH 12.9 % (11.5-14.5); WHITE BLOOD COUNT 3.8 x10^3/uL (4.0-11.0)
[2020-02-20 14:34] LABS: CALCIUM 8.5 mg/dL (8.5-10.1); GFR 73.9; POTASSIUM 4.4 mmol/L (3.5-5.1)
--- NOTE | 2020-02-20 15:22 | RAD ---
INDICATION: Reason: syncope / Spl. Instructions: / History: COMPARISON: May 16, 2019 TECHNIQUE: Axial CT images obtained through the head without intravenous contrast. One or more of the following individualized dose reduction techniques were utilized for this examination: 1. Automated exposure control; 2. Adjustment of the mA and/or kV according to patient size; 3. Use of iterative reconstruction technique. FINDINGS: No intracranial hemorrhage. No midline shift. Basal cisterns patents. Ventricles and sulci are globally prominent. No acute osseous abnormality. Mucosal thickening of the partially visualized right maxillary sinus. Scattered foci of low attenuation within the white matter. Encephalomalacia left side of the cerebellum could be from prior insult. IMPRESSION: 1. No acute intracranial hemorrhage. 2. Scattered regions of low attenuation within the white matter. Non-specific in nature but frequently secondary to chronic small vessel ischemic disease. 3. Prominence of ventricles and sulci which is frequently secondary to age related volume loss. Electronically signed by: Kenny Reinoso MD (02/20/2020 3:19 PM) [id number]
[2020-02-20 15:50] VITALS: BP 134/77
--- NOTE | 2020-02-20 16:13 | PHYS DOC ---
Past Medical History Past Medical History: Arrhythmia, Diabetes-Type II Additional Past Medical Histor: CARDIONEUROGENIC SYNCOPE, hernia, NARCOLEPSY, CPAP HS Past Surgical History: Appendectomy, Cholecystectomy, Gastric Bypass, Pacemaker Additional Past Surgical Histo: BACK SURGERY, COLON RESECTION Smoking Status: Never Smoker Alcohol Use: None Drug Use: None General Adult EDM: Chief Complaint: SYNCOPE HPI: HPI: Patient is a 69-year-old male with a past medical history of narcolepsy who presents to the emergency room complaining of unresponsiveness. states that he became unresponsive prior to arrival. He has had multiple episodes like this previously. He is on medication and his last episode like this was in September. states they have been told previously not him the emergency room for this because there is nothing to be done. Patient is feeling significantly better at this time. He has no complaints Review of Systems: Review of Systems: General: Denies fever, chills, sweats, fatigue Eyes: Denies drainage, blurred vision, eye redness HENT: Denies rhinorrhea, sore throat, earache Respiratory: Denies cough, shortness of breath, wheezing Cardiac: Denies edema, palpitations, chest pain GI: Denies abdominal pain, Nausea, vomiting MSK: Denies back pain, neck pain Skin: Denies rash, jaundice Neuro: Denies headache, dizziness Psychiatric: Denies SI/HI Heart Score: Risk Factors: Risk Factors: DM, Current or recent (<one month) smoker, HTN, HLP, family history of CAD, obesity. Risk Scores: Score 0 - 3: 2.5% MACE over next 6 weeks - Discharge Home Score 4 - 6: 20.3% MACE over next 6 weeks - Admit for Clinical Observation Score 7 - 10: 72.7% MACE over next 6 weeks - Early Invasive Strategies Current Medications: Current Medications Medications (Trade) Dose Ordered Sig/Donnell Start Time Stop Time Status Last Admin Dose Admin Ammonia (Aromatic Spirit) (Amoply) 1 each STK-MED ONCE 02/20/20 14:09 02/20/20 14:10 DC Allergies: Allergies: Allergies Coded Allergies Type Severity Reaction Last Updated Verified topiramate Allergy Severe stroke like symptoms 02/03/19 Yes Physical Exam: PE: General: Awake, alert, NAD. Well Nourished, well hydrated. Cooperative HEENT: Atraumatic, EOMI, PERRL, airway patent, moist oral mucosa Neck: Supple, trachea midline Respiratory: CTA bilaterally, normal effort, no wheezing/crackles CV: RRR, no murmur, cap refill <2 GI: Soft, nondistended, nontender, no masses MSK: No obvious deformities Skin: Warm, dry, intact Neuro: A&O x3, speech NL, sensory and motor grossly intact, no focal deficits Psych: Normal affect, normal mood, not suicidal or homicidal Current Patient Data: Labs: Laboratory Tests Test 02/20/20 14:10 White Blood Count 3.8 x10^3/uL (4.0-11.0) L Red Blood Count 3.78 x10^6/uL (4.30-5.70) L Hemoglobin 12.5 g/dL (13.0-17.5) L Hematocrit 34.9 % (39.0-53.0) L Mean Corpuscular Volume 92 fL (79-100) Mean Corpuscular Hemoglobin 33 pg (25-35) Mean Corpuscular Hemoglobin Concent 36 g/dL (31-37) Red Cell Distribution Width 12.9 % (11.5-14.5) Platelet Count 163 x10^3/uL (140-400) Neutrophils (%) (Auto) 51 % (31-73) Lymphocytes (%) (Auto) 36 % (24-48) Monocytes (%) (Auto) 10 % (0-9) H Eosinophils (%) (Auto) 2 % (0-3) Basophils (%) (Auto) 1 % (0-3) Neutrophils # (Auto) 1.9 x10^3/uL (1.8-7.7) Lymphocytes # (Auto) 1.3 x10^3/uL (1.0-4.8) Monocytes # (Auto) 0.4 x10^3/uL (0.0-1.1) Eosinophils # (Auto) 0.1 x10^3/uL (0.0-0.7) Basophils # (Auto) 0.0 x10^3/uL (0.0-0.2) Sodium Level 141 mmol/L (136-145) Potassium Level 4.4 mmol/L (3.5-5.1) Chloride Level 106 mmol/L (98-107) Carbon Dioxide Level 27 mmol/L (21-32) Anion Gap 8 (6-14) Blood Urea Nitrogen 15 mg/dL (8-26) Creatinine 1.0 mg/dL (0.7-1.3) Estimated GFR (Cockcroft-Gault) 73.9 Glucose Level 83 mg/dL (70-99) Calcium Level 8.5 mg/dL (8.5-10.1) Troponin I Quantitative < 0.017 ng/mL (0.000-0.055) Laboratory Tests 02/20/20 14:10 Laboratory Tests 02/20/20 14:10 Vital Signs: Vital Signs Date Time Temp Pulse Resp B/P (MAP) Pulse Ox O2 Delivery O2 Flow Rate FiO2 02/20/20 14:04 97.6 76 16 123/74 (90) 96 Room Air 97.6 EKG: EKG: [] Radiology/Procedures: Radiology/Procedures: [] Course & Med Decision Making: Course & Med Decision Making Pertinent Labs and Imaging studies reviewed. (See chart for details) Patient is a 69-year-old male who presents to the emergency room after an unresponsive episode. Patient has many previous episodes that are similar. He was easily awakened by an ammonia capsule. Work-up was ordered and is unremarkable. Patient will be discharged home and will follow up with his neurologist. Patient's test results and vitals while in the ED were fully reviewed and discussed with the patient. Patient is stable and at this time does not need admission to the hospital. We have discussed strict return precautions and the importance of following up with their Primary Care Physician. Patient stated understanding and was given an opportunity to ask any questions. Patient is in agreement with plan. Shawna Disclaimer: Shawna Disclaimer: This electronic medical record was generated, in whole or in part, using a voice recognition dictation system. Departure Departure Impression: Primary Impression: Narcolepsy and cataplexy Disposition: HOME, SELF-CARE Condition: STABLE Referrals: COMFORT SORENSON MD (PCP) Patient Instructions: Syncope Justicifation of Admission Dx: Justifications for Admission: Justification of Admission Dx: N/A NIMESH PATEL MD Feb 20, 2020 16:13
--- NOTE | 2020-02-20 19:58 | EKG ---
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
== END 2020-02-20 16:21 | disposition home or self-care (01) ==
LOC: ER 14:02
DX: G47.411 Narcolepsy with cataplexy (principal); R55 Syncope and collapse; E11.9 Type 2 diabetes mellitus without complications; Z90.89 Acquired absence of other organs; Z90.49 Acquired absence of other specified parts of digestive tract; Z98.890 Other specified postprocedural states; Z88.8 Allergy status to other drugs, medicaments and biological substances
CPT/HCPCS: 36415; 70450; 80048; 84484; 85025; 93005; 99285

== ENCOUNTER 2020-03-01 16:04 | Emergency (ER) | payer MEDICARE ==
[~2020-03-01] VITALS: Ht 182.9 cm; Wt 90.5 kg
--- NOTE | 2020-03-01 17:08 | RAD ---
RS Compliance Statement: One or more of the following individualized dose reduction techniques were utilized for this examination: 1. Automated exposure control 2. Adjustment of the mA and/or kV according to patient size 3. Use of iterative reconstruction technique CT head without contrast 03/01/2020 4:28 PM INDICATION: Near syncope, dizzy COMPARISON: CT head 02/12/2020 TECHNIQUE: Multiple axial CT images of the head were obtained from skull base through the vertex without intravenous contrast. FINDINGS: Head: Ventricles, sulci and basal cisterns are within normal limits. There is no hydrocephalus. Steen-white matter differentiation is normal. There is no acute intracranial hemorrhage. There is no mass, mass effect or midline shift. There is encephalomalacia involving the medial left cerebellum, stable from prior examination. Visualized portions of the orbits are normal. There is moderate mucosal thickening of the right maxillary sinus. High attenuation material could reflect inspissated mucus versus fungal colonization. Mastoid air cells are well aerated. Scalp and calvaria are normal. IMPRESSION: No acute intracranial hemorrhage. Encephalomalacia involving the medial left cerebellum. There is moderate opacification of the right axilla sinus with high attenuation material system of inspissated mucus versus fungal colonization. Electronically signed by: Agueda Carter MD (03/01/2020 5:05 PM) [facility]
--- NOTE | 2020-03-01 17:35 | PHYS DOC ---
Past Medical History Past Medical History: Arrhythmia, Diabetes-Type II Additional Past Medical Histor: CARDIONEUROGENIC SYNCOPE, hernia, NARCOLEPSY, CPAP HS Past Surgical History: Appendectomy, Cholecystectomy, Gastric Bypass, Pacemaker Additional Past Surgical Histo: BACK SURGERY, COLON RESECTION Smoking Status: Never Smoker Alcohol Use: None Drug Use: None General Adult EDM: Chief Complaint: SYNCOPE HPI: HPI: Patient is a 69 year old [f__sex] who presents with [] Review of Systems: Review of Systems: Constitutional: Denies fever or chills. [] Eyes: Denies change in visual acuity. [] HENT: Denies nasal congestion or sore throat. [] Respiratory: Denies cough or shortness of breath. [] Cardiovascular: Denies chest pain or edema. [] GI: Denies abdominal pain, nausea, vomiting, bloody stools or diarrhea. [] : Denies dysuria. [] Musculoskeletal: Denies back pain or joint pain. [] Integument: Denies rash. [] Neurologic: Denies headache, focal weakness or sensory changes. [] Endocrine: Denies polyuria or polydipsia. [] Lymphatic: Denies swollen glands. [] Psychiatric: Denies depression or anxiety. [] Heart Score: Risk Factors: Risk Factors: DM, Current or recent (<one month) smoker, HTN, HLP, family history of CAD, obesity. Risk Scores: Score 0 - 3: 2.5% MACE over next 6 weeks - Discharge Home Score 4 - 6: 20.3% MACE over next 6 weeks - Admit for Clinical Observation Score 7 - 10: 72.7% MACE over next 6 weeks - Early Invasive Strategies Allergies: Allergies: Allergies Coded Allergies Type Severity Reaction Last Updated Verified topiramate Allergy Severe stroke like symptoms 02/03/19 Yes Physical Exam: PE: Constitutional: Well developed, well nourished, no acute distress, non-toxic appearance. [] HENT: Normocephalic, atraumatic, bilateral external ears normal, oropharynx moist, no oral exudates, nose normal. [] Eyes: PERRLA, EOMI, conjunctiva normal, no discharge. [] Neck: Normal range of motion, no tenderness, supple, no stridor. [] Cardiovascular:Heart rate regular rhythm, no murmur [] Lungs & Thorax: Bilateral breath sounds clear to auscultation [] Abdomen: Bowel sounds normal, soft, no tenderness, no masses, no pulsatile masses. [] Skin: Warm, dry, no erythema, no rash. [] Back: No tenderness, no CVA tenderness. [] Extremities: No tenderness, no cyanosis, no clubbing, ROM intact, no edema. [] Neurologic: Alert and oriented X 3, normal motor function, normal sensory function, no focal deficits noted. [] Psychologic: Affect normal, judgement normal, mood normal. [] Current Patient Data: Labs: Laboratory Tests Test 03/01/20 16:13 Glucose (Fingerstick) 66 mg/dL (70-99) L EKG: EK-sinus rhythm with abnormal left axis deviation, left anterior fascicular block, right bundle branch block, no STEMI, read by Dr. Saez [] Radiology/Procedures: Radiology/Procedures: PROCEDURE: CT HEAD WO CONTRAST PQRS Compliance Statement: One or more of the following individualized dose reduction techniques were utilized for this examination: 1. Automated exposure control 2. Adjustment of the mA and/or kV according to patient size 3. Use of iterative reconstruction technique CT head without contrast 03/01/2020 4:28 PM INDICATION: Near syncope, dizzy COMPARISON: CT head 02/12/2020 TECHNIQUE: Multiple axial CT images of the head were obtained from skull base through the vertex without intravenous contrast. FINDINGS: Head: Ventricles, sulci and basal cisterns are within normal limits. There is no hydrocephalus. Steen-white matter differentiation is normal. There is no acute intracranial hemorrhage. There is no mass, mass effect or midline shift. There is encephalomalacia involving the medial left cerebellum, stable from prior examination. Visualized portions of the orbits are normal. There is moderate mucosal thickening of the right maxillary sinus. High attenuation material could reflect inspissated mucus versus fungal colonization. Mastoid air cells are well aerated. Scalp and calvaria are normal. IMPRESSION: No acute intracranial hemorrhage. Encephalomalacia involving the medial left cerebellum. There is moderate opacification of the right axilla sinus with high attenuation material system of inspissated mucus versus fungal colonization. Electronically signed by: Agueda Carter MD (03/01/2020 5:05 PM) [facility] [] Course & Med Decision Making: Course & Med Decision Making Pertinent Labs and Imaging studies reviewed. (See chart for details) [] Dragon Disclaimer: Dragon Disclaimer: This electronic medical record was generated, in whole or in part, using a voice recognition dictation system. Departure Departure Impression: Primary Impression: Hypoglycemia Additional Impression: Episode of syncope Qualified Codes: R55 - Syncope and collapse Disposition: 01 DC HOME SELF CARE/HOMELESS Condition: STABLE Referrals: COMFORT SORENSON MD (PCP) Patient Instructions: Hypoglycemia (Low Blood Sugar), Syncope, [id number] Additional Instructions: Follow-up with your primary care doctor in 1 to 2 days for reevaluation return to the emergency room if symptoms worsen. ANISHA MARIE REGISTERED NURSE Mar 01, 2020 17:35
--- NOTE | 2020-03-01 18:15 | RAD ---
CHEST AP ONLY History: Syncope Comparison: June 20, 2019 Findings: Single view of the chest is submitted. There is again dual lead right electronic cardiac device. Pericardial cardiac silhouette is stable, not significantly enlarged. There is atherosclerotic calcification near aortic arch. There is no new infiltrate, pleural fluid, or pneumothorax. Impression: 1. There is no radiographic evidence of acute cardiopulmonary disease. Electronically signed by: Marco Mann MD (03/01/2020 6:12 PM) [facility]
[2020-03-01 18:17] LABS: BASO % 1 % (0-3); EOS # 0.1 x10^3/uL (0.0-0.7); EOS % 2 % (0-3); HEMATOCRIT 38.5 % (39.0-53.0); HEMOGLOBIN 13.2 g/dL (13.0-17.5); LYMPH # 1.1 x10^3/uL (1.0-4.8); LYMPH % 20 % (24-48); MEAN CORPUSCULAR HEMOGLOBIN 32 pg (25-35); MEAN CORPUSCULAR HGB CONC 34 g/dL (31-37); MEAN CORPUSCULAR VOLUME 93 fL (79-100); MONO # 0.4 x10^3/uL (0.0-1.1); MONO % 7 % (0-9); NEUT # 3.9 x10^3/uL (1.8-7.7); NEUT % 71 % (31-73); PLATELET COUNT 168 x10^3/uL (140-400); RED BLOOD COUNT 4.15 x10^6/uL (4.30-5.70); RED CELL DISTRIBUTION WIDTH 13.3 % (11.5-14.5); WHITE BLOOD COUNT 5.5 x10^3/uL (4.0-11.0)
[2020-03-01 18:27] LABS: CALCIUM 9.1 mg/dL (8.5-10.1); CREATININE 0.9 mg/dL (0.7-1.3); GFR 83.4; POTASSIUM 4.3 mmol/L (3.5-5.1)
[2020-03-01 18:33] LABS: ALBUMIN 3.5 g/dL (3.4-5.0); ALBUMIN/GLOBULIN RATIO 1.3 (1.0-1.7); TOTAL BILIRUBIN 0.3 mg/dL (0.2-1.0); TOTAL PROTEIN 6.2 g/dL (6.4-8.2)
[2020-03-01 19:23] VITALS: BP 150/80
== END 2020-03-01 19:52 | disposition home or self-care (01) ==
LOC: ER 16:04
DX: E11.649 Type 2 diabetes mellitus with hypoglycemia without coma (principal); R55 Syncope and collapse; Z90.89 Acquired absence of other organs; Z90.49 Acquired absence of other specified parts of digestive tract; Z98.890 Other specified postprocedural states; Z95.0 Presence of cardiac pacemaker; Z88.8 Allergy status to other drugs, medicaments and biological substances
CPT/HCPCS: 36415; 70450; 71045; 80053; 82962; 83735; 84484; 85025; 99285

== ENCOUNTER 2020-10-14 08:18 | Observation (INO) | payer MEDICARE ==
[~2020-10-14] VITALS: Ht 182.9 cm; Wt 96.0 kg
[~2020-10-14 08:18] MED LIST changes: +GEMF600T20 PO; -GEMF600T8 PO; -LACT1CAP29 PO; +LACT1CAP37 PO; -LISI-334 PO; +LISI20TA18 PO; -OMEP40CA45 PO; +OMEP40CA7 PO
--- NOTE | 2020-10-14 09:14 | ED.ADGEN ---
Past Medical History Past Medical History: Arrhythmia, Diabetes-Type II Additional Past Medical Histor: CARDIONEUROGENIC SYNCOPE, hernia, NARCOLEPSY, CPAP HS Past Surgical History: Appendectomy, Cholecystectomy, Gastric Bypass, Pacemaker Additional Past Surgical Histo: BACK SURGERY, COLON RESECTION Smoking Status: Never Smoker Alcohol Use: None Drug Use: None General Adult EDM: Chief Complaint: OTHER COMPLAINTS HPI: HPI: Patient is a 70-year-old male who presents to the emergency room complaining of what he believes is a TIA. He states that this morning he had onset of the pain in his left shoulder and then realized he was having a difficult time talking. He describes it as feeling like his mouth was swollen, however he does state that he did not have any actual swelling. He states that he felt like he just could not talk. He also had some left leg heaviness. He denies any left arm numbness or weakness. He states that the symptoms have progressively gotten worse since the paramedics picked him up. He does feel like maybe his leg is still a little heavy but otherwise feels normal. He is now talking without difficulty. He has had these episodes multiple times in the past. Review of Systems: Review of Systems: Complete ROS is negative unless otherwise documented in HPI Current Medications: Current Medications Medications (Trade) Dose Ordered Sig/Donnell Start Time Stop Time Status Last Admin Dose Admin Acetaminophen (Tylenol) 1,000 mg 1X ONCE 10/14/20 10:30 10/14/20 10:31 DC 10/14/20 10:27 1,000 MG Allergies: Allergies: Allergies Coded Allergies Type Severity Reaction Last Updated Verified topiramate Allergy Severe stroke like symptoms 02/03/19 Yes Physical Exam: PE: General: Awake, alert, NAD. Well Nourished, well hydrated. Cooperative HEENT: Atraumatic, EOMI, PERRL, airway patent, moist oral mucosa Neck: Supple, trachea midline Respiratory: CTA bilaterally, normal effort, no wheezing/crackles CV: RRR, no murmur, cap refill <2 GI: Soft, nondistended, nontender, no masses MSK: No obvious deformities Skin: Warm, dry, intact Neuro: A&O x3, speech NL, 5/5 strength in BUE/BLE distally and proximally, CN 2- 12 intact, cerebellar testing normal Psych: Normal affect, normal mood, not suicidal or homicidal Current Patient Data: Labs: Laboratory Tests Test 10/14/20 09:00 White Blood Count 3.5 x10^3/uL (4.0-11.0) L Red Blood Count 4.34 x10^6/uL (4.30-5.70) Hemoglobin 13.4 g/dL (13.0-17.5) Hematocrit 39.5 % (39.0-53.0) Mean Corpuscular Volume 91 fL (79-100) Mean Corpuscular Hemoglobin 31 pg (25-35) Mean Corpuscular Hemoglobin Concent 34 g/dL (31-37) Red Cell Distribution Width 12.9 % (11.5-14.5) Platelet Count 141 x10^3/uL (140-400) Neutrophils (%) (Auto) 57 % (31-73) Lymphocytes (%) (Auto) 30 % (24-48) Monocytes (%) (Auto) 10 % (0-9) H Eosinophils (%) (Auto) 3 % (0-3) Basophils (%) (Auto) 1 % (0-3) Neutrophils # (Auto) 2.0 x10^3/uL (1.8-7.7) Lymphocytes # (Auto) 1.0 x10^3/uL (1.0-4.8) Monocytes # (Auto) 0.3 x10^3/uL (0.0-1.1) Eosinophils # (Auto) 0.1 x10^3/uL (0.0-0.7) Basophils # (Auto) 0.0 x10^3/uL (0.0-0.2) Sodium Level 143 mmol/L (136-145) Potassium Level 4.3 mmol/L (3.5-5.1) Chloride Level 107 mmol/L (98-107) Carbon Dioxide Level 30 mmol/L (21-32) Anion Gap 6 (6-14) Blood Urea Nitrogen 15 mg/dL (8-26) Creatinine 0.9 mg/dL (0.7-1.3) Estimated GFR (Cockcroft-Gault) 83.2 BUN/Creatinine Ratio 17 (6-20) Glucose Level 217 mg/dL (70-99) H Calcium Level 8.5 mg/dL (8.5-10.1) Total Bilirubin 0.5 mg/dL (0.2-1.0) Aspartate Amino Transferase (AST) 15 U/L (15-37) Alanine Aminotransferase (ALT) 22 U/L (16-63) Alkaline Phosphatase 64 U/L (46-116) Troponin I Quantitative < 0.017 ng/mL (0.000-0.055) Total Protein 5.9 g/dL (6.4-8.2) L Albumin 3.3 g/dL (3.4-5.0) L Albumin/Globulin Ratio 1.3 (1.0-1.7) Laboratory Tests 10/14/20 09:00 Laboratory Tests 10/14/20 09:00 Vital Signs: Vital Signs Date Time Temp Pulse Resp B/P (MAP) Pulse Ox O2 Delivery O2 Flow Rate FiO2 10/14/20 09:56 69 148/84 (105) 98 Room Air 10/14/20 08:20 97.2 16 97.2 EKG: EKG: [] Heart Score: C/O Chest Pain: N/A Risk Factors: Risk Factors: DM, Current or recent (<one month) smoker, HTN, HLP, family history of CAD, obesity. Risk Scores: Score 0 - 3: 2.5% MACE over next 6 weeks - Discharge Home Score 4 - 6: 20.3% MACE over next 6 weeks - Admit for Clinical Observation Score 7 - 10: 72.7% MACE over next 6 weeks - Early Invasive Strategies Radiology/Procedures: Radiology/Procedures: [] Course & Med Decision Making: Course & Med Decision Making Pertinent Labs and Imaging studies reviewed. (See chart for details) Patient is 70-year-old male presents to the emergency room after having TIA symptoms. Patient had difficulty with speech and some left leg heaviness. His neuro exam at this time is normal though he is slower being able to raise his left leg he is able to keep it up without difficulty and has no drift. Symptoms are concerning for TIA. TIA work-up was ordered including CT head, CBC, BMP, troponin, EKG. work-up is unremarkable. Patient did have an episode here where he had similar neurologic symptoms which quickly resolved within a couple of minutes. Patient is not a TPA candidate at this time. He will be admitted to the hospital for observation. Dragon Disclaimer: Dragon Disclaimer: This electronic medical record was generated, in whole or in part, using a voice recognition dictation system. Departure Departure Impression: Primary Impression: TIA (transient ischemic attack) Referrals: COMFORT SORENSON MD (PCP) NIMESH PATEL MD October 14, 2020 09:14
[2020-10-14 09:15] LABS: BASO % 1 % (0-3); EOS # 0.1 x10^3/uL (0.0-0.7); EOS % 3 % (0-3); HEMATOCRIT 39.5 % (39.0-53.0); HEMOGLOBIN 13.4 g/dL (13.0-17.5); LYMPH % 30 % (24-48); MEAN CORPUSCULAR HEMOGLOBIN 31 pg (25-35); MEAN CORPUSCULAR HGB CONC 34 g/dL (31-37); MEAN CORPUSCULAR VOLUME 91 fL (79-100); MONO # 0.3 x10^3/uL (0.0-1.1); MONO % 10 % (0-9); NEUT % 57 % (31-73); PLATELET COUNT 141 x10^3/uL (140-400); RED BLOOD COUNT 4.34 x10^6/uL (4.30-5.70); RED CELL DISTRIBUTION WIDTH 12.9 % (11.5-14.5); WHITE BLOOD COUNT 3.5 x10^3/uL (4.0-11.0)
[2020-10-14 09:27] LABS: CALCIUM 8.5 mg/dL (8.5-10.1); CREATININE 0.9 mg/dL (0.7-1.3); GFR 83.2; POTASSIUM 4.3 mmol/L (3.5-5.1)
[2020-10-14 09:33] LABS: ALBUMIN 3.3 g/dL (3.4-5.0); ALBUMIN/GLOBULIN RATIO 1.3 (1.0-1.7); TOTAL BILIRUBIN 0.5 mg/dL (0.2-1.0); TOTAL PROTEIN 5.9 g/dL (6.4-8.2)
--- NOTE | 2020-10-14 09:33 | RAD ---
PQRS Compliance Statement: One or more of the following individualized dose reduction techniques were utilized for this examinat ion: 1. Automated exposure control 2. Adjustment of the mA and/or kV according to patient size 3. Use of iterative reconstruction technique CT HEAD WITHOUT CONTRAST History: Reason: TIA / Comparison: CT head without contrast March 01, 2020. Technique: Axial images are obtained of the head from the skull base through the vertex without IV co ntrast. Findings: No mass-effect, midline shift, extra-axial fluid collection, hemorrhage, or obvious acute infarction is identified. Basilar cisterns are patent. The ventricles and sulci are normal for patient age. There is unchanged encephalomalacia of the media l left cerebellum. Bone windows demonstrate no acute calvarial abnormality. The maxillary sinuses are incompletely imaged. No air-fluid level is seen. Mastoid air cells are well aerated. IMPRESSION: No acute intracranial abnormality. Electronically signed by: Jamey Ahuja MD (10/14/2020 9:31 AM) [id number]
--- NOTE | 2020-10-14 10:23 | EKG ---
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
[2020-10-14] MEDS ORDERED: ACETAMINOPHEN 500 MG TABLET PO ONE (10:30)
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
[2020-10-14] MEDS ORDERED: ACETAMINOPHEN 325 MG TABLET. PO PRN (12:15)
[2020-10-14] MEDS ORDERED: SENNOSIDES 8.6 MG TABLET PO PRN (12:15)
[2020-10-14] MEDS ORDERED: DOCUSATE SODIUM 100 MG CAPSULE. PO PRN (12:15)
[2020-10-14] MEDS: IV NORMAL SALINE 1000ML BAG 1,000 ML IV SCH ×2 (12:15→23:35)
[2020-10-14] MEDS ORDERED: DEXTROSE 50% 25 GM / 50ML DISP.SYRIN. IV PRN (12:15)
[2020-10-14] MEDS ORDERED: ONDANSETRON PF 4 MG/2 ML VIAL. IVP PRN (12:15)
[2020-10-14 12:30] VITALS: BP 169/100
[2020-10-14] MEDS: GABAPENTIN 300 MG CAPSULE. PO SCH (14:40)
[2020-10-14] MEDS: LISINOPRIL 20 MG TABLET PO SCH (14:42)
[2020-10-14] MEDS: ASPIRIN ENTERIC COATED 81 MG TABLET.DR. PO SCH (14:43)
[2020-10-14 15:00] VITALS: BP 139/79
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
[2020-10-14] MEDS ORDERED: ENOXAPARIN 40 MG/0.4 ML SYRINGE. SQ SCH (16:00)
[2020-10-14] MEDS: INSULIN LISPRO 300 UNITS/3 ML VIAL. SQ SCH (18:11)
--- NOTE | 2020-10-14 18:20 | NUR ---
UPON ARRIVAL TO UNIT NI[facility] SCORE 0. PT AND FAMILY ORIENTED TO UNIT. PT ARRIVED VIA WHEELCHAIR. MEDICATION LIST REVIEWED. MEDICATIONS RESTARTED PER DR MESSINA. PT SEEN BY SHYANNE, SANGEETA, OT. ORANGE SHEET FILLED FOR MY SHIFT. STROKE EDUCATION GIVEN. MED SHEET IN FOLDER PT STATES HE KNOWS HIS MEDS AND SIDE EFFECTS.
[2020-10-14 19:35] VITALS: BP 139/80
--- NOTE | 2020-10-14 20:52 | EKG ---
[facility] [address] [place] [address] Test Date: 2020-10-14 Test Time: 10:00:38 Pat Name: SHARON HILL Department: Room: 252 1 Gender: M [place]: : 1950 Requested By: NIMESH PATEL Order Number: [id number] Reading MD: Measurements Intervals [place] Rate: 70 P: [place]: QRS: -52 QRSD: 148 T: 6 QT: 462 QTc: 502 Interpretive Statements IRREGULAR RHYTHM, NO P-WAVE FOUND ABNORMAL LEFT AXIS DEVIATION LEFT ANTERIOR FASCICULAR BLOCK RIGHT BUNDLE BRANCH BLOCK BIFASCICULAR BLOCK QRS(T) CONTOUR ABNORMALITY CONSIDER ANTEROSEPTAL MYOCARDIAL DAMAGE ABNORMAL ECG RI6.02 Compared to ECG 10/14/2020 08:20:24 Left-axis deviation now present Left anterior fascicular block now present Bifascicular block now present Sinus rhythm no longer present Right superior axis no longer present
[2020-10-14] MEDS ORDERED: SIMVASTATIN 20 MG TABLET PO SCH (21:00)
[2020-10-14] MEDS ORDERED: GABAPENTIN 300 MG CAPSULE. PO SCH (21:00)
[2020-10-14] MEDS ORDERED: CALCIUM CARBONATE 500 MG TAB.CHEW PO PRN (21:30)
[2020-10-14 23:30] VITALS: BP 146/85
[2020-10-15 03:45] VITALS: BP 129/74
[2020-10-15 06:50] LABS: BASO % 0 % (0-3); EOS # 0.1 x10^3/uL (0.0-0.7); EOS % 3 % (0-3); HEMATOCRIT 40.3 % (39.0-53.0); HEMOGLOBIN 13.6 g/dL (13.0-17.5); LYMPH # 1.2 x10^3/uL (1.0-4.8); LYMPH % 31 % (24-48); MEAN CORPUSCULAR HEMOGLOBIN 31 pg (25-35); MEAN CORPUSCULAR HGB CONC 34 g/dL (31-37); MEAN CORPUSCULAR VOLUME 91 fL (79-100); MONO # 0.3 x10^3/uL (0.0-1.1); MONO % 9 % (0-9); NEUT # 2.1 x10^3/uL (1.8-7.7); NEUT % 57 % (31-73); PLATELET COUNT 148 x10^3/uL (140-400); RED BLOOD COUNT 4.41 x10^6/uL (4.30-5.70); RED CELL DISTRIBUTION WIDTH 12.9 % (11.5-14.5); WHITE BLOOD COUNT 3.7 x10^3/uL (4.0-11.0)
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
[2020-10-15 07:00] VITALS: BP 160/88
[2020-10-15 07:11] LABS: CALCIUM 8.2 mg/dL (8.5-10.1); GFR 73.7; MAGNESIUM 1.7 mg/dL (1.8-2.4); PHOSPHORUS 2.7 mg/dL (2.6-4.7); POTASSIUM 4.4 mmol/L (3.5-5.1)
[2020-10-15 09:11] LABS: CHOLESTEROL/HDL RATIO 3.8
[2020-10-15] MEDS ORDERED: ARMO150T4 PO (09:11)
[2020-10-15] MEDS: ASPIRIN ENTERIC COATED 81 MG TABLET.DR. PO SCH (09:12)
[2020-10-15] MEDS: GABAPENTIN 300 MG CAPSULE. PO SCH (09:12)
[2020-10-15] MEDS: LISINOPRIL 20 MG TABLET PO SCH (09:12)
[2020-10-15] MEDS: INSULIN LISPRO 300 UNITS/3 ML VIAL. SQ SCH ×2 (09:17→12:45)
--- NOTE | 2020-10-15 10:25 | PDOC ---
PROGRESS NOTES Date of Service DATE: 10/15/20 TIME: 10:23 Assessment Problems Medical Problems: (1) TIA (transient ischemic attack) Status: Acute Recurrent syncopal episodes, TIA symptoms, multiple neurologic workups negative both here and [facility], fully documented in my original consult note. Doubt narcolepsy. Functional disorder. Diabetes type 2 with neuropathy, but [facility] found no evidence of autonomic neuropath y Hypertension Hyperlipidemia Thyroid nodules. Degenerative spine joint diseases. Pacemaker placement in 07/13. Plan Okay for discharge today I am not going to repeat any previously done studies. I was thinking about checking his carotids again, but I see no need to do so. Continue aspirin and statin Armodafinil was not started here in the hospital but he can take this at home. Hold off on it for now, I will not write a prescription for this medication as I do not think he has narcolepsy. Followup with [facility] Objective Vital Signs Date Time Temp Pulse Resp B/P (MAP) Pulse Ox O2 Delivery O2 Flow Rate FiO2 10/15/20 09:12 70 160/88 10/15/20 07:00 97.8 18 97 Room Air 97.8 Intake and Output 10/15/20 07:00 Intake Total 1500 ml Output Total 600 ml Balance 900 ml Intake Oral 500 ml IV Total 1000 ml Output Urine Total 600 ml # Bowel Movements 1 PHYSICAL EXAM Alert. Oriented to time, place and person. PERRL. EOMI. CN: no focal findings. Muscle tone: normal. Muscle strength: 5/5 DTR: 1+ Plantar reflex: Flexor Gait: Normal Sensory exam: Stocking loss. No cerebellar signs elicited. Review of Relevant I have reviewed the following items argenis (where applicable) has been applied. Labs Laboratory Tests Test 10/14/20 09:00 10/14/20 12:35 10/14/20 17:54 10/14/20 21:15 White Blood Count 3.5 x10^3/uL (4.0-11.0) Red Blood Count 4.34 x10^6/uL (4.30-5.70) Hemoglobin 13.4 g/dL (13.0-17.5) Hematocrit 39.5 % (39.0-53.0) Mean Corpuscular Volume 91 fL (79-100) Mean Corpuscular Hemoglobin 31 pg (25-35) Mean Corpuscular Hemoglobin Concent 34 g/dL (31-37) Red Cell Distribution Width 12.9 % (11.5-14.5) Platelet Count 141 x10^3/uL (140-400) Neutrophils (%) (Auto) 57 % (31-73) Lymphocytes (%) (Auto) 30 % (24-48) Monocytes (%) (Auto) 10 % (0-9) Eosinophils (%) (Auto) 3 % (0-3) Basophils (%) (Auto) 1 % (0-3) Neutrophils # (Auto) 2.0 x10^3/uL (1.8-7.7) Lymphocytes # (Auto) 1.0 x10^3/uL (1.0-4.8) Monocytes # (Auto) 0.3 x10^3/uL (0.0-1.1) Eosinophils # (Auto) 0.1 x10^3/uL (0.0-0.7) Basophils # (Auto) 0.0 x10^3/uL (0.0-0.2) Sodium Level 143 mmol/L (136-145) Potassium Level 4.3 mmol/L (3.5-5.1) Chloride Level 107 mmol/L (98-107) Carbon Dioxide Level 30 mmol/L (21-32) Anion Gap 6 (6-14) Blood Urea Nitrogen 15 mg/dL (8-26) Creatinine 0.9 mg/dL (0.7-1.3) Estimated GFR (Cockcroft-Gault) 83.2 BUN/Creatinine Ratio 17 (6-20) Glucose Level 217 mg/dL (70-99) Calcium Level 8.5 mg/dL (8.5-10.1) Total Bilirubin 0.5 mg/dL (0.2-1.0) Aspartate Amino Transf (AST/SGOT) 15 U/L (15-37) Alanine Aminotransferase (ALT/SGPT) 22 U/L (16-63) Alkaline Phosphatase 64 U/L (46-116) Troponin I Quantitative < 0.017 ng/mL (0.000-0.055) Total Protein 5.9 g/dL (6.4-8.2) Albumin 3.3 g/dL (3.4-5.0) Albumin/Globulin Ratio 1.3 (1.0-1.7) Vitamin B12 Level 928 pg/mL (247-911) Thyroid Stimulating Hormone (TSH) 1.007 uIU/mL (0.358-3.74) Glucose (Fingerstick) 184 mg/dL (70-99) 194 mg/dL (70-99) 198 mg/dL (70-99) Test 10/15/20 06:10 10/15/20 07:57 White Blood Count 3.7 x10^3/uL (4.0-11.0) Red Blood Count 4.41 x10^6/uL (4.30-5.70) Hemoglobin 13.6 g/dL (13.0-17.5) Hematocrit 40.3 % (39.0-53.0) Mean Corpuscular Volume 91 fL (79-100) Mean Corpuscular Hemoglobin 31 pg (25-35) Mean Corpuscular Hemoglobin Concent 34 g/dL (31-37) Red Cell Distribution Width 12.9 % (11.5-14.5) Platelet Count 148 x10^3/uL (140-400) Neutrophils (%) (Auto) 57 % (31-73) Lymphocytes (%) (Auto) 31 % (24-48) Monocytes (%) (Auto) 9 % (0-9) Eosinophils (%) (Auto) 3 % (0-3) Basophils (%) (Auto) 0 % (0-3) Neutrophils # (Auto) 2.1 x10^3/uL (1.8-7.7) Lymphocytes # (Auto) 1.2 x10^3/uL (1.0-4.8) Monocytes # (Auto) 0.3 x10^3/uL (0.0-1.1) Eosinophils # (Auto) 0.1 x10^3/uL (0.0-0.7) Basophils # (Auto) 0.0 x10^3/uL (0.0-0.2) Sodium Level 143 mmol/L (136-145) Potassium Level 4.4 mmol/L (3.5-5.1) Chloride Level 108 mmol/L (98-107) Carbon Dioxide Level 31 mmol/L (21-32) Anion Gap 4 (6-14) Blood Urea Nitrogen 11 mg/dL (8-26) Creatinine 1.0 mg/dL (0.7-1.3) Estimated GFR (Cockcroft-Gault) 73.7 Glucose Level 175 mg/dL (70-99) Calcium Level 8.2 mg/dL (8.5-10.1) Phosphorus Level 2.7 mg/dL (2.6-4.7) Magnesium Level 1.7 mg/dL (1.8-2.4) Triglycerides Level 144 mg/dL (0-150) Cholesterol Level 139 mg/dL (0-200) LDL Cholesterol, Calculated 73 mg/dL (0-100) VLDL Cholesterol, Calculated 29 mg/dL (0-40) Non-HDL Cholesterol Calculated 102 mg/dL (0-129) HDL Cholesterol 37 mg/dL (40-60) Cholesterol/HDL Ratio 3.8 Glucose (Fingerstick) 213 mg/dL (70-99) Laboratory Tests Test 10/14/20 12:35 10/14/20 17:54 10/14/20 21:15 10/15/20 06:10 Glucose (Fingerstick) 184 mg/dL (70-99) 194 mg/dL (70-99) 198 mg/dL (70-99) White Blood Count 3.7 x10^3/uL (4.0-11.0) Red Blood Count 4.41 x10^6/uL (4.30-5.70) Hemoglobin 13.6 g/dL (13.0-17.5) Hematocrit 40.3 % (39.0-53.0) Mean Corpuscular Volume 91 fL (79-100) Mean Corpuscular Hemoglobin 31 pg (25-35) Mean Corpuscular Hemoglobin Concent 34 g/dL (31-37) Red Cell Distribution Width 12.9 % (11.5-14.5) Platelet Count 148 x10^3/uL (140-400) Neutrophils (%) (Auto) 57 % (31-73) Lymphocytes (%) (Auto) 31 % (24-48) Monocytes (%) (Auto) 9 % (0-9) Eosinophils (%) (Auto) 3 % (0-3) Basophils (%) (Auto) 0 % (0-3) Neutrophils # (Auto) 2.1 x10^3/uL (1.8-7.7) Lymphocytes # (Auto) 1.2 x10^3/uL (1.0-4.8) Monocytes # (Auto) 0.3 x10^3/uL (0.0-1.1) Eosinophils # (Auto) 0.1 x10^3/uL (0.0-0.7) Basophils # (Auto) 0.0 x10^3/uL (0.0-0.2) Sodium Level 143 mmol/L (136-145) Potassium Level 4.4 mmol/L (3.5-5.1) Chloride Level 108 mmol/L (98-107) Carbon Dioxide Level 31 mmol/L (21-32) Anion Gap 4 (6-14) Blood Urea Nitrogen 11 mg/dL (8-26) Creatinine 1.0 mg/dL (0.7-1.3) Estimated GFR (Cockcroft-Gault) 73.7 Glucose Level 175 mg/dL (70-99) Calcium Level 8.2 mg/dL (8.5-10.1) Phosphorus Level 2.7 mg/dL (2.6-4.7) Magnesium Level 1.7 mg/dL (1.8-2.4) Triglycerides Level 144 mg/dL (0-150) Cholesterol Level 139 mg/dL (0-200) LDL Cholesterol, Calculated 73 mg/dL (0-100) VLDL Cholesterol, Calculated 29 mg/dL (0-40) Non-HDL Cholesterol Calculated 102 mg/dL (0-129) HDL Cholesterol 37 mg/dL (40-60) Cholesterol/HDL Ratio 3.8 Test 10/15/20 07:57 Glucose (Fingerstick) 213 mg/dL (70-99) Medications Current Medications Acetaminophen (Tylenol) 1,000 mg 1X ONCE PO Last administered on 10/14/20at 10:27; Start 10/14/20 at 10:30; Stop 10/14/20 at 10:31; Status DC Aspirin (Ecotrin) 81 mg DAILY PO Last administered on 10/15/20at 09:12; Start 10/14/20 at 13:00 Gabapentin (Neurontin) 600 mg HS PO Last administered on 10/14/20at 21:29; Start 10/14/20 at 21:00 Gabapentin (Neurontin) 900 mg DAILY PO Last administered on 10/15/20at 09:12; Start 10/14/20 at 13:00 Lisinopril (Prinivil) 20 mg DAILY PO Last administered on 10/15/20at 09:12; Start 10/14/20 at 13:00 Simvastatin (Zocor) 20 mg HS PO Last administered on 10/14/20at 21:29; Start 10/14/20 at 21:00 Sennosides (Senna) 17.2 mg PRN BID PRN PO CONSTIPATION; Start 10/14/20 at 12:15 Docusate Sodium (Colace) 100 mg PRN DAILY PRN PO HARD STOOLS; Start 10/14/20 at 12:15 Ondansetron HCl (Zofran) 4 mg PRN Q6HRS PRN IVP NAUSEA/VOMITING; Start 10/14/20 at 12:15 Insulin Human Lispro (HumaLOG) 0-7 UNITS TIDWMEALS SQ Last administered on 10/15/20at 09:17; Start 10/14/20 at 17:00 Dextrose (Dextrose 50%-Water Syringe) 12.5 gm PRN Q15MIN PRN IV SEE COMMENTS; Start 10/14/20 at 12:15 Sodium Chloride 1,000 ml @ 100 mls/hr Q10H IV Last administered on 10/14/20at 23:35; Start 10/14/20 at 12:15 Acetaminophen (Tylenol) 650 mg PRN Q4HRS PRN PO TEMP OVER 100.4F OR MILD PAIN; Start 10/14/20 at 12:15 Enoxaparin Sodium (Lovenox 40mg Syringe) 40 mg Q24H SQ Last administered on 10/14/20at 14:43; Start 10/14/20 at 16:00 Calcium Carbonate/ Glycine (Tums) 500 mg PRN AFTMEALHC PRN PO INDIGESTION Last administered on 10/14/20at 21:29; Start 10/14/20 at 21:30 Active Scripts Active Tessalon Perle (Benzonatate) 100 Mg Capsule 1 Cap PO TID PRN 7 Days Doxycycline Hyclate 100 Mg Tablet 1 Tab PO BID 7 Days Tylenol (Acetaminophen) 325 Mg Tablet 650 Mg PO PRN Q4HRS PRN 30 Days Reported Nuvigil (Armodafinil) 150 Mg Tablet 150 Mg PO DAILY Aspir-Low (Aspirin) 81 Mg Tablet.dr 1 Tab PO DAILY Multi Vitamin Daily (Multivitamin) 1 Each Tablet 1 Tab PO DAILY 30 Days Acetaminophen 500 Mg Tablet 1 Tab PO PRN Q6HRS PRN 15 Days Lisinopril 20 Mg Tablet 1 Tab PO DAILY Gabapentin (Gabapentin) 300 Mg Capsule 600 Mg PO HS Gabapentin (Gabapentin) 300 Mg Capsule 900 Mg PO DAILY Omeprazole 20 Mg Capsule.dr 20 Mg PO DAILY Zocor (Simvastatin) 20 Mg Tablet 20 Mg PO HS Atenolol 50 Mg Tablet 50 Mg PO BID Vitals/I & O Vital Sign - Last 24 Hours 10/14/20 10/14/20 10/14/20 10/14/20 10:26 10:56 12:30 14:42 Temp 97.6 97.6 Pulse 70 70 70 70 Resp 20 B/P (MAP) 161/94 (116) 165/98 (120) 169/100 (123) 138/75 Pulse Ox 96 98 97 O2 Delivery Room Air Room Air Room Air 10/14/20 10/14/20 10/14/20 10/14/20 15:00 19:35 20:00 23:30 Temp 97.9 97.9 97.1 97.9 97.9 97.1 Pulse 70 69 70 Resp 18 18 20 B/P (MAP) 139/79 (99) 139/80 (99) 146/85 (105) Pulse Ox 96 97 98 O2 Delivery Room Air Room Air Room Air BiPAP/CPAP 10/15/20 10/15/20 10/15/20 10/15/20 00:42 03:45 07:00 09:12 Temp 97.7 97.8 97.7 97.8 Pulse 70 70 70 Resp 18 18 B/P (MAP) 129/74 (92) 160/88 (112) 160/88 Pulse Ox 94 97 O2 Delivery BiPAP/CPAP Room Air Room Air Intake and Output 10/14/20 10/14/20 10/15/20 15:00 23:00 07:00 Intake Total 1500 ml Output Total 600 ml Balance 900 ml Justicifation of Admission Dx: Justifications for Admission: Justification of Admission Dx: N/A RUDDY SALINAS MD October 15, 2020 10:25
--- NOTE | 2020-10-15 10:42 | NUR ---
SS following for discharge planning. SS reviewed pt chart and discussed with pt RN. Pt is from home with spouse and is currently on room air. PT recommended home independent. SS will continue to follow for discharge planning.
[2020-10-15 11:00] VITALS: BP 150/95
[2020-10-15] MEDS ORDERED: MAGN240P PO (13:45)
[2020-10-15] MEDS: IV NORMAL SALINE 1000ML BAG 1,000 ML IV SCH (13:47)
[2020-10-15] MEDS ORDERED: MAGNESIUM SULFATE 1GM 100 ML IV ONE (14:00)
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
--- NOTE | 2020-10-15 15:55 | NUR ---
Discharge Note: [place] [facility] Discharge instructions and discharge home medications reviewed with Patient and a copy given. All questions have been answered and understanding verbalized. The following instructions and handouts were given: DISCHARGE INSTRUCTIONS, FOLLOW INSTRUCTIONS,WRITTEN PRESCRIPTION, Discontinued lines and drains: Peripheral IV intact. Patient discharged to Home or Self Care with Family Member via [facility]
== END 2020-10-15 13:45 | disposition home or self-care (01) ==
LOC: ER 08:18 → 2 SOUTH 11:05
PROVIDERS: ADMIT Internal Medicine; ATTEND Internal Medicine
DX: G45.9 Transient cerebral ischemic attack, unspecified (principal); R29.700 NIHSS score 0; E11.9 Type 2 diabetes mellitus without complications; I10 Essential (primary) hypertension; E78.5 Hyperlipidemia, unspecified; G47.33 Obstructive sleep apnea (adult) (pediatric); K21.9 Gastro-esophageal reflux disease without esophagitis; E83.42 Hypomagnesemia; E11.40 Type 2 diabetes mellitus with diabetic neuropathy, unspecified; G47.411 Narcolepsy with cataplexy; D86.9 Sarcoidosis, unspecified; Z79.82 Long term (current) use of aspirin; Z95.0 Presence of cardiac pacemaker
CPT/HCPCS: 36415; 70450; 80048; 80053; 80061; 82607; 82962; 83735; 84100; 84443; 84484; 85025; 92610; 93005; 94660; 95811; 96361; 96365; 96372; 97161; 99285; G0378; J1650; J3475; J7030; G0379

== ENCOUNTER → 2020-11-13 | Outpatient (CLI) | payer MEDICARE ==
[2020-03-01 19:23] VITALS: BP_SYST 150
[2020-10-15 11:00] VITALS: BP_DIAS 95
[~2020-11-13] MED LIST changes: +ARMO150T4 PO; +MAGN240P PO
--- NOTE | 2020-11-13 14:49 | CARD ---
MR#: [id number] Date of Study: 11/13/2020 Ordering Physician: TAMIKO YOST, Referring Physician: TAMIKO YOST Tech: Dariana Sargent [facility] APPROVED REPORT EXAM: Two-dimensional and M-mode echocardiogram with Doppler and color Doppler. Other Information Quality : AverageHR: 69bpm Rhythm : NSR INDICATION Dyspnea RISK FACTORS Hypertension Obesity 2D DIMENSIONS RVDd3.1 (2.9-3.5cm)Left Atrium(2D)3.4 (1.6-4.0cm) IVSd1.6 (0.7-1.1cm)Aortic Root(2D)4.0 (2.0-3.7cm) LVDd4.9 (3.9-5.9cm)LVOT Diameter2.5 (1.8-2.4cm) PWd1.2 (0.7-1.1cm)LVDs2.9 (2.5-4.0cm) FS (%) 40.7 %SV79.8 ml LVEF(%)71.3 (>50%) Aortic Valve AoV Peak Bull.119.7cm/sAoV VTI26.9cm AO Peak GR.5.7mmHgLVOT Peak Bull.118.5cm/s AO Mean GR.3mmHgAVA (VMAX)4.72cm2 Mitral Valve MV E Okkwjskd43.0cm/sMV DECEL VDHU606id MV A Jzbftaww715.5cm/sE/A Ratio0.7 LEFT VENTRICLE The left ventricle is normal size. There is borderline to mild concentric left ventricular hypertroph y. The left ventricular systolic function is normal and the ejection fraction is within normal range. Estimated ejection fraction 60-65%. There is normal LV segmental wall motion. Transmitral Doppler fl ow pattern is Grade I-abnormal relaxation pattern. RIGHT VENTRICLE The right ventricle is normal size. There is normal right ventricular wall thickness. The right ventr icular systolic function is normal. ATRIA The left atrium size is normal. The right atrium size is normal. The interatrial septum is intact wit h no evidence for an atrial septal defect or patent foramen ovale as noted on 2-D or Doppler imaging. AORTIC VALVE The aortic valve is normal in structure and function. Doppler and Color Flow revealed no significant aortic regurgitation. There is no significant aortic valvular stenosis. MITRAL VALVE The mitral valve is normal in structure and function. There is no evidence of mitral valve prolapse. There is no mitral valve stenosis. Doppler and Color-flow revealed mild mitral regurgitation. TRICUSPID VALVE The tricuspid valve is normal in structure and function. Doppler and Color Flow revealed mild tricusp id regurgitation. Estimated PAP 30 mmHg. There is no tricuspid valve stenosis. PULMONIC VALVE The pulmonary valve is normal in structure and function. Doppler and Color Flow revealed no pulmonic valvular regurgitation. There is no pulmonic valvular stenosis. GREAT VESSELS The aortic root is normal in size. The ascending aorta is normal in size. The IVC is normal in size a nd collapses >50% with inspiration. PERICARDIAL EFFUSION There is no evidence of significant pericardial effusion. Critical Notification Critical Value: No <Conclusion> The left ventricular systolic function is normal and the ejection fraction is within normal range. E stimated ejection fraction 60-65%. There is normal LV segmental wall motion. Signed by : Kole Shepherd, Electronically Approved : 11/13/2020 14:49:41
== END ==
LOC: ECHO 10:14
PROVIDERS: ATTEND Internal Medicine Cardiovascular Disease
DX: I08.1 Rheumatic disorders of both mitral and tricuspid valves (principal); I11.9 Hypertensive heart disease without heart failure; G90.01 Carotid sinus syncope
CPT/HCPCS: 93306

== ENCOUNTER → 2021-01-16 | Outpatient (CLI) | payer MEDICARE ==
--- NOTE | 2021-01-16 11:55 | KCIC ---
EXAM: ULTRASOUND SOFT TISSUE NECK CLINICAL HISTORY: Multinodular thyroid. COMPARISON: None available. TECHNIQUE: Ultrasound examination of the thyroid gland was performed FINDINGS: The right thyroid lobe measures 4.5 x 1.5 x 1.6 cm. The left thyroid lobe measures 4.6 x 1. 7 x 1.6 cm. The thyroid isthmus measures 2.7 mm. There is a diffusely heterogeneous thyroid containin g multiple nodules, described in detail below. The largest right thyroid nodule is solid and hypoechoic within the lower pole measuring 1.4 x 1.3 x 1.0 cm. This demonstrates a target than wide morphology. There is an adjacent more circumscribed and homogeneous hypoechoic nodule with wider than tall morphology within the lower pole the right thyroid lobe measuring 1.2 x 0.9 x 0.6 cm. There is also a heterogeneous predominantly isoechoic nodule with in the lower pole the right thyroid lobe measuring 7 x 6 x 4 mm. The largest left thyroid nodule is seen within the lower pole measuring 1.4 x 1.4 x 1.3 cm. This is h eterogeneous and predominantly isoechoic with internal echogenic foci and taller than wide morphology . There is a small hypoechoic nodule within the superior left thyroid lobe measuring 6 x 6 x 3 mm. IMPRESSION: 1. Dominant right thyroid nodule within the lower pole measuring 1.4 cm. The sonographic characterist ics of this nodule are consistent with a TI-RADS Category 5 lesion. There has been no significant shane nge in the size of this nodule compared to the prior study. This favors benignity. However, fine-need le aspiration is recommended if not previously performed. 2. Dominant left thyroid nodule within the lower pole measuring 1.4 cm. The sonographic characteristi c this nodule are consistent with a TI-RADS Category 5 lesion. There has been interval decrease in th e size of this lesion compared to the prior study performed 01/10/2020, favoring benignity. Correlate with prior fine-needle aspiration pathology findings. 3. 1.2 cm nodule within the right thyroid lobe with sonographic characteristics consistent with a TI- RADS Category 4 lesion. Sonographic follow-up is recommended for category 4 lesions of this size. Thi s is not appreciably changed compared to the prior study. 4. Multiple additional subcentimeter thyroid nodules to proposed on diffusely heterogeneous thyroid p arenchyma. Attention at the time of follow-up is recommended. Electronically signed by: Anisa Kamara MD (01/16/2021 11:52 AM) [id number]
== END ==
LOC: KCIC US 10:37
PROVIDERS: ATTEND Surgery
DX: E04.2 Nontoxic multinodular goiter (principal)
CPT/HCPCS: 76536

== ENCOUNTER → 2021-02-13 | Outpatient (CLI) | payer MEDICARE ==
[~2021-02-13] MED LIST changes: +LIDOCAINE 1% Multi-Dose 20 ML VIAL. INJ ONE; +LIDOCAINE 1% Multi-Dose 20 ML VIAL. ONE
--- NOTE | 2021-02-13 17:24 | RAD ---
US FNA BIOPSY 1ST LESION 02/13/2021 8:31 AM HISTORY: Thyroid nodule. Inferior right thyroid nodule. FINDINGS: Written informed consent was obtained from the patient. Limited ultrasound scanning was pe rformed for localization of the right thyroid nodule. Skin was marked with ultrasound and then steri raf prepped and draped. Local anesthesia with 1% lidocaine. Using ultrasound guidance, 4 passes w ere made with 25 gauge needles into the thyroid nodule for fine needle aspiration biopsies. There we re no immediate complications. IMPRESSION: 1. Status post ultrasound guided fine needle aspiration biopsy of right thyroid nodule. Electronically signed by: Agueda Carter MD (02/13/2021 5:22 PM) [id number]
--- NOTE | 2021-02-15 15:08 | PATHOLOGY ---
Note [facility] Accession Number: [id number] TESTS RESULT FLAG UNITS REF RANGE LAB Clinician Provided Cytology Information No. of containers..01 Other (Miscellaneous) Source: RT INFERIOR THYROID DIAGNOSIS: RT INFERIOR THYROID INADEQUATE, INSUFFICIENT CELLS FOR STUDY. [place] CATEGORY I. NONDIAGNOSTIC: VIRTUALLY ACELLULAR SPECIMEN. Signed out by: Krystian Ceja MD, Pathologist NPI- [id number] Performed by: Jamia Rivero Plastic Tile Setter ([facility]) Gross description: 01 30ML, CLEAR, LIGHT RED /LCS 02/14/2021 1820 Local FLAG LEGEND: L-Low Normal,H-High Normal,LL-Alert Low,HH-Alert High <-Panic Low,>-Panic High,A-Abnormal,AA-Critical Abnormal Performed at: [address] [id number] Kemar Deleon MD, [address] [place] [id number] Krystian Ceja MD, Specimen Comment: A courtesy copy of this report has been sent to [phone] Specimen Comment: [id number] Specimen Comment: Report sent to Performed at: [address] [address], [place], [place] [id number] MD Kemar Deleon MD Phone: [phone]
== END | disposition home or self-care (01) ==
LOC: US 09:14
PROVIDERS: ATTEND Surgery
DX: E04.1 Nontoxic single thyroid nodule (principal); I10 Essential (primary) hypertension; E78.00 Pure hypercholesterolemia, unspecified; K21.9 Gastro-esophageal reflux disease without esophagitis; E11.9 Type 2 diabetes mellitus without complications; E66.9 Obesity, unspecified; Z90.49 Acquired absence of other specified parts of digestive tract; Z98.890 Other specified postprocedural states; Z79.82 Long term (current) use of aspirin; Z79.899 Other long term (current) drug therapy; Z88.8 Allergy status to other drugs, medicaments and biological substances
CPT/HCPCS: 10005; C1819

== ENCOUNTER → 2021-03-08 | Outpatient (CLI) | payer MEDICARE ==
[~2021-03-08] MED LIST changes: -LIDOCAINE 1% Multi-Dose 20 ML VIAL. ONE
--- NOTE | 2021-03-08 11:07 | RAD ---
EXAM: ULTRASOUND-GUIDED THYROID FINE-NEEDLE ASPIRATION. HISTORY: Right thyroid nodule. Nondiagnostic specimen. Repeat ultrasound-guided biopsy is requested. FINDINGS: The procedure along with its risks and benefits were explained to the patient. He agreed to proceed. A timeout procedure was performed. Sonographic images of the thyroid gland were obtained. The hypoechoic target nodule inferiorly in the right lobe was adequately visualized for biopsy. The overlying skin was sterilely prepped and infiltrated with 1% lidocaine for local anesthesia. Unde r ultrasound guidance, 4 aspirates were obtained using 22-gauge needles. These were hand delivered to pathology who determined them adequate for diagnosis. A sterile dressing was placed. There were no i mmediate complications. IMPRESSION: 1. Successful ultrasound-guided fine-needle aspiration of the right thyroid nodule. Electronically signed by: Sybil Poole MD (03/08/2021 11:05 AM) [id number]
== END | disposition home or self-care (01) ==
LOC: US 10:02
PROVIDERS: ATTEND Surgery
DX: E04.1 Nontoxic single thyroid nodule (principal); I10 Essential (primary) hypertension; E78.00 Pure hypercholesterolemia, unspecified; G47.30 Sleep apnea, unspecified; K21.9 Gastro-esophageal reflux disease without esophagitis; E11.9 Type 2 diabetes mellitus without complications; M19.90 Unspecified osteoarthritis, unspecified site; Z79.899 Other long term (current) drug therapy; Z98.890 Other specified postprocedural states; Z90.49 Acquired absence of other specified parts of digestive tract; Z88.8 Allergy status to other drugs, medicaments and biological substances; Z82.49 Family history of ischemic heart disease and other diseases of the circulatory system; Z83.3 Family history of diabetes mellitus
CPT/HCPCS: 10005; C1819; 88173; 88305

== ENCOUNTER 2021-04-30 12:42 | Observation (INO) | payer MEDICARE ==
[~2021-04-30] VITALS: Ht 182.9 cm; Wt 97.0 kg
[~2021-04-30 12:42] MED LIST changes: -LIDOCAINE 1% Multi-Dose 20 ML VIAL. INJ ONE
--- NOTE | 2021-04-30 13:15 | PHYS DOC ---
Past Medical History Past Medical History: Arrhythmia, Diabetes-Type II Additional Past Medical Histor: CARDIONEUROGENIC SYNCOPE, hernia, NARCOLEPSY, CPAP HS Past Surgical History: Appendectomy, Cholecystectomy, Gastric Bypass, Pacemaker Additional Past Surgical Histo: BACK SURGERY, COLON RESECTION Smoking Status: Never Smoker Alcohol Use: None Drug Use: None General Adult EDM: Chief Complaint: MECHANICAL FALL HPI: HPI: Patient is a 71-year-old male who presents to the emergency department following a fall. 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 He denies getting dizzy prior to fall. He reports that he fell and hit the back of his head and his right shoulder. He is reporting his pain 7 out of 10. He denies any neck or back pain, loss of consciousness or blood thinner use. No treatment prior to arrival. Review of Systems: Review of Systems: HENT: See HPI Musculoskeletal: See HPI Integument: See HPI Neurologic: See HPI Heart Score: C/O Chest Pain: N/A Risk Factors: Risk Factors: DM, Current or recent (<one month) smoker, HTN, HLP, family history of CAD, obesity. Risk Scores: Score 0 - 3: 2.5% MACE over next 6 weeks - Discharge Home Score 4 - 6: 20.3% MACE over next 6 weeks - Admit for Clinical Observation Score 7 - 10: 72.7% MACE over next 6 weeks - Early Invasive Strategies Allergies: Allergies: Allergies Coded Allergies Type Severity Reaction Last Updated Verified topiramate Adverse Reaction Severe stroke like symptoms 03/08/21 Yes Physical Exam: PE: Constitutional: Well developed, well nourished, no acute distress, non-toxic appearance. [] HENT: Normocephalic, atraumatic, bilateral external ears normal, no palpable skull fracture, oropharynx moist, no oral exudates, nose normal. [] Eyes: PERRL, EOMI, conjunctiva normal, no discharge. [] Neck: Normal range of motion, no bony spinal tenderness, supple, no stepoffs or deformities, no stridor. [] Cardiovascular:Heart rate regular rhythm, no murmur [] Lungs & Thorax: Bilateral breath sounds clear to auscultation [] Abdomen: Bowel sounds normal, soft, no tenderness, no masses, no pulsatile masses. [] Skin: Warm, dry, no erythema, no rash. [] Back: No bony spinal tenderness,normal ROM Extremities: No tenderness, no cyanosis, no clubbing, ROM intact, no edema. R. shoulder: r. scapular pain/trapezius pain with palpation, no obvious deformity or wounds, normal ROM, neuro intact Neurologic: Alert and oriented X 3, normal motor function, normal sensory function, no focal deficits noted. [] Psychologic: Affect normal, judgement normal, mood normal. [] Current Patient Data: Labs: Laboratory Tests Test 04/30/21 14:15 White Blood Count 4.7 x10^3/uL Red Blood Count 4.47 x10^6/uL Hemoglobin 13.8 g/dL Hematocrit 41.6 % Mean Corpuscular Volume 93 fL Mean Corpuscular Hemoglobin 31 pg Mean Corpuscular Hemoglobin Concent 33 g/dL Red Cell Distribution Width 12.9 % Platelet Count 170 x10^3/uL Neutrophils (%) (Auto) 60 % Lymphocytes (%) (Auto) 30 % Monocytes (%) (Auto) 9 % Eosinophils (%) (Auto) 1 % Basophils (%) (Auto) 0 % Neutrophils # (Auto) 2.8 x10^3/uL Lymphocytes # (Auto) 1.4 x10^3/uL Monocytes # (Auto) 0.4 x10^3/uL Eosinophils # (Auto) 0.0 x10^3/uL Basophils # (Auto) 0.0 x10^3/uL Sodium Level 140 mmol/L Potassium Level 4.2 mmol/L Chloride Level 105 mmol/L Carbon Dioxide Level 27 mmol/L Anion Gap 8 Blood Urea Nitrogen 13 mg/dL Creatinine 1.0 mg/dL Estimated GFR (Cockcroft-Gault) 73.5 BUN/Creatinine Ratio 13 Glucose Level 126 mg/dL Calcium Level 8.5 mg/dL Total Bilirubin 0.3 mg/dL Aspartate Amino Transf (AST/SGOT) 14 U/L Alanine Aminotransferase (ALT/SGPT) 18 U/L Alkaline Phosphatase 74 U/L Troponin I High Sensitivity 8 ng/L Total Protein 6.2 g/dL Albumin 3.3 g/dL Albumin/Globulin Ratio 1.1 Current Medications Medications (Trade) Dose Ordered Sig/Donnell Route PRN Reason Start Time Stop Time Status Last Admin Dose Admin Sodium Chloride 1,000 ml @ 1,000 mls/hr 1X ONCE IV 04/30/21 13:30 12/7/21 14:29 DC 04/30/21 14:23 Vital Signs: Vital Signs Date Time Temp Pulse Resp B/P (MAP) Pulse Ox O2 Delivery O2 Flow Rate FiO2 04/30/21 12:54 98.1 69 16 146/82 (103) 95 Room Air 98.1 EKG: EKG: EKG performed by ER staff at 1411 shows sinus rhythm with a rate of 70 with a bundle branch block, no STEMI read by Dr. Orantes at 1425 [] Radiology/Procedures: Radiology/Procedures: []PROCEDURE: SHOULDER 2+V RIGHT EXAM: 3 Views Right Shoulder DATE: 04/30/2021 1:07 PM INDICATION: Reason: fall c/o r. shoulder pain / Spl. Instructions: / History: COMPARISON: No Prior FINDINGS: There is no evidence for acute fracture or dislocation. AC joint is congruent. There is resection of the distal right clavicle. Humeral head is not high riding. IMPRESSION: 1. No acute fracture or dislocation. Electronically signed by: Scottie Felix MD (04/30/2021 1:40 PM) [facility] DICTATED and SIGNED BY: SCOTTIE FELIX MD DATE: 04/30/21 [id number] PROCEDURE: CT HEAD AND CERVICAL SPINE WO EXAM: CT HEAD WITHOUT IV CONTRAST CLINICAL HISTORY: Fall, head injury COMPARISON: 10/14/2020. TECHNIQUE: Routine CT of the head without contrast. Soft tissues and bone windows were reviewed. PQRS compliance statement - One or more of the following individualized dose reduction techniques were utilized for this study: 1. Automated exposure control 2. Adjustment of the mA and/or kV according to patient size 3. Use of iterative reconstruction technique FINDINGS: There is no evidence of hemorrhage, mass or extra-axial fluid collection. Goldberg-white differentiation is maintained with no evidence of edema. There is no mass effect or shift of the intracranial structures. The ventricles, basilar cisterns and cortical sulci are normal in size and configuration for the patients stated age. 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 Otherwise, the cerebellum and brainstem are unremarkable. The calvarium demonstrates no evidence of fracture or focal lesion. Opacification right maxillary sinus, sinusitis. Mastoid air cells are clear. Atherosclerotic calcifications of the intracranial internal carotid and vertebral arteries is seen. The visualized portions of the orbits are normal. IMPRESSION: 1. No evidence for acute intracranial process. 2. Changes of right maxillary sinus disease. EXAM: CT CERVICAL SPINE WITHOUT IV CONTRAST CLINICAL HISTORY: Reason: fall hit head / Spl. Instructions: / History: COMPARISON: None available. TECHNIQUE: Helical CT of the cervical spine was performed. Axial, coronal and sagittal reformatted images were also performed. PQRS compliance statement - One or more of the following individualized dose reduction techniques were utilized for this study: 1. Automated exposure control 2. Adjustment of the mA and/or kV according to patient size 3. Use of iterative reconstruction technique FINDINGS: Vertebral body heights are preserved. The C3-4 vertebral bodies appear small, possibly incomplete segmentation or developmental process. C4-5 disc height loss. Moderate to severe C5-6 disc height loss. Mild C6-7 disc height loss. Small posterior disc osteophyte complexes are seen at C4-5, C5-6 and C6-7. No spondylolisthesis. IMPRESSION: 1. Multilevel spondylosis as above 2. Negative acute fracture or subluxation. Electronically signed by: Scottie Felix MD (04/30/2021 2:07 PM) [facility] DICTATED and SIGNED BY: SCOTTIE FELIX MD DATE: 04/30/21 [id number] Course & Med Decision Making: Course & Med Decision Making Pertinent Labs and Imaging studies reviewed. (See chart for details) Patient presents to the emergency department following a fall with complaints of right shoulder and back of head pain. CT imaging was performed of head and neck and an x-ray was performed of his right shoulder. While patient was in CT with position changes he had a syncopal episode and fell back onto the CT table. Patient did not have any injuries and he did not hit his head. Fall was witnessed by CT techs and they deny any injury. 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 Following the event patient is alert and oriented x4 and acting appropriately. Because of this blood work, EKG and a urinalysis performed. Patient treated with IV fluids. Patient's imaging of his shoulder and CT of his head and neck were unremarkable. Patient negative for orthostatic hypotension. Patient's blood work was unremarkable. Patient had another witnessed syncopal episode in the emergency department. Due to these multiple syncopal episodes and potential for injury, patient should be admitted for syncope, his order manager is Dr. Galarza. I discussed these findings with patient and treatment plan he is agreeable at this time. He does agree that with his multiple syncopal episodes these had today, he does not feel safe at home. I discussed patient's findings with Dr. Epstein who agreed to admit the patient under his services for syncope. ER bridge orders placed. 1542 Shawna Disclaimer: Shawna Disclaimer: This electronic medical record was generated, in whole or in part, using a voice recognition dictation system. Departure Departure Impression: Primary Impression: Syncope Qualified Codes: R55 - Syncope and collapse Disposition: ADMITTED INPATIENT Admitting Physician: CULLEN Condition: GOOD Referrals: COMFORT SORENSON MD (PCP) SKYE TORREZ APRN Apr 30, 2021 13:15
[2021-04-30] MEDS ORDERED: IV NORMAL SALINE 1000ML BAG 1,000 ML IV ONE (13:30)
--- NOTE | 2021-04-30 13:42 | RAD ---
EXAM: 3 Views Right Shoulder DATE: 04/30/2021 1:07 PM INDICATION: Reason: fall c/o r. shoulder pain / Spl. Instructions: / History: COMPARISON: No Prior FINDINGS: There is no evidence for acute fracture or dislocation. AC joint is congruent. There is resection of the distal right clavicle. Humeral head is not high riding. IMPRESSION: 1. No acute fracture or dislocation. Electronically signed by: Scottie Waggoner MD (04/30/2021 1:40 PM) [facility]
--- NOTE | 2021-04-30 14:09 | RAD ---
EXAM: CT HEAD WITHOUT IV CONTRAST CLINICAL HISTORY: Fall, head injury COMPARISON: 10/14/2020. TECHNIQUE: Routine CT of the head without contrast. Soft tissues and bone windows were reviewed. PQRS compliance statement - One or more of the following individualized dose reduction techniques wer e utilized for this study: 1. Automated exposure control 2. Adjustment of the mA and/or kV according to patient size 3. Use of iterative reconstruction technique FINDINGS: There is no evidence of hemorrhage, mass or extra-axial fluid collection. Goldberg-white differentiation is maintained with no evidence of edema. There is no mass effect or shift of the intracranial structures. The ventricles, basilar cisterns and cortical sulci are normal in size and configuration for the anahi ents stated age. 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 Otherwise, the cerebellum and brainstem are unremarka ble. The calvarium demonstrates no evidence of fracture or focal lesion. Opacification right maxillary sinus, sinusitis. Mastoid air cells are clear. Atherosclerotic calcific ations of the intracranial internal carotid and vertebral arteries is seen. The visualized portions of the orbits are normal. IMPRESSION: 1. No evidence for acute intracranial process. 2. Changes of right maxillary sinus disease. EXAM: CT CERVICAL SPINE WITHOUT IV CONTRAST CLINICAL HISTORY: Reason: fall hit head / Spl. Instructions: / History: COMPARISON: None available. TECHNIQUE: Helical CT of the cervical spine was performed. Axial, coronal and sagittal reformatted im ages were also performed. PQRS compliance statement - One or more of the following individualized dose reduction techniques wer e utilized for this study: 1. Automated exposure control 2. Adjustment of the mA and/or kV according to patient size 3. Use of iterative reconstruction technique FINDINGS: Vertebral body heights are preserved. The C3-4 vertebral bodies appear small, possibly incomplete seg mentation or developmental process. C4-5 disc height loss. Moderate to severe C5-6 disc height loss. Mild C6-7 disc height loss. Small posterior disc osteophyte complexes are seen at C4-5, C5-6 and C6-7 . No spondylolisthesis. IMPRESSION: 1. Multilevel spondylosis as above 2. Negative acute fracture or subluxation. Electronically signed by: Scottie Waggoner MD (04/30/2021 2:07 PM) [facility]
[2021-04-30 14:39] LABS: BASO % 0 % (0-3); EOS % 1 % (0-3); HEMATOCRIT 41.6 % (39.0-53.0); HEMOGLOBIN 13.8 g/dL (13.0-17.5); LYMPH # 1.4 x10^3/uL (1.0-4.8); LYMPH % 30 % (24-48); MEAN CORPUSCULAR HEMOGLOBIN 31 pg (25-35); MEAN CORPUSCULAR HGB CONC 33 g/dL (31-37); MEAN CORPUSCULAR VOLUME 93 fL (79-100); MONO # 0.4 x10^3/uL (0.0-1.1); MONO % 9 % (0-9); NEUT # 2.8 x10^3/uL (1.8-7.7); NEUT % 60 % (31-73); PLATELET COUNT 170 x10^3/uL (140-400); RED BLOOD COUNT 4.47 x10^6/uL (4.30-5.70); RED CELL DISTRIBUTION WIDTH 12.9 % (11.5-14.5); WHITE BLOOD COUNT 4.7 x10^3/uL (4.0-11.0)
[2021-04-30 14:47] LABS: CALCIUM 8.5 mg/dL (8.5-10.1); GFR 73.5; POTASSIUM 4.2 mmol/L (3.5-5.1)
[2021-04-30 14:53] LABS: ALBUMIN 3.3 g/dL (3.4-5.0); ALBUMIN/GLOBULIN RATIO 1.1 (1.0-1.7); TOTAL BILIRUBIN 0.3 mg/dL (0.2-1.0); TOTAL PROTEIN 6.2 g/dL (6.4-8.2)
[2021-04-30 19:00] VITALS: BP 175/106
[2021-04-30] MEDS ORDERED: METF-658 PO (20:13)
[2021-04-30] MEDS ORDERED: INSU100I51 SQ (20:13)
[2021-04-30] MEDS ORDERED: ATEN50TA PO (20:13)
[2021-04-30 22:56] VITALS: BP 168/89
--- NOTE | 2021-04-30 23:11 | EKG ---
[facility] [address] [place] [address] Test Date: 2021-04-30 Test Time: 14:11:44 Pat Name: SHARON HILL Department: Room: 580 1 Gender: M Zipper Lining Folder: : 1950 Requested By: SKYE TORREZ Order Number: [id number] Reading MD: Negro Galarza Measurements Intervals [place] Rate: 70 P: 26 TN: 118 QRS: -50 QRSD: 154 T: -18 QT: 490 QTc: 533 Interpretive Statements ATRIAL PACED RHYTHM ABNORMAL LEFT AXIS DEVIATION LEFT ANTERIOR FASCICULAR BLOCK RIGHT BUNDLE BRANCH BLOCK Electronically Signed On 05-02-2021 12:46:19 TRAIN OPERATOR by Negro Galarza
[2021-05-01 02:36] VITALS: BP 159/82
[2021-05-01 07:00] VITALS: BP 150/83
[2021-05-01 07:29] LABS: BASO % 0 % (0-3); EOS # 0.1 x10^3/uL (0.0-0.7); EOS % 1 % (0-3); HEMATOCRIT 43.4 % (39.0-53.0); HEMOGLOBIN 14.4 g/dL (13.0-17.5); LYMPH # 1.2 x10^3/uL (1.0-4.8); LYMPH % 26 % (24-48); MEAN CORPUSCULAR HEMOGLOBIN 31 pg (25-35); MEAN CORPUSCULAR HGB CONC 33 g/dL (31-37); MEAN CORPUSCULAR VOLUME 93 fL (79-100); MONO # 0.4 x10^3/uL (0.0-1.1); MONO % 10 % (0-9); NEUT # 2.9 x10^3/uL (1.8-7.7); NEUT % 63 % (31-73); PLATELET COUNT 154 x10^3/uL (140-400); RED BLOOD COUNT 4.65 x10^6/uL (4.30-5.70); RED CELL DISTRIBUTION WIDTH 13.1 % (11.5-14.5); WHITE BLOOD COUNT 4.6 x10^3/uL (4.0-11.0)
[2021-05-01 08:03] LABS: ALBUMIN 3.3 g/dL (3.4-5.0); ALBUMIN/GLOBULIN RATIO 1.1 (1.0-1.7); CALCIUM 8.4 mg/dL (8.5-10.1); CREATININE 0.8 mg/dL (0.7-1.3); POTASSIUM 4.2 mmol/L (3.5-5.1); TOTAL BILIRUBIN 0.6 mg/dL (0.2-1.0); TOTAL PROTEIN 6.3 g/dL (6.4-8.2)
[2021-05-01 11:00] VITALS: BP 160/85
--- NOTE | 2021-05-01 11:43 | SNU/HH DC ---
DISCHARGE WITH HOME HEALTH DISCHARGE INFORMATION: Final Diagnosis: Problems Medical Problems: (1) Syncope Status: Acute Condition on Discharge: Stable CODE STATUS: Code Status: Full HOME HEALTH: Face to Face: I certify this patient is under my care and that I, or a nurse practitioner or physician's photographer assistant working with me, had a face to face encounter that meets the physician face to face encounter requirements with this patient on []. Medical Complications: Falls Alf For: Assess Cardiopulm Status RN For Eval/Treatment: Yes Physical Therapy For: Evalulation/Treatment Occupational Therapy For: Evaluation/Treatment Home Health Aide For: Self-care TECHNICAL SERVICE ENGINEER For: Community Resources Pt Meets Homebound Status: Unsteady balance w/ amb, POST DISCHARGE ORDERS: Activity Instructions for Disc: Activity as tolerated Weight Bearing Status after Di: Full weight bearing Bathing Instructions: Shower-keep dressing dry DIET AFTER DISCHARGE: Cardiac Wound/Incision Care: No wound care needed CHECKS AFTER DISCHARGE: Checks after discharge: Check blood press - daily, Check blood sugar, ac/hs TREATMENT/EQUIPMENT ORDERS: Adaptive Equipment Issued: None CERTIFICATION STATEMENT: Certification Statement: Certification Statement: Based on the above finding, I certify that this patient is confined to the home and needs intermittent shelter care, physical therapy and/or speech therapy, or continues to need occupational therapy.~ This patient is under my care, and I have initiated the establishment of the plan of care.~ This patient will be followed by myself or a community physician who will periodically review the plan of care. Home Meds Active Scripts Magnesium Oxide (Magnesium Oxide 400) 240 Mg Powd.pack, 240 MG PO DAILY for Hypomagnesemia for 30 Days, #30 PKT 11 Refills Prov:FARZANEH ESPOSITO MD 10/15/20 Benzonatate (TESSALON PERLE) 100 Mg Capsule, 1 CAP PO TID PRN for COUGH for 7 Days, #21 CAP 0 Refills Prov:ANISHA MARIE APRN 06/20/19 Acetaminophen (TYLENOL) 325 Mg Tablet, 650 MG PO PRN Q4HRS PRN for TEMP OVER 100.4F OR MILD PAIN for 30 Days, #60 TAB Prov:JUSTINA TANG MD 02/04/19 Reported Medications Atenolol (ATENOLOL) 50 Mg Tablet, 1 TAB PO BID for htn 04/30/21 Insulin NPH Human Isophane (Novolin N Flexpen) 100 Unit/1 Ml Insuln.pen, 10 UNITS SQ BIDBFRMEAL for dm 04/30/21 Metformin Hcl (METFORMIN HCL ER) 500 Mg Tab.er.24h, 2 TAB PO BID for dm 04/30/21 Armodafinil (NUVIGIL) 150 Mg Tablet, 150 MG PO DAILY for , TAB 10/15/20 Aspirin (ASPIR-LOW) 81 Mg Tablet.dr, 1 TAB PO DAILY for antiplatelet, #30 TAB 3 Refills 03/30/19 Multivitamin (MULTI VITAMIN DAILY) 1 Each Tablet, 1 TAB PO DAILY for supplement for 30 Days, #30 TAB 0 Refills 03/30/19 Lisinopril (LISINOPRIL) 20 Mg Tablet, 1 TAB PO DAILY for HTN, #30 TAB 5 Refills 03/30/19 Gabapentin (GABAPENTIN ) 300 Mg Capsule, 600 MG PO HS for NEUROGENIC PAIN, CAP 03/30/19 Gabapentin (GABAPENTIN ) 300 Mg Capsule, 900 MG PO DAILY for NEUROGENIC PAIN, CAP 03/30/19 Omeprazole (OMEPRAZOLE) 20 Mg Capsule.dr, 20 MG PO DAILY for gerd, CAP 07/20/18 Simvastatin (ZOCOR) 20 Mg Tablet, 20 MG PO HS for FOR CHOLESTEROL, #30 TAB 0 Refills 07/06/14 ALTA RODRIGUEZ III DO May 01, 2021 11:43
[2021-05-01] MEDS ORDERED: BENZONATATE 100 MG CAPSULE. PO PRN (11:45)
[2021-05-01] MEDS ORDERED: ACETAMINOPHEN 325 MG TABLET. PO PRN (11:45)
[2021-05-01] MEDS ORDERED: MULTIVITAMIN with MINERAL TABLET. PO SCH (12:00)
[2021-05-01] MEDS ORDERED: ATENOLOL 50 MG TABLET. PO SCH (12:00)
[2021-05-01] MEDS ORDERED: LISINOPRIL 20 MG TABLET PO SCH (12:00)
[2021-05-01] MEDS ORDERED: ASPIRIN ENTERIC COATED 81 MG TABLET.DR. PO SCH (12:00)
[2021-05-01] MEDS ORDERED: metFORMIN XR 500 MG TAB.ER.24H PO SCH (12:00)
[2021-05-01] MEDS ORDERED: MAGNESIUM OXIDE 400 MG TABLET PO SCH (12:00)
[2021-05-01] MEDS ORDERED: PANTOPRAZOLE 40 MG TABLET.DR. PO SCH (12:00)
[2021-05-01] MEDS ORDERED: GABAPENTIN 300 MG CAPSULE. PO SCH ×2 (12:00→21:00)
--- NOTE | 2021-05-01 12:05 | SSS ---
DATE OF SERVICE: 05/01/2021 ADMIT DATE: 04/30/2021 CHIEF COMPLAINT: Mechanical fall. HISTORY OF PRESENT ILLNESS: The patient is a pleasant 71-year-old male who was walking. He states he has bad neuropathy and he lost his balance and fell. There was some concern that he may have had a syncopal episode. He was brought to the ER for evaluation. He has been admitted overnight for observation. This morning, he is doing well and wants to go home. PAST MEDICAL HISTORY: Arrhythmias, permanent pacemaker, diabetes, neuropathy, narcolepsy, cholecystectomy, gastric bypass, back surgery, colon resection. ALLERGIES: TOPIRAMATE. FAMILY HISTORY: Hypertension. SOCIAL HISTORY: He is retired. He does not drink, smoke or take drugs. MEDICATIONS: Reviewed, please refer to the MRAD. REVIEW OF SYSTEMS: GENERAL: No history of weight change, weakness or fevers. SKIN: No bruising, hair changes or rashes. EYES: No blurred, double or loss of vision. NOSE AND THROAT: No history of nosebleeds, hoarseness or sore throat. HEART: No history of palpitations, chest pain or shortness of breath on exertion. LUNGS: Denies cough, hemoptysis, wheezing or shortness of breath. GASTROINTESTINAL: Denies changes in appetite, nausea, vomiting, diarrhea or constipation. GENITOURINARY: No history of frequency, urgency, hesitancy or nocturia. NEUROLOGIC: Denies history of numbness, tingling, tremor or weakness. PSYCHIATRIC: No history of panic, anxiety or depression. ENDOCRINE: No history of heat or cold intolerance, polyuria or polydipsia. EXTREMITIES: Denies muscle weakness, joint pain, pain on walking or stiffness. PHYSICAL EXAMINATION: VITALS: Within normal limits and are stable. GENERAL: No apparent distress. Alert and oriented. HEENT: Normal cephalic atraumatic, external auditory canals are patent. EYES: Extraocular muscles are intact, pupils are equally round and reactive to light and accommodation. MUSCULOSKELETAL: Well developed, well nourished, good range of motion. ENDOCRINE: No thyromegaly was palpated. LYMPHATICS: No cervical chain or axillary nodes were noted. HEMATOPOIETIC: No bruising. NECK: Supple, no JVD, no thyromegaly was noted. LUNGS: Clear to auscultation in all lung miller without rhonchi or wheezing. HEART: RRR, S1, S2 present. Peripheral pulses intact, no obvious murmurs were noted. ABDOMEN: Soft, nontender. Positive bowel sounds no organomegaly, normal bowel sounds. EXTREMITIES: Without any cyanosis, clubbing, or edema. Pedal pulses intact, Homans sign is negative. NEUROLOGIC: Normal speech, normal tone. A and O x3, moves all extremities, no obvious focal deficits. PSYCHIATRIC: Normal affect, normal mood. Stable. SKIN: No ulcerations or rashes, good skin turgor, no jaundice. VASCULAR: Good capillary refill, neurovascular bundle appears to be intact. ASSESSMENT AND PLAN: Resolving mechanical fall. We are going to discharge. DISPOSITION: Home. ACTIVITY: As tolerated. DIET: Low sodium. MEDICATIONS: Please see the MRAD. We resumed his home meds. TOTAL TIME: [address]: Mireille TID: [id number]
--- NOTE | 2021-05-01 12:13 | NUR ---
SW following. Discussed with RN, pt from home, room air, cardiac diet. Discharge order for home with self care. RN advised no SW needs at this time.
[2021-05-01 12:47] VITALS: BP 160/85
--- NOTE | 2021-05-01 14:19 | NUR ---
patient discharged home with daughter. meds and follow up reviewed. patient stable upon DC. IV removed intact.
[2021-05-01] MEDS ORDERED: INSULIN LISPRO 300 UNITS/3 ML VIAL. SQ SCH (16:30)
[2021-05-01] MEDS ORDERED: INSULIN GLARGINE SYRINGE. SQ SCH (21:00)
[2021-05-01] MEDS ORDERED: SIMVASTATIN 20 MG TABLET PO SCH (21:00)
[2021-05-02] MEDS ORDERED: ARMODAFINIL 150 MG PO SCH (09:00)
== END 2021-05-01 13:43 | disposition home or self-care (01) ==
LOC: ER 12:42 → ED HOLD 15:15 → INTOOBSV 15:15 → 5 SOUTH 16:59
PROVIDERS: ADMIT Student in an Organized Health Care Education/Training Program; ATTEND Student in an Organized Health Care Education/Training Program
DX: R55 Syncope and collapse (principal); E11.40 Type 2 diabetes mellitus with diabetic neuropathy, unspecified; J32.0 Chronic maxillary sinusitis; M47.9 Spondylosis, unspecified; Z90.49 Acquired absence of other specified parts of digestive tract; Z98.84 Bariatric surgery status; Z79.899 Other long term (current) drug therapy; Z98.890 Other specified postprocedural states; W01.0XXA Fall on same level from slipping, tripping and stumbling without subsequent striking against object, initial encounter; Y93.01 Activity, walking, marching and hiking; Y92.89 Other specified places as the place of occurrence of the external cause; Y99.8 Other external cause status
CPT/HCPCS: 36415; 70450; 72125; 73030; 80053; 82962; 84484; 85025; 93005; 96360; 96361; 97161; 97166; 99285; J7030; G0378; G0379; J1815

== ENCOUNTER → 2021-05-20 | Outpatient (CLI) | payer MEDICARE ==
[2021-05-01 12:47] VITALS: BP 160/85
[~2021-05-20] MED LIST changes: +INSU100I51 SQ; +METF-658 PO; +REGADENOSON 0.4 MG/5 ML DISP.SYRIN. IV ONE
--- NOTE | 2021-05-20 17:12 | RAD ---
MR#: [id number] Date of Study: 05/20/2021 Ordering Physician: TAMIKO YOST, Referring Physician: STERLING CARRILLO Tech: LISANDRA Ramírez, CÉSAR (R) (N) APPROVED REPORT Test Type: Pharmacological Stress Nurse/Tech: Kelsi Rocha RN Test Indications: follow up for pacemaker/cardiac Cardiac History: Hypertension,pacemaker,narcolepsy Medications: See Electronic Medical Record Medical History: See Electronic Medical Record Resting ECG: a-paced Resting Heart Rate: 70 bpm Resting Blood Pressure: 132/82mmHg Pretest Chest Pain: No chest pain Nurse/Tech Notes S1,S2 and lungs diminished in the bases. Consent: The procedure was explained to the patient in lay terms. Informed consent was witnessed. Shankar eout was entered into [facility]. History and Stress Test performed by ROSIO Fuller Pharm. Details Pharmacologic stress testing was performed using 0.4mg per 5ml of regadenoson given intravenously ove r 7-10 seconds. Stress Symptoms No chest pain or symptoms. POST EXERCISE Reason for Termination: Infusion complete Target HR: No Max HR: 70 bpm 56% of Maximum Predicted HR: 125 bpm Max Blood Pressure: 140/90mmHg Blood Pressure response to exercise: Normal blood pressure response during stress. Heart Rate response to exercise: WNL Chest Pain: No. Arrhythmia: No. ST Change: No. INTERPRETATION Stress EKG Conclusion: No evidence of stress induced EKG changes. Imaging Protocol IMAGE PROTOCOL: Rest Tc-99m/stress Tc-99m 1 day Rest: Stress: Viability: Radiopharm.Tc99m [id number] Sestamibi Dose10.5mCi 33mCi Img Date 05/20/2021 05/20/2021 Inj-Img Dsob31ewf. 60min. Rest Admin Site:IV - Right HandAdministrator:ROSIO Fuller Stress Admin Site: IV - Right HandAdministrator: ROSIO Fuller STRESS DATA End Diast. Vol.128.0mlAv. Heart Rate69.0bpm End Syst. Vol.36.0mlCO Index BSA0.0L/min Myocardial Rqyh778.0gEject. Gesnhhly21.0% Stress Rates Pk. Fill Rate2.30EDV/secLVtime Pk. Fill 122.76msec Pk. Empty Rate3.54ESV/secLVtime Pk. Whnka058.47msec 1/3 Pk. Fill1.57EDV/sec Stress Scores Regional WT0.00Summed WT1.00 Regional WM0.00Summed WM0.00 The rest and stress images show normal perfusion, normal contraction and thickening. LV Perf. Quant 17 Seg. SSS1.00 17 Seg. SRS4.00 17 Seg. SDS0.00 Stress Defect Extent (% LAD)0.00Rest Defect Extent (% LAD)0.00Rev. Defect Extent (% LAD)0.00 Stress Defect Extent (% LCX) 2.50Rest Defect Extent (% LCX)7.50Rev. Defect Extent (% LCX)0.00 Stress Defect Extent (% RCA)0.00Rest Defect Extent (% RCA)0.00Rev. Defect Extent (% RCA)0.00 Stress Defect Extent (% SELIN)1.10Rest Defect Extent (% SELIN)3.30Rev. Defect Extent (% SELIN)0.00 Other Information Quality:Average Risk Assessment: Low Risk Conclusion 1. No evidence of EKG changes with stress testing. 2. Normal perfusion at stress/rest. 3. Low risk study. 4. EF > 60%. Signed by : Kole Shepherd, Electronically Approved : 05/20/2021 17:12:05
== END ==
LOC: NM 09:44
PROVIDERS: ATTEND Internal Medicine Cardiovascular Disease
DX: G90.01 Carotid sinus syncope (principal)
CPT/HCPCS: 78452; 93017; A9500; J2785

== ENCOUNTER 2021-06-06 15:00 | Emergency (ER) | payer MEDICARE ==
[~2021-06-06] VITALS: Ht 182.9 cm; Wt 96.8 kg
[~2021-06-06 15:00] MED LIST changes: -REGADENOSON 0.4 MG/5 ML DISP.SYRIN. IV ONE
[2021-06-06] MEDS ORDERED: IV NORMAL SALINE 1000ML BAG 1,000 ML IV ONE (15:15)
--- NOTE | 2021-06-06 15:21 | EKG ---
[facility] [address] [place] [address] Test Date: 2021-06-06 Test Time: 15:14:56 Pat Name: SHARON HILL Department: Room: Gender: M Wig Comber: : 1950 Requested By: JUDY TAM Order Number: [id number] Reading MD: Sebastián Rhodes Measurements Intervals [place] Rate: 70 P: [place]: QRS: -52 QRSD: 146 T: 6 QT: 440 QTc: 478 Interpretive Statements A PACED ABNORMAL LEFT AXIS DEVIATION LEFT ANTERIOR FASCICULAR BLOCK RIGHT BUNDLE BRANCH BLOCK Electronically Signed On 06-08-2021 16:06:12 CORPORATE COMMUNICATIONS INTERN by Sebastián Rhodes
--- NOTE | 2021-06-06 15:28 | PHYS DOC ---
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 Patient says that he was at Dr. Galarza's office for a routine follow-up. He said that he was being laid down on the examination table and passed out and he was aware of his surroundings as he could feel the sternal rub and people talking but he could not move. He says that this is typical for his narcolepsy episodes for which he takes medications. Patient said that around 8 to 9:00 in the morning he had an episode of burning chest pain but that has been gone since 9:00 in the morning. He says he overall feels okay but denies any pain fevers chills nausea vomiting and he is in no acute distress with normal vital signs, Review of Systems Review of Systems Constitutional: Denies fever or chills [] Eyes: Denies change in visual acuity, redness, or eye pain [] HENT: Denies nasal congestion or sore throat [] Respiratory: Denies cough or shortness of breath [] Cardiovascular: No additional information not addressed in HPI [] GI: Denies abdominal pain, nausea, vomiting, bloody stools or diarrhea [] : Denies dysuria or hematuria [] Musculoskeletal: Denies back pain or joint pain [] Integument: Denies rash or skin lesions [] Neurologic: Denies headache, focal weakness or sensory changes [] Endocrine: Denies polyuria or polydipsia [] All other systems were reviewed and found to be within normal limits, except as documented in this note. Current Medications Current Medications Current Medications Medications (Trade) Dose Ordered Sig/Donnell Start Time Stop Time Status Last Admin Dose Admin Sodium Chloride 1,000 ml @ 1,000 mls/hr 1X ONCE 06/06/21 15:15 06/06/21 16:14 DC 06/06/21 15:31 1,000 MLS/HR Allergies Allergies Allergies Coded Allergies Type Severity Reaction Last Updated Verified topiramate Adverse Reaction Severe stroke like symptoms 06/06/21 Yes Physical Exam Physical Exam Constitutional: Well developed, well nourished, no acute distress, non-toxic appearance. [] HENT: Normocephalic, atraumatic, bilateral external ears normal, oropharynx moist, no oral exudates, nose normal. [] Eyes: PERRLA, EOMI, conjunctiva normal, no discharge. [] Neck: Normal range of motion, no tenderness, supple, no stridor. [] Cardiovascular:Heart rate regular rhythm, no murmur [] Lungs & Thorax: Bilateral breath sounds clear to auscultation [] Abdomen: Bowel sounds normal, soft, no tenderness, no masses, no pulsatile masses. [] Skin: Warm, dry, no erythema, no rash. [] Back: No tenderness, no CVA tenderness. [] Extremities: No tenderness, no cyanosis, no clubbing, ROM intact, no edema. [] Neurologic: Alert and oriented X 3, normal motor function, normal sensory function, no focal deficits noted. [] Psychologic: Affect normal, judgement normal, mood normal. [] Current Patient Data Vital Signs Vital Signs Date Time Temp Pulse Resp B/P (MAP) Pulse Ox O2 Delivery O2 Flow Rate FiO2 06/06/21 15:08 98.3 69 20 140/91 (107) 94 Room Air 98.3 Lab Values Laboratory Tests Test 06/06/21 15:28 06/06/21 15:38 White Blood Count 5.5 x10^3/uL (4.0-11.0) Red Blood Count 4.70 x10^6/uL (4.30-5.70) Hemoglobin 14.3 g/dL (13.0-17.5) Hematocrit 42.6 % (39.0-53.0) Mean Corpuscular Volume 91 fL (79-100) Mean Corpuscular Hemoglobin 31 pg (25-35) Mean Corpuscular Hemoglobin Concent 34 g/dL (31-37) Red Cell Distribution Width 13.0 % (11.5-14.5) Platelet Count 176 x10^3/uL (140-400) Neutrophils (%) (Auto) 58 % (31-73) Lymphocytes (%) (Auto) 32 % (24-48) Monocytes (%) (Auto) 8 % (0-9) Eosinophils (%) (Auto) 2 % (0-3) Basophils (%) (Auto) 0 % (0-3) Neutrophils # (Auto) 3.1 x10^3/uL (1.8-7.7) Lymphocytes # (Auto) 1.8 x10^3/uL (1.0-4.8) Monocytes # (Auto) 0.4 x10^3/uL (0.0-1.1) Eosinophils # (Auto) 0.1 x10^3/uL (0.0-0.7) Basophils # (Auto) 0.0 x10^3/uL (0.0-0.2) Sodium Level 138 mmol/L (136-145) Potassium Level 4.6 mmol/L (3.5-5.1) Chloride Level 104 mmol/L (98-107) Carbon Dioxide Level 26 mmol/L (21-32) Anion Gap 8 (6-14) Blood Urea Nitrogen 20 mg/dL (8-26) Creatinine 1.0 mg/dL (0.7-1.3) Estimated GFR (Cockcroft-Gault) 73.5 BUN/Creatinine Ratio 20 (6-20) Glucose Level 155 mg/dL (70-99) H Calcium Level 8.9 mg/dL (8.5-10.1) Total Bilirubin 0.4 mg/dL (0.2-1.0) Aspartate Amino Transferase (AST) 13 U/L (15-37) L Alanine Aminotransferase (ALT) 23 U/L (16-63) Alkaline Phosphatase 68 U/L (46-116) Troponin I High Sensitivity 8 ng/L (4-75) JQ-Sxa-D-Type Natriuretic Peptide 80 pg/mL (0-124) Total Protein 6.9 g/dL (6.4-8.2) Albumin 3.5 g/dL (3.4-5.0) Albumin/Globulin Ratio 1.0 (1.0-1.7) Thyroid Stimulating Hormone (TSH) 1.345 uIU/mL (0.358-3.74) SARS-CoV-2 Antigen (Rapid) Negative (NEGATIVE) Laboratory Tests 06/06/21 15:28 Laboratory Tests 06/06/21 15:28 EKG EKG Sinus rhythm at 70 bpm with left axis deviation and ST elevation noted in lead V2 with a biphasic T wave in the second beat. Radiology/Procedures Radiology/Procedures [] Course & Med Decision Making Course & Med Decision Making I will check labs imaging treat with IV fluids and reassess. Patient says that he feels that he is at his baseline now and I explained that work-up that was normal with no signs of acute pathology but discussed all incidental findings and need for follow-up. I spoke to Dr. Lui Damon about the patient and after extensive discussion felt that patient would be stable for discharge if he is at his baseline and felt that this is more likely narcolepsy episode. Patient has a normal repeat neurologic exam that is nonfocal and I discussed with him that we could admit him to the hospital for further evaluation and treatment but he refused stating that he would rather go home and follow-up with primary care provider as an outpatient. Patient will be dis charged in stable condition with normal vital signs told to follow-up primary care provider within 2 to 3 days for recheck and come at emergency department sooner with worsening pain neurologic changes or other general concerns. Patient aware and agreeable with plan and verbalized understanding of the above instructions. Dragon Disclaimer Dragon Disclaimer This electronic medical record was generated, in whole or in part, using a voice recognition dictation system. Departure Departure Impression: Primary Impression: Syncope Additional Impression: Narcolepsy Disposition: HOME / SELF CARE / HOMELESS Condition: STABLE Referrals: COMFORT SORENSON MD (PCP) Patient Instructions: Syncope Problem Qualifiers Primary Impression: Syncope Syncope type: unspecified Qualified Codes: R55 - Syncope and collapse JUDY TAM DO Jun 06, 2021 15:28
--- NOTE | 2021-06-06 15:33 | RAD ---
EXAM: Chest, single view. HISTORY: Syncope. COMPARISON: 03/01/2020 FINDINGS: A frontal view of the chest is obtained. There is no infiltrate, pleural effusion or pneumo thorax. The heart is normal in size. There is a cardiac pacemaker in expected position. IMPRESSION: No acute pulmonary finding. Electronically signed by: Ansia Kamara MD (06/06/2021 3:31 PM) [id number]
[2021-06-06 15:59] LABS: BASO % 0 % (0-3); EOS # 0.1 x10^3/uL (0.0-0.7); EOS % 2 % (0-3); HEMATOCRIT 42.6 % (39.0-53.0); HEMOGLOBIN 14.3 g/dL (13.0-17.5); LYMPH # 1.8 x10^3/uL (1.0-4.8); LYMPH % 32 % (24-48); MEAN CORPUSCULAR HEMOGLOBIN 31 pg (25-35); MEAN CORPUSCULAR HGB CONC 34 g/dL (31-37); MEAN CORPUSCULAR VOLUME 91 fL (79-100); MONO # 0.4 x10^3/uL (0.0-1.1); MONO % 8 % (0-9); NEUT # 3.1 x10^3/uL (1.8-7.7); NEUT % 58 % (31-73); PLATELET COUNT 176 x10^3/uL (140-400); WHITE BLOOD COUNT 5.5 x10^3/uL (4.0-11.0)
--- NOTE | 2021-06-06 16:04 | RAD ---
CT brain without contrast. HISTORY: Syncope CT scan of brain was done without contrast. Comparison is made with a study from April 30, 2021. Th ere is opacification of right maxillary sinus unchanged from the old study. Remaining sinuses are timi ar. There is no intracranial hemorrhage or subdural hematoma. There is mild atrophy. 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 An acute CVA is not identified. Ventricles are normal in size. There is no mass effect or shift of the midline. IMPRESSION: 1. No intracranial hemorrhage or acute finding noted. PQRS Compliance Statement: One or more of the following individualized dose reduction techniques were utilized for this examinat ion: 1. Automated exposure control 2. Adjustment of the mA and/or kV according to patient size 3. Use of iterative reconstruction technique Electronically signed by: Roverto Laura MD (06/06/2021 4:02 PM) [facility]
[2021-06-06 16:29] LABS: CALCIUM 8.9 mg/dL (8.5-10.1); GFR 73.5; POTASSIUM 4.6 mmol/L (3.5-5.1)
[2021-06-06 16:35] LABS: ALBUMIN 3.5 g/dL (3.4-5.0); TOTAL BILIRUBIN 0.4 mg/dL (0.2-1.0); TOTAL PROTEIN 6.9 g/dL (6.4-8.2)
[2021-06-06 17:22] VITALS: BP 150/76
== END 2021-06-06 17:52 | disposition home or self-care (01) ==
LOC: ER 15:00
DX: R55 Syncope and collapse (principal); G47.419 Narcolepsy without cataplexy; Z20.822 Contact with and (suspected) exposure to COVID-19; E11.9 Type 2 diabetes mellitus without complications; Z88.8 Allergy status to other drugs, medicaments and biological substances; Z95.0 Presence of cardiac pacemaker
CPT/HCPCS: 36415; 70450; 71045; 80053; 83880; 84443; 84484; 85025; 87426; 93005; 96360; 99285; J7030; U0003; U0005

== ENCOUNTER 2021-08-09 22:18 | Inpatient (IN) | payer MEDICARE ==
[~2021-08-09] VITALS: Ht 182.9 cm; Wt 97.6 kg
[~2021-08-09 22:18] MED LIST changes: +AMOX1TAB58 PO; +SITA100T PO
--- NOTE | 2021-08-09 22:20 | PHYS DOC ---
Past Medical History Past Medical History: Arrhythmia, Diabetes-Type II Additional Past Medical Histor: CARDIONEUROGENIC SYNCOPE, hernia, NARCOLEPSY, ana laura,neuropathy Past Surgical History: Other Additional Past Surgical Histo: unknonwn Smoking Status: Never Smoker Alcohol Use: None Drug Use: None General Adult HPI: HPI: Patient is a 71 year old male who presents from home via EMS with report of syncope and near syncope. He reportedly had multiple episodes, which began around 10 AM today. He has a history of recurrent cardio neurogenic syncope. He has a pacemaker. He reports compliance with all of his medications. He does also have a reported history of narcolepsy. He takes Nuvigil every day, reportedly had been taking his medications as directed, took his dose this morning. He initially called EMS for lift assist after he had a fall or near syncope at home, and when EMS arrived he had another near syncopal episode and e pisode of dizziness there, he agreed to be transported to the hospital. He lives alone, he reportedly does not use any ambulatory devices. He has had multiple episodes similar to this since the beginning of the year. He has been a for just over a year. He was last admitted to the hospital at [facility] in late May and then again about a month ago here at [facility] for the same issues. He had refused formal inpatient rehab services. He reportedly was set up for home health services, but he called and declined for them to come help him. I spoke with his daughter, Anisa Patino, via phone who reports that she is aware that this has been a progressive decline, and it has been suggested to the patient that he move in with her and it has been suggested that he requires further assistance, but the patient has been resistant to this notion. He lives in a fpc community, though he does not have any specific assistance at home. The patient reports having right shoulder pain and a mild headache. He denies neck pain or back pain. He denies chest pain. He denies dyspnea. He denies cough. He reports that he had a headache earlier today, and he vomited a few times. He denies any active nausea. He denies abdominal pain. He denies diarrhea or constipation. He denies urinary symptoms or incontinence. He denies numbness or tingling or focal motor weakness. He has generalized weakness. He does report some mild right shoulder pain, he is experiences before. He is unsure if he injured his shoulder during any of the falls. Review of Systems: Review of Systems: Constitutional: Denies fever or chills. [] Eyes: Denies change in visual acuity. Denies vision loss. HENT: Denies nasal congestion or sore throat. [] Respiratory: Denies cough or shortness of breath. [] Cardiovascular: Denies chest pain or edema. [] GI: Denies abdominal pain. 1 episode of nausea and vomiting this morning, currently no nausea. No diarrhea or constipation. : Denies urinary symptoms or incontinence. Musculoskeletal: Denies back pain or joint pain. [] Integument: Denies rash. He does have some bruising on his lower abdomen where he injects insulin. No open wounds, no erythema, no pain, no rash, no jaundice. Neurologic: He does report mild headache. Denies focal weakness or sensory changes. Generalized, nonfocal motor weakness. Reports several episodes of syncope and near syncope. Reports history of fall, questionable head injury. Denies numbness or tingling. Psychiatric: Denies depression or anxiety. [] Heart Score: C/O Chest Pain: No Risk Factors: Risk Factors: DM, Current or recent (<one month) smoker, HTN, HLP, family history of CAD, obesity. Risk Scores: Score 0 - 3: 2.5% MACE over next 6 weeks - Discharge Home Score 4 - 6: 20.3% MACE over next 6 weeks - Admit for Clinical Observation Score 7 - 10: 72.7% MACE over next 6 weeks - Early Invasive Strategies Allergies: Allergies: Allergies Coded Allergies Type Severity Reaction Last Updated Verified topiramate Adverse Reaction Severe stroke like symptoms 06/30/21 Yes Physical Exam: PE: Constitutional: Well developed, well nourished, no acute distress, non-toxic appearance. Chronically ill-appearing. Mildly disheveled. HENT: Normocephalic, atraumatic, oropharynx is patent and clear. No evidence of facial trauma noted. No dental trauma. Mucous membranes are moist. TMs are clear bilaterally. No otorrhea. No hemotympanum. Nares are patent without rhi norrhea epistaxis. Eyes: PERRL, EOMI, conjunctiva normal, no discharge. No nystagmus. No scleral icterus. No evidence of periorbital edema, erythema or contusions. Neck: Normal range of motion, no tenderness, supple, no stridor. [] Cardiovascular:Heart rate regular rhythm, +2 radial and +2 posterior tibial pulses bilaterally Lungs & Thorax: Bilateral breath sounds clear to auscultation, no rales, rhonchi or wheezes. Equal chest rise. Evidence of chest or thorax trauma Abdomen: Abdomen is soft, nondistended, nontender to palpation. No palpable masses organomegaly. No palpable pulsatile mass. No CVA tenderness. No flank abdominal ecchymoses. Skin: Warm, dry, no erythema, no rash. No wounds or lacerations. No jaundice. Back: Did range of motion. No deformity. No midline tenderness or step-offs. Extremities: No tenderness, no cyanosis, no clubbing, ROM intact, no edema. Pelvis is stable. No calf tenderness. No limb deformity. Full active and passive range of motion in all directions of the right shoulder, winces with pain during all range of motion, no step-offs or deformity. No bony tenderness. Neurologic: The patient is awake, alert, oriented x3. Cranial nerves II through XII are grossly intact. Bilateral flash drier operator strength are normal bilaterally. No limb ataxia. No pronator drift or dysmetria. He does have 5 out of 5 motor strength in upper and lower extremities. He does however manifest generalized, nonfocal weakness, for instance he is unable to sit up on his own without significant help from me and the nursing staff. Sensation is grossly intact. Speech is clear and fluent. Psychologic: Affect is flat. EKG: EKG: EKG is interpreted at 2027 Rhythm is sinus Rate is 99 bpm Boaz is left RBBB No STEMI Radiology/Procedures: Radiology/Procedures: IMAGING REPORT Signed PATIENT: LIZDEARL S ACCOUNT: [id number] : 1950 LOCATION: ER AGE: 71 SEX: M EXAM STATUS: REG ER ORD. PHYSICIAN: JARRETT KENNEDY DO REASON: syncope PROCEDURE: CT HEAD AND CERVICAL SPINE [facility] Compliance Statement: One or more of the following individualized dose reduction techniques were utilized for this examination: 1. Automated exposure control 2. Adjustment of the mA and/or kV according to patient size 3. Use of iterative reconstruction technique CT HEAD AND CERVICAL SPINE WITHOUT CONTRAST History: Reason: syncope / Spl. Instructions: / History: Comparison: CT head without contrast June 06, 2021. Procedure: Axial images are obtained of the head from the skull base through the vertex without IV contrast. Noncontrast helical CT of the cervical spine was performed. Axial, sagittal, and coronal reconstructions were obtained. Findings: The ventricles and sulci are normal for the patient's age. There is unchanged encephalomalacia in the para midline left cerebellum. No mass-effect, midline shift, hemorrhage or obvious acute infarction is identified. Basilar cisterns are patent. Bone windows demonstrate no significant calvarial abnormality. There is probably chronic mucosal thickening of the right maxillary sinus. There is mucosal thickening of the right ethmoid sinus. Mastoid air cells are well aerated. There is no evidence of acute fracture or acute malalignment of the cervical spine. The facet joints are hypertrophic but intact. 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 The facet joints at this level are fused bilaterally. There is grade 1 retrolisthesis of C5 on C6. The alignment is otherwise maintained. Straightening of normal cervical lordosis may be positional or due to muscle spasm. Visualized soft tissues of the neck demonstrate no significant abnormalities. The visualized lung apices are clear. IMPRESSION: 1. No acute intracranial abnormality. 2. No acute fracture of the cervical spine. Electronically signed by: Jamey Ahuja MD (08/09/2021 11:03 PM) [facility] DICTATED and SIGNED BY: JAMEY AHUJA MD DATE: 08/09/21 2256 IMAGING REPORT Signed PATIENT: LIZDEARL S ACCOUNT: [id number] : 1950 LOCATION: ER AGE: 71 SEX: M EXAM STATUS: REG ER ORD. PHYSICIAN: JARRETT KENNEDY DO REASON: syncope PROCEDURE: SHOULDER 2+V RIGHT RIGHT SHOULDER , 3 VIEWS Clinical Indication: Reason: syncope / Spl. Instructions: / History: Comparison: Right shoulder, 3 views, 11/28/2020. Findings: There is no acute fracture or dislocation. Stable resection of the distal right clavicle. The visualized lung is clear. There is right chest 2-lead pacer. There is no evidence of a displaced rib fracture. There is no soft tissue abnormality. IMPRESSION: No acute fracture or dislocation. Electronically signed by: Jamey Ahuja MD (08/09/2021 11:14 PM) [facility] DICTATED and SIGNED BY: JAMEY AHUJA MD DATE: 08/09/212311 IMAGING REPORT Signed PATIENT: MARCELLUS HILLRPreet Morfin ACCOUNT: [id number] : 1950 LOCATION: ER AGE: 71 SEX: M EXAM STATUS: REG ER ORD. PHYSICIAN: JARRETT KENNEDY DO REASON: syncope PROCEDURE: PORTABLE CHEST 1V XR CHEST 1V Clinical Indication: Reason: syncope / Spl. Instructions: / History: Comparison: AP chest 06/30/2021. Findings: There is right chest dual-chamber pacer. Atherosclerotic aortic arch. The cardiomediastinal silhouette is normal. Lungs are clear. There is no pneumothorax. No pleural effusion is appreciated. No acute bone abnormality. Resection of distal right clavicle. IMPRESSION: No acute cardiopulmonary process. Electronically signed by: Jamey Ahuja MD (08/09/2021 11:16 PM) [facility] DICTATED and SIGNED BY: JAMEY AHUJA MD DATE: 08/09/212314 Course & Med Decision Making: Course & Med Decision Making Pertinent Labs and Imaging studies reviewed. (See chart for details) The patient is given a liter of IV fluids. He is resting comfortably. He manifests no evidence of hypoxia or respiratory distress or any hemodynamic compromise. He had reported some right shoulder pain, he declines pain medication. He does not appear to be in any significant distress or pain at present. I discussed the findings, differential diagnosis and plan of care with the patient. I recommended hospitalization, PT OT consult and rn social work consult for possible formal rehabilitation services and placement. He is comfortable with the plan of care. He is accepted for admission by Dr. Epstein. Shawna Disclaimer: Shawna Disclaimer: This electronic medical record was generated, in whole or in part, using a voice recognition dictation system. Departure Departure Impression: Primary Impression: Syncope Qualified Codes: R55 - Syncope and collapse Additional Impression: Generalized weakness Disposition: ADMITTED INPATIENT Admitting Physician: CULLEN (Dr. Epstein) Condition: STABLE Referrals: COMFORT SORENSON MD (PCP) JARRETT KENNEDY 18, 2022 22:20
[2021-08-09] MEDS ORDERED: IV NORMAL SALINE 1000ML BAG 1,000 ML IV ONE (22:30)
[2021-08-09 22:46] LABS: BASO % 0 % (0-3); EOS % 0 % (0-3); LYMPH # 0.4 x10^3/uL (1.0-4.8); LYMPH % 7 % (24-48); MEAN CORPUSCULAR HEMOGLOBIN 30 pg (25-35); MEAN CORPUSCULAR HGB CONC 33 g/dL (31-37); MEAN CORPUSCULAR VOLUME 91 fL (79-100); MONO # 0.3 x10^3/uL (0.0-1.1); MONO % 6 % (0-9); NEUT # 4.7 x10^3/uL (1.8-7.7); NEUT % 87 % (31-73); PLATELET COUNT 150 x10^3/uL (140-400); RED BLOOD COUNT 4.94 x10^6/uL (4.30-5.70); RED CELL DISTRIBUTION WIDTH 14.1 % (11.5-14.5); WHITE BLOOD COUNT 5.4 x10^3/uL (4.0-11.0)
[2021-08-09 22:57] LABS: CALCIUM 8.7 mg/dL (8.5-10.1); CREATININE 1.1 mg/dL (0.7-1.3); GFR 65.8; POTASSIUM 4.4 mmol/L (3.5-5.1)
[2021-08-09 23:02] LABS: ALBUMIN 3.6 g/dL (3.4-5.0); ALBUMIN/GLOBULIN RATIO 1.1 (1.0-1.7); MAGNESIUM 1.9 mg/dL (1.8-2.4); PHOSPHORUS 3.5 mg/dL (2.6-4.7); TOTAL BILIRUBIN 0.6 mg/dL (0.2-1.0)
--- NOTE | 2021-08-09 23:05 | RAD ---
PQRS Compliance Statement: One or more of the following individualized dose reduction techniques were utilized for this examinat ion: 1. Automated exposure control 2. Adjustment of the mA and/or kV according to patient size 3. Use of iterative reconstruction technique CT HEAD AND CERVICAL SPINE WITHOUT CONTRAST History: Reason: syncope / Spl. Instructions: / History: Comparison: CT head without contrast June 06, 2021. Procedure: Axial images are obtained of the head from the skull base through the vertex without IV co ntrast. Noncontrast helical CT of the cervical spine was performed. Axial, sagittal, and coronal rec onstructions were obtained. Findings: The ventricles and sulci are normal for the patient's age. There is unchanged encephalomalacia in the para midline left cerebellum. No mass-effect, midline shift, hemorrhage or obvious acute infarction is identified. Basilar cistern s are patent. Bone windows demonstrate no significant calvarial abnormality. There is probably chronic mucosal thickening of the right maxillary sinus. There is mucosal thickenin g of the right ethmoid sinus. Mastoid air cells are well aerated. There is no evidence of acute fracture or acute malalignment of the cervical spine. The facet joints are hypertrophic but intact. There is segmentation anomaly with a rudimentary disc s pace and near complete fusion of the C3-C4 vertebral bodies. The facet joints at this level are fused bilaterally. There is grade 1 retrolisthesis of C5 on C6. The alignment is otherwise maintained. Str aightening of normal cervical lordosis may be positional or due to muscle spasm. Visualized soft tissues of the neck demonstrate no significant abnormalities. The visualized lung api fco are clear. IMPRESSION: 1. No acute intracranial abnormality. 2. No acute fracture of the cervical spine. Electronically signed by: Jamey Ahuja MD (08/09/2021 11:03 PM) [facility]
--- NOTE | 2021-08-09 23:17 | RAD ---
RIGHT SHOULDER , 3 VIEWS Clinical Indication: Reason: syncope / Spl. Instructions: / History: Comparison: Right shoulder, 3 views, 11/28/2020. Findings: There is no acute fracture or dislocation. Stable resection of the distal right clavicle. The visuali zed lung is clear. There is right chest 2-lead pacer. There is no evidence of a displaced rib fractur e. There is no soft tissue abnormality. IMPRESSION: No acute fracture or dislocation. Electronically signed by: Jamey Ahuja MD (08/09/2021 11:14 PM) [facility]
--- NOTE | 2021-08-09 23:19 | RAD ---
XR CHEST 1V Clinical Indication: Reason: syncope / Spl. Instructions: / History: Comparison: AP chest 06/30/2021. Findings: There is right chest dual-chamber pacer. Atherosclerotic aortic arch. The cardiomediastinal silhouett e is normal. Lungs are clear. There is no pneumothorax. No pleural effusion is appreciated. No acute bone abnormality. Resection of distal right clavicle. IMPRESSION: No acute cardiopulmonary process. Electronically signed by: Jamey Ahuja MD (08/09/2021 11:16 PM) [facility]
[2021-08-10] VITALS (7 sets, daily range): BP systolic 136–158; BP diastolic 71–86
[2021-08-10] MEDS ORDERED: C.DIFF MED SCREEN BY RX. MC PRN (01:45)
[2021-08-10] MEDS ORDERED: MULT1CAP33 PO (01:52)
[2021-08-10] MEDS ORDERED: ARMO50TA2 PO (01:52)
[2021-08-10] MEDS ORDERED: IV DEXTROSE 5% 250 ML BAG. IV PRN (02:45)
[2021-08-10] MEDS ORDERED: ACETAMINOPHEN 325 MG TABLET. PO PRN ×2 (02:45→09:30)
[2021-08-10] MEDS ORDERED: MORPHINE SULFATE 2 MG/ML INJ. IVP PRN (02:45)
[2021-08-10] MEDS ORDERED: DEXTROSE 50% 25 GM / 50ML DISP.SYRIN. IV PRN ×3 (02:45→09:45)
[2021-08-10 03:03] LABS: BILIRUBIN,URINE NEGATIVE (NEG); CLARITY,URINE CLEAR; COLOR,URINE YELLOW; NITRITE,URINE NEGATIVE (NEG); PH,URINE 5.5 (<5.0-8.0); PROTEIN,URINE NEGATIVE (NEG-TRACE); UROBILINOGEN,URINE 0.2 mg/dL (0.2 mg/dL)
[2021-08-10 03:04] LABS: BACTERIA,URINE 0 /HPF (0-FEW); WBC,URINE RARE /HPF (0-4)
[2021-08-10] MEDS: INSULIN LISPRO 300 UNITS/3 ML VIAL. SQ SCH ×6 (09:08→20:29)
--- NOTE | 2021-08-10 09:29 | PDOC1 ---
History and Physical Date of Service: DOS: DATE: 08/10/21 TIME: 09:09 Chief Complaint: Chief Complain: syncope History of Present Illness: HPI: Hx obtained from chart review: 71-year-old male with past medical history of diabetes mellitus type 2 neurocardiogenic syncope, narcolepsy, HOWIE, arrhythmia who presents with syncope. Patient states that he had multiple episodes respiratory rate down around 10:00 in the morning yesterday. He states that last night he tried to stand up and he fell to the ground from his bed. He also had reported multiple episodes of vomiting yesterday. Patient takes Nuvigil for his narcolepsy. He is compliant with all his medications. Patient required EMS to help him get to the hospital after his episode of syncope. He also reported some dizziness associated with his loss of consciousness. He lives alone, he reportedly does not use any ambulatory devices. He has had multiple episodes similar to this since the beginning of the year. He has been a for just over a year. He was last admitted to the hospital at [facility] in late May and then again about a month ago here at [facility] for the same issues. He had refused formal inpatient rehab services. He reportedly was set up for home health services, but he called and declined for them to come help him. Daughter states patient is progressively worsening and will likely need rehab. He lives in a fdc community, though he does not have any specific assistance at home. Denies any fevers, chest pain, shortness of breath, generalized weakness, focal weakness, urinary incontinence, dysuria, diarrhea or constipation or abdominal pain. Past Medical/Surgical History: PMH/PSH: Past Medical History: Arrhythmia, Diabetes-Type II, CARDIONEUROGENIC SYNCOPE, hernia, NARCOLEPSY, howie,neuropathy Past Surgical History: unknonwn Allergies: Allergies: Coded Allergies: topiramate (Verified Adverse Reaction, Severe, stroke like symptoms, 08/09/21) Family History: Family History: Reviewed with no relative findings in the chart Social History: Social History: Smoking Status: Never Smoker Alcohol Use: None Drug Use: None Current Medications: Current Medications Current Medications Sodium Chloride 1,000 ml @ 1,000 mls/hr 1X ONCE IV Last administered on 08/09/21at 22:55; Start 08/09/21 at 22:30; Stop 08/09/21 at 23:29; Status DC Pharmacy Consult (C.diff Med Screen By Rx) 1 each 1X PRN PRN [facility] SEE ADMIN INSTRUCTIONS; Start 08/10/21 at 01:45; Status Cancel Morphine Sulfate (Morphine Sulfate) 1 mg PRN Q2HR PRN IVP PAIN Last administered on 08/10/21at 02:59; Start 08/10/21 at 02:45 Acetaminophen (Tylenol) 650 mg PRN Q6HRS PRN PO MILD PAIN / TEMP > 100.3'F Last administered on 08/10/21at 02:55; Start 08/10/21 at 02:45 Insulin Human Lispro (HumaLOG) 0-7 UNITS QIDACHS SQ ; Start 08/10/21 at 07:30 Dextrose (Dextrose 50%-Water Syringe) 12.5 gm PRN Q15MIN PRN IV SEE COMMENTS; Start 08/10/21 at 02:45 Dextrose (Iv Dextrose 5%) 250 ml PRN Q15MIN PRN IV SEE COMMENTS; Start 08/10/21 at 02:45 Active Scripts Active Magnesium Oxide 400 (Magnesium Oxide) 240 Mg Powd.pack 240 Mg PO DAILY 30 Days Tessalon Perle (Benzonatate) 100 Mg Capsule 1 Cap PO TID PRN 7 Days Tylenol (Acetaminophen) 325 Mg Tablet 650 Mg PO PRN Q4HRS PRN 30 Days Reported Nuvigil (Armodafinil) 50 Mg Tablet 1 Tab PO DAILY MDD 1 Tablet(s) 30 Days take with 150mg to equal 200mg Bariatric Mv-Iron 45 mg Cap (Multivit-Min/Iron/Folic Acid/K) 1 Each Capsule 1 Each PO DAILY Januvia (Sitagliptin Phosphate) 100 Mg Tablet 1 Tab PO DAILY Atenolol 50 Mg Tablet 1 Tab PO BID Novolin N Flexpen (Insulin NPH Human Isophane) 100 Unit/1 Ml Insuln.pen 10 Units SQ BIDBFRMEAL Metformin Hcl Er (Metformin Hcl) 500 Mg Tab.er.24h 4 Tab PO DAILY Nuvigil (Armodafinil) 150 Mg Tablet 150 Mg PO DAILY take with 50mg tab to equal 200 mg Aspir-Low (Aspirin) 81 Mg Tablet. 1 Tab PO DAILY Lisinopril 20 Mg Tablet 1 Tab PO DAILY Gabapentin (Gabapentin) 300 Mg Capsule 1,200 Mg PO HS Gabapentin (Gabapentin) 300 Mg Capsule 900 Mg PO DAILY Omeprazole 20 Mg Capsule.dr 20 Mg PO DAILY Zocor (Simvastatin) 20 Mg Tablet 20 Mg PO HS ROS: Review of Systems Review of System REVIEW OF SYSTEMS: GENERAL: Denies weakness SKIN: No bruising, hair changes or rashes. EYES: No blurred, double or loss of vision. NOSE AND THROAT: No history of nosebleeds, hoarseness or sore throat. HEART: No history of palpitations, chest pain or shortness of breath on exertion. LUNGS: Denies cough, hemoptysis, wheezing or shortness of breath. GASTROINTESTINAL: Denies changes in appetite, nausea, vomiting, diarrhea or constipation. GENITOURINARY: No history of frequency, urgency, hesitancy or nocturia. NEUROLOGIC: Denies history of numbness, tingling, or tremor. PSYCHIATRIC: No history of panic, anxiety or depression. ENDOCRINE: No history of heat or cold intolerance, polyuria or polydipsia. EXTREMITIES: Denies joint pain, pain on walking or stiffness. Physical Exam: Vital Signs: Vital Signs Date Time Temp Pulse Resp B/P (MAP) Pulse Ox O2 Delivery O2 Flow Rate FiO2 08/10/21 07:00 98.2 70 20 142/75 (97) 98 Room Air 98.2 Physcial Exam: General: Well developed, well nourished, no acute distress, Chronically ill-appearing. Mildly disheveled. HEENT: Pupils equally round and reactive to light, EOMI, no discharge, normal conjunctiva Neck: Supple, no nuchal rigidity, no JVD, trachea midline, no tenderness Cardiac: RRR, no murmurs, no gallops, no rubs Chest/Lungs: CTAB, no wheeze, no rhonchi, no crackles Abdomen: soft, non-distended, no guarding, no peritoneal signs, non-tender Back: No tenderness Extremities: no edema, pulses intact, non-tender,capillary refill <3 sec bilateral upper and lower extremities, Neuro: Alert and oriented x 4, no focal deficits, normal speech Labs: Labs: Laboratory Tests Test 08/09/21 22:34 08/10/21 02:45 08/10/21 07:06 White Blood Count 5.4 x10^3/uL (4.0-11.0) Red Blood Count 4.94 x10^6/uL (4.30-5.70) Hemoglobin 15.0 g/dL (13.0-17.5) Hematocrit 45.0 % (39.0-53.0) Mean Corpuscular Volume 91 fL (79-100) Mean Corpuscular Hemoglobin 30 pg (25-35) Mean Corpuscular Hemoglobin Concent 33 g/dL (31-37) Red Cell Distribution Width 14.1 % (11.5-14.5) Platelet Count 150 x10^3/uL (140-400) Neutrophils (%) (Auto) 87 % (31-73) Lymphocytes (%) (Auto) 7 % (24-48) Monocytes (%) (Auto) 6 % (0-9) Eosinophils (%) (Auto) 0 % (0-3) Basophils (%) (Auto) 0 % (0-3) Neutrophils # (Auto) 4.7 x10^3/uL (1.8-7.7) Lymphocytes # (Auto) 0.4 x10^3/uL (1.0-4.8) Monocytes # (Auto) 0.3 x10^3/uL (0.0-1.1) Eosinophils # (Auto) 0.0 x10^3/uL (0.0-0.7) Basophils # (Auto) 0.0 x10^3/uL (0.0-0.2) Sodium Level 138 mmol/L (136-145) Potassium Level 4.4 mmol/L (3.5-5.1) Chloride Level 101 mmol/L (98-107) Carbon Dioxide Level 29 mmol/L (21-32) Anion Gap 8 (6-14) Blood Urea Nitrogen 22 mg/dL (8-26) Creatinine 1.1 mg/dL (0.7-1.3) Estimated GFR (Cockcroft-Gault) 65.8 BUN/Creatinine Ratio 20 (6-20) Glucose Level 203 mg/dL (70-99) Calcium Level 8.7 mg/dL (8.5-10.1) Phosphorus Level 3.5 mg/dL (2.6-4.7) Magnesium Level 1.9 mg/dL (1.8-2.4) Total Bilirubin 0.6 mg/dL (0.2-1.0) Aspartate Amino Transf (AST/SGOT) 19 U/L (15-37) Alanine Aminotransferase (ALT/SGPT) 20 U/L (16-63) Alkaline Phosphatase 60 U/L (46-116) Creatine Kinase 274 U/L (39-308) Troponin I High Sensitivity 8 ng/L (4-75) Total Protein 7.0 g/dL (6.4-8.2) Albumin 3.6 g/dL (3.4-5.0) Albumin/Globulin Ratio 1.1 (1.0-1.7) Urine Collection Type Unknown Urine Color Yellow Urine Clarity Clear Urine pH 5.5 (<5.0-8.0) Urine Specific [place] 1.025 (1.000-1.030) Urine Protein Negative mg/dL (NEG-TRACE) Urine Glucose (UA) Negative mg/dL (NEG) Urine Ketones (Stick) 40 mg/dL (NEG) Urine Blood Small (NEG) Urine Nitrite Negative (NEG) Urine Bilirubin Negative (NEG) Urine Urobilinogen Dipstick 0.2 mg/dL (0.2 mg/dL) Urine Leukocyte Esterase Negative (NEG) Urine RBC 6-10 /HPF (0-2) Urine WBC Rare /HPF (0-4) Urine Squamous Epithelial Cells Few /LPF Urine Bacteria 0 /HPF (0-FEW) Urine Mucus Slight /LPF Glucose (Fingerstick) 172 mg/dL (70-99) Laboratory Tests Test 08/09/21 22:34 08/10/21 02:45 08/10/21 07:06 White Blood Count 5.4 x10^3/uL (4.0-11.0) Red Blood Count 4.94 x10^6/uL (4.30-5.70) Hemoglobin 15.0 g/dL (13.0-17.5) Hematocrit 45.0 % (39.0-53.0) Mean Corpuscular Volume 91 fL (79-100) Mean Corpuscular Hemoglobin 30 pg (25-35) Mean Corpuscular Hemoglobin Concent 33 g/dL (31-37) Red Cell Distribution Width 14.1 % (11.5-14.5) Platelet Count 150 x10^3/uL (140-400) Neutrophils (%) (Auto) 87 % (31-73) Lymphocytes (%) (Auto) 7 % (24-48) Monocytes (%) (Auto) 6 % (0-9) Eosinophils (%) (Auto) 0 % (0-3) Basophils (%) (Auto) 0 % (0-3) Neutrophils # (Auto) 4.7 x10^3/uL (1.8-7.7) Lymphocytes # (Auto) 0.4 x10^3/uL (1.0-4.8) Monocytes # (Auto) 0.3 x10^3/uL (0.0-1.1) Eosinophils # (Auto) 0.0 x10^3/uL (0.0-0.7) Basophils # (Auto) 0.0 x10^3/uL (0.0-0.2) Sodium Level 138 mmol/L (136-145) Potassium Level 4.4 mmol/L (3.5-5.1) Chloride Level 101 mmol/L (98-107) Carbon Dioxide Level 29 mmol/L (21-32) Anion Gap 8 (6-14) Blood Urea Nitrogen 22 mg/dL (8-26) Creatinine 1.1 mg/dL (0.7-1.3) Estimated GFR (Cockcroft-Gault) 65.8 BUN/Creatinine Ratio 20 (6-20) Glucose Level 203 mg/dL (70-99) Calcium Level 8.7 mg/dL (8.5-10.1) Phosphorus Level 3.5 mg/dL (2.6-4.7) Magnesium Level 1.9 mg/dL (1.8-2.4) Total Bilirubin 0.6 mg/dL (0.2-1.0) Aspartate Amino Transf (AST/SGOT) 19 U/L (15-37) Alanine Aminotransferase (ALT/SGPT) 20 U/L (16-63) Alkaline Phosphatase 60 U/L (46-116) Creatine Kinase 274 U/L (39-308) Troponin I High Sensitivity 8 ng/L (4-75) Total Protein 7.0 g/dL (6.4-8.2) Albumin 3.6 g/dL (3.4-5.0) Albumin/Globulin Ratio 1.1 (1.0-1.7) Urine Collection Type Unknown Urine Color Yellow Urine Clarity Clear Urine pH 5.5 (<5.0-8.0) Urine Specific [place] 1.025 (1.000-1.030) Urine Protein Negative mg/dL (NEG-TRACE) Urine Glucose (UA) Negative mg/dL (NEG) Urine Ketones (Stick) 40 mg/dL (NEG) Urine Blood Small (NEG) Urine Nitrite Negative (NEG) Urine Bilirubin Negative (NEG) Urine Urobilinogen Dipstick 0.2 mg/dL (0.2 mg/dL) Urine Leukocyte Esterase Negative (NEG) Urine RBC 6-10 /HPF (0-2) Urine WBC Rare /HPF (0-4) Urine Squamous Epithelial Cells Few /LPF Urine Bacteria 0 /HPF (0-FEW) Urine Mucus Slight /LPF Glucose (Fingerstick) 172 mg/dL (70-99) Images: Images PROCEDURE: PORTABLE CHEST 1V XR CHEST 1V Clinical Indication: Reason: syncope / Spl. Instructions: / History: Comparison: AP chest 06/30/2021. Findings: There is right chest dual-chamber pacer. Atherosclerotic aortic arch. The cardiomediastinal silhouette is normal. Lungs are clear. There is no pneumothorax. No pleural effusion is appreciated. No acute bone abnormality. Resection of distal right clavicle. IMPRESSION: No acute cardiopulmonary process. PROCEDURE: CT HEAD AND CERVICAL SPINE WO [facility] Compliance Statement: One or more of the following individualized dose reduction techniques were utilized for this examination: 1. Automated exposure control 2. Adjustment of the mA and/or kV according to patient size 3. Use of iterative reconstruction technique CT HEAD AND CERVICAL SPINE WITHOUT CONTRAST History: Reason: syncope / Spl. Instructions: / History: Comparison: CT head without contrast June 06, 2021. Procedure: Axial images are obtained of the head from the skull base through the vertex without IV contrast. Noncontrast helical CT of the cervical spine was performed. Axial, sagittal, and coronal reconstructions were obtained. Findings: The ventricles and sulci are normal for the patient's age. There is unchanged encephalomalacia in the para midline left cerebellum. No mass-effect, midline shift, hemorrhage or obvious acute infarction is identified. Basilar cisterns are patent. Bone windows demonstrate no significant calvarial abnormality. There is probably chronic mucosal thickening of the right maxillary sinus. There is mucosal thickening of the right ethmoid sinus. Mastoid air cells are well aerated. There is no evidence of acute fracture or acute malalignment of the cervical spine. The facet joints are hypertrophic but intact. 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 The facet joints at this level are fused bilaterally. There is grade 1 retrolisthesis of C5 on C6. The alignment is otherwise maintained. Straightening of normal cervical lordosis may be positional or due to muscle spasm. Visualized soft tissues of the neck demonstrate no significant abnormalities. The visualized lung apices are clear. IMPRESSION: 1. No acute intracranial abnormality. 2. No acute fracture of the cervical spine. PROCEDURE: SHOULDER 2+V RIGHT RIGHT SHOULDER , 3 VIEWS Clinical Indication: Reason: syncope / Spl. Instructions: / History: Comparison: Right shoulder, 3 views, 11/28/2020. Findings: There is no acute fracture or dislocation. Stable resection of the distal right clavicle. The visualized lung is clear. There is right chest 2-lead pacer. There is no evidence of a displaced rib fracture. There is no soft tissue abnormality. IMPRESSION: No acute fracture or dislocation. Assessment/Plan Assessment/Plan Syncope due to vasovagal etiology, orthostatic hypotension, cardiovascular etiology History of neurocardiogenic syncope History of sarcoidosis History of narcolepsy on Nuvigil History of sleep apnea on CPAP History of colon rupture and emergent colon resection in 1996 History of prostate cancer status post radiation treatment in 2006 Prodromal symptoms include Post syncope symptoms include Admit to medicine for further work-up Cardiology consult Pending echocardiogram Continue telemetry monitoring Fall precautions Orthostatic vital signs Hold all centrally acting medications Pending medication reconciliation SCD and ambulation for DVT prophylaxis ADA/cardiac diet Full code Discussed with RN and SW Disposition inpatient management as above, pending cardiology evaluation Surrogate decision maker is the daughter Justifications for Admission Other Justification KELLEE MESSINA MD Aug 10, 2021 09:29
[2021-08-10] MEDS ORDERED: PROCHLORPERAZINE 10 MG/2 ML VIAL. IV PRN (09:30)
[2021-08-10] MEDS ORDERED: SENNOSIDES 8.6 MG TABLET PO PRN (09:30)
[2021-08-10] MEDS ORDERED: ZOLPIDEM 5 MG TABLET. PO PRN (09:30)
[2021-08-10] MEDS ORDERED: ONDANSETRON PF 4 MG/2 ML VIAL. IVP PRN (09:30)
[2021-08-10] MEDS ORDERED: DOCUSATE SODIUM 100 MG CAPSULE. PO PRN (09:30)
[2021-08-10] MEDS ORDERED: diphenhydrAMINE 50 MG/ML VIAL IVP PRN (09:30)
[2021-08-10] MEDS ORDERED: diphenhydrAMINE HCL 25 MG CAPSULE PO PRN ×2 (09:30)
[2021-08-10] MEDS ORDERED: LORazepam 0.5 MG TABLET PO PRN (09:30)
[2021-08-10] MEDS: INSULIN GLARGINE SYRINGE. SQ SCH ×2 (10:00→20:44)
[2021-08-10] MEDS: GABAPENTIN 300 MG CAPSULE. PO SCH (10:00)
[2021-08-10] MEDS: PANTOPRAZOLE 40 MG TABLET.DR. PO SCH (10:00)
[2021-08-10] MEDS: metFORMIN XR 500 MG TAB.ER.24H PO SCH (10:00)
[2021-08-10] MEDS: ASPIRIN ENTERIC COATED 81 MG TABLET.DR. PO SCH (10:00)
[2021-08-10] MEDS ORDERED: IV NORMAL SALINE 1000ML BAG 1,000 ML IV ONE (12:00)
--- NOTE | 2021-08-10 16:39 | PDOC2 ---
CONSULT Date of Consult Date of Consult DATE: 08/10/21 TIME: 16:30 Reason for Consult Reason for Consult: Syncope and weakness Referring Physician Referring Physician: Dr. Paniagua Identification/Chief Complaint Chief Complaint Syncope Source Source: Chart review, Patient History of Present Illness Reason for Visit: The patient is a 71-year-old male who reports progressive weakness over the past several weeks as well as increasing episodes of syncope on the day of admission. Patient also experienced vomiting on that day. He was brought to the emergency room by paramedics. Initial EKG showed a sinus rhythm with no acute ischemic changes. Work-up has included a CT scan of the head and C-spine that showed no acute changes. Chest x-ray shows no acute processes. Right shoulder x-ray showed no fracture or dislocation. From a cardiac viewpoint patient has had multiple imaging techniques with an MPI stress test on 05/20/2021 that showed no evidence of ischemia or infarct and ejection fraction of greater than 60%. An echocardiogram on 11/13/2020 showed an ejection fraction of 60 to 65% with mild mitral regurgitation and mild tricuspid regurgitation. A carotid ultrasound on 11/09/2018 showed mild bilateral plaquing. 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 Patient's rhythm has remained stable overnight. He reports feeling mildly better today. He denies chest pain. He has a history of cardio neurogenic syncope, narcolepsy and hypertension. Past Medical History Cardiovascular: HTN, Syncope, Hyperlipidemia Pulmonary: Other CENTRAL NERVOUS SYSTEM: Periperal neuropathy, Other GI: GERD Heme/Onc: No pertinent hx, Cancer Hepatobiliary: No pertinent hx Musculoskeletal: Osteoarthritis Renal/: Prostate Ca. Endocrine: Diabetes Past Surgical History Past Surgical History: Pacemaker, Arthroscopy, Cholecystectomy, Hernia Repair, Other Family History Family History: Stroke Social History No ALCOHOL: none Drugs: None Lives: with Family Current Problem List Problem List Problems Medical Problems: (1) Generalized weakness Status: Acute Current Medications Current Medications Current Medications Sodium Chloride 1,000 ml @ 1,000 mls/hr 1X ONCE IV Last administered on 08/09/21at 22:55; Start 08/09/21 at 22:30; Stop 08/09/21 at 23:29; Status DC Pharmacy Consult (C.diff Med Screen By Rx) 1 each 1X PRN PRN [facility] SEE ADMIN INSTRUCTIONS; Start 08/10/21 at 01:45; Status Cancel Morphine Sulfate (Morphine Sulfate) 1 mg PRN Q2HR PRN IVP PAIN Last administered on 08/10/21at 02:59; Start 08/10/21 at 02:45 Acetaminophen (Tylenol) 650 mg PRN Q6HRS PRN PO MILD PAIN / TEMP > 100.3'F Last administered on 08/10/21at 02:55; Start 08/10/21 at 02:45; Stop 08/10/21 at 09:34; Status DC Insulin Human Lispro (HumaLOG) 0-7 UNITS QIDACHS SQ Last administered on 08/10/21at 11:30; Start 08/10/21 at 07:30 Dextrose (Dextrose 50%-Water Syringe) 12.5 gm PRN Q15MIN PRN IV SEE COMMENTS; Start 08/10/21 at 02:45; Stop 08/10/21 at 09:34; Status DC Dextrose (Iv Dextrose 5%) 250 ml PRN Q15MIN PRN IV SEE COMMENTS; Start 08/10/21 at 02:45 Sennosides (Senna) 17.2 mg PRN BID PRN PO CONSTIPATION; Start 08/10/21 at 09:30 Docusate Sodium (Colace) 100 mg PRN DAILY PRN PO HARD STOOLS; Start 08/10/21 at 09:30 Ondansetron HCl (Zofran) 4 mg PRN Q6HRS PRN IVP NAUSEA/VOMITING, 1st CHOICE; Start 08/10/21 at 09:30 Dextrose (Dextrose 50%-Water Syringe) 12.5 gm PRN Q15MIN PRN IV SEE COMMENTS; Start 08/10/21 at 09:30 Acetaminophen (Tylenol) 650 mg PRN Q4HRS PRN PO TEMP OVER 100.4F OR MILD PAIN; Start 08/10/21 at 09:30 Lorazepam (Ativan) 0.5 mg PRN Q6HRS PRN PO ANXIETY / AGITATION; Start 08/10/21 at 09:30 Lorazepam (Ativan Inj) 0.25 mg PRN Q4HRS PRN IV ANXIETY / AGITATION; Start 08/10/21 at 09:30 Prochlorperazine Edisylate (Compazine) 10 mg PRN Q6HRS PRN IV NAUSEA/VOMITING, 2nd CHOICE; Start 08/10/21 at 09:30 Diphenhydramine HCl (Benadryl) 25 mg PRN Q6HRS PRN IVP ITCHING; Start 08/10/21 at 09:30 Diphenhydramine HCl (Benadryl) 25 mg PRN Q6HRS PRN PO ITCHING; Start 08/10/21 at 09:30 Diphenhydramine HCl (Benadryl) 25 mg PRN QHS PRN PO INSOMNIA, 1st CHOICE; Start 08/10/21 at 09:30 Zolpidem Tartrate (Ambien) 2.5 mg PRN QHS PRN PO INSOMNIA, 2nd CHOICE; Start 08/10/21 at 09:30 Aspirin (Ecotrin) 81 mg DAILY PO Last administered on 08/10/21at 10:00; Start 08/10/21 at 10:00 Gabapentin (Neurontin) 1,200 mg HS PO ; Start 08/10/21 at 21:00 Gabapentin (Neurontin) 900 mg DAILY PO Last administered on 08/10/21at 10:00; Start 08/10/21 at 10:00 Metformin HCl (Glucophage Xr) 2,000 mg DAILY PO Last administered on 08/10/21at 10:00; Start 08/10/21 at 10:00 Simvastatin (Zocor) 20 mg HS PO ; Start 08/10/21 at 21:00 Insulin Glargine (Lantus Syringe) 10 unit BID SQ Last administered on 08/10/21at 10:00; Start 08/10/21 at 10:00 Pantoprazole Sodium (Protonix) 40 mg DAILYAC PO Last administered on 08/10/21at 10:00; Start 08/10/21 at 10:00 Insulin Human Lispro (HumaLOG) 0-5 UNITS TIDWMEALS SQ Last administered on at 12:00; Start 08/10/21 at 12:00 Dextrose (Dextrose 50%-Water Syringe) 12.5 gm PRN Q15MIN PRN IV SEE COMMENTS; Start 08/10/21 at 09:45; Status UNV Sodium Chloride 1,000 ml @ 200 mls/hr 1X ONCE IV Last administered on 08/10/21at 12:00; Start 08/10/21 at 12:00; Stop 08/10/21 at 16:59 Active Scripts Active Magnesium Oxide 400 (Magnesium Oxide) 240 Mg Powd.pack 240 Mg PO DAILY 30 Days Tessalon Perle (Benzonatate) 100 Mg Capsule 1 Cap PO TID PRN 7 Days Tylenol (Acetaminophen) 325 Mg Tablet 650 Mg PO PRN Q4HRS PRN 30 Days Reported Nuvigil (Armodafinil) 50 Mg Tablet 1 Tab PO DAILY MDD 1 Tablet(s) 30 Days take with 150mg to equal 200mg Bariatric Mv-Iron 45 mg Cap (Multivit-Min/Iron/Folic Acid/K) 1 Each Capsule 1 Each PO DAILY Januvia (Sitagliptin Phosphate) 100 Mg Tablet 1 Tab PO DAILY Atenolol 50 Mg Tablet 1 Tab PO BID Novolin N Flexpen (Insulin NPH Human Isophane) 100 Unit/1 Ml Insuln.pen 10 Units SQ BIDBFRMEAL Metformin Hcl Er (Metformin Hcl) 500 Mg Tab.er.24h 4 Tab PO DAILY Nuvigil (Armodafinil) 150 Mg Tablet 150 Mg PO DAILY take with 50mg tab to equal 200 mg Aspir-Low (Aspirin) 81 Mg Tablet. 1 Tab PO DAILY Lisinopril 20 Mg Tablet 1 Tab PO DAILY Gabapentin (Gabapentin) 300 Mg Capsule 1,200 Mg PO HS Gabapentin (Gabapentin) 300 Mg Capsule 900 Mg PO DAILY Omeprazole 20 Mg Capsule.dr 20 Mg PO DAILY Zocor (Simvastatin) 20 Mg Tablet 20 Mg PO HS Allergies Allergies: Coded Allergies: topiramate (Verified Adverse Reaction, Severe, stroke like symptoms, 08/09/21) ROS General: YES: Fatigue Cardiovascular: yes Lt Headedness, yes Other (Recurrent syncope) Physical Exam General: mild distress HEENT: Atraumatic Lungs: Other (Mildly decreased breath sounds) Heart: Regular rate Abdomen: Normal bowel sounds Vitals VITALS Vital Signs Date Time Temp Pulse Resp B/P (MAP) Pulse Ox O2 Delivery O2 Flow Rate FiO2 08/10/21 14:46 98.0 72 20 154/83 (106) 96 Room Air 98.0 Labs Labs Laboratory Tests Test 08/09/21 22:34 08/10/21 02:45 08/10/21 07:06 08/10/21 11:07 White Blood Count 5.4 x10^3/uL (4.0-11.0) Red Blood Count 4.94 x10^6/uL (4.30-5.70) Hemoglobin 15.0 g/dL (13.0-17.5) Hematocrit 45.0 % (39.0-53.0) Mean Corpuscular Volume 91 fL (79-100) Mean Corpuscular Hemoglobin 30 pg (25-35) Mean Corpuscular Hemoglobin Concent 33 g/dL (31-37) Red Cell Distribution Width 14.1 % (11.5-14.5) Platelet Count 150 x10^3/uL (140-400) Neutrophils (%) (Auto) 87 % (31-73) Lymphocytes (%) (Auto) 7 % (24-48) Monocytes (%) (Auto) 6 % (0-9) Eosinophils (%) (Auto) 0 % (0-3) Basophils (%) (Auto) 0 % (0-3) Neutrophils # (Auto) 4.7 x10^3/uL (1.8-7.7) Lymphocytes # (Auto) 0.4 x10^3/uL (1.0-4.8) Monocytes # (Auto) 0.3 x10^3/uL (0.0-1.1) Eosinophils # (Auto) 0.0 x10^3/uL (0.0-0.7) Basophils # (Auto) 0.0 x10^3/uL (0.0-0.2) Sodium Level 138 mmol/L (136-145) Potassium Level 4.4 mmol/L (3.5-5.1) Chloride Level 101 mmol/L (98-107) Carbon Dioxide Level 29 mmol/L (21-32) Anion Gap 8 (6-14) Blood Urea Nitrogen 22 mg/dL (8-26) Creatinine 1.1 mg/dL (0.7-1.3) Estimated GFR (Cockcroft-Gault) 65.8 BUN/Creatinine Ratio 20 (6-20) Glucose Level 203 mg/dL (70-99) Calcium Level 8.7 mg/dL (8.5-10.1) Phosphorus Level 3.5 mg/dL (2.6-4.7) Magnesium Level 1.9 mg/dL (1.8-2.4) Total Bilirubin 0.6 mg/dL (0.2-1.0) Aspartate Amino Transf (AST/SGOT) 19 U/L (15-37) Alanine Aminotransferase (ALT/SGPT) 20 U/L (16-63) Alkaline Phosphatase 60 U/L (46-116) Creatine Kinase 274 U/L (39-308) Troponin I High Sensitivity 8 ng/L (4-75) Total Protein 7.0 g/dL (6.4-8.2) Albumin 3.6 g/dL (3.4-5.0) Albumin/Globulin Ratio 1.1 (1.0-1.7) Urine Collection Type Unknown Urine Color Yellow Urine Clarity Clear Urine pH 5.5 (<5.0-8.0) Urine Specific Rhododendron 1.025 (1.000-1.030) Urine Protein Negative mg/dL (NEG-TRACE) Urine Glucose (UA) Negative mg/dL (NEG) Urine Ketones (Stick) 40 mg/dL (NEG) Urine Blood Small (NEG) Urine Nitrite Negative (NEG) Urine Bilirubin Negative (NEG) Urine Urobilinogen Dipstick 0.2 mg/dL (0.2 mg/dL) Urine Leukocyte Esterase Negative (NEG) Urine RBC 6-10 /HPF (0-2) Urine WBC Rare /HPF (0-4) Urine Squamous Epithelial Cells Few /LPF Urine Bacteria 0 /HPF (0-FEW) Urine Mucus Slight /LPF Glucose (Fingerstick) 172 mg/dL (70-99) 177 mg/dL (70-99) Laboratory Tests Test 08/09/21 22:34 08/10/21 02:45 08/10/21 07:06 08/10/21 11:07 White Blood Count 5.4 x10^3/uL (4.0-11.0) Red Blood Count 4.94 x10^6/uL (4.30-5.70) Hemoglobin 15.0 g/dL (13.0-17.5) Hematocrit 45.0 % (39.0-53.0) Mean Corpuscular Volume 91 fL (79-100) Mean Corpuscular Hemoglobin 30 pg (25-35) Mean Corpuscular Hemoglobin Concent 33 g/dL (31-37) Red Cell Distribution Width 14.1 % (11.5-14.5) Platelet Count 150 x10^3/uL (140-400) Neutrophils (%) (Auto) 87 % (31-73) Lymphocytes (%) (Auto) 7 % (24-48) Monocytes (%) (Auto) 6 % (0-9) Eosinophils (%) (Auto) 0 % (0-3) Basophils (%) (Auto) 0 % (0-3) Neutrophils # (Auto) 4.7 x10^3/uL (1.8-7.7) Lymphocytes # (Auto) 0.4 x10^3/uL (1.0-4.8) Monocytes # (Auto) 0.3 x10^3/uL (0.0-1.1) Eosinophils # (Auto) 0.0 x10^3/uL (0.0-0.7) Basophils # (Auto) 0.0 x10^3/uL (0.0-0.2) Sodium Level 138 mmol/L (136-145) Potassium Level 4.4 mmol/L (3.5-5.1) Chloride Level 101 mmol/L (98-107) Carbon Dioxide Level 29 mmol/L (21-32) Anion Gap 8 (6-14) Blood Urea Nitrogen 22 mg/dL (8-26) Creatinine 1.1 mg/dL (0.7-1.3) Estimated GFR (Cockcroft-Gault) 65.8 BUN/Creatinine Ratio 20 (6-20) Glucose Level 203 mg/dL (70-99) Calcium Level 8.7 mg/dL (8.5-10.1) Phosphorus Level 3.5 mg/dL (2.6-4.7) Magnesium Level 1.9 mg/dL (1.8-2.4) Total Bilirubin 0.6 mg/dL (0.2-1.0) Aspartate Amino Transf (AST/SGOT) 19 U/L (15-37) Alanine Aminotransferase (ALT/SGPT) 20 U/L (16-63) Alkaline Phosphatase 60 U/L (46-116) Creatine Kinase 274 U/L (39-308) Troponin I High Sensitivity 8 ng/L (4-75) Total Protein 7.0 g/dL (6.4-8.2) Albumin 3.6 g/dL (3.4-5.0) Albumin/Globulin Ratio 1.1 (1.0-1.7) Urine Collection Type Unknown Urine Color Yellow Urine Clarity Clear Urine pH 5.5 (<5.0-8.0) Urine Specific [place] 1.025 (1.000-1.030) Urine Protein Negative mg/dL (NEG-TRACE) Urine Glucose (UA) Negative mg/dL (NEG) Urine Ketones (Stick) 40 mg/dL (NEG) Urine Blood Small (NEG) Urine Nitrite Negative (NEG) Urine Bilirubin Negative (NEG) Urine Urobilinogen Dipstick 0.2 mg/dL (0.2 mg/dL) Urine Leukocyte Esterase Negative (NEG) Urine RBC 6-10 /HPF (0-2) Urine WBC Rare /HPF (0-4) Urine Squamous Epithelial Cells Few /LPF Urine Bacteria 0 /HPF (0-FEW) Urine Mucus Slight /LPF Glucose (Fingerstick) 172 mg/dL (70-99) 177 mg/dL (70-99) Images Images Chest x-ray, CT scan of the head and C-spine and right shoulder x-ray as above. No acute changes were identified. Assessment/Plan Assessment/Plan 1. Syncope. Patient reports episodes of increased syncope. His rhythm is now a sinus rhythm. Pacemaker was placed in 2019. He continues to have a diagnosis of of neurocardiogenic syncope. We will continue baseline medications. We will continue telemetry. Possible repeat neurological evaluation. As outlined above the patient had a low risk nuclear stress test on 05/20/2021. An echocardiogram on 11/13/2020 showed normal ejection fraction with mild mitral regurgitation and mild tricuspid regurgitation. We will check further old records. 2. Progressive weakness with episodes of vomiting yesterday. Patient is being treated with IV fluids. We will continue present treatment. Patient is being evaluated for outpatient continuing care. 3. History of narcolepsy as above. 4. History of hypertension. Continue present medications and monitoring. LILLY KU MD Aug 10, 2021 16:39
--- NOTE | 2021-08-10 19:04 | EKG ---
[facility] [address] [place] [address] Test Date: 2021-08-09 Test Time: 22:27:34 Pat Name: SHARON HILL Department: Room: 536 1 Gender: M Facility Practice Specialist: : [id number] Requested By: JARRETT KENNEDY Order Number: [id number] Reading MD: Sebastián Rhodes Measurements Intervals [place] Rate: 99 P: 36 LA: 144 QRS: -62 QRSD: 144 T: 80 QT: 378 QTc: 485 Interpretive Statements SINUS RHYTHM LEFT ANTERIOR FASCICULAR BLOCK RIGHT BUNDLE BRANCH BLOCK BIFASCICULAR BLOCK RVH WITH REPOLARIZATION ABNORMALITY Electronically Signed On 08-11-2021 14:59:47 CDT by Sebastián Rhodes
[2021-08-10] MEDS ORDERED: GABAPENTIN 300 MG CAPSULE. PO SCH (21:00)
[2021-08-10] MEDS ORDERED: SIMVASTATIN 20 MG TABLET PO SCH (21:00)
[2021-08-11 03:25] VITALS: BP 141/75
[2021-08-11 07:00] VITALS: BP 156/92
[2021-08-11 07:21] LABS: BASO % 1 % (0-3); EOS # 0.1 x10^3/uL (0.0-0.7); EOS % 3 % (0-3); HEMATOCRIT 43.8 % (39.0-53.0); HEMOGLOBIN 14.3 g/dL (13.0-17.5); LYMPH # 1.1 x10^3/uL (1.0-4.8); LYMPH % 36 % (24-48); MEAN CORPUSCULAR HEMOGLOBIN 30 pg (25-35); MEAN CORPUSCULAR HGB CONC 33 g/dL (31-37); MEAN CORPUSCULAR VOLUME 92 fL (79-100); MONO # 0.4 x10^3/uL (0.0-1.1); MONO % 12 % (0-9); NEUT # 1.5 x10^3/uL (1.8-7.7); NEUT % 49 % (31-73); PLATELET COUNT 136 x10^3/uL (140-400); RED BLOOD COUNT 4.74 x10^6/uL (4.30-5.70)
[2021-08-11] MEDS: INSULIN LISPRO 300 UNITS/3 ML VIAL. SQ SCH ×3 (07:30→12:00)
[2021-08-11 07:35] LABS: CALCIUM 8.5 mg/dL (8.5-10.1); CREATININE 0.9 mg/dL (0.7-1.3); GFR 82.9; PHOSPHORUS 2.5 mg/dL (2.6-4.7); POTASSIUM 4.4 mmol/L (3.5-5.1)
[2021-08-11] MEDS: ASPIRIN ENTERIC COATED 81 MG TABLET.DR. PO SCH (08:23)
[2021-08-11] MEDS: PANTOPRAZOLE 40 MG TABLET.DR. PO SCH (08:24)
[2021-08-11] MEDS: GABAPENTIN 300 MG CAPSULE. PO SCH (08:24)
[2021-08-11] MEDS: metFORMIN XR 500 MG TAB.ER.24H PO SCH (08:24)
[2021-08-11] MEDS: INSULIN GLARGINE SYRINGE. SQ SCH (08:27)
[2021-08-11 11:00] VITALS: BP 129/93
--- NOTE | 2021-08-11 12:34 | SNU/HH DC ---
DISCHARGE WITH HOME HEALTH DISCHARGE INFORMATION: Final Diagnosis: Problems Medical Problems: (1) Generalized weakness Status: Acute Condition on Discharge: Stable CODE STATUS: Code Status: Full HOME HEALTH: Face to Face: I certify this patient is under my care and that I, or a nurse practitioner or physician's assistant import manager working with me, had a face to face encounter that meets the physician face to face encounter requirements with this patient on []. Medical Complications: Other (Debility) Mcfp For: Assess & Educate Safety RN For Eval/Treatment: Yes Physical Therapy For: Evalulation/Treatment Occupational Therapy For: Evaluation/Treatment Home Health Aide For: Self-care FIELD SERVICE REPRESENTATIVE For: Community Resources Pt Meets Homebound Status: Poor coordination w/ amb. POST DISCHARGE ORDERS: Activity Instructions for Disc: Activity as tolerated Weight Bearing Status after Di: Full weight bearing Bathing Instructions: Shower-keep dressing dry DIET AFTER DISCHARGE: Cardiac Wound/Incision Care: No wound care needed CHECKS AFTER DISCHARGE: Checks after discharge: Check blood press - daily, Check blood sugar, ac/hs TREATMENT/EQUIPMENT ORDERS: Adaptive Equipment Issued: None Discharge Respiratory Equipmen: CPAP CERTIFICATION STATEMENT: Certification Statement: Certification Statement: Based on the above finding, I certify that this patient is confined to the home and needs intermittent halfway care, physical therapy and/or speech therapy, or continues to need occupational therapy.~ This patient is under my care, and I have initiated the establishment of the plan of care.~ This patient will be followed by myself or a community physician who will periodically review the plan of care. Home Meds Active Scripts Magnesium Oxide (Magnesium Oxide 400) 240 Mg Powd.pack, 240 MG PO DAILY for Hypomagnesemia for 30 Days, #30 PKT 11 Refills Prov:FARZANEH ESPOSITO MD 10/15/20 Benzonatate (TESSALON PERLE) 100 Mg Capsule, 1 CAP PO TID PRN for COUGH for 7 Days, #21 CAP 0 Refills Prov:ANISHA MARIE [employer] 06/20/19 Acetaminophen (TYLENOL) 325 Mg Tablet, 650 MG PO PRN Q4HRS PRN for TEMP OVER 100.4F OR MILD PAIN for 30 Days, #60 TAB Prov:JUSTINA TANG MD 02/04/19 Reported Medications Armodafinil (NUVIGIL) 50 Mg Tablet, 1 TAB PO DAILY for narcolepsy MDD 1 Tablet(s) for 30 Days, #30 TAB 0 Refills take with 150mg to equal 200mg 08/10/21 Multivit-Min/Iron/Folic Acid/K (Bariatric Mv-Iron 45 mg Cap) 1 Each Capsule, 1 EACH PO DAILY for supplement, CAP 08/10/21 Sitagliptin Phosphate (JANUVIA) 100 Mg Tablet, 1 TAB PO DAILY for diabetes 07/04/21 Atenolol (ATENOLOL) 50 Mg Tablet, 1 TAB PO BID for htn 04/30/21 Insulin NPH Human Isophane (Novolin N Flexpen) 100 Unit/1 Ml Insuln.pen, 10 UNITS SQ BIDBFRMEAL for dm 04/30/21 Metformin Hcl (METFORMIN HCL ER) 500 Mg Tab.er.24h, 4 TAB PO DAILY for dm 04/30/21 Armodafinil (NUVIGIL) 150 Mg Tablet, 150 MG PO DAILY for , TAB take with 50mg tab to equal 200 mg 10/15/20 Aspirin (ASPIR-LOW) 81 Mg Tablet.dr, 1 TAB PO DAILY for antiplatelet, #30 TAB 3 Refills 03/30/19 Lisinopril (LISINOPRIL) 20 Mg Tablet, 1 TAB PO DAILY for HTN, #30 TAB 5 Refills 03/30/19 Gabapentin (GABAPENTIN ) 300 Mg Capsule, 1200 MG PO HS for NEUROGENIC PAIN, CAP 03/30/19 Gabapentin (GABAPENTIN ) 300 Mg Capsule, 900 MG PO DAILY for NEUROGENIC PAIN, CAP 03/30/19 Omeprazole (OMEPRAZOLE) 20 Mg Capsule.dr, 20 MG PO DAILY for gerd, CAP 07/20/18 Simvastatin (ZOCOR) 20 Mg Tablet, 20 MG PO HS for FOR CHOLESTEROL, #30 TAB 0 Refills 07/06/14 Discontinued Reported Medications Multivitamin (MULTI VITAMIN DAILY) 1 Each Tablet, 1 TAB PO DAILY for supplement for 30 Days, #30 TAB 0 Refills 03/30/19 ALTA RODRIGUEZ III DO Aug 11, 2021 12:34
--- NOTE | 2021-08-11 12:51 | PDOC ---
PROGRESS NOTES Date of Service DATE: 08/11/21 TIME: 12:48 Subjective Subjective Patient seen and examined He looks and feels better today. Objective Objective Vital Signs Date Time Temp Pulse Resp B/P (MAP) Pulse Ox O2 Delivery O2 Flow Rate FiO2 08/11/21 11:00 98.4 88 18 129/93 (105) 95 Room Air 98.4 Intake and Output 08/11/21 07:00 Intake Total 620 ml Balance 620 ml Intake Oral 620 ml # Voids 2 # Bowel Movements 1 Physical Exam Abdomen: Normal bowel sounds Heart: Regular rate General: No acute distress Lungs: Clear to auscultation Assessment Assessment Problems Medical Problems: (1) Generalized weakness Status: Acute 1. Syncope. Patient reports episodes of increased syncope. His rhythm has remained in sinus overnight. A pacemaker was placed in 2019. He continues to have a diagnosis of of neurocardiogenic syncope. We will continue baseline medications. Possible repeat neurological evaluation. The patient had a low risk nuclear stress test on 05/20/2021. An echocardiogram on 11/13/2020 showed n ormal ejection fraction with mild mitral regurgitation and mild tricuspid regurgitation. We will continue present treatments. Outpatient follow-up. 2. Progressive weakness with episodes of vomiting yesterday. Patient has been treated with IV fluids. He is feeling much better today and will increase activity. 3. History of narcolepsy as above. 4. History of hypertension. Continue present medications and monitoring. Comment Review of Relevant I have reviewed the following items argenis (where applicable) has been applied. Labs Laboratory Tests Test 08/09/21 22:34 08/10/21 02:45 08/10/21 07:06 08/10/21 11:07 White Blood Count 5.4 x10^3/uL (4.0-11.0) Red Blood Count 4.94 x10^6/uL (4.30-5.70) Hemoglobin 15.0 g/dL (13.0-17.5) Hematocrit 45.0 % (39.0-53.0) Mean Corpuscular Volume 91 fL (79-100) Mean Corpuscular Hemoglobin 30 pg (25-35) Mean Corpuscular Hemoglobin Concent 33 g/dL (31-37) Red Cell Distribution Width 14.1 % (11.5-14.5) Platelet Count 150 x10^3/uL (140-400) Neutrophils (%) (Auto) 87 % (31-73) Lymphocytes (%) (Auto) 7 % (24-48) Monocytes (%) (Auto) 6 % (0-9) Eosinophils (%) (Auto) 0 % (0-3) Basophils (%) (Auto) 0 % (0-3) Neutrophils # (Auto) 4.7 x10^3/uL (1.8-7.7) Lymphocytes # (Auto) 0.4 x10^3/uL (1.0-4.8) Monocytes # (Auto) 0.3 x10^3/uL (0.0-1.1) Eosinophils # (Auto) 0.0 x10^3/uL (0.0-0.7) Basophils # (Auto) 0.0 x10^3/uL (0.0-0.2) Sodium Level 138 mmol/L (136-145) Potassium Level 4.4 mmol/L (3.5-5.1) Chloride Level 101 mmol/L (98-107) Carbon Dioxide Level 29 mmol/L (21-32) Anion Gap 8 (6-14) Blood Urea Nitrogen 22 mg/dL (8-26) Creatinine 1.1 mg/dL (0.7-1.3) Estimated GFR (Cockcroft-Gault) 65.8 BUN/Creatinine Ratio 20 (6-20) Glucose Level 203 mg/dL (70-99) Calcium Level 8.7 mg/dL (8.5-10.1) Phosphorus Level 3.5 mg/dL (2.6-4.7) Magnesium Level 1.9 mg/dL (1.8-2.4) Total Bilirubin 0.6 mg/dL (0.2-1.0) Aspartate Amino Transf (AST/SGOT) 19 U/L (15-37) Alanine Aminotransferase (ALT/SGPT) 20 U/L (16-63) Alkaline Phosphatase 60 U/L (46-116) Creatine Kinase 274 U/L (39-308) Troponin I High Sensitivity 8 ng/L (4-75) Total Protein 7.0 g/dL (6.4-8.2) Albumin 3.6 g/dL (3.4-5.0) Albumin/Globulin Ratio 1.1 (1.0-1.7) Urine Collection Type Unknown Urine Color Yellow Urine Clarity Clear Urine pH 5.5 (<5.0-8.0) Urine Specific [place] 1.025 (1.000-1.030) Urine Protein Negative mg/dL (NEG-TRACE) Urine Glucose (UA) Negative mg/dL (NEG) Urine Ketones (Stick) 40 mg/dL (NEG) Urine Blood Small (NEG) Urine Nitrite Negative (NEG) Urine Bilirubin Negative (NEG) Urine Urobilinogen Dipstick 0.2 mg/dL (0.2 mg/dL) Urine Leukocyte Esterase Negative (NEG) Urine RBC 6-10 /HPF (0-2) Urine WBC Rare /HPF (0-4) Urine Squamous Epithelial Cells Few /LPF Urine Bacteria 0 /HPF (0-FEW) Urine Mucus Slight /LPF Glucose (Fingerstick) 172 mg/dL (70-99) 177 mg/dL (70-99) Test 08/10/21 16:51 08/10/21 20:15 08/11/21 06:55 08/11/21 07:45 Glucose (Fingerstick) 140 mg/dL (70-99) 162 mg/dL (70-99) 147 mg/dL (70-99) White Blood Count 3.0 x10^3/uL (4.0-11.0) Red Blood Count 4.74 x10^6/uL (4.30-5.70) Hemoglobin 14.3 g/dL (13.0-17.5) Hematocrit 43.8 % (39.0-53.0) Mean Corpuscular Volume 92 fL (79-100) Mean Corpuscular Hemoglobin 30 pg (25-35) Mean Corpuscular Hemoglobin Concent 33 g/dL (31-37) Red Cell Distribution Width 14.0 % (11.5-14.5) Platelet Count 136 x10^3/uL (140-400) Neutrophils (%) (Auto) 49 % (31-73) Lymphocytes (%) (Auto) 36 % (24-48) Monocytes (%) (Auto) 12 % (0-9) Eosinophils (%) (Auto) 3 % (0-3) Basophils (%) (Auto) 1 % (0-3) Neutrophils # (Auto) 1.5 x10^3/uL (1.8-7.7) Lymphocytes # (Auto) 1.1 x10^3/uL (1.0-4.8) Monocytes # (Auto) 0.4 x10^3/uL (0.0-1.1) Eosinophils # (Auto) 0.1 x10^3/uL (0.0-0.7) Basophils # (Auto) 0.0 x10^3/uL (0.0-0.2) Sodium Level 142 mmol/L (136-145) Potassium Level 4.4 mmol/L (3.5-5.1) Chloride Level 107 mmol/L (98-107) Carbon Dioxide Level 28 mmol/L (21-32) Anion Gap 7 (6-14) Blood Urea Nitrogen 15 mg/dL (8-26) Creatinine 0.9 mg/dL (0.7-1.3) Estimated GFR (Cockcroft-Gault) 82.9 Glucose Level 142 mg/dL (70-99) Calcium Level 8.5 mg/dL (8.5-10.1) Phosphorus Level 2.5 mg/dL (2.6-4.7) Magnesium Level 2.0 mg/dL (1.8-2.4) Test 08/11/21 11:59 Glucose (Fingerstick) 158 mg/dL (70-99) Laboratory Tests Test 08/10/21 16:51 08/10/21 20:15 08/11/21 06:55 08/11/21 07:45 Glucose (Fingerstick) 140 mg/dL (70-99) 162 mg/dL (70-99) 147 mg/dL (70-99) White Blood Count 3.0 x10^3/uL (4.0-11.0) Red Blood Count 4.74 x10^6/uL (4.30-5.70) Hemoglobin 14.3 g/dL (13.0-17.5) Hematocrit 43.8 % (39.0-53.0) Mean Corpuscular Volume 92 fL (79-100) Mean Corpuscular Hemoglobin 30 pg (25-35) Mean Corpuscular Hemoglobin Concent 33 g/dL (31-37) Red Cell Distribution Width 14.0 % (11.5-14.5) Platelet Count 136 x10^3/uL (140-400) Neutrophils (%) (Auto) 49 % (31-73) Lymphocytes (%) (Auto) 36 % (24-48) Monocytes (%) (Auto) 12 % (0-9) Eosinophils (%) (Auto) 3 % (0-3) Basophils (%) (Auto) 1 % (0-3) Neutrophils # (Auto) 1.5 x10^3/uL (1.8-7.7) Lymphocytes # (Auto) 1.1 x10^3/uL (1.0-4.8) Monocytes # (Auto) 0.4 x10^3/uL (0.0-1.1) Eosinophils # (Auto) 0.1 x10^3/uL (0.0-0.7) Basophils # (Auto) 0.0 x10^3/uL (0.0-0.2) Sodium Level 142 mmol/L (136-145) Potassium Level 4.4 mmol/L (3.5-5.1) Chloride Level 107 mmol/L (98-107) Carbon Dioxide Level 28 mmol/L (21-32) Anion Gap 7 (6-14) Blood Urea Nitrogen 15 mg/dL (8-26) Creatinine 0.9 mg/dL (0.7-1.3) Estimated GFR (Cockcroft-Gault) 82.9 Glucose Level 142 mg/dL (70-99) Calcium Level 8.5 mg/dL (8.5-10.1) Phosphorus Level 2.5 mg/dL (2.6-4.7) Magnesium Level 2.0 mg/dL (1.8-2.4) Test 08/11/21 11:59 Glucose (Fingerstick) 158 mg/dL (70-99) Medications Current Medications Sodium Chloride 1,000 ml @ 1,000 mls/hr 1X ONCE IV Last administered on 08/09/21at 22:55; Start 08/09/21 at 22:30; Stop 08/09/21 at 23:29; Status DC Pharmacy Consult (C.diff Med Screen By Rx) 1 each 1X PRN PRN MC SEE ADMIN INST RUCTIONS; Start 08/10/21 at 01:45; Status Cancel Morphine Sulfate (Morphine Sulfate) 1 mg PRN Q2HR PRN IVP PAIN Last administe red on 08/10/21at 02:59; Start 08/10/21 at 02:45 Acetaminophen (Tylenol) 650 mg PRN Q6HRS PRN PO MILD PAIN / TEMP > 100.3'F Last administered on 08/10/21at 02:55; Start 08/10/21 at 02:45; Stop 08/10/21 at 09:34; Status DC Insulin Human Lispro (HumaLOG) 0-7 UNITS QIDACHS SQ Last administered on 08/10/21at 11:30; Start 08/10/21 at 07:30; Stop 08/11/21 at 12:21; Status DC Dextrose (Dextrose 50%-Water Syringe) 12.5 gm PRN Q15MIN PRN IV SEE COMMENTS; Start 08/10/21 at 02:45; Stop 08/10/21 at 09:34; Status DC Dextrose (Iv Dextrose 5%) 250 ml PRN Q15MIN PRN IV SEE COMMENTS; Start 08/10/21 at 02:45 Sennosides (Senna) 17.2 mg PRN BID PRN PO CONSTIPATION; Start 08/10/21 at 09:30 Docusate Sodium (Colace) 100 mg PRN DAILY PRN PO HARD STOOLS; Start 08/10/21 at 09:30 Ondansetron HCl (Zofran) 4 mg PRN Q6HRS PRN IVP NAUSEA/VOMITING, 1st CHOICE; Start 08/10/21 at 09:30 Dextrose (Dextrose 50%-Water Syringe) 12.5 gm PRN Q15MIN PRN IV SEE COMMENTS; Start 08/10/21 at 09:30 Acetaminophen (Tylenol) 650 mg PRN Q4HRS PRN PO TEMP OVER 100.4F OR MILD PAIN; Start 08/10/21 at 09:30 Lorazepam (Ativan) 0.5 mg PRN Q6HRS PRN PO ANXIETY / AGITATION; Start 08/10/21 at 09:30 Lorazepam (Ativan Inj) 0.25 mg PRN Q4HRS PRN IV ANXIETY / AGITATION; Start 08/10/21 at 09:30 Prochlorperazine Edisylate (Compazine) 10 mg PRN Q6HRS PRN IV NAUSEA/VOMITING, 2nd CHOICE; Start 08/10/21 at 09:30 Diphenhydramine HCl (Benadryl) 25 mg PRN Q6HRS PRN IVP ITCHING; Start 08/10/21 at 09:30 Diphenhydramine HCl (Benadryl) 25 mg PRN Q6HRS PRN PO ITCHING; Start 08/10/21 at 09:30 Diphenhydramine HCl (Benadryl) 25 mg PRN QHS PRN PO INSOMNIA, 1st CHOICE; Start 08/10/21 at 09:30 Zolpidem Tartrate (Ambien) 2.5 mg PRN QHS PRN PO INSOMNIA, 2nd CHOICE; Start 08/10/21 at 09:30 Aspirin (Ecotrin) 81 mg DAILY PO Last administered on 08/11/21at 08:23; Start 08/10/21 at 10:00 Gabapentin (Neurontin) 1,200 mg HS PO Last administered on 08/10/21at 20:40; Start 08/10/21 at 21:00 Gabapentin (Neurontin) 900 mg DAILY PO Last administered on 08/11/21at 08:24; Start 08/10/21 at 10:00 Metformin HCl (Glucophage Xr) 2,000 mg DAILY PO Last administered on 08/11/21at 08:24; Start 08/10/21 at 10:00 Simvastatin (Zocor) 20 mg HS PO Last administered on 08/10/21at 20:40; Start 08/10/21 at 21:00 Insulin Glargine (Lantus Syringe) 10 unit BID SQ Last administered on 08/11/21at 08:27; Start 08/10/21 at 10:00 Pantoprazole Sodium (Protonix) 40 mg DAILYAC PO Last administered on 08/11/21at 08:24; Start 08/10/21 at 10:00 Insulin Human Lispro (HumaLOG) 0-5 UNITS TIDWMEALS SQ Last administered on 08/11/21at 12:00; Start 08/10/21 at 12:00 Dextrose (Dextrose 50%-Water Syringe) 12.5 gm PRN Q15MIN PRN IV SEE COMMENTS; Start 08/10/21 at 09:45; Status UNV Sodium Chloride 1,000 ml @ 200 mls/hr 1X ONCE IV Last administered on 08/10/21at 12:00; Start 08/10/21 at 12:00; Stop 08/10/21 at 16:59; Status DC Active Scripts Active Magnesium Oxide 400 (Magnesium Oxide) 240 Mg Powd.pack 240 Mg PO DAILY 30 Days Tessalon Perle (Benzonatate) 100 Mg Capsule 1 Cap PO TID PRN 7 Days Tylenol (Acetaminophen) 325 Mg Tablet 650 Mg PO PRN Q4HRS PRN 30 Days Reported Nuvigil (Armodafinil) 50 Mg Tablet 1 Tab PO DAILY MDD 1 Tablet(s) 30 Days take with 150mg to equal 200mg Bariatric Mv-Iron 45 mg Cap (Multivit-Min/Iron/Folic Acid/K) 1 Each Capsule 1 Each PO DAILY Januvia (Sitagliptin Phosphate) 100 Mg Tablet 1 Tab PO DAILY Atenolol 50 Mg Tablet 1 Tab PO BID Novolin N Flexpen (Insulin NPH Human Isophane) 100 Unit/1 Ml Insuln.pen 10 Units SQ BIDBFRMEAL Metformin Hcl Er (Metformin Hcl) 500 Mg Tab.er.24h 4 Tab PO DAILY Nuvigil (Armodafinil) 150 Mg Tablet 150 Mg PO DAILY take with 50mg tab to equal 200 mg Aspir-Low (Aspirin) 81 Mg Tablet. 1 Tab PO DAILY Lisinopril 20 Mg Tablet 1 Tab PO DAILY Gabapentin (Gabapentin) 300 Mg Capsule 1,200 Mg PO HS Gabapentin (Gabapentin) 300 Mg Capsule 900 Mg PO DAILY Omeprazole 20 Mg Capsule. 20 Mg PO DAILY Zocor (Simvastatin) 20 Mg Tablet 20 Mg PO HS Vitals/I & O Vital Sign - Last 24 Hours 08/10/21 08/10/21 08/10/21 08/10/21 14:46 19:48 20:00 23:24 Temp 98.0 98.3 98.2 98.0 98.3 98.2 Pulse 72 72 71 Resp 20 16 20 B/P (MAP) 154/83 (106) 158/80 (106) 148/71 (96) Pulse Ox 96 93 100 O2 Delivery Room Air Room Air Room Air Room Air 08/11/21 08/11/21 08/11/21 03:25 07:00 11:00 Temp 97.6 98.6 98.4 97.6 98.6 98.4 Pulse 69 74 88 Resp 16 18 18 B/P (MAP) 141/75 (97) 156/92 (113) 129/93 (105) Pulse Ox 94 95 95 O2 Delivery Room Air Room Air Room Air Intake and Output 3/08/10/21 08/11/21 15:00 23:00 07:00 Intake Total 350 ml 270 ml 0 ml Balance 350 ml 270 ml 0 ml Justifications for Admission Other Justification LILLY KU MD Aug 11, 2021 12:50
--- NOTE | 2021-08-11 13:10 | DS ---
DATE OF DISCHARGE: 08/11/2021 ADMITTING DIAGNOSIS: Syncope. DISCHARGE DIAGNOSES: Resolving syncope, history of arrhythmias, diabetes, previous cardiogenic syncopes, hernia, narcolepsy, obstructive sleep apnea, neuropathy. CONSULTS: Cardiology. PROCEDURES: None. HOSPITAL COURSE: The patient is a pleasant elderly male, well known to our service. Basically presented with another syncopal episode. We observed him overnight. This morning, I saw him and examined him. He wants to go home. We plan to discharge. DISPOSITION: Home. ACTIVITY: As tolerated. DIET: Low sodium. DISCHARGE MEDICATIONS: Please see the MRAD. P.r.n. Tylenol, Nuvigil 200 daily, aspirin 81 a day, atenolol 50 b.i.d., Tessalon Perles p.r.n., gabapentin 900 daily and 1200 at bedtime, NovoLog insulin 10 units with meals b.i.d., lisinopril 20 a day, magnesium oxide 240 a day, metformin 500 mg sustained release tablets 4 tabs daily, multiple vitamins, omeprazole 20 a day, simvastatin 20 a day and Januvia 100 a day. Total time 34 minutes. MICAELA/SRINIVASAN DR: MICAELA/kallie TID: [id number]
[2021-08-11 13:33] VITALS: BP 129/93
[2021-08-11] MEDS ORDERED: LISINOPRIL 20 MG TABLET PO SCH (14:00)
[2021-08-11] MEDS ORDERED: ATENOLOL 50 MG TABLET. PO SCH (14:00)
== END 2021-08-11 15:15 | disposition home or self-care (01) | DRG 312 ==
LOC: ER 22:18 → 5 NORTH 22:25 → OBSVTOIN 08-10 20:14
PROVIDERS: ADMIT Student in an Organized Health Care Education/Training Program; ATTEND Student in an Organized Health Care Education/Training Program
DX: I95.1 Orthostatic hypotension (principal); E11.40 Type 2 diabetes mellitus with diabetic neuropathy, unspecified; E78.5 Hyperlipidemia, unspecified; I10 Essential (primary) hypertension; I49.5 Sick sinus syndrome; M43.12 Spondylolisthesis, cervical region; K21.9 Gastro-esophageal reflux disease without esophagitis; W06.XXXA Fall from bed, initial encounter; Y93.89 Activity, other specified; Y92.89 Other specified places as the place of occurrence of the external cause; Y99.8 Other external cause status; Z82.3 Family history of stroke; Z85.46 Personal history of malignant neoplasm of prostate; Z90.49 Acquired absence of other specified parts of digestive tract; Z92.3 Personal history of irradiation; Z95.0 Presence of cardiac pacemaker; Z88.8 Allergy status to other drugs, medicaments and biological substances
CPT/HCPCS: 36415; 70450; 71045; 72125; 73030; 80048; 80053; 81001; 82550; 82962; 83735; 84100; 84484; 85025; 93005; 96360; G0378; G0379; J1815; J2270; J7030; 97110-GP; 97116-GP; 99285-25

== ENCOUNTER → 2021-09-16 | Outpatient (CLI) | payer MEDICARE ==
[~2021-09-16] MED LIST changes: +ARMO50TA2 PO; +MULT1CAP33 PO
--- NOTE | 2021-09-16 13:21 | RAD ---
Thyroid ultrasound 09/16/2021 CLINICAL HISTORY: Multinodular goiter. TECHNIQUE: Real-time ultrasound examination of the thyroid gland was performed. Multiple images were obtained. FINDINGS: Comparison study is dated 01/16/2021. The thyroid gland is mildly enlarged. The right lobe of thyroid gland measures 4.9 x 1.8 x 1.8 cm in longitudinal, transverse, and AP dimensions. The left lobe of thyroid gland measures 4.2 x 1.6 x 1.6 cm in size. The isthmus measures 3 mm in thickness. . Multiple complex and/or hypoechoic nodules are seen scattered throughout both lobes of the thyroid gland consistent with a multinodular goiter. The nodules measure 0.8 to 1.8 cm in size. The largest nodule is seen within the inferior aspect of the left lobe of the thyroid gland The largest nodule involving the right lobe of the thyroid gland measu res 1.4 cm in greatest diameter. These have not significantly changed since the previous examination. No concerning new nodule is noted. IMPRESSION: Findings are seen consistent with a multinodular goiter, unchanged. Electronically signed by: Espinoza Evangelista MD (09/16/2021 1:18 PM) [id number]
== END ==
LOC: US 08:10
PROVIDERS: ATTEND Surgery
DX: E04.9 Nontoxic goiter, unspecified (principal)
CPT/HCPCS: 76536; 82962